=== PATIENT | female | born 1960 | race Caucasian/White ===

== ENCOUNTER 2019-08-23 10:07 | Emergency (ER) | payer OTHER, SELFPAY ==
[2019-08-23 10:09] VITALS: BP 151/91; PULSE 75; RESP 17; TEMP 36.9; O2SAT 97; BMI 31.4
--- NOTE | 2019-08-23 10:11 | NURSING ---
NO OLD EKGS
--- NOTE | 2019-08-23 10:47 | EKG12_ITS ---
Test Reason : PALPS Blood Pressure : / mmHG Vent. Rate : 075 BPM Atrial Rate : 075 BPM P-R Int : 184 ms QRS Dur : 088 ms QT Int : 394 ms P-R-T Axes : 043 056 052 degrees QTc Int : 439 ms Sinus rhythm with marked sinus arrhythmia Otherwise normal ECG Confirmed by RADHA SAHU, ANDER ([id number]), food expeditor TORI POLK ([id number]) on 08/25/2019 11:54:28 AM Referred By: FARNAZ Confirmed By:ANDER GARCIA MD
--- NOTE | 2019-08-23 10:48 | ED.VIS.GEN ---
History of Present Illness Chief Complaint: Palpitations Informant: Patient Onset: Month(s) Context: Gradual Onset Timing: Intermittent Narrative: Patient is a 59-year-old female with history of hypertension and seasonal allergies presenting with palpitations and feeling strange. Patient states she has had episodes over the past year but that has been worsening in frequency over the past month. She states she feels palpitations and fluttering in her chest. When this happens she feels off and her vision changes she feels nauseous and her arms feel heavy. She does not have associated chest pain. She not had any vomiting, abdominal pain or diarrhea. Her parents both have a history of atrial fibrillation. Last night when she had episode she checked her heart rate and noticed that her heart rate was jumping between the 90s and the 60s. She talk to her mother who is a retired nurse who recommended she get checked out. Patient moved to the [place] area in April from [place]. Her PCP is still in [place] she is been trying to find a local doctor. Patient states he sometimes has some swelling in her ankles denies any significant swelling of her legs. She denies any shortness of breath or cough. She denies any other complaints at this time. Past Medical History - Allergies and Home Meds Allergies/Adverse Reactions: Allergies Sulfa (Sulfonamide Antibiotics) Allergy (Verified 08/23/19 10:08) Hives amoxicillin [From Augmentin] Adverse Reaction (Verified 08/23/19 10:08) Upset Stomach clavulanic acid [From Augmentin] Adverse Reaction (Verified 08/23/19 10:08) Upset Stomach Primary Care Physician: Shaun Allan MD [NON-STAFF] - Past Medical History: - - HTN Surgical History: cholecystectomy Smoking Status: Former smoker Alcohol: None Drugs: None Review of Systems General: Reports: Malaise. Denies: Chills, Fever, Sweats Eyes: Reports: Visual changes - bilaterally - with fluttering episdoes . Denies: Diplopia ENT: Denies: Rhinorrhea, Sore throat Cardiovascular: Reports: Palpitations. Denies: Chest pain, Heart racing Respiratory: Denies: Dyspnea, Cough, Dyspnea on exertion Gastrointestinal: Denies: Abdominal pain, Nausea, Vomiting, Diarrhea, Melena, Hematochezia Genitourinary: Denies: Dysuria, Hematuria, Frequency Musculoskeletal: Denies: Back pain, Extremity Pain Skin: Denies: Rash, Wounds Neurological: Denies: Headache, Weakness, Numbness Physical Exam Vital Signs/Narrative: Vital Signs Temp Pulse Resp BP Pulse Ox 08/23/19 10:09 98.5 F 75 17 151/91 H 97 Inital Vital Signs reviewed: Yes General: Well nourished, Well developed, No Acute Distress Head: Normocephalic, Atraumatic Eyes: Perrl, EOMI ENT: Moist mucous membranes, No rhinorrhea Neck: Supple, Nontender Cardiovascular: Regular rate, Regular rhythm, No murmurs. Negative for: Murmur Respiratory: No distress, CTA bilaterally, Chest nontender Abdomen: Soft, Nontender, Nondistended, Normal bowel sounds Back: Nontender, Normal Inspection Extremities: Nontender, No edema Skin: Normal color, No rash Neurological: Alert, Oriented x3, Cranial nerves II-XII grossly intact, Normal Strength, Normal Sensation Psychological: Normal affect, Normal Mood Diagnostic/Tx/Re-eval Chest X-Ray - ED: 2 View, Read by ED Physician, Read by Radiologist, No Acute Disease Clinical Impression(s) from Imaging Studies Chest X-Ray 08/23/19 11:15 IMPRESSION: Normal x-ray examination of the chest. Electronically Signed: Willis Daugherty, at 11:38 EST , Service support , Laboratory Data 08/23/19 08/23/19 08/23/19 11:00 11:00 11:00 WBC 8.7 RBC 4.49 Hgb 14.0 Hct 42.3 MCV 94.2 MCH 31.2 MCHC 33.1 RDW Std Deviation 43.0 RDW Coeff of Ksenia 12.3 Plt Count 271 MPV 10.2 Immature Gran % (Auto) 0.300 Neut % (Auto) 53.4 Lymph % (Auto) 35.6 [place] % (Auto) 7.7 Eos % (Auto) 2.1 Baso % (Auto) 0.9 Absolute Neuts (auto) 4.6 Absolute Lymphs (auto) 3.08 Nucleated RBC % 0 D-Dimer Quant (PE/DVT) 0.30 Sodium 139 Potassium 3.9 Chloride 106 Carbon Dioxide 28.0 Anion Gap 5 BUN 12 Creatinine 0.87 Estim Creat Clear Calc 66.79 Est GFR (MDRD) Af Amer 87 Est GFR (MDRD) Non-Af 72 BUN/Creatinine Ratio 13.8 Glucose 88 Calcium 9.0 Troponin I < 0.015 TSH 2.53 - Rhythm Strip Rhythm Strip: Sinus Rhythm Rate: 75 - EKG Initial EKG Interpretation: Sinus Rhythm, Sinus Arrythmia, - - Normal sinus rhythm at a rate of 75 however patient does have sinus arrhythmia. DE interval 184 QRS 88 QTc [address] segments - Medical Decision Making Patient evaluated for episodes of fluttering in her chest/palpitations. It is occurring with more frequency but is been ongoing for the past few months. Patient appears nontoxic in no acute distress. Her vital signs are normal. She does not have any significant arrhythmia or PVCs on telemetry. She does have sinus arrhythmia on her or EKG. TSH, CBC, BMP and d-dimer are all normal. Chest x-ray does not show any acute process. I do think patient is safe for outpatient follow-up of this. She has appointment to establish at [facility] in September but she would like another referral as well. She is counseled that she might need to follow-up with her old primary care doctor and [facility] if it takes too long for her to get seen in this area. Patient is counseled on signs and symptoms requiring return to the emergency room. Patient verbalizes agreement and understand this plan. Patient discharged home in stable and improved condition. ED Disposition - Plan for ED Patient: Disposition: Home or Assisted Living Diagnosis: Sinus arrhythmia, Palpitations Instructions: Palpitations Referrals: Shaun Allan MD [NON-STAFF] - Maylin Beltran DO [NON-STAFF] - Additional Instructions: Return to the emergency room if you have worsening symptoms or if your heart rate is staying above 100 bpm. It is very important that you follow-up with your primary care doctor. At this time I think you are safe to go home you do not have any signs of atrial fibrillation or other abnormalities based on your blood work today.
[2019-08-23 11:15] LABS: Absolute Lymphocyte Count 3.08 X10^3/uL (0.83-4.51); Absolute Neutrophil Count 4.6 X10^3/uL (2.0-7.7); Basophil# 0.08 X10^3/uL; Basophil% 0.9 % (0-1); Eosinophil# 0.18 X10^3/uL; Eosinophils% 2.1 % (0-5); Hematocrit 42.3 % (37-47); Lymphocyte # 3.08 X10^3/ul (4.0); Lymphocyte % 35.6 % (19-41); Mean Corp Hgb Conc 33.1 g/dL (32-36); Mean Corpuscular Hgb 31.2 pg (27.0-32.0); Mean Corpuscular Volume 94.2 fL (81-99); Mean Platelet Vol. 10.2 fl (6.2-12.0); Monocyte# 0.67 X10^3/uL; Monocyte% 7.7 % (0-10); NRBC Flagged by Analyzer 0 % (0-5); Neutrophil # 4.62 X10^3/uL (2.7-7.7); Neutrophil % 53.4 % (47-70); Platelet Count 271 K/mm3 (150-450); RBC Distribution Width CV 12.3 % (11.6-14.6); Red Blood Count 4.49 M/mm3 (4.2-5.4); White Blood Count 8.7 K/mm3 (4.4-11.0)
--- NOTE | 2019-08-23 11:15 | RAD_ITS ---
STUDY: X-RAY CHEST REASON FOR EXAM: Female, 59 years old. Palpitations. TECHNIQUE: PA and lateral views of the chest. COMPARISON: None. FINDINGS: The lungs are clear and expanded. There is no demonstrated pleural abnormality. Normal size heart. Normal mediastinum and pepe. Normal visualized pulmonary arteries. Normal visualized aortic arch and descending thoracic aorta. There are degenerative changes of the visualized thoracic spine. Normal visualized ribs, clavicles, and shoulders. There is no demonstrated abnormality of the visualized soft tissue structures of the upper abdomen. RAD/Chest PA and Lateral IMPRESSION: Normal x-ray examination of the chest. Electronically Signed: Willis Daugherty, at 11:38 EST , Service support ,
[2019-08-23 11:53] LABS: Anion Gap 5 (5-15); BUN 12 mg/dL (7-18); BUN/Creat Ratio 13.8 RATIO (10-20); Chloride 106 mmol/L (98-107); Creatinine, Serum 0.87 mg/dL (0.55-1.02); EST Glomerular Filtration Rate 72 mL/min (>60); Est Glom Filt Rate - Afr Amer 87 mL/min (>60); Estimated Creatinine Clearance 66.79 ml/min; Glucose 88 mg/dL (74-106); Potassium 3.9 mmol/L (3.5-5.1); Sodium Level 139 mmol/L (136-145); Thyroid Stim Hormone (TSH) 2.53 uIU/mL (0.358-3.74)
[2019-08-23 12:48] VITALS: PULSE 78; RESP 16; O2SAT 98
== END 2019-08-23 12:58 | disposition home or self-care (01) ==
PROVIDERS: Emergency Provider Emergency Medicine
DX: I49.9 Cardiac arrhythmia, unspecified (principal); R00.2 Palpitations; I10 Essential (primary) hypertension; Z87.891 Personal history of nicotine dependence
CPT/HCPCS: 71046; 80048; 84443; 84484; 85025; 85379; 93005; 99285; A4216

== ENCOUNTER → 2019-08-26 09:11 | Outpatient (CLI) | payer OTHER, SELFPAY ==
[2019-08-23 10:09] VITALS: BMI 31.4
[2019-08-31 09:36] VITALS: BMI 31.3
== END ==
PROVIDERS: Family Provider Nurse Practitioner; PCP Nurse Practitioner; Referring Provider Nurse Practitioner; Visit Provider Nurse Practitioner
DX: R00.2 Palpitations (principal); Z87.891 Personal history of nicotine dependence
CPT/HCPCS: 93225; 93226

== ENCOUNTER → 2019-09-04 07:59 | Outpatient (CLI) | payer OTHER, SELFPAY ==
[2019-08-31 09:36] VITALS: BMI 31.3
[2019-09-04 09:15] LABS: AST(SGOT) 15 U/L (15-37); Alanine Aminotransfer ALT/SGPT 23 U/L (13-56); Albumin, Serum 3.8 g/dL (3.2-5.0); Alkaline Phosphatase 74 U/L (45-117); Cholesterol 193 mg/dL (200); Globulin 3.4 g/dL (2.2-4.2); High Density Lipoprotein 87 mg/dL; Protein, Total 7.2 g/dL (6.4-8.2); Triglycerides 201 mg/dL; Very Low Density Lipoprotein 40 mg/dL (5-40)
== END ==
PROVIDERS: Family Provider Nurse Practitioner; PCP Nurse Practitioner; Referring Provider Internal Medicine Cardiovascular Disease; Visit Provider Internal Medicine Cardiovascular Disease
DX: Z13.220 Encounter for screening for lipoid disorders (principal)
CPT/HCPCS: 36415; 80061; 80076

== ENCOUNTER → 2019-09-07 07:43 | Outpatient (CLI) | payer OTHER, SELFPAY ==
[2019-08-23 10:09] VITALS: BMI 31.4
[2019-08-31 09:36] VITALS: BMI 31.3
--- NOTE | 2019-09-07 07:44 | ECHOD_ITS ---
Reason For Study: Arrhythmia Procedure This was a 2D Doppler, Color Flow transthoracic echocardiogram. Exam performed in department. Left Ventricle Normal size and thickness. The estimated ejection fraction is 65 %. Stage 1 diastolic dysfunction. No regional wall motion abnormalities noted. Right Ventricle Normal size and thickness. Normal systolic function. Atria Normal left atrium. Normal right atrium. Normal atrial septum. Mitral Valve The mitral valve is structurally normal. No prolapse or stenosis seen. Tricuspid Valve Normal tricuspid valve. Trivial tricuspid valve insufficiency. Right ventricular systolic pressure estimated to be 27 mmHg. Aortic Valve Trisinus/trileaflet aortic valve. Trivial aortic valve insufficiency. Pulmonic Valve Normal pulmonic valve. Trivial pulmonic valve insufficiency. Great Vessels Normal aortic root. Normal arch. Normal inferior vena cava. Inferior vena cava collapse with sniff. Pericardium/Pleural No pericardial effusion. MMode/2D Measurements & Calculations LVIDd: 4.5 cm IVSd: 0.93 cm Ao root diam: 3.1 cm LVIDs: 2.6 cm LVPWd: 0.83 cm RVDd: 3.1 cm FS: 42.0 % LAV(MOD-bp): 33.8 ml EDV(MOD-sp4): 82.2 ml EDV(MOD-sp2): 86.9 ml LAV(MOD-bp) Indexed: 17.3 ml/m2 ESV(MOD-sp4): 41.6 ml EF(MOD-sp2): 60.6 % LAV(MOD-sp2): 33.2 ml EF(MOD-sp4): 49.4 % LAV(MOD-sp4): 33.0 ml SV(MOD-sp4): 40.6 ml SV(MOD-sp2): 52.7 ml LA A4 area: 13.4 cm2 LA dimension(2D): 3.3 cm RA A4 area: 10.9 cm2 Doppler Measurements & Calculations MV E max tree: 82.7 cm/sec Lat Peak E' Tree: 9.8 cm/sec Med Peak E' Tree: 7.0 cm/sec MV A max tree: 92.7 cm/sec E/E' lat: 8.5 E/E' med: 11.8 MV E/A: 0.89 Ao V2 max: 114.2 cm/sec LV V1 max: 86.2 cm/sec PA V2 max: 92.0 cm/sec Ao max P.2 mmHg LV V1 max P.0 mmHg TR max tree: 241.5 cm/sec TR max P.3 mmHg Interpretation Summary The estimated ejection fraction is 65 %. Stage 1 diastolic dysfunction. Trivial tricuspid valve insufficiency. Right ventricular systolic pressure estimated to be 27 mmHg. Trivial aortic valve insufficiency. There is no comparison study available. Ordering Physician: Joseph Patten Referring Physician: Shakila Rinaldi Performed By: Angeles Negrete RDCS
== END ==
PROVIDERS: Family Provider Nurse Practitioner; PCP Nurse Practitioner; Referring Provider Internal Medicine Cardiovascular Disease; Visit Provider Internal Medicine Cardiovascular Disease
DX: I49.1 Atrial premature depolarization (principal); I10 Essential (primary) hypertension; R00.2 Palpitations; Z87.891 Personal history of nicotine dependence
CPT/HCPCS: 93306

== ENCOUNTER → 2019-09-15 10:20 | Outpatient (CLI) | payer OTHER, SELFPAY ==
[2019-08-31 09:36] VITALS: BMI 31.3
--- NOTE | 2019-09-15 10:23 | STEWCON_ITS ---
Reason For Study: ARRHYTHMIA-OTHER Stress Results Protocol: Zac Protocol WITH DEFINITY Maximum Predicted HR: 163 bpm Target HR: 139 bpm % Maximum Predicted HR: 87 % DurationHeart Rate Stage (mm:ss) (bpm) BP Comment BASELINE 71 122/764 CC DEFINITY FOR TEST STAGE 1 3:00 106 150/82 STAGE 2 3:00 122 164/80 STAGE 3 3:00 142 158/88LIGHTHEADED, FEELS FLUTTERING IN HER CHEST TO THROAT RECOVERY 86 128/88 Stress Duration: 9:00 mm:ss Maximum Stress HR: 142 bpm Baseline Echocardiogram Findings The estimated ejection fraction is 65 %. Stress Echo Wall motion Data Resting WM Intermediate WM Stress WM Resting Wall Motion Wall Motion Stress No regional wall motion No regional wall motion abnormalities noted. abnormalities noted. EKG Data The baseline ECG displays normal sinus rhythm. The patient exercised according to the regular Zac protocol for a total duration of 9:00. The maximum heart rate attained was 153 beats per minute. This was 93% of maximum predicted heart rate. The patient exercised into stage 4 of the Zac protocol. During stress, there were no ST or T wave changes noted to suggest ischemia. No clinical angina was noted. Interpretation Summary The estimated ejection fraction is 65 %. Normal, adequate, treadmill echocardiogram. Negative for ischemia by EKG and echocardiographic criteria. Rare PVC noted. Appropriate blood pressure response to exercise. Average exercise capacity for age. Test terminated due to the attainment target heart rate. Final LVEF is 75%. Decrease sensitivity due to poor echo windows requiring Definity agent. No complications. The study was technically difficult. Contrast injection was performed. Ordering Physician: Joseph Patten MD Referring Physician: Joseph Patten Performed By: Daria Espinosa, LILY, RVT
== END ==
PROVIDERS: Family Provider Nurse Practitioner; PCP Nurse Practitioner; Referring Provider Internal Medicine Cardiovascular Disease; Visit Provider Internal Medicine Cardiovascular Disease
DX: I49.1 Atrial premature depolarization (principal); I10 Essential (primary) hypertension; R00.2 Palpitations
CPT/HCPCS: 93017; 93350; Q9957; A4216; C8928

== ENCOUNTER → 2020-02-29 15:21 | Outpatient (CLI) | payer OTHER, SELFPAY ==
[2019-08-31 09:36] VITALS: BMI 31.3
--- NOTE | 2020-02-29 15:28 | BI_ITS ---
MAMMOGRAPHY - BILATERAL SCREENING REASON FOR EXAM: Female, 59 years old. Routine annual screening examination. PERTINENT HISTORY: Mother with breast cancer. History of prior bilateral breast reduction surgery. TECHNIQUE: Digital bilateral breast lizbeth (3D mammographic acquisition) in the CC and MLO projections. 2-D mediolateral oblique (MLO) and craniocaudad (CC) views of both breasts were obtained. CAD: Full Field Digital Mammography with Computer Added Detection was performed. COMPARISON: Comparison is made with prior outside examination dated October 28, 2018. FINDINGS: Breast Composition: There are scattered areas of fibroglandular density. There are no dominant masses or suspicious calcifications. No other significant abnormalities are identified. There has been no significant change since the prior study. BI/SCREEN MAMM (CAD) W/LIZBETH BILAT IMPRESSION: Stable bilateral screening mammogram. Yearly follow-up mammogram recommended. (A) ASSESSMENT CATEGORY: BIRADS Category 1: Negative. A letter regarding these results will be sent to the patient by the facility within 30 days. Approximately 10% of breast cancers are not detected by mammography. A normal mammogram should not delay biopsy of a clinically suspicious abnormality. [id number] Electronically Signed: Willis Daugherty, at 14:11 EDT , Service support ,
--- NOTE | 2020-02-29 15:29 | BD_ITS ---
STUDY: DUAL ENERGY X-RAY ABSORPTIOMETRY / DXA REASON FOR EXAM: Female, 59 years old. 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 COMPARISON: None. FINDINGS: Lumbar Spine (L1-L4): g/cm2 (1.352) / T-score (1.6) / Z-score (2.6) Findings are suggestive of normal bone density with a low fracture risk. Left Femur Total: g/cm2 (1.078) / T-score (0.6) / Z-score (1.4) Left Femoral Neck: g/cm2 (1.049) / T-score (0.1) / Z-score (1.2) Right Femur Total: g/cm2 (1.088) / T-score (0.6) / Z-score (1.4) Right Femoral Neck: g/cm2 (0.978) / T-score (-0.4) / Z-score (0.7) BD/Dexa Bone Density Study IMPRESSION: The patient is considered normal as outlined below according to World Devin Organization (WHO) criteria with a low fracture risk. Reference Information: The T-score is the number of standard deviations above or below the standard which is normal for young adults at their peak bone mineral density. The World Health Organization (WHO) interprets the T-scores as follows: Above -1 Normal bone density Between -1 and -2.5 Osteopenia Equal to / or below -2.5 Osteoporosis As a practical clinical guideline, osteopenia may be graded as follows: Mild -1 through -1.5 Moderate -1.6 through -2.0 Severe -2.1 through -2.4 The Z-score is the number of standard deviations above or below age-matched controls. A Z-score of less than -1.5 would be considered abnormal. References: 1. NIH Osteoporosis and Related Bone Diseases http://www.osteo.org 2. International Society for Clinical Densitometry http://www.iscd.org 3. National Osteoporosis Foundation http://www.nof.org Electronically Signed: Willis Daugherty, at 10:41 EDT , Service support ,
== END ==
PROVIDERS: PCP Nurse Practitioner; Referring Provider Nurse Practitioner; Visit Provider Nurse Practitioner
DX: Z78.0 Asymptomatic menopausal state (principal); Z12.31 Encounter for screening mammogram for malignant neoplasm of breast
CPT/HCPCS: 77063; 77067; 77080

== ENCOUNTER → 2020-03-30 08:11 | Outpatient (CLI) | payer OTHER, SELFPAY ==
[2020-03-06 13:06] VITALS: BMI 33.4
[2020-03-30 08:39] LABS: Absolute Lymphocyte Count 2.49 X10^3/uL (0.83-4.51); Absolute Neutrophil Count 3.6 X10^3/uL (2.0-7.7); Basophil# 0.07 X10^3/uL; Eosinophil# 0.22 X10^3/uL; Eosinophils% 3.2 % (0-5); Hematocrit 39.7 % (37-47); Lymphocyte # 2.49 X10^3/ul (4.0); Lymphocyte % 36.1 % (19-41); Mean Corp Hgb Conc 32.7 g/dL (32-36); Mean Corpuscular Hgb 31.6 pg (27.0-32.0); Mean Corpuscular Volume 96.4 fL (81-99); Mean Platelet Vol. 9.9 fl (6.2-12.0); Monocyte# 0.53 X10^3/uL; Monocyte% 7.7 % (0-10); NRBC Flagged by Analyzer 0 % (0-5); Neutrophil # 3.56 X10^3/uL (2.7-7.7); Neutrophil % 51.7 % (47-70); Platelet Count 257 K/mm3 (150-450); RBC Distribution Width CV 12.6 % (11.6-14.6); RBC Distribution Width SD 44.2 fl (35.1-43.9); Red Blood Count 4.12 M/mm3 (4.2-5.4); White Blood Count 6.9 K/mm3 (4.4-11.0)
[2020-03-30 09:35] LABS: ALB/GLOB Ratio 1.1 RATIO (0.9-2.4); AST(SGOT) 15 U/L (15-37); Alanine Aminotransfer ALT/SGPT 23 U/L (13-56); Albumin, Serum 3.6 g/dL (3.2-5.0); Alkaline Phosphatase 71 U/L (45-117); Anion Gap 5 (5-15); BUN 14 mg/dL (7-18); BUN/Creat Ratio 18.1 RATIO (10-20); Bilirubin, Direct 0.11 mg/dL (0.00-0.30); Calcium,Total 9.3 mg/dL (8.5-10.1); Chloride 108 mmol/L (98-107); Cholesterol 195 mg/dL (200); Creatinine, Serum 0.77 mg/dL (0.55-1.02); EST Glomerular Filtration Rate 81 mL/min (>60); Est Glom Filt Rate - Afr Amer 99 mL/min (>60); Globulin 3.2 g/dL (2.2-4.2); Glucose 100 mg/dL (74-106); High Density Lipoprotein 78 mg/dL; Potassium 4.2 mmol/L (3.5-5.1); Protein, Total 6.8 g/dL (6.4-8.2); Sodium Level 141 mmol/L (136-145); Triglycerides 215 mg/dL; Very Low Density Lipoprotein 43 mg/dL (5-40)
[2020-03-30 09:39] LABS: Vitamin B12 721 pg/mL (211-911); Vitamin D,25 Hydroxy 29.6 ng/mL
== END ==
PROVIDERS: Internal Medicine Cardiovascular Disease; PCP Nurse Practitioner; Referring Provider Nurse Practitioner; Visit Provider Nurse Practitioner
DX: R00.2 Palpitations (principal); E53.8 Deficiency of other specified B group vitamins; E78.5 Hyperlipidemia, unspecified; E55.9 Vitamin D deficiency, unspecified
CPT/HCPCS: 36415; 80053; 80061; 82248; 82306; 82607; 82746; 85025

== ENCOUNTER 2020-11-23 13:42 | Outpatient (RCR) | payer OTHER, SELFPAY ==
[2020-09-07 08:59] VITALS: BMI 33.1
[2020-11-23] MEDS: COVID-19 VACC, MRNA(PFIZER)/PF 30 MCG/0.3 ML SYRINGE IM (11:35)
[2020-12-14] MEDS: COVID-19 VACC, MRNA(PFIZER)/PF 30 MCG/0.3 ML SYRINGE IM (11:31)
== END 2020-11-23 23:59 ==
LOC: IMMUN 13:42
PROVIDERS: PCP Nurse Practitioner; Visit Provider Family Medicine
DX: Z23 Encounter for immunization (principal)
CPT/HCPCS: 0001A; 0002A; 91300

== ENCOUNTER → 2021-01-03 08:20 | Outpatient (CLI) | payer OTHER, SELFPAY ==
[2020-09-07 08:59] VITALS: BMI 33.1
--- NOTE | 2021-01-03 08:40 | RAD_ITS ---
PROCEDURE: SMALL BOWEL SERIES DATE OF EXAMINATION: 01/03/2021. INDICATION: Female, 60 years old. 3 month history of left upper quadrant pain. Acid reflux. PHYSICIAN: Willis Daugherty M.D. FLUOROSCOPY TIME (if supplied): (1:58) minutes/seconds TECHNIQUE: Radiographic and fluoroscopic images were taken of the small intestine following the ingestion of barium. COMPARISON: None. FINDINGS: A preliminary supine KUB was obtained. There is an unremarkable bowel gas pattern. Fecal material is present throughout the colon. Prior cholecystectomy. Phleboliths are present within the pelvis. The lung bases are unremarkable. Mild dextroscoliosis. Degenerative changes of the lower lumbar spine. The patient orally ingested approximately 12 ounces of thin barium Normal visualized fundus, body, and antrum of the stomach. Normal duodenal bulb, C-loop, and proximal jejunum. Normal visualized mucosal folds of the jejunum and ileum. There are no demonstrated dilatations, strictures, or masses of the small intestine. There is no mass displacement of the loops of small intestine. There is a normal motor pattern with barium reaching the colon within approximately 60 minutes. Spot films under fluoroscopic observation demonstrated a normal terminal ileum and ileocecal valve. RAD/Small Bowel Series Only IMPRESSION: Normal small bowel series. Electronically Signed: Willis Daugherty MD at 14:18 EDT , Service support ,
== END ==
PROVIDERS: PCP Nurse Practitioner; Referring Provider Nurse Practitioner; Visit Provider Nurse Practitioner
DX: R10.12 Left upper quadrant pain (principal)
CPT/HCPCS: 74250

== ENCOUNTER → 2021-04-05 10:33 | Outpatient (CLI) | payer OTHER, SELFPAY ==
[2020-09-07 08:59] VITALS: BMI 33.1
--- NOTE | 2021-04-05 10:40 | BI_ITS ---
MAMMOGRAPHY - BILATERAL SCREENING REASON FOR EXAM: Female, 60 years old. Routine annual screening examination. PERTINENT HISTORY: Mother with breast cancer. History of prior bilateral breast reduction surgery. TECHNIQUE: Digital bilateral breast lizbeth (3D mammographic acquisition) in the CC and MLO projections. 2-D mediolateral oblique (MLO) and craniocaudad (CC) views of both breasts were obtained. CAD: Full Field Digital Mammography with Computer Added Detection was performed. COMPARISON: Comparison is made with prior examination dated 02/29/2020 FINDINGS: Breast Composition: There are scattered areas of fibroglandular density. There are no dominant masses or suspicious calcifications. Stable benign-appearing bilateral axillary lymph nodes. No other significant abnormalities are identified. There has been no significant change since the prior study. BI/SCRN MAMM (CAD)W/LIZBETH BILAT IMPRESSION: Stable bilateral screening mammogram. Yearly follow-up mammogram recommended. (A) ASSESSMENT CATEGORY: BIRADS Category 2: Benign. A letter regarding these results will be sent to the patient by the facility within 30 days. Approximately 10% of breast cancers are not detected by mammography. A normal mammogram should not delay biopsy of a clinically suspicious abnormality. [id number] Electronically Signed: Willis Daugherty MD at 12:22 EDT , Service support ,
== END ==
PROVIDERS: PCP Nurse Practitioner
DX: Z12.31 Encounter for screening mammogram for malignant neoplasm of breast (principal); Z80.3 Family history of malignant neoplasm of breast
CPT/HCPCS: 77063; 77067

== ENCOUNTER → 2021-07-17 08:23 | Outpatient (CLI) | payer OTHER, SELFPAY ==
[2021-07-17 11:00] LABS: AST(SGOT) 21 U/L (15-37); Alanine Aminotransfer ALT/SGPT 30 U/L (13-56); Albumin, Serum 3.5 g/dL (3.2-5.0); Alkaline Phosphatase 92 U/L (45-117); Bilirubin, Direct 0.09 mg/dL (0.00-0.30); Cholesterol 177 mg/dL (200); Globulin 3.5 g/dL (2.2-4.2); High Density Lipoprotein 64 mg/dL; Triglycerides 122 mg/dL; Very Low Density Lipoprotein 24 mg/dL (5-40)
== END ==
PROVIDERS: PCP Nurse Practitioner; Referring Provider Internal Medicine Cardiovascular Disease; Visit Provider Internal Medicine Cardiovascular Disease
DX: E78.00 Pure hypercholesterolemia, unspecified (principal)
CPT/HCPCS: 36415; 80061; 80076

== ENCOUNTER → 2022-05-03 | Outpatient (CLI) | payer OTHER, SELFPAY ==
--- NOTE | 2022-05-03 11:55 | BI_ITS ---
MAMMOGRAPHY - BILATERAL SCREENING REASON FOR EXAM: Female, 62 years old. Routine annual screening examination. PERTINENT HISTORY: Mother with breast cancer. History of prior bilateral breast reduction surgery. TECHNIQUE: Digital bilateral breast lizbeth (3D mammographic acquisition) in the CC and MLO projections. 2-D mediolateral oblique (MLO) and craniocaudad (CC) views of both breasts were obtained. CAD: Full Field Digital Mammography with Computer Added Detection was performed. COMPARISON: Comparison is made with prior study of 04/05/2021 and 02/29/2020. FINDINGS: Breast Composition: There are scattered areas of fibroglandular density. There are no dominant masses or suspicious calcifications. Stable small benign-appearing bilateral axillary lymph nodes. No other significant abnormalities are identified. There has been no significant change since the prior study. BI/SCRN MAMM (CAD)W/LIZBETH BILAT IMPRESSION: Stable bilateral screening mammogram. Yearly follow-up mammogram recommended. (A) ASSESSMENT CATEGORY: BIRADS Category 2: Benign. A letter regarding these results will be sent to the patient by the facility within 30 days. Approximately 10% of breast cancers are not detected by mammography. A normal mammogram should not delay biopsy of a clinically suspicious abnormality. [id number] Electronically Signed: Willis Daugherty MD at 12:53 EDT ,
== END | disposition home or self-care (01) ==
PROVIDERS: PCP Nurse Practitioner; Visit Provider Nurse Practitioner Family
DX: Z12.31 Encounter for screening mammogram for malignant neoplasm of breast (principal); Z80.3 Family history of malignant neoplasm of breast
CPT/HCPCS: 77063; 77067

== ENCOUNTER → 2022-07-30 | Outpatient (CLI) | payer OTHER, SELFPAY ==
[2022-07-30 12:58] LABS: Anion Gap 6 (5-15); BUN 14 mg/dL (7-18); BUN/Creat Ratio 15.9 RATIO (10-20); Chloride 107 mmol/L (98-107); Creatinine, Serum 0.88 mg/dL (0.55-1.02); EST Glomerular Filtration Rate 70 mL/min (>60); Est Glom Filt Rate - Afr Amer 84 mL/min (>60); Glucose 100 mg/dL (74-106); Potassium 3.8 mmol/L (3.5-5.1); Sodium Level 142 mmol/L (136-145)
[2022-07-30 13:13] LABS: AST(SGOT) 15 U/L (15-37); Alanine Aminotransfer ALT/SGPT 27 U/L (13-56); Albumin, Serum 3.7 g/dL (3.2-5.0); Alkaline Phosphatase 86 U/L (45-117); Anion Gap 4 (5-15); BUN 14 mg/dL (7-18); BUN/Creat Ratio 15.6 RATIO (10-20); Bilirubin, Direct 0.11 mg/dL (0.00-0.30); Calcium,Total 9.3 mg/dL (8.5-10.1); Chloride 107 mmol/L (98-107); Cholesterol 188 mg/dL (200); EST Glomerular Filtration Rate 68 mL/min (>60); Est Glom Filt Rate - Afr Amer 82 mL/min (>60); Globulin 3.4 g/dL (2.2-4.2); Glucose 98 mg/dL (74-106); High Density Lipoprotein 62 mg/dL; Potassium 3.6 mmol/L (3.5-5.1); Protein, Total 7.1 g/dL (6.4-8.2); Sodium Level 142 mmol/L (136-145); Triglycerides 248 mg/dL; Very Low Density Lipoprotein 50 mg/dL (5-40)
== END | disposition home or self-care (01) ==
LOC: LAB 11:49
PROVIDERS: Internal Medicine Cardiovascular Disease; PCP Nurse Practitioner Family; Referring Provider Physician Assistant Medical; Visit Provider Physician Assistant Medical
DX: I10 Essential (primary) hypertension (principal); E78.00 Pure hypercholesterolemia, unspecified
CPT/HCPCS: 80048; 80061; 80076

== ENCOUNTER → 2023-01-01 | Outpatient (CLI) | payer OTHER, SELFPAY ==
--- NOTE | 2023-01-01 14:06 | BD_ITS ---
STUDY: DUAL ENERGY X-RAY ABSORPTIOMETRY / DXA REASON FOR EXAM: Female, 62 years old. [id number] TECHNIQUE: Bone Mineral Density (BMD) measurements of lumbar spine and bilateral hips were obtained. COMPARISON: Comparison is made with prior study dated February 29, 2020. FINDINGS: Lumbar Spine (L1-L4): g/cm2 (1.138) / T-score (1.1) / Z-score (2.5) Findings are suggestive of normal bone density with a low fracture risk. Left Femur Total: g/cm2 (1.040) / T-score (0.8) / Z-score (1.8) Left Femoral Neck: g/cm2 (0.883) / T-score (0.3) / Z-score (1.6) Right Femur Total: g/cm2 (1.040) / T-score (0.8) / Z-score (1.8) Right Femoral Neck: g/cm2 (0.867) / T-score (0.2) / Z-score (1.5) The T-Scores on the most recent prior examination were: Lumbar Spine (L1-L4): There has been worsening of bone density since the previous examination. Left Femur Total: which represents an improvement of 3%. Right Femur Total: which represents an improvement of 2%. BD/Dexa Bone Density Study IMPRESSION: The patient is considered normal as outlined below according to World Devin Organization (WHO) criteria with a low fracture risk. There has been improvement of bone density since the previous examination. Reference Information: The T-score is the number of standard deviations above or below the standard which is normal for young adults at their peak bone mineral density. The World Health Organization (WHO) interprets the T-scores as follows: Above -1 Normal bone density Between -1 and -2.5 Osteopenia Equal to / or below -2.5 Osteoporosis As a practical clinical guideline, osteopenia may be graded as follows: Mild -1 through -1.5 Moderate -1.6 through -2.0 Severe -2.1 through -2.4 The Z-score is the number of standard deviations above or below age-matched controls. A Z-score of less than -1.5 would be considered abnormal. References: 1. NIH Osteoporosis and Related Bone Diseases www osteo.org 2. International Society for Clinical Densitometry www iscd.org 3. National Osteoporosis Foundation www nof.org Electronically Signed: Willis Daugherty MD at 15:42 EDT ,
== END | disposition home or self-care (01) ==
LOC: OPBD 13:58
PROVIDERS: PCP Nurse Practitioner Family; Referring Provider Nurse Practitioner Family; Visit Provider Nurse Practitioner Family
DX: Z78.0 Asymptomatic menopausal state (principal)
CPT/HCPCS: 77080

== ENCOUNTER 2023-01-06 14:51 | Outpatient (CLI) | payer OTHER, SELFPAY ==
--- NOTE | 2023-01-06 14:53 | CT_ITS ---
STUDY: LOW DOSE CT LUNG CANCER SCREENING REASON FOR EXAM: Female, 62 years old. Long history of smoking. Screening for lung cancer. RADIATION DOSAGE (If Supplied By Facility): CTDIvol = ( 4.02 ) mGy, DLP = ( 131.90 ) mGycm TECHNIQUE: No contrast was administered. Low dose technique was utilized (average mAS-38 and kVp 120). 1.25 mm axial source images with a slice interval of 1.25-mm were reconstructed in lung windows. 2.5 mm axial source images with a slice interval of 2.5-mm were reconstructed in lung windows. 5.0 mm axial source images with a slice interval of 5.0-mm were reconstructed in soft tissue windows. Nodule measured using lung windows on PACS and/or independent workstation with automated measurement of minimum and maximum diameter. Nodule measurement reported as average diameter rounded to the nearest whole number. Growth is defined as an increase ins size of greater than 1.5 mm. COMPARISON: None. NODULES: The lungs are clear and expanded. There are no suspicious lung nodules There are no endobronchial lesions. There is no demonstrated pleural abnormality. Normal heart and pericardium. Normal mediastinum. Normal hilar regions. Normal unenhanced pulmonary arteries. There is retropharyngeal right subclavian artery. Normal aorta arch and descending thoracic aorta. There are multi-level degenerative changes of the thoracic spine. There is no demonstrated abnormality of the visualized upper abdomen. CT/Low Dose CT Lung Screening IMPRESSION: Lung-RADS category 2. Benign findings. There is no evidence of malignancy. Recommendation: Routine screening CT scan in one year. IMPORTANT NOTES FOR USE: ACR Lung-RADS Version 1.0 Assessment Categories Release Date: January 03, 2014 Category: Coded 0-4 bases on nodule(s) with highest degree of suspicion. Negative screen is defined as categories 1 and 2; a positive screen is defined as categories 3 and 4. Category 3 and 4A nodules that are unchanged on interval CT should be coded as category 2, and individuals returned to screening in 12 months. Category 4X: Category 3 or 4 nodules with additional imaging findings that increase the suspicion of lung cancer, such as spiculation, GGN that doubles in size in 1 year, enlarged lymph notes, etc. Category Modifiers: S (significant finding unrelated to lung cancer) and C (prior history of treated lung cancer) may be added to the 0-4 Lung-RADS Electronically Signed: Viky Leo MD at 3:53 EDT ,
== END 2023-01-06 23:59 | disposition home or self-care (01) ==
LOC: CT 14:52
PROVIDERS: PCP Nurse Practitioner Family; Referring Provider Nurse Practitioner Family; Visit Provider Nurse Practitioner Family
DX: Z12.2 Encounter for screening for malignant neoplasm of respiratory organs (principal); F17.201 Nicotine dependence, unspecified, in remission
CPT/HCPCS: 71271

== ENCOUNTER 2023-02-28 20:31 | Emergency (ER) | payer OTHER, SELFPAY ==
[2023-02-28 20:32] VITALS: BP 159/90; PULSE 88; RESP 16; TEMP 36.4; O2SAT 98; BMI 32.3
--- NOTE | 2023-02-28 20:42 | CT_ITS ---
INDICATION: abscess EXAMINATION: CT FACIAL BONES - CT Maxillofacial W/ Contrast Injection TECHNIQUE: Helically acquired images were obtained of the facial bones. A radiation dose optimization technique was used for this scan. IV Contrast dosage and agent: None. RADIATION DOSAGE (If Supplied By Facility): CTDIvol = ( 29.38 ) mGy, DLP = ( 716.41 ) mGycm COMPARISON: FINDINGS: SOFT TISSUES: There is left facial subcutaneous swelling. No discrete fluid collections. VISUALIZED PARANASAL SINUSES: Mucosal thickening, left more than right. VISUALIZED MASTOID AIR CELLS: Clear. FACIAL BONES, MANDIBLE AND TMJs: No displaced facial bone fracture. No lytic or blastic abnormality. VISUALIZED DENTITION: There is a lucency around the roots of the last left upper molar which extends into the left maxillary sinus. This may represent an abscess. ORBITAL CONTENTS: Both globes, extraocular muscles and retrobulbar fat appear unremarkable. CT/Sinus/Facial Bone WITH Contras IMPRESSION: There is a lucency around the roots of the last left upper molar which extends into the left maxillary sinus. This may represent an abscess. Mucosal thickening in the paranasal sinuses, especially of the left maxillary sinus. Electronically Signed: Robert Cuevas DO at 22:15 EDT Reading Location ID and State: [facility] / [place] Tel [phone], Service support ,
--- NOTE | 2023-02-28 20:53 | EDS_ITS ---
HPI History of Present Illness Chief Complaint: Dental Informant: patient Narrative Narrative: Patient presents with recurrent facial swelling. Patient states she developed left facial pain and swelling about 3 weeks ago. She was started on an antibiotic (clindamycin) and seen by [facility] endodontics in [place]. A week ago yesterday they did a procedure where they went through her mouth into the abscessed area in the left maxilla and drained it. She was seen yesterday and had her final stitch removed. Overnight she started getting left facial pain and swelling again. She called her core dipper this morning and was placed on Zithromax and written pain pills. Patient states she tried taking just ibuprofen and Tylenol and has taken 1 dose of Zithromax. This evening due to increased pain she did take 1 dose of her stronger pain medication. She presents to the ER tonight stating that she feels the swelling is getting worse. While at home she thought she had some tightness in her throat as well. She states since sitting upright her symptoms seem to be somewhat improved. She has not noted fever. [facility] Medical History Diarrhea following gastrointestinal surgery Essential hypertension Former smoker Hyperlipidemia Palpitations Premature atrial contractions Sinus arrhythmia Vitamin B 12 deficiency Vitamin D deficiency Home Medications cyanocobalamin (vitamin B-12) 1,000 mcg/mL injection solution 100 mcg IM .[id number] 08/25/19 [History Last Taken Unknown] cholecalciferol (vitamin D3) 50 mcg (2,000 unit) tablet 2,000 unit PO DAILY 08/31/19 [History Last Taken Unknown] sertraline 50 mg tablet 50 mg PO DAILY 03/06/20 [History Last Taken Unknown] colestipol 1 gram tablet (Colestid) 2 g PO DAILY diarrhea post cholecystectomy 07/09/21 [History Last Taken Unknown] [id number]-debl 18 mg-FA 400 mcg-calcium 500 mg-vit K 50 mcg tablet (Women's Multivitamin) tab PO 01/09/22 [History Last Taken Unknown] diltiazem HCl 120 mg capsule,extended release 24 hr 120 mg PO DAILY #90 caps 09/16/22 [Rx Last Taken Unknown] lisinopril 10 mg-hydrochlorothiazide 12.5 mg tablet 1 tab PO DAILY #90 tabs 09/16/22 [Rx Last Taken Unknown] Allergy/AdvReac Type Severity Reaction Status Date / Time Sulfa (Sulfonamide Allergy Hives Verified 07/17/22 12:59 Antibiotics) amoxicillin [From Augmentin] AdvReac Upset Verified 07/17/22 12:59 Stomach clavulanic acid AdvReac Upset Verified 07/17/22 12:59 [From Augmentin] Stomach Family History Mother Breast cancer Atrial fibrillation Father CVA (cerebral vascular accident) Atrial fibrillation COPD (chronic obstructive pulmonary disease) Myocardial infarction Abdominal aortic aneurysm Surgical History H/O cataract removal with insertion of prosthetic lens (12/2018) History of bilateral breast reduction surgery (1998) History of cholecystectomy (2017) History of tonsillectomy History of total abdominal hysterectomy Social History Smoking Status: Former smoker how long ago did patient quit smokin years ago alcohol intake: current alcohol intake frequency: holidays/special occasions only substance use type: does not use caffeine: Yes Type: coffee Number of servings: 1 ROS ROS ED Constitutional Constitutional ED: Denies chills or fever(s) Eyes Eyes: Denies change in vision or discharge from eye(s) ENT ENT ED: Reports other Details: Left facial swelling ; Denies discharge from eye(s), rhinorrhea or sore throat Cardiovascular Cardiovascular: Denies chest pain or palpitations Respiratory/Chest Respiratory/Chest: Denies cough or dyspnea Gastrointestinal Gastrointestinal: Denies abdominal pain, nausea or vomiting Musculoskeletal Musculoskeletal: Denies back pain or extremity pain Integumentary Denies Abrasions or rash Neurologic Neurologic: Denies headache(s) or weakness Psychiatric Psychiatric: Denies anxiety or depression Allergic/Immunologic Allergic/Immunologic ED: Denies lip swelling or urticaria EXAM Physical Exam Const Vital Signs: 02/28/23 20:32 Temperature 97.5 F L Temperature Source Temporal Pulse Rate 88 Respiratory Rate 16 Blood Pressure 159/90 H Blood Pressure Mean 113 Pulse Ox 98 Oxygen Delivery Method Room Air Positive well nourished and well developed General Appearance ED: well developed HEENT Reports moist mucous membranes HEENT Narrative: Mild left facial edema over the maxilla. No erythema or excessive skin warmth. Intraoral examination is unremarkable. Posterior pharynx is normal. She is tolerating secretions well and speaks with a strong voice. Eyes PERRL and EOMs intact bilaterally Neck no lymphadenopathy Chest Wall inspection of chest normal and palpation of chest normal Resp normal respiratory effort and clear to auscultation bilaterally Cardio regular rate and regular rhythm GI non-tender Extremity normal to inspection Neuro oriented x3 Psych mental status grossly normal MDM MDM MDM Narrative Medical decision making narrative: Lab work obtained and patient given a dose of IV clindamycin. CT scan of the facial bones with contrast obtained. Lab Data Labs: Laboratory Results - last 24 hr 02/28/23 02/28/23 21:00 21:00 WBC 10.5 RBC 4.03 L Hgb 12.9 Hct 38.6 MCV 95.8 MCH 32.0 MCHC 33.4 RDW Std Deviation 45.0 H RDW Coeff of Ksenia 12.8 Plt Count 220 MPV 9.9 Immature Gran % (Auto) 0.500 Neut % (Auto) 66.3 Lymph % (Auto) 23.3 [place] % (Auto) 7.5 Eos % (Auto) 1.7 Baso % (Auto) 0.7 Absolute Neuts (auto) 6.9 Absolute Lymphs (auto) 2.43 Nucleated RBC % 0 Sodium 142 Potassium 3.5 Chloride 111 H Carbon Dioxide 26.0 Anion Gap 5 BUN 22 H Creatinine 0.89 Estim Creat Clear Calc 62.93 Est GFR (MDRD) Af Amer 83 Est GFR (MDRD) Non-Af 69 BUN/Creatinine Ratio 24.7 H Glucose 141 H Calcium 9.0 Radiography Diagnostic Testing: Clinical Impression(s) from Imaging Studies Facial/Sinus 02/28/23 20:42 IMPRESSION: There is a lucency around the roots of the last left upper molar which extends into the left maxillary sinus. This may represent an abscess. Mucosal thickening in the paranasal sinuses, especially of the left maxillary sinus. Electronically Signed: Robert Cuevas DO at 22:15 EDT , Treatment and Re-Evaluation :: CBC reveals normal white count and differential. Chemistry studies unremarkable. CT scan of the facial bones with contrast obtained to evaluate for possible abscess. There is soft tissue edema noted in the left maxilla with no focal fluid collection. There is a lucency around the roots of the left last upper molar which extends into the left maxillary sinus. This may represent an abscess. Patient also had surgical procedure to this area and may represent postop space. Test results are discussed with the patient. She will continue her antibiotics and pain regimen. She has no evidence of expanding abscess encroaching on airway. She is reassured with this. Return instructions are provided. Discharge Plan Triage Chief Complaint: Dental ED Provider: Kaylee Fleming Dx/Rx/DC Orders Clinical Impression: Abscess, dental, Post-operative pain Instructions: ED Dental Abscess Prescriptions: No Action cyanocobalamin (vitamin B-12) 1,000 mcg/mL solution 100 mcg IM .[id number] cholecalciferol (vitamin D3) 2,000 unit tablet 2,000 unit PO DAILY colestipol [Colestid] 1 gram tablet 2 g PO DAILY Rx Instructions: swallow whole tab w/any liquid;do not crush/chew/cut;administer other meds 1hr before/4hr after taking dose sertraline 50 mg tablet 50 mg PO DAILY Women's Multivitamin 18 mg-400 mcg- 500 mg-50 mcg tablet PO lisinopril-hydrochlorothiazide 10-12.5 mg tablet 1 tab PO DAILY Qty: 90 3RF diltiazem HCl 120 mg capsule,extended release 24hr 120 mg PO DAILY Qty: 90 3RF Primary Care Provider: Irma Ochoa Referrals: Irma Ochoa, [facility] [Primary Care Provider] - Activity Restrictions/Additional Instructions: Follow-up with your core dipper on Friday. Please return to the ER for any worsened or concerning symptoms throughout the weekend. Disposition Disposition: Home, Self Care
[2023-02-28 21:03] LABS: Absolute Lymphocyte Count 2.43 X10^3/uL (0.83-4.51); Absolute Neutrophil Count 6.9 X10^3/uL (2.0-7.7); Basophil# 0.07 X10^3/uL; Basophil% 0.7 % (0-1); Eosinophil# 0.18 X10^3/uL; Eosinophils% 1.7 % (0-5); Hematocrit 38.6 % (37-47); Hemoglobin 12.9 g/dL (12.0-15.0); Lymphocyte # 2.43 X10^3/ul (0.83-4.51); Lymphocyte % 23.3 % (19-41); Mean Corp Hgb Conc 33.4 g/dL (32-36); Mean Corpuscular Volume 95.8 fL (81-99); Mean Platelet Vol. 9.9 fl (6.2-12.0); Monocyte# 0.78 X10^3/uL; Monocyte% 7.5 % (0-10); NRBC Flagged by Analyzer 0 % (0-5); Neutrophil # 6.94 X10^3/uL (2.7-7.7); Neutrophil % 66.3 % (47-70); Platelet Count 220 K/mm3 (150-450); RBC Distribution Width CV 12.8 % (11.6-14.6); Red Blood Count 4.03 M/mm3 (4.2-5.4); White Blood Count 10.5 K/mm3 (4.4-11.0)
[2023-02-28] MEDS: Clindamycin 600 MG/50 ML BAG 100 MG IV (21:12)
[2023-02-28 21:15] LABS: Anion Gap 5 (5-15); BUN 22 mg/dL (7-18); BUN/Creat Ratio 24.7 RATIO (10-20); Chloride 111 mmol/L (98-107); Creatinine, Serum 0.89 mg/dL (0.55-1.02); EST Glomerular Filtration Rate 69 mL/min (>60); Est Glom Filt Rate - Afr Amer 83 mL/min (>60); Estimated Creatinine Clearance 62.93 ml/min; Glucose 141 mg/dL (74-106); Potassium 3.5 mmol/L (3.5-5.1); Sodium Level 142 mmol/L (136-145)
[2023-02-28 22:29] VITALS: PULSE 67; RESP 16; O2SAT 97
== END 2023-02-28 22:44 | disposition home or self-care (01) ==
PROVIDERS: Emergency Provider Emergency Medicine; PCP Nurse Practitioner Family; Visit Provider Emergency Medicine
DX: K04.7 Periapical abscess without sinus (principal); Z87.891 Personal history of nicotine dependence
CPT/HCPCS: 70487; 80048; 85025; 96365; 99283; J7050; Q9967; A4216

== ENCOUNTER → 2023-07-29 | Outpatient (CLI) | payer OTHER, SELFPAY ==
--- NOTE | 2023-07-29 14:02 | BI_ITS ---
MAMMOGRAPHY - BILATERAL SCREENING REASON FOR EXAM: Female, 63 years old. Routine annual screening examination. PERTINENT HISTORY: Mother with breast cancer. History of prior bilateral breast reduction surgery. TECHNIQUE: Digital bilateral breast lizbeth (3D mammographic acquisition) in the CC and MLO projections. 2-D mediolateral oblique (MLO) and craniocaudad (CC) views of both breasts were obtained. CAD: Full Field Digital Mammography with Computer Added Detection was performed. COMPARISON: Comparison is made with prior study dated May 03, 2022 and April 05, 2021. FINDINGS: Breast Composition: There are scattered areas of fibroglandular density. There are no dominant masses or suspicious calcifications. Stable benign-appearing bilateral axillary lymph nodes. No other significant abnormalities are identified. There has been no significant change since the prior study. BI/SCRN MAMM (CAD)W/LIZBETH BILAT IMPRESSION: Stable bilateral screening mammogram. Yearly follow-up mammogram recommended. (A) ASSESSMENT CATEGORY: BIRADS Category 2: Benign. A letter regarding these results will be sent to the patient by the facility within 30 days. Approximately 10% of breast cancers are not detected by mammography. A normal mammogram should not delay biopsy of a clinically suspicious abnormality. [id number] Electronically Signed: Willis Daugherty MD at 13:50 EST ,
== END | disposition home or self-care (01) ==
LOC: OPBI 14:02
PROVIDERS: PCP Nurse Practitioner Family; Referring Provider Nurse Practitioner Family; Visit Provider Nurse Practitioner Family
DX: Z12.31 Encounter for screening mammogram for malignant neoplasm of breast (principal)
CPT/HCPCS: 77063; 77067

== ENCOUNTER → 2023-08-04 | Outpatient (CLI) | payer OTHER, SELFPAY ==
[2023-08-04 15:31] LABS: BNP,B-Type NATRIURETIC PEPTIDE 2.1 pg/mL (0-100)
[2023-08-04 15:39] LABS: Anion Gap 6 (5-15); BUN 19 mg/dL (7-18); BUN/Creat Ratio 20.3 RATIO (10-20); Calcium,Total 9.2 mg/dL (8.5-10.1); Chloride 106 mmol/L (98-107); Creatinine, Serum 0.94 mg/dL (0.55-1.02); EST Glomerular Filtration Rate 64 mL/min (>60); Est Glom Filt Rate - Afr Amer 78 mL/min (>60); Glucose 107 mg/dL (74-106); Potassium 3.9 mmol/L (3.5-5.1); Sodium Level 141 mmol/L (136-145)
== END | disposition home or self-care (01) ==
LOC: LAB 14:54
PROVIDERS: PCP Nurse Practitioner Family; Visit Provider Nurse Practitioner Gerontology
DX: R06.09 Other forms of dyspnea (principal)
CPT/HCPCS: 36415; 80048; 83880

== ENCOUNTER → 2023-09-10 | Outpatient (CLI) | payer OTHER, SELFPAY ==
--- NOTE | 2023-09-10 13:38 | ECHOD_ITS ---
Reason For Study: Dyspnea Procedure This was a 2D Doppler, Color Flow transthoracic echocardiogram. Exam performed in department. Left Ventricle Normal LV size. Left ventricular systolic function is normal. The estimated ejection fraction is 60 %. Stage 1 diastolic dysfunction. No regional wall motion abnormalities noted. Right Ventricle Normal RV size. Normal systolic function. Atria Normal left atrium. Normal right atrium. Mitral Valve Mild diffuse mitral valve thickening. Tricuspid Valve Normal tricuspid valve. Mild (1+) tricuspid valve insufficiency. Pulmonary artery systolic pressure is 24 mmHg. Aortic Valve Normal aortic valve. Trisinus/trileaflet aortic valve. Pulmonic Valve Normal pulmonic valve. Great Vessels Normal aortic root. The pulmonary artery is normal size. Normal inferior vena cava. Pericardium/Pleural No pericardial effusion. MMode/2D Measurements & Calculations LVIDd: 4.3 cm IVSd: 1.1 cm Ao root diam: 3.2 cm LVIDs: 2.9 cm LVPWd: 0.98 cm LA dimension: 3.6 cm RVDd: 3.7 cm FS: 32.5 % LAV(MOD-bp): 40.5 ml LVAd ap4: 28.1 cm2 SV(MOD-sp4): 47.4 ml LAV(MOD-bp) Indexed: 20.3 ml/m2 LVLd ap4: 8.2 cm LAV(MOD-sp2): 43.0 ml EDV(MOD-sp4): 78.4 ml LAV(MOD-sp4): 34.1 ml EDV(sp4-el): 81.5 ml LVAs ap4: 15.3 cm2 LVLs ap4: 7.0 cm ESV(MOD-sp4): 31.0 ml ESV(sp4-el): 28.4 ml EF(MOD-sp4): 60.5 % EF(sp4-el): 65.2 % SV(sp4-el): 53.1 ml LA A4 area: 14.2 cm2 RA A4 area: 15.1 cm2 TAPSE: 2.1 cm Time Measurements MV dec time: 0.20 sec Doppler Measurements & Calculations MV E max tree: 80.8 cm/sec Lat Peak E' Tree: 11.1 cm/sec Med Peak E' Tree: 6.7 cm/sec MV A max tree: 90.3 cm/sec E/E' lat: 7.3 E/E' med: 12.0 MV E/A: 0.89 MV V2 max: 108.1 cm/sec MV P1/2t max tree: 101.0 cm/sec Ao V2 max: 141.6 cm/sec MV max P.7 mmHg MV P1/2t: 72.8 msec Ao max P.0 mmHg MV V2 mean: 54.3 cm/sec MV dec slope: 406.1 cm/sec2 Ao V2 mean: 94.2 cm/sec MV mean P.5 mmHg Ao mean P.0 mmHg MV V2 VTI: 34.0 cm MVA(P1/2t): 3.0 cm2 Ao V2 VTI: 31.2 cm AV (velocity ratio): 0.86 LV V1 max: 119.3 cm/sec PA V2 max: 79.6 cm/sec PI dec slope: 152.1 cm/sec2 LV V1 max P.7 mmHg PA V2 mean: 56.2 cm/sec LV V1 mean P.0 mmHg LV V1 mean: 82.2 cm/sec LV V1 VTI: 27.0 cm TR max tree: 231.9 cm/sec TR max P.5 mmHg ECHO/Echo Complete Interpretation Summary Normal LV size. Left ventricular systolic function is normal. The estimated ejection fraction is 60 %. Stage 1 diastolic dysfunction. Ordering Physician: Erendira Michel Referring Physician: Erendira Michel Performed By: Waqas Calzada RCS
== END | disposition home or self-care (01) ==
LOC: CVS 13:37
PROVIDERS: PCP Nurse Practitioner Family; Referring Provider Nurse Practitioner Gerontology; Visit Provider Nurse Practitioner Gerontology
DX: R06.09 Other forms of dyspnea (principal)
CPT/HCPCS: 93306

== ENCOUNTER → 2024-01-24 | Outpatient (CLI) | payer OTHER, SELFPAY ==
--- NOTE | 2024-01-24 09:47 | CT_ITS ---
STUDY: LOW DOSE CT LUNG CANCER SCREENING REASON FOR EXAM: Female, 63 years old. tobacco abuse, in remission RADIATION DOSAGE (If Supplied By Facility): CTDIvol = ( 3.02 ) mGy, DLP = ( 108.35 ) mGycm TECHNIQUE: No contrast was administered. Low dose technique was utilized (average mAS-38 and kVp 120). 1.25 mm axial source images with a slice interval of 1.25-mm were reconstructed in lung windows. 2.5 mm axial source images with a slice interval of 2.5-mm were reconstructed in lung windows. 5.0 mm axial source images with a slice interval of 5.0-mm were reconstructed in soft tissue windows. COMPARISON: 01/06/2023 Emphysema: Mild emphysema. No noncalcified nodule or mass. Endobronchial lesion: None Aorta: No thoracic aortic aneurysm. CORONARY ARTERIES: Coronary artery calcification is not seen. Heart: No cardiomegaly. Pulmonary artery: Normal Mediastinal nodes: Normal Other chest and abdominal findings: Status post cholecystectomy. CT/Low Dose CT Lung Screening IMPRESSION: Lung-RADS category 1 - Continue annual screening with LDCT in 12 months. IMPORTANT NOTES FOR USE: ACR Lung-RADS Version 1.1 Assessment Categories Release Date: 2018 Category: Coded 0-4 bases on nodule(s) with highest degree of suspicion. Negative screen is defined as categories 1 and 2; a positive screen is defined as categories 3 and 4. Category 3 and 4A nodules that are unchanged on interval CT should be coded as category 2, and individuals returned to screening in 12 months. Category 4X: Category 3 or 4 nodules with additional imaging findings that increase the suspicion of lung cancer, such as spiculation, GGN that doubles in size in 1 year, enlarged lymph notes, etc. Category Modifiers: S (significant finding unrelated to lung cancer) Electronically Signed: Ayo Estrada MD at 0:26 EDT ,
== END | disposition home or self-care (01) ==
LOC: CT 09:44
PROVIDERS: PCP Nurse Practitioner Family; Referring Provider Nurse Practitioner Family; Visit Provider Nurse Practitioner Family
DX: Z12.2 Encounter for screening for malignant neoplasm of respiratory organs (principal); F17.201 Nicotine dependence, unspecified, in remission
CPT/HCPCS: 71271

== ENCOUNTER → 2024-04-27 | Outpatient (CLI) | payer OTHER, SELFPAY ==
--- NOTE | 2024-04-27 15:01 | RAD_ITS ---
STUDY: X-RAY - PELVIS AND LEFT HIP REASON FOR EXAM: Female, 64 years old. Pain. TECHNIQUE: 2 views of the pelvis and hip. COMPARISON: None. FINDINGS: Normal bowel gas pattern. Phleboliths. Osteopenia. Normal bilateral iliac wings, sacroiliac joints and visualized sacrum. Normal bilateral superior and inferior pubic rami. Normal pubic symphysis. Normal bilateral ischial tuberosities. Mild arthrosis of the left hip. RAD/HIP, UNI W/ Pelvis 2-3 Views IMPRESSION: Osteopenia with mild arthrosis of the left hip. Electronically Signed: Alvaro Casas MD at 15:48 EDT ,
== END | disposition home or self-care (01) ==
LOC: MTRAD 14:59
PROVIDERS: PCP Nurse Practitioner Family; Referring Provider Nurse Practitioner Family; Visit Provider Nurse Practitioner Family
DX: M25.552 Pain in left hip (principal)
CPT/HCPCS: 73502

== ENCOUNTER → 2024-08-23 | Outpatient (CLI) | payer OTHER, SELFPAY | END | disposition home or self-care (01) | LOC: PSN 07:56 | PROVIDERS: PCP Nurse Practitioner Family; Referring Provider Nurse Practitioner Gerontology; Visit Provider Nurse Practitioner Gerontology | DX: R00.2 Palpitations (principal) | CPT/HCPCS: 93225; 93226 ==

== ENCOUNTER → 2024-08-26 | Outpatient (CLI) | payer OTHER, SELFPAY ==
--- NOTE | 2024-08-26 16:39 | STRESSREP ---
Stress Test Report Exercise stress test. 64-year-old lady with a history of chest pain Stress protocol: Resting EKG demonstrates normal sinus rhythm with a rate of 64 bpm resting blood pressure is 90/60 mmHg. The patient exercised according to the regular Zac protocol for a total duration of 8 minutes and 13 seconds attaining a maximum heart rate of 179 bpm which was 113 of maximum predicted heart rate; the maximum workload was 10.1 metabolic equivalents. At rest there were no ST or T wave changes noted to suggest ischemia and at peak exercise upsloping ST changes only were noted which did not meet the criteria for ischemia. No clinical angina was noted the test was terminated due to the target heart rate being achieved/fatigue. The peak blood pressure was 140/84 mmHg. Rate-pressure product was 18,700. Patient complained of mild palpitations which correlated with postexercise PVC. Conclusion: Exercise stress test with no EKG criteria for ischemia at a high workload. Good functional aerobic capacity.
== END | disposition home or self-care (01) ==
LOC: CVS 12:23
PROVIDERS: PCP Nurse Practitioner Family; Referring Provider Nurse Practitioner Family; Visit Provider Nurse Practitioner Family
DX: R07.9 Chest pain, unspecified (principal)
CPT/HCPCS: 93017

== ENCOUNTER → 2024-09-02 | Outpatient (CLI) | payer OTHER, SELFPAY ==
--- NOTE | 2024-09-02 12:29 | BI_ITS ---
MAMMOGRAPHY - BILATERAL SCREENING 3-D TOMOSYNTHESIS REASON FOR EXAM: Female, 64 years old. SCRN MAMM (CAD)W/LIZBETH BILAT -- Encounter for screening mammogram for malignant neoplasm of breas PERTINENT HISTORY: No significant family history. TECHNIQUE: 2-D mammograms and 3-D Tomosynthesis of the breast (s) were performed. CAD was performed. COMPARISON: 07/29/2023 FINDINGS: The breast composition is composed of scattered fibroglandular density. Scattered benign calcifications are seen. No dense spiculated masses or suspicious microcalcifications are identified. No architectural distortion is identified. There is no skin thickening or retraction. There has been no significant change since the prior study. BI/SCRN MAMM (CAD)W/LIZBETH BILAT IMPRESSION: No mammographic signs of malignancy. Routine yearly mammograms recommended. ASSESSMENT CATEGORY: BIRADS Category 1: Negative. A letter regarding these results will be sent to the patient by the facility within 30 days. FOLLOW UP RECOMMENDATION: Yearly follow up mammogram recommended. (A) Approximately 10% of breast cancers are not detected by mammography. A normal mammogram should not delay biopsy of a clinically suspicious abnormality. Electronically Signed: Ayo Estrada MD at 19:19 EST ,
== END | disposition home or self-care (01) ==
LOC: OPBI 12:29
PROVIDERS: PCP Nurse Practitioner Family; Referring Provider Nurse Practitioner Family; Visit Provider Nurse Practitioner Family
DX: Z12.31 Encounter for screening mammogram for malignant neoplasm of breast (principal)
CPT/HCPCS: 77063; 77067

== ENCOUNTER → 2025-01-26 | Outpatient (CLI) | payer OTHER, SELFPAY ==
--- NOTE | 2025-01-26 18:33 | CT_ITS ---
PROCEDURE: 01/26/2025 REASON FOR EXAM: SMOKING QUIT 2016 TECHNIQUE: Low Dose CT Lung screening without contrast. Coronal and Sagittal reconstruction series were provided. One or more dose reduction techniques were used (e.g., Automated exposure control, adjustment of the mA and/or kV according to patient size, use of iterative reconstruction technique). REFERENCE LINK: [facility] Lung-RADS RADIATION DOSE SUMMARY: CTDlvol: 3.0 mGy DLP: 102 mGycm COMPARISON: None FINDINGS: Lymph Nodes:No lymphadenopathy. Heart and Vasculature:Normal heart size. Minimal coronary calcifications. Incidental note of an aberrant right subclavian artery which traverses posterior to the esophagus. Lungs and Airways: Central airways are clear. No suspicious pulmonary nodule. Pleura:No effusion. Upper Abdomen:Subcentimeter hypodense lesion in the right hepatic lobe is too small to characterize. Prior cholecystectomy. Bones:Degenerative changes of the thoracic spine. CT/Low Dose CT Lung Screening IMPRESSION: Lung-RADS Category: 1 NEGATIVE. RECOMMEND 12-MONTH SCREENING LDCT. Other Significant Findings: Aberrant right subclavian artery, a normal variant. Reading Location: [id number]
== END | disposition home or self-care (01) ==
PROVIDERS: PCP Nurse Practitioner Family; Referring Provider Nurse Practitioner Acute Care; Visit Provider Nurse Practitioner Acute Care
DX: Z12.2 Encounter for screening for malignant neoplasm of respiratory organs (principal); Z87.891 Personal history of nicotine dependence
CPT/HCPCS: 71271

== ENCOUNTER → 2025-08-24 | Outpatient (CLI) | payer OTHER, SELFPAY ==
--- OUTSIDE RECORDS SUMMARY | 2025-08-24 07:25 | XMS RPT_ITS | CCD ---
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 Name Role Phone Martin Merino Unavailable Unavailable Martin Merino Unavailable Unavailable Martin Merino Unavailable Unavailable Martin Merino Unavailable Unavailable Martin Merino Unavailable Unavailable Ismael Jimenez Unavailable Unavailable Ismael Jimenez Unavailable Unavailable Martin Merino Unavailable Unavailable Tony, Ismael Unavailable Unavailable Xavier Jimenezin Unavailable Unavailable Shakila Carter Unavailable Joseph Patten Unavailable Rogelio Meza Unavailable Unavailable Unavailable Unavailable Rogelio Mcclure Unavailable Unavailable Slarb, Orly Unavailable Unavailable Shakila Carter CNP Unavailable Joseph Patten MD Unavailable Rogelio cMclure LPN Unavailable Unavailable Unavailable Unavailable Manchak FINISHING ROOM SUPERVISOR, Guevara Unavailable Unavailable Unavailable Unavailable Gentry Shakila Unavailable Unavailable Gentry Shakila Unavailable Evelyne Cloud MA Unavailable Unavailable Yusra Masterson MD Unavailable [phone] Gentry LEGAL OFFICE ADMINISTRATOR, LEGAL OFFICE ADMINISTRATOR-C Shakila Primary Care Provider Gentry LEGAL OFFICE ADMINISTRATOR, LEGAL OFFICE ADMINISTRATOR-C Shakila Referring Provider [phone] Jesús LEGAL OFFICE ADMINISTRATOR, LEGAL OFFICE ADMINISTRATOR-C Mookie Burch Attending Provider [phone] Dr. David Fields Attending Provider [phone] Eugene Ochoa CNP Unavailable [phone] Eugene Ochoa CNP Unavailable [phone] Pradip , Dr. Salvador Unavailable Slarb CUSTOMER GREETER, Orly Unavailable Unavailable Ciesa LEGAL OFFICE ADMINISTRATOR, LEGAL OFFICE ADMINISTRATOR-C Shakila Primary Care Provider Deyaa LEGAL OFFICE ADMINISTRATOR, LEGAL OFFICE ADMINISTRATOR-C Shakila Referring Provider AURORA Diaz Attending Provider Yusra Masterson MD Unavailable Gentry, Shakila Referring Unavailable Eugene Ochoa CNP Attending Unavailable Don SWEENEY, Eugene Consulting Unavailable [place] CUSTOMER GREETER, [place] Unavailable Unavailable Unavailable Unavailable Unavailable Unavailable Shanda SAHU, Dr. Dre Garvin Unavailable Joseph Patten MD Unavailable Ciesa PEN RIDER, Tatum Primary Care Provider Dr. Antonella Monterroso Unavailable Karol Mejia MA Unavailable Unavailable Don, LUI-C Eugene Primary Care Provider Dr. Bob Power Attending Provider LUI Ochoa-C Eugene Referring Provider Anand POE, LEGAL OFFICE ADMINISTRATOR-C Erendira Attending Provider Joseph Patten MD Unavailable Ciesa PEN RIDER, Tatum Primary Care Provider Kaylee Murray PA-C Unavailable Don SWEENEY, Eugene Primary Care Provider KAYLEE MURRAY Attending Unavailable CIESA, TATUM Primary Care Unavailable BECKA DELGADILLO Attending Unavailable CIESA, TATUM Primary Care Unavailable KAYLEE MURRAY Referring Unavailable CIESA, TATUM Primary Care Unavailable KAYLEE MURRAY Attending Unavailable CIESA, TATUM Primary Care Unavailable MAGNOLIA ARNOLD Referring Unavailable CIESA, TATUM Primary Care Unavailable MAGNOLIA ARNOLD Referring Unavailable CIESA, TATUM Primary Care Unavailable MAGNOLIA ARNOLD Attending Unavailable CIESA, TATUM Primary Care Unavailable CIESA, TATUM Primary Care Unavailable MAGNOLIA ARNOLD Referring Unavailable CIESA, TATUM Primary Care Unavailable KIA TRACY Attending Unavailable LUKEESA, TATUM Primary Care Unavailable KAYLEE MURRAY Referring Unavailable DON, EUGENE Primary Care Unavailable Don LEGAL OFFICE ADMINISTRATOR-C, Eugene Primary Care Provider [phone] Don LEGAL OFFICE ADMINISTRATOR-C, Eugene Referring Provider Anand LEGAL OFFICE ADMINISTRATOR-C, Erendira Attending Provider [phone] Brianne LEGAL OFFICE ADMINISTRATOR-C, Shama Attending Provider Brianne LEGAL OFFICE ADMINISTRATOR-C, Shama Referring Provider Don, Eugene Primary Care Unavailable Anand LEGAL OFFICE ADMINISTRATOR, Erendira Referring Unavailable Bob Power Attending Unavailable Bob Power Attending Unavailable Don, Eugene Primary Care Unavailable Jesús LEGAL OFFICE ADMINISTRATOR, Mookie H Consulting Unavailable Jesús LEGAL OFFICE ADMINISTRATOR, Mookie H Referring Unavailable Don, Eugene Primary Care Unavailable Brianne LEGAL OFFICE ADMINISTRATOR, Shama Attending Unavailable Don, Eugene Referring Unavailable Don, Eugene Primary Care Unavailable Anand LEGAL OFFICE ADMINISTRATOR, Erendira Attending Unavailable Don, Eugene Referring Unavailable Decker LEGAL OFFICE ADMINISTRATOR, Shama Attending Unavailable Don, Eugene Referring Unavailable Don, Eugene Primary Care Unavailable Don, Eugene Primary Care Unavailable Brianne LEGAL OFFICE ADMINISTRATOR, Shama Attending Unavailable Brianne LEGAL OFFICE ADMINISTRATOR, Shama Referring Unavailable Anand LEGAL OFFICE ADMINISTRATOR, Erendira Referring Unavailable Don, Eugene Primary Care Unavailable Anand LEGAL OFFICE ADMINISTRATOR, Erendira Attending Unavailable Don, Eugene Primary Care Unavailable Jesús LEGAL OFFICE ADMINISTRATOR, Mookie H Attending Unavailable Jesús LEGAL OFFICE ADMINISTRATOR, Mookie H Referring Unavailable Don, Eugene Primary Care Unavailable Don, Eugene Attending Unavailable Don, Eugene Referring Unavailable Decker LEGAL OFFICE ADMINISTRATOR, Shama Attending Unavailable Don, Eugene Referring Unavailable Don, Eugene Primary Care Unavailable Anand LEGAL OFFICE ADMINISTRATOR, Erendira Attending Unavailable Don, Eugene Primary Care Unavailable Don, Eugene Referring Unavailable Allergies Allergy Classification Reported Allergen(s) Allergy Type Date of Onset Reaction(s) Facility Amoxicillin / Clavulanate (5 sources) Amoxicillin / Clavulanate; Translations: [Augmentin *PENICILLINS*] Drug Allergy 07-27-20 19 Vomiting [facility] Work Phone: Comment on above: nausea/vomiting even when taken with food Sulfonamides (antibiotic) (5 sources) Sulfacetamide; Translations: [Sulfa 10 *OPHTHALMIC AGENTS*] Drug Allergy 07-27-20 19 Hives [facility]; [facility] Work Phone: Comment on above: hives (20 sources) Amoxicillin / Clavulanate; Translations: [Augmentin *PENICILLINS*] Drug Allergy 07-27-20 19 Vomiting [facility] Work Phone: Comment on above: nausea/vomiting even when taken with food (20 sources) Sulfacetamide; Translations: [Sulfa 10 *OPHTHALMIC AGENTS*] Drug Allergy [facility] Work Phone: Comment on above: hives (8 sources) Amoxicillin Drug Allergy 01-10-20 22 Upset Stomach [facility] (8 sources) Clavulanate Drug Allergy 01-10-20 22 Upset Stomach [facility] (9 sources) Sulfonamides (Antibiotic); Translations: [SULFA (SULFONAMIDE ANTIBIOTICS)] Allergy to substance 07-27-20 [facility] (12 sources) Sulfonamides (Antibiotic) Drug Allergy 07-27-20 [facility] (1 source) AMOXICILLIN-POT CLAVULANATE; Translations: [AMOXICILLIN-POT CLAVULANATE] Propensity to adverse reactions to drug (disorder) 07-27-20 [facility] (1 source) Amoxicillin Drug Allergy 07-14-20 [facility] (1 source) Clavulanate Drug Allergy 07-14-20 [facility] (1 source) Sulfonamides (Antibiotic) Drug allergy (disorder) 07-14-20 [facility] Medications Current Medications Medication Drug Class(es) Dates Sig (Normalized) Sig (Original) [id number] 200 actuat albuterol 0.09 mg/actuat metered dose inhaler (13 sources) beta2-Adrenergic Agonist Start: 06-05-2023 End: 10-29-2023 take 2 puff(s) by mouth four times daily as needed albuterol HFA (PROVENTIL HFA, VENTOLIN HFA) 90 mcg/actuation inhaler INHALE 2 PUFFS BY MOUTH FOUR TIMES A DAY NEEDED 1 Each 5 10/29/2023 Active Comment on above: INHALE 2 PUFFS BY MO UT FOUR TIMES A DAY NEEDED celecoxib 200 mg oral capsule (2 sources) Nonsteroidal Anti-inflammatory Drug Start: 05-13-2024 take 1 capsule by mouth once daily as needed Celecoxib 200 mg capsule Active 200 mg PO daily as needed May 13, 2024 12:00am ergocalciferol, vitamin D2, (VITAMIN D2 ORAL) (13 sources) take 1 capsule by mouth once daily ergocalciferol, vitamin D2, (VITAMIN D2 ORAL) Take 1 capsule by mouth once daily. + D3 2,000iu 0 Active take 1 capsule by mouth once melissa ly ergocalciferol, vitamin D2, (VITAMIN D2 ORAL) Take 1 capsule by mouth once daily. + D3 0 Active Comment on above: Take 1 capsule by mo uth once daily. + D3 Take 1 capsule by mo uth once daily. + D3 2,000iu Fluticasone-Umeclidin- Vilanter (8 sources) Anticholinergic, Corticosteroid, beta2-Adrenergic Agonist Start: 12-30-2024 Ltnqhgfipjr-Auxgvtznq-Wi lanter (Trelegy Ellipta) 100-62.5-25 mcg blister with device Active 1 NMA INHALATION Q24H 60 December 30, 2024 1:22pm Start: 12-30-2024 End: 12-30-2024 Qhnqzbmrtvf-Xzifssvsg-Uynvos er (Trelegy Ellipta) 100-62.5-25 mcg blister with device Discontinued 1 NMA INHALATION Q24H 60 December 30, 2024 1:22pm December 30, 2024 1:22pm Start: 08-12-2024 End: 12-30-2024 Mwvcakkrwil-Wvlngahav-Ntwcto er (Trelegy Ellipta) 100-62.5-25 mcg blister with device Discontinued 1 NMA INHALATION Q24H 60 August 12, 2024 3:03pm December 30, 2024 1:22pm Start: 05-13-2024 End: 08-12-2024 Rwuiqczfmeg-Tqjgwcxse-Pccezu er (Trelegy Ellipta) 100-62.5-25 mcg blister with device Discontinued 1 NMA INHALATION Q24H 60 May 13, 2024 12:00am August 12, 2024 3:06pm donnjkvebac-mtescsuow-emetjg er (TRELEGY ELLIPTA) 200-62.5-25 mcg inhalation powder (5 sources) Start: 02-10-2024 take 1 puff(s) by inhalation once daily eoltoyaswlh-lqgdnnpml-sqkchwua (TRELEGY ELLIPTA) 200-62.5-25 mcg inhalation powder Indications: Mild persistent asthma without complication , Pulmonary emphysema, unspecified emphysema type (HCC) Inhale 1 Puff as instructed once daily. 1 Each 02/10/2024 Active lisinopril 10 mg oral tablet (9 sources) A n g i o t e n s i n C o n v e r t i n g E n z y m e I n h i b i t o r Start: 07-28-2024 take 1 tablet by mouth once daily Lisinopril 10 mg tablet Active 10 mg PO daily July 28, 2024 1:00am Start: 07-31-2022 End: 09-16-2022 take 1 tablet by mouth once daily Lisinopril 5 mg tablet Discontinued 5 mg PO DAILY July 31, 2022 1:00am September 16, 2022 2:19pm sertraline 100 mg oral tablet (20 sources) Serotonin Reuptake Inhibitor Start: 08-12-2024 take 1 tablet by mouth once daily Sertraline 100 mg tablet Active 100 mg PO daily August 12, 2024 1:00am Start: 08-04-2023 End: 08-12-2024 take 2 tablets by mouth once daily Sertraline 50 mg tablet Discontinued 100 mg PO DAILY August 04, 2023 3:35pm August 12, 2024 2:48pm Start: 08-04-2023 take 100 mg by mouth once lynn y Sertraline Active 100 MG PO DAILY August 04, 2023 2:35pm Start: 07-08-2023 take 1 tablet by yasmeen th once daily sertraline 100 mg oral tablet 1 (one) Tablet daily for 0 days Quantity: 30 {Tablet} Refills: 11 Ordered: 08-Jul-2023 Eugene Ochoa CNP Start : 08-Jul-2023 Active Start: 02-11-2020 End: 08-04-2023 take 1 tablet by mouth once daily Sertraline 50 mg tablet Discontinued 50 mg PO DAILY March 06, 2020 12:00am November 27th, 2023 3:35pm Comment on above: Take 50 mg by mouth once daily. Take 100 mg by mouth once daily. Tirzepatide 5 mg/0.5 mL pen injector (2 sources) Start: 02-03-20 Tirzepatide 5 mg/0.5 mL pen injector Active 5 mg SC EVERY WEEK February 03, 2024 12:00am tirzepatide, weight loss (ZEPBOUND) 5 mg/0.5 mL pen injector (5 sources) inject 5 mg by subcutaneous injection every week tirzepatide, weight loss (ZEPBOUND) 5 mg/0.5 mL pen injector Inject 5 mg subcutaneously one time a week. 0 Active vitamin b12 1 mg/ml injectable solution (20 sources) Vitamin B12 Start: 08-12-20 24 Cyanocobalamin (Vitamin B-12) 1,000 mcg/mL solution Active ug IM August 12, 2024 1:00am Start: 04-11-2023 cyanocobalamin (vit B-12) 1,000 mcg/mL injection solution 1 (one) Milliliter q 2 weeks for 0 days Quantity: 1 {Milliliter} Refills: 6 Ordered: 11-Apr-2023 Haydee RAMSEY Brittany Start : 11-Apr-2023 Active Start: 09-16-2022 cyanocobalamin (vit B-12) 1,000 mcg/mL injection solution 1 (one) Milliliter q 2 weeks for 0 days Quantity: 1 {Milliliter} Refills: 6 Ordered: 16-Sep-2022 Eugene Ochoa CNP Start : 16-Sep-2022 Active Start: 07-15-2022 Cyanocobalamin 1000 MCG/ML Injection Solution 1 (one) Milliliter q 2 weeks for 0 days Quantity: 1 {Milliliter} Refills: 6 Ordered: 15-Jul-2022 Eugene Ochoa CNP Start : 15-Jul-2022 Active Start: 08-20-2021 Cyanocobalamin 1000 MCG/ML Injection Solution 1 (one) Milliliter q 2 weeks for 0 days Quantity: 1 {Milliliter} Refills: 6 Ordered: 20-Aug-2021 LukeyanetShakila crump Start : 20-Aug-2021 Active Start: 02-11-2021 Cyanocobalamin 1000 MCG/ML Injection Solution 1 (one) Milliliter q 2 weeks for 0 days Quantity: 1 {Milliliter} Refills: 6 Ordered: 11-Feb-2021 Shakila Carter CNP, CNP, Mary E Start : 11-Feb-2021 Active Start: 02-02-2020 Cyanocobalamin 1000 MCG/ML Injection Solution 1 (one) Milliliter q 2 weeks for 0 days Quantity: 1 {Milliliter} Refills: 6 Ordered: 02-Feb-2020 Rogelio Mcclure LPN Start : 02-Feb-2020 Active Start: 02-02-2020 Cyanocobalamin 1000 MCG/ML Injection Solution 1 (one) Milliliter q 2 weeks for 0 days Quantity: 1 {Milliliter} Refills: 6 Ordered: 02-Feb-2020 Rogelio Meza LPN Start : 02-Feb-2020 Active Start: 08-25-2019 End: 02-03-2024 inject 100 ug by intramuscular injection every other week Cyanocobalamin (Vitamin B-12) 1,000 mcg/mL solution Discontinued 100 ug IM .[id number] August 25, 2019 1:00am February 03, 2024 1:37pm Start: 08-25-2019 inject 100 ug by int ramuscular injection every other week Cyanocobalamin (Vitamin B-12) Active 100 MCG IM .[id number] August 25, 2019 12:00am Start: 07-19-2019 inject 1000 ug by weiner bcutaneous injection every month cyanocobalamin 1,000 mcg/mL soln Inject 1,000 mcg subcutaneously one time only. monthly 0 07/19/2019 Active Comment on above: 1,000 mcg one time o nly. Inject 1,000 mcg sub cutaneously one time only. monthly Completed/Discontinued Medications Medication Drug Class(es) Dates Sig (Normalized) Sig (Original) amoxicillin 500 mg oral tablet (20 sources) Penicillin-class Antibacterial Start: 04-01-2023 End: 04-15-2023 take 1 tablet by mouth twice daily amoxicillin 500 mg oral tablet 1 (one) tablet bid for 14 days Quantity: 28 {Tablet} Refills: 0 Ordered: 01-Apr-2023 Orly Koroma LPN Start : 01-Apr-2023 End : 15-Apr-2023 Inactive Start: 03-10-2023 End: 03-17-2023 take 1 capsule by mouth twice daily amoxicillin 500 mg oral capsule 1 Capsule 2 times per day for 7 days Quantity: 14 {Capsule} Refills: 0 Ordered: 10-Mar-2023 Eugene Ochoa CNP Start : 10-Mar-2023 End : 17-Mar-2023 Inactive Ascorbic Acid (15 sources) Vitamin C Vitamin C Active cholecalciferol 0.075 mg oral tablet (20 sources) Vitamin D Start: 12-11-2020 take 2 tablets by mouth once daily Vitamin D3 75 MCG (3000 UT) Oral Tablet 2 (two) Tablet qd for 0 days Quantity: 90 {Tablet} Refills: 0 Ordered: 05-Mar-2022 Rogelio Mcclure LPN Start : 11-Dec-2020 Active Start: 08-31-2019 [facility] Cholecalciferol (Vitamin D3) 2,000 unit tablet Active 2000 U PO DAILY August 31, 2019 1:00am Vitamin D3 5000 UNIT Oral Tablet (5000 UNIT) Inactive ciprofloxacin 500 mg oral tablet (20 sources) Quinolone Antimicrobial Start: 03-05-2022 End: 08-13-2022 take 1 tablet by mouth twice daily Cipro 500 mg oral tablet 1 (one) Tablet bid for 0 days Quantity: 14 {Tablet} Refills: 0 Ordered: 13-Aug-2022 Orly Koroma LPN Start : 05-Mar-2022 End : 13-Aug-2022 Inactive colestipol hydrochloride 1000 mg oral tablet (20 sources) Bile Acid Sequestrant Start: 08-13-2022 take 2 tablets by mouth twice daily Colestid 1 gram oral tablet 2 (two) Tablet twice a day for 0 days Quantity: 120 {Tablet} Refills: 3 Ordered: 13-Aug-2022 Eugene Ochoa CNP Start : 13-Aug-2022 Active Start: 01-08-2021 take 2 tablets by [facility] twice daily Colestid 1 GM Oral Tablet 2 (two) Tablet twice a day for 0 days Quantity: 120 {Tablet} Refills: 3 Ordered: 08-Jan-2021 Shakila Carter Start : 08-Jan-2021 Active Start: 02-02-2020 take 2 tablets by mo [facility] twice daily Colestid 1 GM Oral Tablet 2 (two) Tablet twice a day for 0 days Quantity: 120 {Tablet} Refills: 3 Ordered: 02-Feb-2020 Rogelio Mcclure LPN Start : 02-Feb-2020 Active Start: 08-25-2019 End: 05-13-2024 take 1 tablet by mouth once daily Colestipol (Colestid) 1 gram tablet Discontinued 2 g PO DAILY July 09, 2021 1:59pm May 13, 2024 10:21am swallow whole tab w/any liquid;do not crush/chew/cut;administer other meds 1hr before/4hr after taking dose Start: 07-19-2019 take 2 tablets by mo uth every other day as needed colestipol (COLESTID) 1 gram tablet Take 2 g by mouth once daily. Every other day or PRN 0 07/19/2019 Active Start: 07-19-2019 take 2 tablets by mo uth once daily colestipol (COLESTID) 1 gram tablet Take 2 g by mouth once daily. 0 07/19/2019 Active Comment on above: Take 2 g by mouth on ce daily. digoxin 0.25 mg oral tablet (16 sources) Cardiac Glycoside Start: 0 End: 0 take 1 tablet by mouth once daily Digoxin 250 mcg (0.25 mg) tablet Discontinued 250 ug PO DAILY November 25, 2019 12:00pm November 26, 2019 1:31pm 24 hr dilTIAZem hydrochloride 120 mg extended release oral capsule (20 sources) Calcium Channel Gely Start: 0 End: 5 take 1 capsule by mouth once daily Diltiazem Hcl 120 mg capsule,extended release 24hr Discontinued 120 mg PO DAILY September 16, 2023 10:38am October 01, 2024 3:21pm Start: 09-28-2019 End: 11-03-2019 take 1 capsule by mouth once daily Diltiazem Hcl 120 mg capsule,extended release 24 hr Discontinued 120 mg PO DAILY September 28, 2019 1:00am November 03, 2019 4:18pm Start: 09-17-2019 End: 09-28-2019 take 1 capsule by mouth once daily Diltiazem Hcl 180 mg capsule,extended release 24 hr Discontinued 180 mg PO DAILY September 17, 2019 1:00am September 28, 2019 10:57am Start: 08-31-2019 End: 09-17-2019 take 1 capsule by mouth once daily Diltiazem Hcl 120 mg capsule,extended release 24hr Discontinued 120 mg PO DAILY August 31, 2019 1:00am September 17, 2019 4:18pm take 1 tablet by yasmeen th once daily diltiazem (CARDIZEM) 120 mg tablet Take 120 mg by mouth once daily. 0 Active Comment on above: Rx bt Dr. Patten Take 120 mg by mouth once daily. escitalopram 10 mg oral tablet (20 sources) Serotonin Reuptake Inhibitor Start: 11-02-19 20 End: 02-02-20 20 take 1 tablet by mouth once daily Escitalopram Oxalate 10 MG Oral Tablet 1 (one) Tablet daily as directed for 0 days Quantity: 30 {Tablet} Refills: 4 Ordered: 02-Feb-2020 Rogelio Mcclure LPN Start : 02-Nov-2019 End : 02-Feb-2020 Inactive estrogens, conjugated (intermediate) 0.625 mg oral tablet (20 sources) Estrogen Start: 07-19-20 19 End: 04-22-20 23 take 1 tablet by mouth once daily Conjugated Estrogens (Premarin) 0.625 mg tablet Discontinued 0.625 mg PO DAILY August 25, 2019 1:00am July 09, 2021 2:00pm Comment on above: Take 0.625 mg by yasmeen once daily. fluconazole 150 mg oral tablet (20 sources) Azole Antifungal Start: 03-05-20 22 End: 08-13-20 22 take 1 tablet by mouth once Diflucan 150 mg oral tablet 1 (one) Tablet po once for yeast infection for 0 days Quantity: 1 {Tablet} Refills: 1 Ordered: 13-Aug-2022 Orly Koroma LPN Start : 05-Mar-2022 End : 13-Aug-2022 Inactive fluticasone propionate 0.05 mg/actuat metered dose nasal spray (20 sources) Corticosteroid Start: 01-09-20 21 take 2 spray(s) nasal route once daily as needed Flonase Allergy Relief 50 MCG/ACT Nasal Suspension 2 (two) [place]ail each nostril qd prn for 30 days Quantity: 1 {Bottle} Refills: 6 Ordered: 08-Jan-2021 Guevara Spangler CMA Start : 08-Jan-2021 Active Start: 07-19-2019 fluticasone (F LONASE) 50 mcg/actuation nasal spray 2 Sprays once daily. 0 07/19/2019 Active Flonase 50 MCG/D OSE Nasal Inhaler (50 MCG/DOSE) Active Comments: as needed for allergies Comment on above: as needed for allerg ies 2 Sprays once daily. fluticasone / salmeterol (1 source) Corticosteroid, beta2-Adrenergic Agonist Start : 08-11 take 1 puff(s) by mouth twice daily fluticasone-salmeterol (ADVAIR DISKUS) 250-50 mcg/dose inhaler Inhale 1 Puff as instructed two times a day. RINSE AND GARGLE MOUTH WITH WATER AFTER EACH USE. 1 Each 5 08/11/2023 Active Comment on above: Inhale 1 Puff as ins tructed two times a day. RINSE AND GARGLE MOUTH WITH WATER AFTER EACH USE. 14 actuat fluticasone furoate 0.1 mg/actuat / vilanterol 0.025 mg/actuat dry powder inhaler (2 sources) Corticosteroid, beta2-Adrenergic Agonist Start : 08-08 take 1 dose by inhalation once daily fluticasone-vilanterol (BREO ELLIPTA) 100-25 mcg/dose inhaler Inhale 1 Inhalation as instructed once daily. 1 Each 5 08/08/2023 Active Comment on above: Inhale 1 Inhalation as instructed once daily. Jusvelfdrsa-Ojpkvmbkj-Aum anter (2 sources) Start : 05-13 End: 05-13 Adeesuowunm-Uayroptbj-Jh lanter (Trelegy Ellipta) 200-62.5-25 mcg blister with device Discontinued INHALATION May 13, 2024 12:00am May 13, 2024 10:59am 60 actuat formoterol fumarate 0.005 mg/actuat / mometasone furoate 0.2 mg/actuat metered dose inhaler (4 sources) Corticosteroid, beta2-Adrenergic Agonist Start : 08-11 End: 02-09 take 2 puff(s) by inhalation twice daily mometasone-formoterol (DULERA) 200-5 mcg/actuation inhaler Inhale 2 Puffs as instructed two times a day. 1 Each 08/11/2023 02/10/2024 Discontinued (Course of therapy completed) Comment on above: Inhale 2 Puffs as in structed two times a day. glucosamine sulfate 500 mg oral capsule (20 sources) Glucosamine 500 MG Oral Capsule (500 MG) Inactive hydroCHLOROthiazide 25 mg oral tablet (7 sources) Thiazide Diuretic Start : 07-17 End: 09-16 take 1 tablet by mouth once daily Hydrochlorothiazide 25 mg tablet Discontinued 25 mg PO DAILY July 17, 2022 1:00am September 16, 2022 2:19pm hydroCHLOROthiazide 12.5 mg / lisinopril 10 mg oral tablet (20 sources) Thiazide Diuretic, Angiotensin Converting Enzyme Inhibitor Start : 09-16 End: 07-28 Lisinopril-Hydrochloroth iazide 10-12.5 mg tablet Discontinued 1 {tbl} PO DAILY September 16, 2023 10:38am July 28, 2024 2:00pm Start: 09-16-2022 End: 09-16-2022 take 1 tablet by mouth once daily Lisinopril-Hydrochlorothiazide Active 1 TABLET PO DAILY September 16, 2022 1:44pm Start: 08-25-2019 End: 07-17-2022 Lisinopril-Hydrochlorothiazi de 10-12.5 mg tablet Discontinued 1 {tbl} PO DAILY August 21, 2021 3:13pm July 17, 2022 2:22pm Start: 08-25-2019 End: 07-17-2022 take 1 tablet by mouth once daily Lisinopril-Hydrochlorothiazide Discontin ued 1 TABLET PO DAILY August 21, 2021 2:13pm July 17, 2022 1:22pm Start: 07-19-2019 take 10-12.5 mg by mouth once lisinopril-hydrochlorothiazide (PRINZIDE,ZESTORETIC) 10-12.5 mg per tablet Take 0.5 tablets by mouth once daily. 0 07/19/2019 Active Comment on above: Take 1 tablet by yasmeen once daily. ketoconazole 20 mg/ml medicated shampoo (20 sources) Azole Antifungal Start: 06-24-2023 ketoconazole 2 % topical shampoo 1 (one) Application 2 times a week for 0 days Quantity: 240 {Milliliter} Refills: 0 Ordered: 24-Jun-2023 Eugene Ochoa CNP Start : 24-Jun-2023 Active Start: 06-12-2022 ketoconazole 2 % topical shampoo 1 (one) Application 2 times a week for 0 days Quantity: 240 {Milliliter} Refills: 0 Ordered: 12-Jun-2022 Ga SANCHEZOrly Start : 12-Jun-2022 Active 24 hr metFORMIN hydrochloride 500 mg extended release oral tablet (2 sources) Biguanide Start: 02-03-2024 End: 05-13-2024 take 1 tablet by mouth once daily Metformin 500 mg tablet extended release 24 hr Discontinued 500 mg PO DAILY February 03, 2024 12:00am May 13, 2024 10:21am Mometasone-Formoterol (Dulera) 200-5 mcg/actuation HFA aerosol inhaler (2 sources) Start: 02-03-2024 End: 05-13-2024 Mometasone-Formotero l (Dulera) 200-5 mcg/actuation HFA aerosol inhaler Discontinued 2 NMA INHALATION TWICE A DAY February 03, 2024 12:00am May 13, 2024 10:22am Dy-Di-Mknx-Fa-Ca Carb-Vit K (Women's Multivitamin) 18 mg-400 mcg- 500 mg-50 mcg tablet (8 sources) Start: 01-09-2022 End: 02-03-2024 Xa-Vj-Wkyp-Fa-Ca Carb-Vit K (Women's Multivitamin) 18 mg-400 mcg- 500 mg-50 mcg tablet Discontinued {tbl} PO January 09, 2022 12:00am February 03, 2024 1:37pm Start: 01-09-2022 Dq-Nv-Dekp-Fa- Ca Carb-Vit K (Women's Multivitamin) 18 mg-400 mcg- 500 mg-50 mcg tablet Active TABLET PO January 08, 2022 11:00pm Start: 01-09-2022 Md-Wj-Jrip-Fa- Ca Carb-Vit K (Women's Multivitamin) 18 mg-400 mcg- 500 mg-50 mcg tablet Active TABLET PO January 09, 2022 12:00am omeprazole 20 mg delayed release oral tablet (20 sources) Proton Pump Inhibitor Start: 11-10-2020 End: 12-11-2020 Omeprazole 20 MG Oral Tablet Delayed Release 1 (one) Tablet bid x 1 week then daily x 30 days for 0 days Quantity: 44 {Tablet} Refills: 0 Ordered: 11-Dec-2020 Shakila Carter Start : 10-Nov-2020 End : 11-Dec-2020 Inactive pantoprazole 20 mg delayed release oral tablet (2 sources) Proton Pump Inhibitor Start: 07-08-2023 take 1 tablet by mouth once daily pantoprazole 20 mg oral tablet, delayed release (enteric coated) 1 Tablet daily for 30 days Quantity: 30 {Tablet} Refills: 6 Ordered: 08-Jul-2023 Don SWEENEY Eugene Start : 08-Jul-2023 Active Syringe 25G X 5/8 3 ML Does not apply Miscellaneous (8 sources) Start: 02-16-2021 End: 04-14-2023 Syringe 25G X 5/8 3 ML Does not apply Miscellaneous as directed for 0 days Quantity: 1 {Box} Refills: 0 Ordered: 14-Apr-2023 Orly Koroma LPN Start : 16-Feb-2021 End : 14-Apr-2023 Discontinued Comments: Discontinued by Medication vendor. Comment on above: Discontinued by Medi [facility] vendor. Syringe 25G X 5/8 3 ML Miscellaneous (20 sources) Start: 02-16-2021 Syringe 25G X 5/8 3 ML Miscellaneous as directed for 0 days Quantity: 1 {Box} Refills: 0 Ordered: 16-Feb-2021 Shakila Carter Start : 16-Feb-2021 Active Start: 02-16-2021 Syringe 25G X 5/8 3 ML Miscellaneous as directed for 0 days Quantity: 1 {Box} Refills: 0 Ordered: 16-Feb-2021 [place] SWEENEY Shakila Schultz Lukepopeye ZAHRAShakila Start : 16-Feb-2021 Active Start: 02-02-2020 Syringe 25G X 5/8 3 ML Miscellaneous as directed for 0 days Quantity: 1 {Box} Refills: 0 Ordered: 02-Feb-2020 Rogelio Mcclure LPN Start : 02-Feb-2020 Active Start: 02-02-2020 Syringe 25G X 5/8 3 ML Miscellaneous as directed for 0 days Quantity: 1 {Box} Refills: 0 Ordered: 02-Feb-2020 Rogelio Meza LPN Start : 02-Feb-2020 Active Wegovy 0.25 mg/0.5 mL subcutaneous pen injector (1 source) Start: 04-19-2023 Wegovy 0.25 mg /0.5 mL subcutaneous pen injector 0.25 Milligram every 7 days;administer weeks 1 through 4 of therapy for 0 days Quantity: 0.5 {Milliliter} Refills: 0 Ordered: 25-Dec-2022 Eugene Ochoa CNP Start : 25-Dec-2022 Active Comments: 0.25mg weekly x4 weeks Comment on above: 0.25mg weekly x4 wee ks Wegovy 0.5 mg/0.5 mL subcutaneous pen injector (13 sources) Start: 01-31-2023 End: 03-10-2023 Wegovy 0.5 mg/0.5 mL subcutaneous pen injector 0.5 mg every week;administer weeks 5 through 8 of therapy for 0 days Quantity: 1 {Each} Refills: 0 Ordered: 10-Mar-2023 Evelyne Cloud MA Start : 31-Jan-2023 End : 10-Mar-2023 Inactive Comments: 1 month supply Start: 01-21-2023 Wegovy 0.5 mg/ 0.5 mL subcutaneous pen injector 0.5 mg every week;administer weeks 5 through 8 of therapy for 0 days Quantity: 1 {Each} Refills: 0 Ordered: 21-Jan-2023 Eugene Ochoa CNP Start : 21-Jan-2023 Active Comments: 1 month supply Comment on above: 1 month supply Zinc (15 sources) Zinc Active Problems Active Problems Problem Classification Problem Date Documented Da te Episodic/Chronic Abdominal pain (20 sources) Left upper quadrant pain; Translations: [Abdominal pain, LUQ] Resolved: 3 12-11-2020 Episodic Anxiety disorders (20 sources) Anxiety; Translations: [Anxiety] 02-02-2020 Chronic Comment on above: not well controlled, increase to 100mg .sertraline 50mg Asthma (6 sources) Uncomplicated mild persistent asthma; Translations: [Mild persistent asthma, uncomplicated] Onset: 4 08-08-2023 Chronic Attention-deficit conduct and disruptive behavior disorders (10 sources) Clenching teeth; Translations: [Teeth clenching] 02-02-2020 Chronic Comment on above: encouraged to see de ntist Cardiac dysrhythmias (20 sources) Roxi rhythm disorder; Translations: [Other specified cardiac arrhythmias] Chronic Chronic obstructive pulmonary disease and bronchiectasis (5 sources) Chronic obstructive lung disease; Translations: [Chronic obstructive pulmonary disease, unspecified] Onset: 3 08-08-2023 Chronic Complications of surgical procedures or medical care (20 sources) Menopausal flushing; Translations: [Hot flashes due to surgical menopause] 12-25-2022 Chronic Comment on above: if treated, would do combo estrogen/progestin. holding off for now. Disorders of lipid metabolism (20 sources) Hyperlipidemia; Translations: [Hyperlipidemia, unspecified] Chronic Comment on above: on colestid, tolerat ing welllast labs 07/2022, trig = 248 (moderate) Disorders of teeth and jaw (5 sources) Dental abscess; Translations: [Periapical abscess without sinus] 02-28-2023 Episodic Essential hypertension (20 sources) Hypertensive disorder; Translations: [Hypertension] Onset: 0 02-02-2020 Chronic Comment on above: stable, continue med lisinopril/HCTZ 10-12.5mg qd, diltiazem 120mg qd Gastritis and duodenitis (20 sources) Gastritis; Translations: [Gastritis] Resolved: 3 11-10-2020 Episodic Comment on above: epigastric pain, try omeprazole x 1 month, if not would do endoscopy Genitourinary symptoms and ill-defined conditions (20 sources) Nocturia; Translations: [Nocturia] Resolved: 3 11-10-2020 Episodic Comment on above: classic signs and sy mptoms and what usually get as signs and symptoms so will send cx Melanomas of skin (20 sources) Melanoma in situ, unspecified; Translations: [Melanoma in situ] 08-13-2022 Chronic Comment on above: left upper shoulder blade Nutritional deficiencies (20 sources) Vitamin D deficiency; Translations: [Vitamin D deficiency] 02-02-2020 Chronic Nutritional deficiencies (20 sources) Vitamin B12 deficiency (non anemic); Translations: [Cobalamin deficiency] 02-02-2020 Episodic Comment on above: [place] [address] [facility] [place] [address] [facility] [place] Other connective tissue disease (10 sources) Plantar fascial fibromatosis; Translations: [Plantar fibromatosis] 06-17-2023 Episodic Other eye disorders (10 sources) History of cataract extraction; Translations: [H/O cataract removal with insertion of prosthetic lens] 02-02-2020 Episodic Comment on above: Bilateral December 2018 Other gastrointestinal disorders (20 sources) Diarrhea; Translations: [Diarrhea] Resolved: 3 02-02-2020 Episodic Comment on above: after gallbladder weiner rgery Other gastrointestinal disorders (20 sources) Clenching teeth; Translations: [Teeth clenching] 12-11-2020 Episodic Comment on above: encouraged to see de ntist Other gastrointestinal disorders (8 sources) Diarrhea after gastrointestinal tract surgery; Translations: [Diarrhea, unspecified] 08-25-2019 Episodic Other gastrointestinal disorders (20 sources) Pain associated with defecation; Translations: [Pain with bowel movements] 05-14-2022 Episodic Other injuries and conditions due to external causes (20 sources) Cat bite - wound; Translations: [Cat bite] 02-02-2020 Episodic Comment on above: got tetanus Other lower respiratory disease (5 sources) Cough; Translations: [Cough in adult] 07-08-2023 Episodic Other lower respiratory disease (4 sources) Dyspnea on exertion; Translations: [Other forms of dyspnea] 08-04-2023 Episodic Other lower respiratory disease (1 source) Other forms of dyspnea; Translations: [Other respiratory abnormalities] 08-04-2023 Episodic Other nervous system disorders (5 sources) Postoperative pain ; Translations: [Other acute postprocedural pain] 02-28-2023 Episodic Other nervous system disorders (4 sources) Metallic taste; Translations: [Metallic taste] 07-08-2023 Episodic Other non-epithelial cancer of skin (20 sources) Basal cell carcinoma of face; Translations: [Basal cell carcinoma (BCC) of face] 08-13-2022 Episodic Comment on above: took part of left si de nose, face, arms, chest, leg yearly skin checks, goes to derm ([facility]) Other non-traumatic joint disorders (10 sources) Ankle pain; Translations: [Left lateral ankle pain] 06-17-2023 Episodic Other nutritional; endocrine; and metabolic disorders (20 sources) Body mass index 30+ - obesity; Translations: [BMI 30.0-30.9,adult] 02-02-2020 Chronic Other nutritional; endocrine; and metabolic disorders (20 sources) Obese class I; Translations: [Obesity (BMI 30.0-34.9)] 12-25-2022 Chronic Comment on above: start wegovy, titrat e if labs ok. cmp, amylase, lipase 4 wks after starting med then periodically. No hx pancreatitis. Other nutritional; endocrine; and metabolic disorders (13 sources) Obese class II; Translations: [Obesity, unspecified] Onset: 3 08-08-2023 Chronic Other nutritional; endocrine; and metabolic disorders (1 source) Obesity; Translations: [Obesity, unspecified] 02-10-2024 Chronic Other nutritional; endocrine; and metabolic disorders (20 sources) Weight gain; Translations: [Weight gain] 12-25-2022 Episodic Comment on above: we tried getting her on Wegovy but pharmacy can't seem to get any in. Other skin disorders (20 sources) Disorder of skin of upper limb; Translations: [Arm skin lesion, right] 08-13-2022 Episodic Comment on above: prepped site w/ beta dine. anesthesized w/ epi/lido, shave bx performed, appropriate bleeding - applied pressure x 5 minutes, pressure dressing applied. gave post biopsy wound instructions, f/u as needed. Other upper respiratory disease (20 sources) Allergic rhinitis; Translations: [Allergic rhinitis] 01-09-2021 Chronic Other upper respiratory disease (20 sources) Nasal sinus problem; Translations: [Sinus drainage] Resolved: 3 04-01-2023 Episodic Other upper respiratory infections (20 sources) Acute abscess of maxillary sinus; Translations: [Acute abscess of maxillary sinus] 03-10-2023 Episodic Residual codes; unclassified (20 sources) Requires diphtheria, tetanus and pertussis vaccination; Translations: [Need for Tdap vaccination (Renamed from Need for rtzzmisrbn-urhpbyr-xer tussis (Tdap) vaccine, adult/adolescent)] 02-02-2020 Episodic Residual codes; unclassified (20 sources) Postmenopausal state; Translations: [Postmenopausal (Renamed from Postmenopausal status)] 02-02-2020 Episodic Comment on above: total hysterectomy Residual codes; unclassified (10 sources) H/O: hysterectomy; Translations: [Status post hysterectomy] 02-02-2020 Episodic Comment on above: [address]Erasmo son [facility] [employer] Residual codes; unclassified (20 sources) Insomnia; Translations: [Insomnia] 12-25-2022 Episodic Comment on above: r/t hot flashes Screening and history of mental health and substance abuse codes (20 sources) Ex-smoker; Translations: [Former smoker] Onset: 0 02-02-2020 Episodic Comment on above: getting low dose CT Substance-related disorders (20 sources) Tobacco dependence in remission; Translations: [Tobacco abuse, in remission] 12-25-2022 Chronic Comment on above: smoking 2016 Unclassified (1 source) Unknown / UNK(Unknown) Onset: 7 Unclassified (20 sources) Former smoker Unclassified (20 sources) Unclassified (20 sources) Patient encounter status; Translations: [Encounter for screening mammogram for breast cancer (Renamed from Encounter for screening mammogram for malignant neoplasm of breast)] 02-02-2020 Unclassified (20 sources) BMI 32.0-32.9,adult Unclassified (19 sources) Postmenopausal (Renamed from Postmenopausal status) Unclassified (1 source) Cough, unspecified type; Translations: [Cough, unspecified type] Onset: 3 Past or Other Problems Problem Classification Problem Date Documented Date Episodic/Chronic Cardiac dysrhythmias (20 sources) Palpitations; Translations: [Palpitations] Onset: 09-20-2024 02-02-2020 Episodic Comment on above: Went to ER on , with fluttering in chest, found sinus arrthymia,told to follow up with primary.Saw Sandor had holter, and echo, he added cardizem addtional work up pending. Stress test per [facility] the 09-15-18, 30 day holter, palpitations continue adding antianxiety med. Saw Dr. Ruslan Puentes had a phone visit, confirmed nothing dangerous. Thought could go into afibWill see cardio in February with Sandor stable, on diltiazem .ER on 08-23-19 holter, and echo, he added cardizem addtional work up pending. Stress test per Patten the 09-15-18, 30 day holter, palpitations continue adding antianxiety med. Saw Dr. Ruslan Puentes had a phone visit, confirmed nothing dangerous. Cataract (19 sources) Cataract Nonspecific chest pain (4 sources) Chest pain; Translations: [Chest pain, unspecified] Onset: 09-23-2024 07-28-2024 Episodic Other screening for suspected conditions (not mental disorders or infectious disease) (20 sources) Electrocardiogram abnormal; Translations: [Abnormal EKG] Onset: 09-27-2024 02-02-2020 Episodic Comment on above: sinus arrthymia Unclassified (1 source) NAUSEA,RUQ ABD PAIN Onset: 05-09-2017 Unclassified (19 sources) Cat bite Unclassified (19 sources) Abnormal EKG Unclassified (19 sources) BMI 30.0-30.9,adult Unclassified (19 sources) Status post hysterectomy Unclassified (19 sources) Need for Tdap vaccination (Renamed from Need for jygpehfbfj-ijczjpf-pgrn ussis (Tdap) vaccine, adult/adolescent) Unclassified (19 sources) Teeth clenching Unclassified (20 sources) Two Vaginal Births 02-02-2020 Comment on above: 2 pregnancies, no MC Unclassified (20 sources) BMI 33.0-33.9,adult Unclassified (20 sources) Abdominal pain, LUQ Unclassified (20 sources) Unspecified Diagnosis 06-12-2022 Results Test Name Value Interpretation Reference Range Facility Pulmonary Visit Reporton Pulmonary Visit Report [facility] Pulmonary Medicine [facility] [place] [address] OFFICE VISIT Date of Service: 07/14/25 MR#: [id number] Acct: [id number] Name: JEANNE SANTACRUZ Rep #: [id number] : 1960 Provider: RANDEE Decker Age/Sex: 65/F Location: [facility] Status: Signed Assessment and Plan Assessment and Plan (1) Asthma: Status: Chronic Qualifiers: Asthma complication type: uncomplicated Asthma persistence: persistent Asthma severity: moderate Qualified Code(s): J45.40 - Moderate persistent asthma, uncomplicated Plan: Deteriorated. NIOX procedure performed in the office today returned within normal limits. This indicates that the patient does not require additional corticosteroids. However, the patient is more symptomatic and is having a difficult time expectorating sputum. For this reason I am going to add guaifenesin and a nebulizer. The patient was provided with a nebulizer device as well as training in the office today. She was provided with an albuterol treatment in the office. She was also given a prescription for albuterol medication to be utilized in the machine. Keep previously scheduled routine follow-up. No additional testing scheduled. No indication for antibiotics or prednisone. The patient is agreeable with this plan. She has been encouraged to contact our office if symptoms do not improve with this treatment. Orders: Orders NIOX Today J45.40 - Moderate persistent asthma, uncomplicated Aerosol treatment (first) Today J45.40 - Moderate persistent asthma, uncomplicated Medications: New albuterol sulfate 2.5 mg (3 mL) inhalation Q4H PRN 180 mL 3RF Sob /Or Wheezing guaifenesin ER 1,200 mg PO Q12H 60 tabs 6RF Plan Details Additional Comments: This note was generated with [employer] [employer] software. It may contain incorrect words, spelling, and punctuation that were not noted in checking the note before signing. Portions of this documentation have been copied and pasted from previous office visit notes to provide a cohesive continuity of the history. The note has been reviewed, edited, and updated, as necessary. I have spent 45 minutes today reviewing labs, records and history. Time includes coordinating care, interpretation of tests. This also includes time I spent with the patient for exam, treatment plan and education as well as documenting clinical information. HPI Acute asthma Chief Complaint: cough HPI Comments Details: This patient presents to the office today for an acute visit regarding cough. She is currently on room air. She contacted the office on July 13, 2025 reporting that she had chest cold symptoms for 3 weeks. She reported a cough and wheezing. She states the cough sounds moist but is not able to produce any sputum. She had been using vole-xhq-mlibecv Kandace-Garrett cold and flu. She continues complete smoking cessation since 2016. She is compliant with use of Trelegy 100 1 puff daily. She reports rinsing her mouth after each use. She denies any medication side effect such as sore throat or thrush. She tried utilizing albuterol at least once yesterday. She denies any difficulty with shortness of breath. She does have a daily cough. The cough seems to be worse at night. She has chest tightness. She states that the cough is nonproductive but feels as though she should be able to produce sputum. She states that she can feel the stuff rattling around but cannot get it out. She denies any uma chest pain or palpitations. She has not had any fever, chills or body aches. Intake Vital Signs 02/24/25 08:53 07/14/25 09:13 Height 5 ft 6 in 5 ft 6 in Weight: 170 lb BMI 27.4 BP 109/78 Blood Pressure Location Lt brachial Position Sitting Respiration 18 Pulse 77 Pulse Source Monitor Temp 97.2 F L Temperature Source Temporal Artery Pulse Oximetry (%) 99 Oxygen Delivery Method room air Intake Visit Reasons: Acute asthma Complaints Coordinator Required: No DME Vendor: n/a Accompanied by: Self Is patient in pain?: No Allergies Sulfa (Sulfonamide Antibiotics) Allergy (Verified 07/14/25 09:10) Hives amoxicillin (From Augmentin) Adverse Reaction (Verified 07/14/25 09:10) Upset Stomach clavulanic acid (From Augmentin) Adverse Reaction (Verified 07/14/25 09:10) Upset Stomach Medications ???Medication ???Instructions ???Recorded ???Confirmed ???Type cholecalciferol (vitamin D3) 50 2,000 unit PO DAILY 08/31/1907/14 History mcg (2,000 unit) tablet celecoxib 200 mg capsule 200 mg PO QDAY PRN 05/13/24 History sertraline 100 mg tablet 100 mg PO QDAY 08/12/24 07/14/25 H istory diltiazem HCl 120 mg 120 mg PO DAILY #90 caps 10/01/24 07/14/25 Rx capsule,extended release 24 hr fluticasone fur. 100 mcg-umeclid 1 i (more content not included)... Normal [facility] Pulmonary Visit Reporton Pulmonary Visit Report [facility] [place] [address] [place], [place] [address] OFFICE VISIT Date of Service: 02/24/25 MR#: [id number] Acct: [id number] Name: JEANNE SANTACRUZ Rep #: [id number] : 1960 Provider: RANDEE Decker Age/Sex: 64/F Location: [facility].PM[facility] Status: Signed Assessment and Plan Assessment and Plan (1) Asthma: Status: Chronic Qualifiers: Asthma severity: moderate Asthma persistence: persistent Asthma complication type: uncomplicated Qualified Code(s): J45.40 - Moderate persistent asthma, uncomplicated Plan: Stable, no signs of exacerbation of asthma today. No change in maintenance medications, symptomatically controlled with the use of Trelegy 100. The medication is now affordable with the use of a coupon card. No additional testing at this time. Contact the office with any signs of new or worsening symptoms. Follow-up in 1 year. (2) Smoking greater than 20 pack years: Status: Chronic Comment: smoking 2015 Plan: Continue to encourage ongoing smoking cessation. She remains appropriate for LDCT due in January 2026, ordered accordingly. Return to the office in 1 year to discuss test results. Orders: Orders Low Dose CT Lung Screening 01/06/26 F17.200 - Nicotine dependence, unspecified, uncomplicated, F17.210 - Nicotine dependence, cigarettes, uncomplicated Plan Details Additional Comments: This note was generated with [employer] dictation software. It may contain incorrect words, spelling, and punctuation that were not noted in checking the note before signing. HPI 6 M FU Chief Complaint: Test results HPI Comments Details: This patient presents to the office today for follow-up of her asthma and to discuss test results. She is currently on room air. She has not recently been seen in the ED or urgent care for respiratory illness. She has not required any antibiotics or prednisone for her breathing problems. She continues complete smoking cessation since 2015. She is compliant with use of Trelegy 100 1 puff daily. She reports rinsing her mouth after each use. She denies any medication side effect such as sore throat or thrush. She has not recently needed to use her albuterol. She denies any difficulty with shortness of breath. She denies any cough, sputum production or hemoptysis. She denies any wheezing, chest tightness, chest pain or palpitations. She also denies any fever, chills or body aches. Test results personally reviewed with the patient: Low-dose CT lung screening completed on January 26, 2025. No suspicious pulmonary nodules. Recommendation is to continue screening LDCT in 12 months. Intake Vital Signs 08/12/24 08:32 02/24/25 08:53 Height 5 ft 6 in 5 ft 6 in Weight: 169 lb BMI 27.2 BP 103/70 Blood Pressure Location Rt brachial Position Sitting Respiration 16 Pulse 66 Pulse Source Monitor Temp 97.4 F L Temperature Source Temporal Artery Pulse Oximetry (%) 98 Oxygen Delivery Method room air Intake Visit Reasons: 6 M FU Complaints Coordinator Required: No DME Vendor: N/a Accompanied by: Self Is patient in pain?: No Allergies Sulfa (Sulfonamide Antibiotics) Allergy (Verified 02/24/25 13:38) Hives amoxicillin (From Augmentin) Adverse Reaction (Verified 02/24/25 13:38) Upset Stomach clavulanic acid (From Augmentin) Adverse Reaction (Verified 02/24/25 13:38) Upset Stomach Medications ???Medication ???Instructions ???Recorded ???Confirmed ???Type cholecalciferol (vitamin D3) 50 2,000 unit PO DAILY 08/31/1902/24 History mcg (2,000 unit) tablet tirzepatide 5 mg/0.5 mL 5 mg subcut QWEEK 02/03/24 5 History subcutaneous pen injector celecoxib 200 mg capsule 200 mg PO QDAY PRN 05/13/24 History lisinopril 10 mg tablet 10 mg PO QDAY 07/28/24 02/24/25 Hi story cyanocobalamin (vitamin B-12) mcg IM 08/12/24 02/24/25 History 1,000 mcg/mL injection solution sertraline 100 mg tablet 100 mg PO QDAY 08/12/24 02/24/25 H istory diltiazem HCl 120 mg 120 mg PO DAILY #90 caps 10/01/24 02/24/25 Rx capsule,extended release 24 hr fluticasone fur. 100 mcg-umeclid 1 inh inhalation Q24H #60 ea 12/3002/24/25 Rx 62.5 mcg-vilant 25 mcg inhalat.powder (Trelegy Ellipta) Have you fallen in the past year?: No PFSH Medical History (Reviewed 02/24/25 @ 13:49 by Shama Decker LEGAL OFFICE ADMINISTRATOR, LEGAL OFFICE ADMINISTRATOR-C) Essential hypertension Hyperlipidemia Premature atrial contractions Diarrhea following gastrointestinal surgery Vitamin D deficiency Vitamin B 12 deficiency Sinus arrhythmia Former smoker Palpitations Surgical History History of tonsillectomy History of bilateral breast reduction surgery (1998) History of cholecystectomy (2017) History of (more content not included)... Normal [facility] Low Dose CT Lung Screeningon 01-26-[address] Lung Screening [facility] [address] [place] [address] Lung Screening MR#: [id number] Acct: [id number] Name: JEANNE SANTACRUZ Rep #: [id number] : 1960 F 64 From: Christian Carranza MD PCP: RANDEE Caputo Status: REG CLI Study: Low Dose CT Lung Screening Date of Exam: 01/26 Exam# [id number] Ordering Dr: Shama Decker NP, NP-Malathi PROCEDURE: 01/26/2025 REASON FOR EXAM: SMOKING QUIT 2015 TECHNIQUE: Low Dose CT Lung screening without contrast. Coronal and Sagittal reconstruction series were provided. One or more dose reduction techniques were used (e.g., Automated exposure control, adjustment of the mA and/or kV according to patient size, use of iterative reconstruction technique). REFERENCE LINK: [facility] Lung-RADS RADIATION DOSE SUMMARY: CTDlvol: 3.0 mGy DLP: 102 mGycm COMPARISON: None FINDINGS: Lymph Nodes:No lymphadenopathy. Heart and Vasculature:Normal heart size. Minimal coronary calcifications. Incidental note of an aberrant right subclavian artery which traverses posterior to the esophagus. Lungs and Airways: Central airways are clear. No suspicious pulmonary nodule. Pleura:No effusion. Upper Abdomen:Subcentimeter hypodense lesion in the right hepatic lobe is too small to characterize. Prior cholecystectomy. Bones:Degenerative changes of the thoracic spine. CT/Low Dose CT Lung Screening IMPRESSION: Lung-RADS Category: 1 NEGATIVE. RECOMMEND 12-MONTH SCREENING LDCT. Other Significant Findings: Aberrant right subclavian artery, a normal variant. Reading Location: [id number] CC: RANDEE Ochoa; RANDEE Decker Vice President Of Talent Management: Signed Normal [facility] Cardiology Visit Reporton Cardiology Visit Report [facility] [address] [place], [place] [address] OFFICE VISIT Date of Service: 01/06/25 MR#: [id number] Acct: [id number] Name: JEANNE SANTACRUZ Rep #: [id number] : 1960 Provider: RANDEE larios Age/Sex: 64/F Location: [facility] Status: Signed HPI HPI History of Present Illness Details: Jeanne Snatacruz is a 64-year-old white female who presents today for outpatient cardiovascular follow- up visit. She has a history of palpitations, PACs, hyperlipidemia, and hypertension. She had previously been evaluated by Dr. Ruslan Nguyen of electrophysiology at [facility]. From a cardiac standpoint, the patient is doing well. She does acknowledge an increase in palpitations over the last three days. She denies any palpitations, chest pain, pressure or heaviness. She denies SOB, Orthopnea, and PND. She does not have bleeding issues; no blood in urine, stool, or nosebleeds. She denies any decrease in energy level, myalgias, or claudication. She does not have edema, or sudden weight gain. She denies lightheadedness, dizziness, syncopal or near syncopal episodes, and headaches. Intake Vital Signs 07/28/24 12:58 08/12/24 08:32 01/06/25 13:31 Height 5 ft 6 in 5 ft 6 in 5 ft 6 in Weight: 170 lb BMI 27.4 BP 101/68 Blood Pressure Location Lt brachial Position Sitting Respiration 18 Pulse 74 Pulse Source Monitor Pulse Oximetry (%) 97 Intake Visit Reasons: 6 M FU Is patient in pain?: No Allergies Sulfa (Sulfonamide Antibiotics) Allergy (Verified 01/06/25 13:51) Hives amoxicillin (From Augmentin) Adverse Reaction (Verified 01/06/25 13:51) Upset Stomach clavulanic acid (From Augmentin) Adverse Reaction (Verified 01/06/25 13:51) Upset Stomach Medications ???Medication ???Instructions ???Recorded ???Confirmed ???Type cholecalciferol (vitamin D3) 50 2,000 unit PO DAILY 12/24/19 05/01 /25 History mcg (2,000 unit) tablet tirzepatide 5 mg/0.5 mL 5 mg subcut QWEEK 02/03/24 5 History subcutaneous pen injector celecoxib 200 mg capsule 200 mg PO QDAY PRN 05/13/24 History lisinopril 10 mg tablet 10 mg PO QDAY 07/28/24 01/06/25 Hi story cyanocobalamin (vitamin B-12) mcg IM 08/12/24 01/06/25 History 1,000 mcg/mL injection solution sertraline 100 mg tablet 100 mg PO QDAY 08/12/24 01/06/25 H istory diltiazem HCl 120 mg 120 mg PO DAILY #90 caps 10/01/24 01/06/25 Rx capsule,extended release 24 hr fluticasone fur. 100 mcg-umeclid 1 inh inhalation Q24H #60 ea 12/3001/06/25 Rx 62.5 mcg-vilant 25 mcg inhalat.powder (Trelegy Ellipta) Ejection fraction %: 60 Have you fallen in the past year?: No PFSH Medical History (Reviewed 01/06/25 @ 16:24 by Erendira Michel LEGAL OFFICE ADMINISTRATOR, LEGAL OFFICE ADMINISTRATOR-C) Essential hypertension Hyperlipidemia Premature atrial contractions Diarrhea following gastrointestinal surgery Vitamin D deficiency Vitamin B 12 deficiency Sinus arrhythmia Former smoker Palpitations Surgical History History of tonsillectomy History of bilateral breast reduction surgery (1998) History of cholecystectomy (2017) History of total abdominal hysterectomy H/O cataract removal with insertion of prosthetic lens (12/2018) Family History Mother Breast cancer Atrial fibrillation Father CVA (cerebral vascular accident) Atrial fibrillation COPD (chronic obstructive pulmonary disease) Myocardial infarction Abdominal aortic aneurysm Social History Smoking Status: Former smoker how long ago did patient quit smokin alcohol intake: current alcohol intake frequency: holidays/special occasions only substance use type: does not use caffeine: Yes Type: coffee Number of servings: 1 ROS Const Const: Negative for fatigue, weakness, headache(s) or frequent falls Eyes Eyes: Negative for blurry vision ENT ENT: Negative for headache(s), dizziness or Nosebleed/epistaxis Cardio Chest Pain: No Palpitations: Yes Edema: None Muscle aches with walking: None Resp Respiratory: Negative for SOB with activity, SOB at rest or SOB orthopnea SOB lying down GI GI: Negative nausea, vomiting, heartburn, bright, red blood in stools or black,tarry stools : Negative for hematuria Neuro Neuro: Negative for dizziness, lightheadedness, near syncope, syncope, frequent falls, headache(s), weakness or blurry vision Endo Endo: Negative for fatigue Cardiology Exam Const Appearance: cooperative, healthy appearing, comfortable, no acute distress and well developed Nutritional Appearance: overweight Orientation: alert, awake and oriented x3 Head H (more content not included)... Normal [facility] SCRN MAMM (CAD)W/LIZBETH BILATo n 09-02-2024 SCRN MAMM (CAD)W/LIZBETH BILAT [facility] Imaging Services [address] [place] [id number] SCRN MAMM (CAD)W/LIZBETH BILAT MR#: [id number] Acct: [id number] Name: JEANNE SANTACRUZ Rep #: [id number] : 1960 F 64 From: James Estrada MD PCP: RANDEE Caputo Status: [facility] Study: SCRN MAMM (CAD)W/LIZBETH BILAT Date of Exam: 08/09 03/01 Exam# [id number] Ordering Dr: Eugene Ochoa LEGAL OFFICE ADMINISTRATORSherrieC [id number] MAMMOGRAPHY - BILATERAL SCREENING 3-D TOMOSYNTHESIS REASON FOR EXAM: Female, 64 years old. SCRN MAMM (CAD)W/LIZBETH BILAT -- Encounter for screening mammogram for malignant neoplasm of breas PERTINENT HISTORY: No significant family history. TECHNIQUE: 2-D mammograms and 3-D Tomosynthesis of the breast (s) were performed. CAD was performed. COMPARISON: 07/29/2023 FINDINGS: The breast composition is composed of scattered fibroglandular density. Scattered benign calcifications are seen. No dense spiculated masses or suspicious microcalcifications are identified. No architectural distortion is identified. There is no skin thickening or retraction. There has been no significant change since the prior study. BI/SCRN MAMM (CAD)W/LIZBETH BILAT IMPRESSION: No mammographic signs of malignancy. Routine yearly mammograms recommended. ASSESSMENT CATEGORY: BIRADS Category 1: Negative. A letter regarding these results will be sent to the patient by the facility within 30 days. FOLLOW UP RECOMMENDATION: Yearly follow up mammogram recommended. (A) Approximately 10% of breast cancers are not detected by mammography. A normal mammogram should not delay biopsy of a clinically suspicious abnormality. Electronically Signed: James Estrada MD at 19:19 EST , CC: RANDEE Ochoa Vice President Of Talent Management: Signed Normal [facility] Stress Reporton 08-26-2024 Stress Report [facility] [address] [place] [address] MR#: [id number] Acct: [id number] Name: JEANNE SANTACRUZ Rep #: [id number] : 1960 64 From: Bob Power MD Primary Care: RANDEE Caputo Status: REG CLI Referring Dr: Mookie Espinosa NP LEGAL OFFICE ADMINISTRATOR-C Sex: F C Stress Test Report Exercise stress test. 64-year-old lady with a history of chest pain Stress protocol: Resting EKG demonstrates normal sinus rhythm with a rate of 64 bpm resting blood pressure is 90/60 mmHg. The patient exercised according to the regular Zac protocol for a total duration of 8 minutes and 13 seconds attaining a maximum heart rate of 179 bpm which was 113 of maximum predicted heart rate; the maximum workload was 10.1 metabolic equivalents. At rest there were no ST or T wave changes noted to suggest ischemia and at peak exercise upsloping ST changes only were noted which did not meet the criteria for ischemia. No clinical angina was noted the test was terminated due to the target heart rate being achieved/fatigue. The peak blood pressure was 140/84 mmHg. Rate- pressure product was 18,700. Patient complained of mild palpitations which correlated with postexercise PVC. Conclusion: Exercise stress test with no EKG criteria for ischemia at a high workload. Good functional aerobic capacity. 08/26/24 1640 Date Bob Power MD CC: RANDEE Ochoa; RANDEE Espinosa Date Dictated: 08/26/241638 Date Transcribed: 08/26/241638 Vice President Of Talent Management: [place] Signed Normal [facility] Pulmonary Visit Reporton Pulmonary Visit Report [facility] [place] [address] [place] [address]. [address] [place] [address] OFFICE VISIT Date of Service: 08/12/24 MR#: [id number] Acct: [id number] Name: JEANNE SANTACRUZ Rep #: [id number] : 1960 Provider: RANDEE Decker Age/Sex: 64/F Location: [facility] Status: Signed Assessment and Plan Assessment and Plan (1) Asthma: Status: Chronic Qualifiers: Asthma severity: moderate Asthma persistence: persistent Asthma complication type: uncomplicated Qualified Code(s): J45.40 - Moderate persistent asthma, uncomplicated Plan: Stable. No signs of exacerbation today. She is responding well to triple therapy with the use of Trelegy. I did give her a coupon card hopefully to reduce her monthly cost. I suspect that she has asthma/mild COPD overlap given the emphysema seen on her last LDCT. She is agreeable to repeating a pulmonary function test prior to returning to the office. Return to the office in February. Contact the office with any new or worsening symptoms in the meantime. The patient was interested in de- escalating to albuterol as needed only, however I did explain to her the importance of being on a maintenance medication to prevent exacerbations which would in turn decrease her overall lung function. She conveys understanding. I think getting the medication more affordable will also help to reduce the patient's desire to de-escalate. (2) Smoking greater than 20 pack years: Status: Chronic Comment: smoking 2015 Plan: Continue to encourage ongoing smoking cessation. She remains appropriate for LDCT due in January, ordered accordingly. Return to the office in February to discuss test results. Orders: Orders Low Dose CT Lung Screening 01/06/25 F17.200 - Nicotine dependence, unspecified, uncomplicated, F17.210 - Nicotine dependence, cigarettes, uncomplicated Medications: Refilled wesdhxridfd-nwvmmjkyt-wjcd nter 100-62.5-25 mcg (Trelegy Ellipta) 1 inh inhalation Q24H 60 ea 11RF HPI HPI Comments Details: This patient presents to the office today for follow-up of her asthma. She is currently on room air. She has not recently been seen in the ED or urgent care for respiratory illness. She has not required any antibiotics or prednisone for her breathing problems. She is compliant with use of Trelegy 100???62.5-25 mcg dosing 1 puff daily. She reports rinsing her mouth after each use. She denies any medication side effect such as sore throat or thrush. She rep orts back in the fall when the leads were coming down she had to titrate up to the 200???60 2.5-25 mcg dosing for a few days. She has not recently needed to use her albuterol. She does report that the Trelegy is costing $100 a month, it is somewhat expensive for her. She continues complete smoking cessation. If you recall, she has a 1 pack/day smoking history quitting completely back in 2016. This does put her at greater than 52-wmce-xbrb smoking history. She denies any difficulty with shortness of breath. Currently she is not experiencing any cough, sputum production or hemoptysis. She denies any wheezing, chest tightness, chest pain or palpitations. She also denies any fever, chills or body aches. Intake Vital Signs 05/13/24 07:27 07/28/24 12:58 08/12/24 08:32 Height 5 ft 6 in 5 ft 6 in 5 ft 6 in Weight: 178 lb 171 lb 170 lb BMI 28.7 27.6 27.4 BP 104/68 111/77 104/72 Blood Pressure Location Lt brachial Lt brachial Lt brachial Position Sitting Sitting Sitting Respiration 20 H 18 20 H Pulse 66 70 70 Pulse Source Monitor Monitor Monitor Temp 97.2 F L 95.8 F L Temperature Source Temporal Artery Temporal Artery Pulse Oximetry (%) 96 97 97 Oxygen Delivery Method room air room air Intake Visit Reasons: 3 M FU Complaints Coordinator Required: No Accompanied by: Self Allergies Sulfa (Sulfonamide Antibiotics) Allergy (Verified 08/12/24 13:47) Hives amoxicillin (From Augmentin) Adverse Reaction (Verified 08/12/24 13:47) Upset Stomach clavulanic acid (From Augmentin) Adverse Reaction (Verified 08/12/24 13:47) Upset Stomach Medications ???Medication ???Instructions ???Recorded ???Confirmed ???Type cholecalciferol (vitamin D3) 50 2,000 unit PO DAILY 08/31/19 08/12/24 History mcg (2,000 unit) tablet diltiazem HCl 120 mg 120 mg PO DAILY #90 caps 09/16/23 08/12/24 Rx capsule,extended release 24 hr tirzepatide 5 mg/0.5 mL 5 mg subcut QWEEK 02/03/24 08/12/24 History subcutaneous pen injector celecoxib 200 mg capsule 200 mg PO QDAY PRN 05/13/24 08/12/24 History lisinopril 10 mg tablet 10 mg PO QDAY 07/28/24 08/12/24 History cyanocobalamin (vitamin B-12) mcg IM 08/12/24 08/12/24 History 1,000 mcg/mL injection solution fluticasone fur. 100 mcg-umeclid 1 inh inhalation Q24H #60 ea 08/12/24 08/12/24 Rx 62.5 mcg-vilant 2 (more content not included)... Normal [facility] Cardiology Visit Reporton Cardiology Visit Report [facility] [address] [place], [place] [address] OFFICE VISIT Date of Service: 07/28/24 MR#: [id number] Acct: [id number] Name: JEANNE SANTACRUZ Rep #: [id number] : 1960 Provider: RANDEE larios Age/Sex: 64/F Location: [facility] Status: Signed HPI HPI History of Present Illness Details: Jeanne Santacruz is a 64-year-old white female who presents today for outpatient cardiovascular follow- up visit. She has a history of palpitations, PACs, hyperlipidemia, and hypertension. She had previously been evaluated by Dr. Ruslan Nguyen of electrophysiology at [facility]. From a cardiac standpoint, the patient is doing well. She does have palpitations. She describes this as a skipped beat/racing sensation. She does acknowledge left sided chest pain-this is located left chest. She states occurs at rest. This will last for a few minutes. She denies SOB, Orthopnea, and PND. She does not have bleeding issues; no blood in urine, stool or nosebleeds. She denies any decrease in energy level, myalgias, or claudication. She does not have edema, or sudden weight gain. She does have occasional lightheadedness with quick positional changes. She denies dizziness, syncopal or near syncopal episodes, and headaches. She states that she is scheduled to see her PCP in a few weeks, and will have lab work done at that time. Intake Vital Signs 02/03/24 13:38 05/13/24 07:27 07/28/24 12:58 Height 5 ft 6 in 5 ft 6 in 5 ft 6 in Weight: 171 lb BMI 27.6 BP 111/77 Blood Pressure Location Lt brachial Position Sitting Respiration 18 Pulse 70 Pulse Source Monitor Pulse Oximetry (%) 97 Intake Visit Reasons: 6 M FU Complaints Coordinator Required: No Is patient in pain?: No Allergies Sulfa (Sulfonamide Antibiotics) Allergy (Verified 07/28/24 13:03) Hives amoxicillin (From Augmentin) Adverse Reaction (Verified 07/28/24 13:03) Upset Stomach clavulanic acid (From Augmentin) Adverse Reaction (Verified 07/28/24 13:03) Upset Stomach Medications ???Medication ???Instructions ???Recorded ???Confirmed ???Type cholecalciferol (vitamin D3) 50 2,000 unit PO DAILY 08/31/19 07/28/24 History mcg (2,000 unit) tablet sertraline 50 mg tablet 100 mg PO DAILY 08/04/23 07/28/24 History diltiazem HCl 120 mg 120 mg PO DAILY #90 caps 09/16/23 07/28/24 Rx capsule,extended release 24 hr tirzepatide 5 mg/0.5 mL 5 mg subcut QWEEK 02/03/24 07/28/24 History subcutaneous pen injector celecoxib 200 mg capsule 200 mg PO QDAY PRN 05/13/24 07/28/24 History fluticasone fur. 100 mcg-umeclid 1 inh inhalation Q24H #60 ea 05/13/24 07/28/24 Rx 62.5 mcg-vilant 25 mcg inhalat.powder (Trelegy Ellipta) lisinopril 10 mg tablet 10 mg PO QDAY 07/28/24 07/28/24 History PFSH Medical History (Reviewed 07/28/24 @ 13:03 by Erendira Michel LEGAL OFFICE ADMINISTRATOR, LEGAL OFFICE ADMINISTRATOR-C) Essential hypertension Hyperlipidemia Premature atrial contractions Diarrhea following gastrointestinal surgery Vitamin D deficiency Vitamin B 12 deficiency Sinus arrhythmia Former smoker Palpitations Surgical History (Reviewed 07/28/24 @ 13:03 by Erendira Michel LEGAL OFFICE ADMINISTRATOR, LEGAL OFFICE ADMINISTRATOR-C) History of tonsillectomy History of bilateral breast reduction surgery (1998) History of cholecystectomy (2017) History of total abdominal hysterectomy H/O cataract removal with insertion of prosthetic lens (12/2018) Family History Mother Breast cancer Atrial fibrillation Father CVA (cerebral vascular accident) Atrial fibrillation COPD (chronic obstructive pulmonary disease) Myocardial infarction Abdominal aortic aneurysm Social History Smoking Status: Former smoker how long ago did patient quit smokin years ago alcohol intake: current alcohol intake frequency: holidays/special occasions only substance use type: does not use caffeine: Yes Type: coffee Number of servings: 1 ROS Const Const: Negative for fatigue, weakness, fever(s), headache(s), chills, frequent falls, weight gain or weight loss Eyes Eyes: Negative for blind spots, loss of peripheral vision, transient loss of vision, blurry vision, change in vision, double vision, floaters or tunnel vision ENT ENT: Negative for headache(s), dizziness, Nosebleed/epistaxis, balance problems or neck pain Cardio Chest Pain: Yes Frequency: weekly Character: sharp Onset: at rest Location: left chest Duration: minutes Palpitations: Yes (daily) Edema: None Muscle aches with walking: None Resp Respiratory: Negative for SOB with activity, SOB at rest or SOB orthopnea SOB lying down GI GI: Negative nausea, vomiting, heartburn, bloating, vomiting blood/hematemesis, bright, red blood in stools or black, (more content not included)... Normal [facility] A1AT SerPl-mCncon 03-08-2024 Alpha 1 antitrypsin [Mass/Vol] 139 mg/dL Normal 90-200 [facility] Comment on above: Order Comment: Speci men Type: BLOOD SPECIMENOrdering Facility: [facility] Address: [address] [place] [address] Performed By: #### 1 [id number] ####[facility] LABCLIA [id number] [facility] [id number] OF [facility] CNOVon 02-10-2024 CNOV Office Visit (PULMWS ) -- JEANNE SANTACRUZ ([id number]) 1960 F Date Time Provider Department 02/10/24 1:00 PM KAYLEE MURRAY During your visit today, we recorded the following information about you: Pulse Respiration Blood pressure Weight 89/minute 16/minute 108/70 88.9 kg Valeria Stokes APRN.[facility]IDER 02/10/2024 4:33 PM Attested -- Attestation signed by Kaylee Murray PA-C at 02/10/2024 4:33 PM I have personally performed a face to face assessment of the patient and have reviewed the EDWIN note. My ruano findings include: Exam is as documented. Assessment/Plan discussed and detailed above. Other additions or changes: As edited Signature: Kaylee Murray Date: 02/10/2024 Time: 4:32 PM -- Pulmonary Medicine CC: Asthma follow-up Jeanne Santacruz is a 63 year old obese female former 27 pack year smoker, quitting in 2016 with PMH significant for HTN, eczema, and asthma. Current therapy with Dulera and PRN Albuterol. She was seen by [facility] in October 2023 but due issues with insurance coverage, had CT done at [facility]. Today, patient reports rare cough without sputum. No hemoptysis, wheezing or dyspnea at rest. Denies fevers, chills, or night sweats. Currently actively losing weight and is down 22lbs. No recent hospitalizations or ED visits or upper respiratory infections. Denies significant seasonal allergies, uses Flonase PRN. She continues to experience SOB on exertion. It has improved since using Dulera, however she notes being SOB with activities such as vacuuming. She used Albuterol once in January while hiking. She became very SOB and nauseous and had to stop. She used Albuterol and symptoms lasted approximately 10 minutes, after which she was able to complete the hike. She denies chest pain/tightness or wheezing and has not experienced symptoms like it since. PAST MEDICAL HISTORY Diagnosis Date Essential hypertension Palpitations Premature atrial contractions Premature ventricular contractions (PVCs) (VPCs) Sinus arrhythmia Vitamin B12 deficiency Vitamin D deficiency IMMUNIZATIONS Prevnar - xx Pneumovax 23 - xx Influenza - 06/28/2023 COVID-19 - 07/14/2022 Review of Systems Constitutional: Negative for activity change, appetite change, fever and unexpected weight change. HENT: Negative for postnasal drip, rhinorrhea and sinus pressure. Respiratory: Positive for shortness of breath. Negative for cough, chest tightness and wheezing. Cardiovascular: Negative for chest pain and leg swelling. Musculoskeletal: Negative for gait problem. Neurological: Negative for dizziness, weakness and light-headedness. BP 108/70 Pulse 89 Resp 16 Wt 88.9 kg (196 lb) SpO2 99% BMI 32.66 kg/m? Physical Exam Vitals reviewed. Constitutional: General: She is not in acute distress. Appearance: Normal appearance. HENT: Mouth/Throat: Mouth: Mucous membranes are moist. Cardiovascular: Rate and Rhythm: Normal rate and regular rhythm. Pulses: Normal pulses. Pulmonary: Effort: Pulmonary effort is normal. No respiratory distress. Breath sounds: Normal breath sounds. No wheezing. Musculoskeletal: Right lower leg: No edema. Left lower leg: No edema. Skin: General: Skin is warm and dry. Capillary Refill: Capillary refill takes 2 to 3 seconds. Neurological: General: No focal deficit present. Mental Status: She is alert. DATA: I personally reviewed and analyzed all labs, radiographs and available pulmonary function testing PFT: Latest Ref Rng AND Units 08/08/2023 Spirometry Data FVC PRE (L) L 3.62 FVC POST (L) L 3.83 FEV1 PRE (L) L 2.40 FEV1_POST (L) L 2.53 FEV1/FVC PRE (%) % 66 FEV1/FVC POST (%) % 66 TWD67-07% PRE (L/S) L/S 1.23 IMO73-10% POST (L/S) L/S 1.60 PEF PRE (L/S) L/S 5.87 PEF POST (L/S) L/S 6.36 DLCO (ml/min/mmHg) ml/min/mmHg 24.81 VA (L) L 5.59 DLCO/VA (ml/min/mmHg/L) ml/min/mmHg/L 4.44 No data to display 10/08/2023 08/08/2023 Exhaled Nitric Oxide Oral Exhaled Nitric Oxide (ppb) 20 75 Labs: Abs Eosin (k/uL) Date Value 08/08/2023 0.27 ASSESSMENT/PLAN: 1. Mild persistent asthma without complication - ICD9: 493.90, ICD10: J45.30 (primary diagnosis) - Continues to experience exertional dyspnea, will switch Dulera to Trelegy and monitor for improvement - FLUTICASONE FUR. 200 MCG-UMECLID 62.5 MCG-VILANT 25 MCG INHALAT.POWDER 2. Dyspnea on exertion - ICD9: 786.09, ICD10: R06.09 - trial Trelegy and monitor symptoms - encouraged continued weight loss and regular exercise 3. Pulmonary emphysema, unspecified emphysema type (HCC) - ICD9: 492.8, ICD10: J43.9 - FLUTICASONE FUR. 200 MCG-UMECLID 62.5 MCG-VILANT 25 MCG INHALAT.POWDER - [id number] 4. Former smoker - ICD9: V (more content not included)... Normal [facility] CNPNon 02-10-2024 CNPN Telephone (PULMWS) -- JEANNE SANTACRUZ ([id number]) 1960 F Date Time Provider Department 02/10/24 BECKA DELGADILLO During your visit today, we recorded the following information about you: Kaylee Galvez 02/10/2024 5:09 PM Signed Pt states she has spoken to billing and they are saying they will just turn her in to collection if she does not pay the bill. She chose not to do her CT here at the Clinic due to the insurance not paying for it. Her primary care provider then ordered it and it was covered. They will not pay for Becka's visit because it was billed as a Lung Screening and they do not pay for preventative. She states Kaylee Murray may have different codes that could be used but also told her that it would likely be written off since she can't utilize the Lung Cancer Screening visits. Recommended she talk to [facility] but pt wanted to still relay message to Becka Delgadillo. Allergies As of Date: 02/10/2024 Noted Allergy Reaction AUGMENTIN (AMOXICILLIN-POT CLAVUL*07/27/2019 11 - Vomiting SULFA (SULFONAMIDE ANTIBIOTICS) 07/27/2019 4 - Hives Date Reviewed: 02/10/2024 Reviewed by: Valeria Stokes APRN.PEN RIDER - Fully Assessed Reason for Visit: Patient Update [1234] Prescriptions as of 02/18/2024 - tirzepatide, weight loss (ZEPBOUND) 5 mg/0.5 mL pen injector Inject 5 mg subcutaneously one time a week. - usgoazzvzqo-mciqzpnfa-ggks nter (TRELEGY ELLIPTA) 200-62.5-25 mcg inhalation powder Inhale 1 Puff as instructed once daily. - albuterol HFA (PROVENTIL HFA, VENTOLIN HFA) 90 mcg/actuation inhaler INHALE 2 PUFFS BY MOUTH FOUR TIMES A DAY NEEDED - sertraline (ZOLOFT) 50 mg tablet Take 100 mg by mouth once daily. - diltiazem (CARDIZEM) 120 mg tablet Take 120 mg by mouth once daily. - lisinopril-hydrochlorothia zide (PRINZIDE,ZESTORETIC) 10-12.5 mg per tablet Take 0.5 tablets by mouth once daily. - fluticasone (FLONASE) 50 mcg/actuation nasal spray 2 Sprays once daily. - cyanocobalamin 1,000 mcg/mL soln Inject 1,000 mcg subcutaneously one time only. monthly - colestipol (COLESTID) 1 gram tablet Take 2 g by mouth once daily. Every other day or PRN - ergocalciferol, vitamin D2, (VITAMIN D2 ORAL) Take 1 capsule by mouth once daily. + D3 2,000iu Problem List As Of Date 02/10/2024 Noted Resolved Palpitations [R00.2] Premature atrial contractions [I49.1] Essential hypertension [I10] 12/20/2019 Ex-smoker [Z87.891] 12/20/2019 Premature ventricular contractions (PVCs) (VPCs* Obesity, Class II, BMI 35-39.9 [E66.9] 08/08/2023 Encounter Status:Closed by BECKA DELGADILLO on 02/18/24 [facility] 01-09-2024 CNCO Letter Text [facility] CNPNon 01-01-2024 [facility] [place] JEANNE SANTACRUZ ([id number]) 1960 F Date Time Provider Department 01/01/24 BECKA DELGADILLO PULMDUNIA During your visit today, we recorded the following information about you: Radha Seay MA 01/01/2024 8:35 AM Signed Pt calling to inform that her 11/03/2023 appointment with Becka Parker was not covered by her insurance. She states that she informed both Kaylee Murray that referred her and Becka that her insurance would not cover preventative medicine or screening codes. With her pulmonary history, she was reassured that the services would be covered. She is scheduled for CT Lung Screening 01/07, but states she does not want to do it if it is not going to be covered. (Coded the same) Asking that we check with provider to see if this can be billed any with other diagnosis codes. Her EOB just states that the visit was not a covered service. I told her that I would check with provider as requested and let her know. The CT scan states authorized, but she is not sure it will be covered if it is coded with a Z code. Please review and advise. CATRACHO Curry Laurie, MA 01/07/2024 2:52 PM Signed Radha Seay MA 01/07/2024 2:52 PM Signed I contacted patient and relayed Becka's message. Pt has decided to cancel due to the uncertainty of the coverage. She will most likely have PCP order at [facility]. CT scheduled here tomorrow has been cancelled. Radha Seay MA Allergies As of Date: 01/01/2024 Noted Allergy Reaction AUGMENTIN (AMOXICILLIN-POT CLAVUL*07/27/2019 11 - Vomiting SULFA (SULFONAMIDE ANTIBIOTICS) 07/27/2019 4 - Hives Date Reviewed: 11/03/2023 Reviewed by: Becka Delgadillo APRN.PEN RIDER - Fully Assessed Reason for Visit: Billing issue [Other] 01/07 CT question [Other] Prescriptions as of 01/07/2024 - albuterol HFA (PROVENTIL HFA, VENTOLIN HFA) 90 mcg/actuation inhaler INHALE 2 PUFFS BY MOUTH FOUR TIMES A DAY NEEDED - mometasone-formoterol (DULERA) 200-5 mcg/actuation inhaler Inhale 2 Puffs as instructed two times a day. - sertraline (ZOLOFT) 50 mg tablet Take 100 mg by mouth once daily. - diltiazem (CARDIZEM) 120 mg tablet Take 120 mg by mouth once daily. - lisinopril-hydrochlorothia zide (PRINZIDE,ZESTORETIC) 10-12.5 mg per tablet Take 1 tablet by mouth once daily. - fluticasone (FLONASE) 50 mcg/actuation nasal spray 2 Sprays once daily. - cyanocobalamin 1,000 mcg/mL soln Inject 1,000 mcg subcutaneously one time only. monthly - colestipol (COLESTID) 1 gram tablet Take 2 g by mouth once daily. - ergocalciferol, vitamin D2, (VITAMIN D2 ORAL) Take 1 capsule by mouth once daily. + D3 2,000iu Problem List As Of Date 01/01/2024 Noted Resolved Palpitations [R00.2] Premature atrial contractions [I49.1] Essential hypertension [I10] 12/20/2019 Ex-smoker [Z87.891] 12/20/2019 Premature ventricular contractions (PVCs) (VPCs* Obesity, Class II, BMI 35-39.9 [E66.9] 08/08/2023 Encounter Status:Closed by RADHA SEAY on 01/07/24 [facility] CNOVon 11-03-2023 CNOV Office Visit (PULMWS ) -- JEANNE SANTACRUZ ([id number]) 1960 F Date Time Provider Department 11/03/23 11:30 AM BECKA DELGADILLO PULBRIAN During your visit today, we recorded the following information about you: Weight 97.1 kg Becka Delgadillo APRN.CNP 11/03/2023 1:06 PM Signed LUNG SCREENING VISIT PRIMARY CARE PHYSICIAN: Shakila Carter CNP PULMONARY PROVIDER: Kaylee SIMON/Dr. Marion Arnold Results will be communicated via letter or electronic record if applicable. Visit Delivery: In Person Patient Visit Type: New to [place] Current or Ex-smoker? ex Exam Type: annual LDCT Number of Pack Years: 38 Current smoker (=0) or Number of Years since Quit: 7 REQUESTER: The referring provider advised the patient to have screening. HISTORY OF PRESENT ILLNESS: Jeanne Santacruz is a 63 year old Former smoker who presents for lung screening. Respiratory symptoms include: SOB: Yes, hiking, vacuuming, stairs Chest tightness: No Coughing: Yes: Without mucus Hemoptysis: No Wheezing: Yes, with flare ups, diagnosed with asthma, on treatment wheezing is improved Fever/Chills: No Recent Respiratory Infection: No Unintentional weight loss: No Last 6 Encounter Wt Readings: Date: Wt: 11/03/2023 97.1 kg (214 lb) 10/08/2023 96.2 kg (212 lb) 10/08/2023 96.2 kg (212 lb) 08/08/2023 95.7 kg (211 lb) 08/08/2023 95.7 kg (211 lb) 04/22/2023 95.7 kg (211 lb) ECOG PERFORMANCE STATUS: 0- Fully active, able to carry on all pre-disease performance w/o restriction. Modified Medical Research [place] Dyspnea Scale (MMRC) I only get breathless with strenous exercise 0 PAST MEDICAL HISTORY Diagnosis Date Essential hypertension Palpitations Premature atrial contractions Premature ventricular contractions (PVCs) (VPCs) Sinus arrhythmia Vitamin B12 deficiency Vitamin D deficiency PAST SURGICAL HISTORY Procedure Laterality Date BREAST REDUCTION Bilateral 1998 CARDIAC MONITORING CONTINUOUS 09/29/2019 30-day monitoring: see report in scanned documents; essentially showed SR with PACs, brief PAT, PVCs; no AF CATARACT EXTRACTION HX Bilateral 12/2018 Cataract removal with insertion of prosthetic lens CHOLECYSTECTOMY 2017 F TOTAL ABDOMINAL HYSTERECTOMY BSO TONSILLECTOMY HX FAMILY HISTORY Problem Relation Age of Onset Breast Cancer Mother other (atrial fibrillation) Mother Stroke Father COPD Father Heart Attack Father Aneurysm Father other (atrial fibrillation) Father Crohn's Disease Sister other (tachycardia) Sister Tourette syndrome Brother albuterol HFA (PROVENTIL HFA, VENTOLIN HFA) 90 mcg/actuation inhaler INHALE 2 PUFFS BY MOUTH FOUR TIMES A DAY NEEDED mometasone-formoterol (DULERA) 200-5 mcg/actuation inhaler Inhale 2 Puffs as instructed two times a day. sertraline (ZOLOFT) 50 mg tablet Take 100 mg by mouth once daily. diltiazem (CARDIZEM) 120 mg tablet Take 120 mg by mouth once daily. lisinopril-hydrochlorothia zide (PRINZIDE,ZESTORETIC) 10-12.5 mg per tablet Take 1 tablet by mouth once daily. fluticasone (FLONASE) 50 mcg/actuation nasal spray 2 Sprays once daily. cyanocobalamin 1,000 mcg/mL soln Inject 1,000 mcg subcutaneously one time only. monthly colestipol (COLESTID) 1 gram tablet Take 2 g by mouth once daily. ergocalciferol, vitamin D2, (VITAMIN D2 ORAL) Take 1 capsule by mouth once daily. + D3 2,000iu ALLERGIES Allergen Reactions Augmentin [Amoxicil* Vomiting Sulfa (Sulfonamide * Hives The medications and allergies were reviewed and reconciled for this patient and deemed current. Lung Cancer Risk Factors: 1.Tobacco Use: Start Age 18, Quit Age: 56, Average packs per day 1, Pack Years 38 2. Passive Smoke Exposure: Yes, as a Child and as an Adult 3. Personal hx of malignancy: Yes, Type of Cancer: Other smoking-related cancers skin cancer-squamous cell and melanoma 4. Significant exposures (1 year or more of exposure): None, 5. Race: White 6. Education: Some College 7. BMI:Body mass index is 35.66 kg/m?. Patient-entered Height: 5'4 Patient-entered Weight: 214 pounds 8. COPD: No 9. Pneumonia in the past 5 years: No 10. Is there a history of lung cancer in a first degree relative? No 11. Is there a history of lung cancer in a non-first degree relative? No 12. Is there a history of any other cancer in a first degree relative? Yes mom breast cancer Health Maintenance Immunization History Administered Date(s) Administered COVID-19 original vaccine, age 12+ yr, monovalent ([employer]-8020select - PURPLE TOP) 11/23/2020 12/14/2020 07/15/2021 COVID-19 vaccine, age 12+ yr, bivalent ([employer]-BIONTECH) 07/14/2022 influenza (IIV4) vaccine, age 6 mo - 64 yr, quadrivalent, PF (AFLURIA, FLUARIX, FLULAVAL, FLUZONE) 07/04/2018 05/11/2020 06/20/2021 06/30/2022 06/28/2023 influenza (ccIIV4) vaccine, age 6+ mo, quadrivalent, PF (FLUCELVAX) 06/23/2019 (more content not included)... Normal [facility] CNCOon 10-08-2023 CNCO Letter Text Normal [facility] CNOVon 10-08-2023 CNOV Office Visit (PULMWS ) -- JEANNE SANTACRUZ ([id number]) 1960 F Date Time Provider Department 10/08/23 10:00 AM KAYLEE MURRAY PULMWS During your visit today, we recorded the following information about you: Weight 96.2 kg Kaylee Murray PA-C 10/08/2023 11:57 AM Signed Patient: Jeanne Santacruz PCP: Shakila Carter PEN RIDER CC: follow up HPI: Jeanne Juliette Noam 63 year old obese female former 27 pack year smoker, quitting in 2016 with PMH significant for HTN, eczema, and asthma. Initially evaluated by Dr. Arnold 08/08/2023 at which time she had a significantly elevated nitric oxide at 75 and PFTs demonstrated mild obstruction with improvement in mid flows postbronchodilator. Allergy panel, eosinophil count and IgE levels all normal. Patient started on Dulera with as needed Albuterol. Today, patient reports no significant cough, wheezing or SOB. No lower extremity edema. PAST MEDICAL HISTORY Diagnosis Date Essential hypertension Palpitations Premature atrial contractions Premature ventricular contractions (PVCs) (VPCs) Sinus arrhythmia Vitamin B12 deficiency Vitamin D deficiency Allergies: Augmentin [Amoxicil* Vomiting Sulfa (Sulfonamide * Hives mometasone-formoterol (DULERA) 200-5 mcg/actuation inhaler Inhale 2 Puffs as instructed two times a day. fluticasone-salmeterol (ADVAIR DISKUS) 250-50 mcg/dose inhaler Inhale 1 Puff as instructed two times a day. RINSE AND GARGLE MOUTH WITH WATER AFTER EACH USE. albuterol HFA (PROVENTIL HFA, VENTOLIN HFA) 90 mcg/actuation inhaler INHALE 2 PUFFS BY MOUTH FOUR TIMES A DAY NEEDED fluticasone-vilanterol (BREO ELLIPTA) 100-25 mcg/dose inhaler Inhale 1 Inhalation as instructed once daily. sertraline (ZOLOFT) 50 mg tablet Take 100 mg by mouth once daily. diltiazem (CARDIZEM) 120 mg tablet Take 120 mg by mouth once daily. lisinopril-hydrochlorothia zide (PRINZIDE,ZESTORETIC) 10-12.5 mg per tablet Take 1 tablet by mouth once daily. fluticasone (FLONASE) 50 mcg/actuation nasal spray 2 Sprays once daily. cyanocobalamin 1,000 mcg/mL soln Inject 1,000 mcg subcutaneously one time only. monthly colestipol (COLESTID) 1 gram tablet Take 2 g by mouth once daily. ergocalciferol, vitamin D2, (VITAMIN D2 ORAL) Take 1 capsule by mouth once daily. + D3 2,000iu Social History Tobacco Use Smoking status: Former Packs/day: 0.75 Years: 36.00 Additional pack years: 0.00 Total pack years: 27.00 Types: Cigarettes Start date: 1979 Quit date: 12/20/2015 Years since quittin.8 Smokeless tobacco: Never Vaping Use Vaping Use: Never used Substance Use Topics Alcohol use: Not Currently Comment: rare Drug use: Not Currently Family History Problem Relation Age of Onset Breast Cancer Mother other (atrial fibrillation) Mother Stroke Father COPD Father Heart Attack Father Aneurysm Father other (atrial fibrillation) Father Crohn's Disease Sister other (tachycardia) Sister Tourette syndrome Brother PAST SURGICAL HISTORY Procedure Laterality Date BREAST REDUCTION Bilateral 1998 CARDIAC MONITORING CONTINUOUS 09/29/2019 30-day monitoring: see report in scanned documents; essentially showed SR with PACs, brief PAT, PVCs; no AF CATARACT EXTRACTION HX Bilateral 12/2018 Cataract removal with insertion of prosthetic lens CHOLECYSTECTOMY 2018 F TOTAL ABDOMINAL HYSTERECTOMY BSO TONSILLECTOMY HX I reviewed the past medical history, family history, social history and surgical history with changes noted above and updated in EMR. IMMUNIZATIONS Prevnar - xx Pneumovax 23 - xx Influenza - 2022 COVID-19 - most recent 07/2022 ROS: General: No fevers, chills or night sweats. No unintended weight loss. Eyes, Ears, nose, throat: No post nasal drip, rhinorrhea, purulent nasal discharge, epistaxis. No hoarseness. Vision stable. Cardiac: No angina, edema, orthopnea. Resp: See HPI. GI: No heartburn, dysphagia. Musculoskeletal: No joint pain or swelling. Neuro: No headache, focal weakness, tremor. Skin: No skin changes or rash. Otherwise negative. PHYSICAL EXAMINATION: BP (P) 104/62 Pulse (P) 86 Resp (P) 17 Wt 96.2 kg (212 lb) SpO2 (P) 98% BMI 35.32 kg/m? Gen: No acute distress. Cooperative with examination. HEENT: Normocephalic. Sclera, conjunctiva clear. Oral hygeine and dentition good. No thrush. Resp: No stridor, accessory respiratory muscle use, supra-sternal or intercostal retractions. No wheezes, crackles. CV: Regular rythm. Heart tones normal. Radial pulses normal. MSK: No kyphoscoliosis. Ext: Warm and well perfused. No clubbing, cyanosis, edema. Skin: No rash, ecchymoses. Neuro: Mental status normal. Affect normal. No tremor. DATA: Exhaled nitric oxide (Dee), 10/08/2023: 20 (normal < 20). 08/08/2023 75.0 (A) PFT, 08/2023: Review of pulmonary function test shows mild obstruction (more content not included)... Normal [facility] 08-13-2023 CNPN Telephone (PULMWS) -- JEANNE SANTACRUZ ([id number]) 1960 F Date Time Provider Department 08/13/23 MAGNOLIA ARNOLD PULMWS During your visit today, we recorded the following information about you: Magnolia Arnold MD 08/13/2023 8:58 AM Signed Allergen panel, eosinophil count and IgE level all normal. States she is feeling better with Advair. Has appt in 6 weeks. If she is doing well can change appointment to 3-4 months follow-up. Allergies As of Date: 08/13/2023 Noted Allergy Reaction AUGMENTIN (AMOXICILLIN-POT CLAVUL*07/27/2019 11 - Vomiting SULFA (SULFONAMIDE ANTIBIOTICS) 07/27/2019 4 - Hives Date Reviewed: 08/08/2023 Reviewed by: Magnolia Arnold MD - Fully Assessed Reason for Visit: Results [95] Cmt: Allergy panel Prescriptions as of 08/13/2023 - mometasone-formoterol (DULERA) 200-5 mcg/actuation inhaler Inhale 2 Puffs as instructed two times a day. - fluticasone-salmeterol (ADVAIR DISKUS) 250-50 mcg/dose inhaler Inhale 1 Puff as instructed two times a day. RINSE AND GARGLE MOUTH WITH WATER AFTER EACH USE. - albuterol HFA (PROVENTIL HFA, VENTOLIN HFA) 90 mcg/actuation inhaler INHALE 2 PUFFS BY MOUTH FOUR TIMES A DAY NEEDED - fluticasone-vilanterol (BREO ELLIPTA) 100-25 mcg/dose inhaler Inhale 1 Inhalation as instructed once daily. - sertraline (ZOLOFT) 50 mg tablet Take 100 mg by mouth once daily. - diltiazem (CARDIZEM) 120 mg tablet Take 120 mg by mouth once daily. - lisinopril-hydrochlorothia zide (PRINZIDE,ZESTORETIC) 10-12.5 mg per tablet Take 1 tablet by mouth once daily. - fluticasone (FLONASE) 50 mcg/actuation nasal spray 2 Sprays once daily. - cyanocobalamin 1,000 mcg/mL soln Inject 1,000 mcg subcutaneously one time only. monthly - colestipol (COLESTID) 1 gram tablet Take 2 g by mouth once daily. - ergocalciferol, vitamin D2, (VITAMIN D2 ORAL) Take 1 capsule by mouth once daily. + D3 2,000iu Problem List As Of Date 08/13/2023 Noted Resolved Palpitations [R00.2] Premature atrial contractions [I49.1] Essential hypertension [I10] 12/20/2019 Ex-smoker [Z87.891] 12/20/2019 Premature ventricular contractions (PVCs) (VPCs* Obesity, Class II, BMI 35-39.9 [E66.9] 08/08/2023 Encounter Status:Closed by MAGNOLIA ARNOLD on 08/13/23 [facility] 08-11-2023 [facility] Telephone ([place]) -- JEANNE SANTACRUZ ([id number]) 1960 F Date Time Provider Department 08/11/23 MAGNOLIA ARNOLDDUNIA During your visit today, we recorded the following information about you: Alma Golden LPN 08/11/2023 8:32 AM Signed Patient called. Verified name and date of . Patient reports that the Breo-Ellipta is $116 and too costly. Please review and advise if alternate medication is available. Pharmacy preference is [facility] in [place]. Brittany Knight LPN, LPN 08/11/2023 10:32 AM Signed Patient will contact insurance to check costs and let us know their preference. Alma Zamora LPN, CUSTOMER GREETER 08/11/2023 10:46 AM Signed Patient called. Verified name and date of . Her insurance states they no longer even covers Breo Ellipta. Advair cost is $140, Symbicort is $228. Makenna reports that Dulera might be a little less because it requires a prior authorization but could not tell borden without the prior authorization being done. Patient asking if there is any other alternatives to treatment because at those prices she cannot afford. Please review and advise. Magnolia Cui LPN, MD 08/11/2023 2:15 PM Signed Addended by: MAGNOLIA ARNOLD on: 08/11/2023 02:15 PM Modules accepted: Orders Laure Pereyra Ma 08/11/2023 2:43 PM Signed Patient called and states she called her insurance company. She would like to try Advair discus. Feels it will be reasonably priced. Requesting Rx be sent to [facility] pharmacy Magnolia Arnold MD 08/11/2023 4:37 PM Signed Addended by: MAGNOLIA ARNOLD on: 08/11/2023 04:37 PM Modules accepted: Orders Laure Pereyra Ma 09/17/2023 11:37 AM Signed Patient calling and states she has finished her inhaler this morning. States she called [facility] pharmacy and her medication has not been authorized. Patient is asking is someone can check the authorization for the Advair Discus? Brittany Choe LPN 09/17/2023 11:56 AM Signed Called [facility] pharmacy. They are unable to order brand Advair and the NDC they are able to provide is not covered by insurance. Dulera had previously been substituted. Call to patient, she would like to proceed with Dulera if this is insurance formulary. [facility] pharmacy notified re: same. Brittany Choe LPN Allergies As of Date: 08/11/2023 Noted Allergy Reaction AUGMENTIN (AMOXICILLIN-POT CLAVUL*07/27/2019 11 - Vomiting SULFA (SULFONAMIDE ANTIBIOTICS) 07/27/2019 4 - Hives Date Reviewed: 08/08/2023 Reviewed by: Magnolia Arnold MD - Fully Assessed Reason for Visit: Medication Problem [65] Order(s):mometasone-formot shante (DULERA) 200-5 mcg/actuation inhalerInhale 2 Puffs as instructed two times a day.Disp: 1 EachRfl: 5 fluticasone-salmeterol (ADVAIR DISKUS) 250-50 mcg/dose inhalerInhale 1 Puff as instructed two times a day. RINSE AND GARGLE MOUTH WITH WATER AFTER EACH USE.Disp: 1 EachRfl: 5 Prescriptions as of 09/17/2023 - mometasone-formoterol (DULERA) 200-5 mcg/actuation inhaler Inhale 2 Puffs as instructed two times a day. - fluticasone-salmeterol (ADVAIR DISKUS) 250-50 mcg/dose inhaler Inhale 1 Puff as instructed two times a day. RINSE AND GARGLE MOUTH WITH WATER AFTER EACH USE. - albuterol HFA (PROVENTIL HFA, VENTOLIN HFA) 90 mcg/actuation inhaler INHALE 2 PUFFS BY MOUTH FOUR TIMES A DAY NEEDED - fluticasone-vilanterol (BREO ELLIPTA) 100-25 mcg/dose inhaler Inhale 1 Inhalation as instructed once daily. - sertraline (ZOLOFT) 50 mg tablet Take 100 mg by mouth once daily. - diltiazem (CARDIZEM) 120 mg tablet Take 120 mg by mouth once daily. - lisinopril-hydrochlorothia zide (PRINZIDE,ZESTORETIC) 10-12.5 mg per tablet Take 1 tablet by mouth once daily. - fluticasone (FLONASE) 50 mcg/actuation nasal spray 2 Sprays once daily. - cyanocobalamin 1,000 mcg/mL soln Inject 1,000 mcg subcutaneously one time only. monthly - colestipol (COLESTID) 1 gram tablet Take 2 g by mouth once daily. - ergocalciferol, vitamin D2, (VITAMIN D2 ORAL) Take 1 capsule by mouth once daily. + D3 2,000iu Problem List As Of Date 08/11/2023 Noted Resolved Palpitations [R00.2] Premature atrial contractions [I49.1] Essential hypertension [I10] 12/20/2019 Ex-smoker [Z87.891] 12/20/2019 Premature ventricular contractions (PVCs) (VPCs* Obesity, Class II, BMI 35-39.9 [E66.9] 08/08/2023 Prescriptions ordered this encounter Disp Refills Start End DULERA 200 MCG-5 MCG/ACTUATION HFA A* 1 Ea* 5 08/11/2023 Route: INHALATION Sig: Inhale 2 Puffs as instructed two times a day. FLUTICASONE 250 MCG-SALMETEROL 50 MC* 1 Ea* 5 08/11/2023 Route: INHALATION Sig: Inhale 1 Puff as instructed two times a day. RINSE AND GARGLE MOUTH WITH WATER AFTER EACH USE. Encounter Status:Closed by BRITTANY CHOE on 08/11/23 Normal [facility] [place] house dust mite IgE Qn (S) <0.35 Normal <0.35 [facility] Comment on above: Order Comment: Speci men Type: BLOOD SPECIMENOrdering Facility: [facility] Address: [address] [place] [address] Performed By: #### G RTLKS ####[facility] LABIA [id number] [place] [address] [place] Tong[place] house dust mite IgE RAST class (S) Class 0 Normal Class 0 [facility] Comment on above: Order Comment: Speci men Type: BLOOD SPECIMENOrdering Facility: [facility] Address: [address] [place] [address] Performed By: #### G RTLKS ####[facility] LABCLIA [id number] [place] [address] [place] Cat dander IgE Qn (S) <0.35 Normal <0.35 [facility] Comment on above: Order Comment: Speci men Type: BLOOD SPECIMENOrdering Facility: [facility] Address: [address] [place] [address] Performed By: #### G RTLKS ####[facility] LABCLIA [id number] [place] [address] [place] Cat dander IgE RAST class (S) Class 0 Normal Class 0 [facility] Comment on above: Order Comment: Speci men Type: BLOOD SPECIMENOrdering Facility: [facility] Address: [address] [place] [address] Performed By: #### G RTLKS ####[facility] LABCLIA [id number] [address] [place] Common Ragweed IgE Qn (S) <0.35 Normal <0.35 [facility] Comment on above: Order Comment: Speci men Type: BLOOD SPECIMENOrdering Facility: [facility] Address: [address] [place] [address] Performed By: #### G RTLKS ####[facility] LABCLIA [id number] [address] [place] Common Ragweed IgE RAST class (S) Class 0 Normal Class 0 [facility] Comment on above: Order Comment: Speci men Type: BLOOD SPECIMENOrdering Facility: [facility] Address: [address] [place] [address] Performed By: #### G RTLKS ####[facility] LABCLIA [id number] [place] [address] [place] Dog dander IgE Qn (S) <0.35 Normal <0.35 [facility] Comment on above: Order Comment: Speci men Type: BLOOD SPECIMENOrdering Facility: [facility] Address: [address] [place] [address] Performed By: #### G RTLKS ####[facility] LABCLIA [id number] [place] [address] [place] Dog dander IgE RAST class (S) Class 0 Normal Class 0 [facility] Comment on above: Order Comment: Speci men Type: BLOOD SPECIMENOrdering Facility: [facility] Address: [address] [place] [address] Performed By: #### G RTLKS ####[facility] LABCLIA [id number] [place] [address] [place] Goosefoot IgE Qn (S) <0.35 Normal <0.35 [facility] Comment on above: Order Comment: Speci men Type: BLOOD SPECIMENOrdering Facility: [facility] Address: [address] [place] [address] Performed By: #### G RTLKS ####[facility] LABCLIA [id number] [place] [address] [place] Goosefoot IgE RAST class (S) Class 0 Normal Class 0 [facility] Comment on above: Order Comment: Speci men Type: BLOOD SPECIMENOrdering Facility: [facility] Address: [address] [place] [address] Performed By: #### G RTLKS ####[facility] LABCLIA [id number] [place] [address] [place] [facility] blue grass IgE Qn (S) <0.35 Normal <0.35 [facility] Comment on above: Order Comment: Speci men Type: BLOOD SPECIMENOrdering Facility: [facility] Address: [address] [place] [address] Performed By: #### G RTLKS ####[facility] LABCLIA [id number] [place] [address] [place] [facility] blue grass IgE RAST class (S) Class 0 Normal Class 0 [facility] Comment on above: Order Comment: Speci men Type: BLOOD SPECIMENOrdering Facility: [facility] Address: [address] [place] [address] Performed By: #### G RTLKS ####[facility] LABCLIA [id number] [place] [address] [place] Ender IgE Qn (S) <0.35 Normal <0.35 [facility] Comment on above: Order Comment: Speci men Type: BLOOD SPECIMENOrdering Facility: [facility] Address: [place] [address] Performed By: #### G RTLKS ####[facility] LABCLIA [id number] [place] [address] [place] Ender IgE RAST class (S) Class 0 Normal Class 0 [facility] Comment on above: Order Comment: Speci men Type: BLOOD SPECIMENOrdering Facility: [facility] Address: [address] [place] [address] Performed By: #### G RTLKS ####[facility] LABCLIA [id number] [place] [address] [place] Lepanto IgE Qn (S) <0.35 Normal <0.35 [facility] Comment on above: Order Comment: Speci men Type: BLOOD SPECIMENOrdering Facility: [facility] Address: [address] [place] [address] Performed By: #### G RTLKS ####[facility] LABCLIA [id number] [place] [address] [place] Lepanto IgE RAST class (S) Class 0 Normal Class 0 [facility] Comment on above: Order Comment: Speci men Type: BLOOD SPECIMENOrdering Facility: [facility] Address: [address] [place] [address] Performed By: #### G RTLKS ####[facility] LABCLIA [id number] [place] [address] [place] ALGN MOLDS GROUPon 3 A. alternata IgE Qn (S) <0.35 Normal <0.35 [facility] Comment on above: Order Comment: Speci men Type: BLOOD SPECIMENOrdering Facility: [facility] Address: [address] [place] [address] Performed By: #### M OLDS ####[facility] LABCLIA [id number] [place] [address] [place] Performed By: #### G RTLKS ####[facility] LABCLIA [id number] [place] [address] [place] A. alternata IgE RAST class (S) Class 0 Normal Class 0 [facility] Comment on above: Order Comment: Speci men Type: BLOOD SPECIMENOrdering Facility: [facility] Address: [address] [place] [address] Performed By: #### M ENEDINA ####[facility] LABCLIA [id number] [address] [place] Performed By: #### G RTLKS ####[facility] LABCLIA [id number] [place] [address] [place] A. fumigatus IgE Qn (S) <0.35 Normal <0.35 [facility] Comment on above: Order Comment: Speci men Type: BLOOD SPECIMENOrdering Facility: [facility] Address: [address] [place] [address] Performed By: #### M ENEDINA ####[facility] LABCLIA [id number] [place] [address] [place] A. fumigatus IgE RAST class (S) Class 0 Normal Class 0 [facility] Comment on above: Order Comment: Speci men Type: BLOOD SPECIMENOrdering Facility: [facility] Address: [address] [place] [address] Performed By: #### M ENEDINA ####[facility] LABCLIA [id number] [place] [address] [place] C. albicans IgE Qn (S) <0.35 Normal <0.35 [facility] Comment on above: Order Comment: Speci men Type: BLOOD SPECIMENOrdering Facility: [facility] Address: [address] [place] [address] Performed By: #### M ENEDINA ####[facility] LABCLIA [id number] [place] [address] [place] C. albicans IgE RAST class (S) Class 0 Normal Class 0 [facility] Comment on above: Order Comment: Speci men Type: BLOOD SPECIMENOrdering Facility: [facility] Address: [address] [place] [address] Performed By: #### Roman MCCONNELL ####[facility] LABCLIA [id number] [place] [address] [place] C. herbarum IgE Qn (S) <0.35 Normal <0.35 [facility] Comment on above: Order Comment: Speci men Type: BLOOD SPECIMENOrdering Facility: [facility] Address: [address] [place] [address] Performed By: #### Roman MCCONNELL ####[facility] LABCLIA [id number] [place] [address] [place] Performed By: #### G RTLKS ####[facility] LABCLIA [id number] [place] [address] [place] C. herbarum IgE RAST class (S) Class 0 Normal Class 0 [facility] Comment on above: Order Comment: Speci men Type: BLOOD SPECIMENOrdering Facility: [facility] Address: [address] [place] [address] Performed By: #### Roman MCCONNELL ####[facility] LABCLIA [id number] [place] [address] [place] Performed By: #### G RTLKS ####[facility] LABCLIA [id number] [place] [address] [place] Mucor racemosus IgE Qn (S) <0.35 Normal <0.35 [facility] Comment on above: Order Comment: Speci men Type: BLOOD SPECIMENOrdering Facility: [facility] Address: [address] [place] [address] Performed By: #### Roman MCCONNELL ####[facility] LABCLIA [id number] [place] [address] [place] Mucor racemosus IgE RAST class (S) Class 0 Normal Class 0 [facility] Comment on above: Order Comment: Speci men Type: BLOOD SPECIMENOrdering Facility: [facility] Address: [address] [place] [address] Performed By: #### M ENEDIAN ####[facility] LABCLIA [id number] [place] [address] [place] CNOVon 08-08-2023 CNOV Office Visit (PULMWS ) -- JEANNE SANTACRUZ ([id number]) 1960 F Date Time Provider Department 08/08/23 3:15 PM [place] [facility] PULMWS During your visit today, we recorded the following information about you: Pulse Respiration Blood pressure Weight 90/minute 14/minute 118/70 95.7 kg Height 1.65 m Brittany Choe DANIEL 08/08/2023 2:46 PM Signed Intake information documented in the prior visit with NATE Henry today. Magnolia Arnold MD 08/08/2023 5:17 PM Signed . [facility] [place] Note Patient name: Jeanne Santacruz PCP: Shakila Carter, PEN RIDER Referring Physician: same Consultation requested by Shakila Carter for an opinion regarding COPD. My final recommendations will be communicated back to the requesting physician by way of shared Medical record or letter to requesting physician via US mail. CC: SOB HPI: Jeanne Sanatcruz 63 year old obese female former 27 pack year smoker, quitting in 2016 with PMH significant for HTN, eczema being referred for evaluation of COPD. She denies any prior history of childhood asthma or allergies although she has a family history of allergies and eczema as well as a personal history of eczema. She states she was doing well until 2 months ago when she first noted shortness of breath. She participates in a hiking club and noted severe shortness of breath when climbing a slight hill. She had to stop and rest several times but quickly recovered. She believes that may have triggered her shortness of breath. She had another episode of shortness of breath when vacuuming and then when picking up her grandson. Concomitant with her intermittent shortness of breath, she has noted wheezing especially at night. No significant cough or sputum production. She denies any acid reflux symptoms and in fact was tried on Protonix without relief of her nocturnal wheezing. No antecedent upper respiratory infection. Over the years she has noted sinus congestion related to dust as well as recent exposure. She has never been formally allergy tested. She has carpet in her bedroom and 2 dogs and a cat. DATA: SERVICE DATE: 08/08/2023 SERVICE TIME: 3:01 PM Oral Exhaled Nitric Oxide measurement: 75.0 (ppb) (A) PFT: Review of pulmonary function test shows mild obstruction with improvement in mid flows postbronchodilator. Diffusing capacity is normal. Imaging / Diagnostic Studies: STUDY: LOW DOSE CT LUNG CANCER SCREENING 09/12/2022 REASON FOR EXAM: Female, 62 years old. Long history of smoking. Screening for lung cancer. COMPARISON: None. NODULES: The lungs are clear and expanded. There are no suspicious lung nodules There are no endobronchial lesions. There is no demonstrated pleural abnormality. Normal heart and pericardium. Normal mediastinum. Normal hilar regions. Normal unenhanced pulmonaryarteries. There is retropharyngeal right subclavian artery. Normal aorta arch and descending thoracic aorta. There are multi-level degenerative changes of the thoracic spine. There is no demonstrated abnormality of the visualized upper abdomen. CT/Low Dose CT Lung Screening IMPRESSION: Lung-RADS category 2. Benign findings. There is no evidence of malignancy. Recommendation: Routine screening CT scan in one year. I personally reviewed the images and agree with the above assessment PAST MEDICAL HISTORY Diagnosis Date Essential hypertension Palpitations Premature atrial contractions Premature ventricular contractions (PVCs) (VPCs) Sinus arrhythmia Vitamin B12 deficiency Vitamin D deficiency ALLERGIES Allergen Reactions Augmentin [Amoxicil* Vomiting Sulfa (Sulfonamide * Hives sertraline (ZOLOFT) 50 mg tablet Take 100 mg by mouth once daily. diltiazem (CARDIZEM) 120 mg tablet Take 120 mg by mouth once daily. lisinopril-hydrochlorothia zide (PRINZIDE,ZESTORETIC) 10-12.5 mg per tablet Take 1 tablet by mouth once daily. fluticasone (FLONASE) 50 mcg/actuation nasal spray 2 Sprays once daily. cyanocobalamin 1,000 mcg/mL soln Inject 1,000 mcg subcutaneously one time only. monthly ergocalciferol, vitamin D2, (VITAMIN D2 ORAL) Take 1 capsule by mouth once daily. + D3 2,000iu albuterol HFA (PROVENTIL HFA, VENTOLIN HFA) 90 mcg/actuation inhaler INHALE 2 PUFFS BY MOUTH FOUR TIMES A DAY NEEDED fluticasone-vilanterol (BREO ELLIPTA) 100-25 mcg/dose inhaler Inhale 1 Inhalation as instructed once daily. colestipol (COLESTID) 1 gram tablet Take 2 g by mouth once daily. Social History Tobacco Use Smoking status: Former Packs/day: 0.75 Years: 36.00 Additional pack years: 0.00 Total pack years: 27.00 Types: Cigarettes Start date: 1979 Quit date: 12/20/2015 Years since quittin.6 Smokeless tobacco: Never Vaping Use Vaping Use: Never used Substance Use Topics Alcohol use: Not Currently Comment: rare Drug (more content not included)... Normal [facility] Eosinophils Auto (Bld) [#/Vo l]on 08-08-2023 Eosinophils (Bld) [#/Vol] 0.27 10*3/uL <0.46 k/uL [facility] Eosinophils (Bld) [#/Vol] 0.27 10*3/uL Normal <0.46 [facility] Comment on above: Order Comment: Speci men Type: BLOOD SPECIMENOrdering Facility: [facility] Address: [address] [place] [address] Performed By: #### 7 11-2 ####[facility] LABCLIA [id number] [place] [address] [place] LUNG DIFFUSION CAPACITY (ZANDRA O)on 08-08-2023 DLCO (ml/min/mmHg) 24.81 ml/min/mmHg [facility] DLCO/VA (ml/min/mmHg/L) 4.44 ml/min/mmHg/L [facility] YTB60-80% POST (L/S) 1.60 L/S [facility] SBF58-72% PRE (L/S) 1.23 L/S [facility] FEV1 PRE (L) 2.40 L [facility] FEV1/FVC POST (%) 66 % [facility] FEV1/FVC PRE (%) 66 % [facility] FEV1_POST (L) 2.53 L [facility] FVC POST (L) 3.83 L [facility] FVC PRE (L) 3.62 L [facility] PEF POST (L/S) 6.36 L/S [facility] PEF PRE (L/S) 5.87 L/S [facility] VA (L) 5.59 L [facility] NITRIC OXIDE, EXHALEDon 12-0 [facility] SPIROMETRY WITH DILATOR IF O BSTRUCTEDon 08-08-2023 [facility] Basophil percentageOrdered B y: Erendira Michel on 08-04-2023 Chloride [Moles/Vol] 106 mmol/L 98-107 [facility] Glucose [Mass/Vol] 107 mg/dL 74-106 [facility] Comment on above: Fasting Glucose resu lt from 100 to 125 mg/dL suggests IMPAIRED HOMEOSTASIS per A.D.A. criteria. Potassium [Moles/Vol] 3.9 mmol/L 3.5-5.1 [facility] Sodium [Moles/Vol] 141 mmol/L 136-145 [facility] Laboratory - Chemistry and C hemistry - challengeOrdered By: Erendira Michel on 08-04-2023 CO2 [Moles/Vol] 29.0 mmol/L 21.0-32.0 [facility] Natriuretic peptide B (Bld) [Mass/Vol] 2.1 pg/mL 0-100 [facility] Urea nitrogen/Creatinine [Mass ratio] 20.3 mg/mg 10-20 [facility] No Panel InformationOrdered By: Erendira Michel on 08-04-2023 Estimated GFR (MDRD) Amer 78 mL/min >60 [facility] Comment on above: GFR Calc Estimated GFR (MDRD) Non-Af Amer 64 mL/min >60 [facility] Comment on above: Non- GFR Calc Serum or plasma calcium macrina urement (mass/volume)Ordered By: Erendira Michel on 08-04-2023 Calcium [Mass/Vol] 9.2 mg/dL 8.5-10.1 [facility] Serum or plasma creatinine m easurement (mass/volume)Ordered By: Erendira Michel on 08-04-2023 Creatinine [Mass/Vol] 0.94 mg/dL 0.55-1.02 [facility] Comment on above: The validity of the calculated GFR & GFRAA in patients over 70 years has not been determined. Clinical correlation is essential. Serum or plasma urea nitroge n measurement (mass/volume)Ordered By: Erendira Michel on 08-04-2023 Urea nitrogen [Mass/Vol] 19 mg/dL 7-18 [facility] Thin prep Papanicolaou smear with manual screeningOrdered By: Erendira Michel on 08-04-2023 Thin prep Papanicolaou smear with manual screening 6 5-15 [facility] CALCIFEDIOL (45825)Ordered B y: Stone Gluer on 07-10-2023 25-hydroxyvitamin D [Mass/Vol] 34.1 ng/mL Normal 30.0-100.0 [facility]; [facility] Work Phone: Comment on above: Vitamin D deficiency has been defined by the [place] and an Endocrine Society practice guideline as alevel of serum 25-OH vitamin D less than 20 ng/mL (1,2).The Endocrine Society went on to further define vitamin Dinsufficiency as a level between 21 and 29 ng/mL (2).1. IOM ([place]). 2010. Dietary reference intakes for calcium and D. [place]: The National Academies Press.2. Billy MF, [place], Jacob BOLANOS, et al. Evaluation, treatment, and prevention of vitamin D deficiency: an Endocrine Society clinical practice guideline. JCEM. 2010; 96(7):1911-30. PATIENT WAS FASTINGP ERFORMED BY: [facility] [id number] [facility] [id number] CBC, PLATELETS & AUT DIFF (2 0293)Ordered By: Stone Gluer on 07-10-2023 Basophils (Bld) [#/Vol] 0.1 10*3/uL Normal 0.0-0.2 [facility]; [facility] Work Phone: Comment on above: PATIENT WAS FASTINGP ERFORMED BY: [facility]coKind[facility] at WayneBuzqsv0001 [facility] [id number] Basophils/100 WBC (Bld) 1 % Normal [facility]; [facility] Work Phone: Comment on above: PATIENT WAS FASTINGP ERFORMED BY: [facility] Bwzyqm7745 [facility] [id number] Eosinophils (Bld) [#/Vol] 0.3 10*3/uL Normal 0.0-0.4 [facility]; [facility] Work Phone: Comment on above: PATIENT WAS FASTINGP ERFORMED BY: [facility]6[address] [place] [facility] [id number] Eosinophils/100 WBC (Bld) 4 % Normal [facility]; [facility] Work Phone: Comment on above: PATIENT WAS FASTINGP ERFORMED BY: [facility] [id number] [facility] [id number] Erythrocyte distribution width (RBC) [Ratio] 13.0 % Normal 11.7-15.4 [facility]; [facility] Work Phone: Comment on above: PATIENT WAS FASTINGP ERFORMED BY: [facility] Rakzui7725 [facility] [id number] Hematocrit (Bld) [Volume fraction] 41.2 % Normal 34.0-46.6 [facility]; [facility] Work Phone: Comment on above: PATIENT WAS FASTINGP ERFORMED BY: [facility]a6370 [facility] [id number] Hemoglobin (Bld) [Mass/Vol] 14.0 g/dL Normal 11.1-15.9 [facility]; [facility] Work Phone: Comment on above: PATIENT WAS FASTINGP ERFORMED BY: [facility]pena[address] [facility] [place] [id number] Immature granulocytes (Bld) [#/Vol] 0.0 10*3/uL Normal 0.0-0.1 [facility]; [facility] Work Phone: Comment on above: PATIENT WAS FASTINGP ERFORMED BY: [facility]pena6370 [address] Roadblin [place] [id number] Immature granulocytes/100 WBC (Bld) 0 % Normal [facility]; [facility] Work Phone: Comment on above: PATIENT WAS FASTINGP ERFORMED BY: LabCarrie [place] [id number] [address] [facility] [place] [id number] Lymphocytes (Bld) [#/Vol] 2.2 10*3/uL Normal 0.7-3.1 [facility]; [facility] Work Phone: Comment on above: PATIENT WAS FASTINGP ERFORMED BY: [facility] [facility]in [place] [id number] Lymphocytes/100 WBC (Bld) 32 % Normal [facility]; [facility] Work Phone: Comment on above: PATIENT WAS FASTINGP ERFORMED BY: [facility] [facility] [place] [id number] MCH (RBC) [Entitic mass] 31.2 pg Normal 26.6-33.0 [facility]; [facility] Work Phone: Comment on above: PATIENT WAS FASTINGP ERFORMED BY: [facility] [facility] [place] [id number] MCHC (RBC) [Mass/Vol] 34.0 g/dL Normal 31.5-35.7 [facility]; [facility] Work Phone: Comment on above: PATIENT WAS FASTINGP ERFORMED BY: [facility] [facility] [place] [id number] MCV (RBC) [Entitic vol] 92 fL Normal 79-97 [facility]; [facility] Work Phone: Comment on above: PATIENT WAS FASTINGP ERFORMED BY: CB [facility] Qqrsou2331 [address] RoadDublin [place] [id number] Monocytes (Bld) [#/Vol] 0.5 10*3/uL Normal 0.1-0.9 [facility]; [facility] Work Phone: Comment on above: PATIENT WAS FASTINGP ERFORMED BY: CB [facility] Cgflpp3882 [address] RoadDublin [place] [id number] Monocytes/100 WBC (Bld) 8 % Normal [facility]; [facility] Work Phone: Comment on above: PATIENT WAS FASTINGP ERFORMED BY: CB [facility] Psjrsn6394 [address] RoadDublin [place] [id number] Neutrophils (Bld) [#/Vol] 3.6 10*3/uL Normal 1.4-7.0 [facility]; [facility] Work Phone: Comment on above: PATIENT WAS FASTINGP ERFORMED BY: CB [facility] Repefg6167 [address] RoadDublin [place] [id number] Neutrophils/100 WBC (Bld) 55 % Normal [facility]; [facility] Work Phone: Comment on above: PATIENT WAS FASTINGP ERFORMED BY: CB [facility] Zktrlm7947 [address] RoadDublin [place] [id number] Platelets (Bld) [#/Vol] 236 10*3/uL Normal 150-450 [facility]; [facility] Work Phone: Comment on above: PATIENT WAS FASTINGP ERFORMED BY: CB [facility] Smgrpj1685 [address] RoadDublin [place] [id number] RBC (Bld) [#/Vol] 4.49 10*6/uL Normal 3.77-5.28 [facility]; [facility] Work Phone: Comment on above: PATIENT WAS FASTINGP ERFORMED BY: CB [facility] Tddblf5164 [address] RoadDublin [place] [id number] WBC (Bld) [#/Vol] 6.7 10*3/uL Normal 3.4-10.8 [facility]; [facility] Work Phone: Comment on above: PATIENT WAS FASTINGP ERFORMED BY: NAHED [facility] Krenlh1590 [address] RoadDublin [place] [id number] LIPID PANEL ([id number])Ordered B y: Stone Gluer on 07-10-2023 Cholesterol [Mass/Vol] 208 mg/dL Abnormal 100-199 [facility]; [facility] Work Phone: Comment on above: PATIENT WAS FASTINGP ERFORMED BY: CB [facility] Qnobki3431 [address] RoadDublin [place] [id number] Cholesterol in HDL [Mass/Vol] 66 mg/dL Normal [facility]; [facility] Work Phone: Comment on above: PATIENT WAS FASTINGP ERFORMED BY: NAHED [facility] Lbeqyr0980 [address] RoadDublin [place] [id number] Triglyceride [Mass/Vol] 186 mg/dL Abnormal 0-149 [facility]; [facility] Work Phone: Comment on above: PATIENT WAS FASTINGP ERFORMED BY: CB [facility] Weoycq8150 [address] RoadDublin [place] [id number] LIPID PANEL ([id number]) 32 mg/dL Normal 5-40 [facility]; [facility] Work Phone: Comment on above: PATIENT WAS FASTINGP ERFORMED BY: CB [facility] Wpfujv0784 [address] RoadDublin [place] [id number] LIPID PANEL (55743) 110 mg/dL Abnormal 0-99 [facility]; [facility] Work Phone: Comment on above: PATIENT WAS FASTINGP ERFORMED BY: CB [facility] Tgwrsj9294 [address] RoadDublin [place] [id number] LIPID PANEL (74325) 1.7 {ratio} Normal 0.0-3.2 [facility]; [facility] Work Phone: Comment on above: LDL/HDL Ratio Men Wo men 1/2 Avg.Risk 1.0 1.5 Avg.Risk 3.6 3.2 2X Avg.Risk 6.2 5.0 3X Avg.Risk 8.0 6.1 PATIENT WAS FASTINGP ERFORMED BY: NAHED [facility] Maxtvm4413 [address] RoadDublin [place] [id number] METABOLIC PANEL, COMPREHENSI VE ([id number])Ordered By: Stone Gluer on 07-10-2023 Albumin [Mass/Vol] 4.6 g/dL Normal 3.9-4.9 [facility] Internal Medicine; [facility] Work Phone: Comment on above: PATIENT WAS FASTINGP ERFORMED BY: CB [facility] Locamx5678 [address] RoadDublin [place] [id number] Albumin/Globulin [Mass ratio] 2.3 {ratio} Abnormal 1.2-2.2 [facility]; [facility] Work Phone: Comment on above: PATIENT WAS FASTINGP ERFORMED BY: NAHED [facility] Dumxqg6252 [address] RoadDublin [place] [id number] ALP [Catalytic activity/Vol] 80 U/L Normal 44-121 [facility]; [facility] Work Phone: Comment on above: PATIENT WAS FASTINGP ERFORMED BY: CB [facility] Nuemos9740 [address] RoadDublin [place] [id number] ALT [Catalytic activity/Vol] 18 U/L Normal 0-32 [facility]; [facility] Work Phone: Comment on above: PATIENT WAS FASTINGP ERFORMED BY: CB [facility] Ypzvoz9295 [address] RoadDublin [place] [id number] AST [Catalytic activity/Vol] 18 U/L Normal 0-40 [facility]; [facility] Work Phone: Comment on above: PATIENT WAS FASTINGP ERFORMED BY: CB [facility] Btydam5951 [address] RoadDublin [place] [id number] Bilirubin [Mass/Vol] 0.4 mg/dL Normal 0.0-1.2 [facility] Internal Medicine; [facility] Work Phone: Comment on above: PATIENT WAS FASTINGP ERFORMED BY: CB [facility] Zvijbr48[address] RoadDublin [place] [id number] Calcium [Mass/Vol] 9.7 mg/dL Normal 8.7-10.3 [facility]; [facility] Work Phone: Comment on above: PATIENT WAS FASTINGP ERFORMED BY: [facility] Bahdcp4968 [address] RoadDublin [place] [id number] Chloride [Moles/Vol] 104 mmol/L Normal 96-106 Comp rehensive Internal Medicine; [facility] Work Phone: Comment on above: PATIENT WAS FASTINGP ERFORMED BY: [facility] Eqpxxh3526 [address] RoadDublin [place] [id number] CO2 [Moles/Vol] 24 mmol/L Normal 20-29 Comprehen [facility] Internal Medicine; [facility] Work Phone: Comment on above: PATIENT WAS FASTINGP ERFORMED BY: [facility] Bwzkcu0805 [address] RoadCritical Access Hospitalin [place] [id number] Creatinine [Mass/Vol] 0.93 mg/dL Normal 0.57-1.00 [facility]; [facility] Work Phone: Comment on above: PATIENT WAS FASTINGP ERFORMED BY: [facility] Nuvkpu5[address] Roadblin [place] [id number] GFR/1.73 sq M.predicted among non-blacks MDRD (S/P/Bld) [Vol rate/Area] 70 mL/min/{1.73_m2} Normal Comprehensiv e Internal Medicine; [facility] Work Phone: Comment on above: PATIENT WAS FASTINGP ERFORMED BY: [facility] Ccxzfm0946 [address] [facility]in [place] [id number] Globulin (S) [Mass/Vol] 2.0 g/dL Normal 1.5-4.5 [facility]; [facility] Work Phone: Comment on above: PATIENT WAS FASTINGP ERFORMED BY: [facility] Uhvzdq5565 [address] RoadDublin [place] [id number] Glucose [Mass/Vol] 105 mg/dL Abnormal 70-99 [facility] Medicine; [facility] Work Phone: Comment on above: PATIENT WAS FASTINGP ERFORMED BY: NAHED [facility] Ezamnc9442 [address] RoadDublin [place] [id number] Potassium [Moles/Vol] 4.6 mmol/L Normal 3.5-5.2 [facility]; [facility] Work Phone: Comment on above: PATIENT WAS FASTINGP ERFORMED BY: [facility] Lrfcoa9049 [address] RoadDublin [place] [id number] Protein [Mass/Vol] 6.6 g/dL Normal 6.0-8.5 [facility] Internal Medicine; [facility] Work Phone: Comment on above: PATIENT WAS FASTINGP ERFORMED BY: [facility] Bshmvt5803 [address] RoadDublin [place] [id number] Sodium [Moles/Vol] 141 mmol/L Normal 134-144 [facility] Internal Medicine; [facility] Work Phone: Comment on above: PATIENT WAS FASTINGP ERFORMED BY: [facility] Thathf2457 [address] RoadDublin [place] [id number] Urea nitrogen [Mass/Vol] 17 mg/dL Normal 8-27 [facility]; [facility] Work Phone: Comment on above: PATIENT WAS FASTINGP ERFORMED BY: [facility] Neritj9[address] RoadDublin [place] [id number] Urea nitrogen/Creatinine [Mass ratio] 18 mg/mg Normal 12-28 [facility]; [facility] Work Phone: Comment on above: PATIENT WAS FASTINGP ERFORMED BY: [facility] Czjwgi8632 [address] RoadDublin [place] [id number] TSH (THYROID STIMULATING HOR NATHALIA) ([id number])Ordered By: Stone Gluer on 07-10-2023 TSH Qn 2.350 {uIU/mL} Normal 0.450-4.50 0 [facility]; [facility] Work Phone: Comment on above: PATIENT WAS FASTINGP ERFORMED BY: [facility] Uazpwt7309 [address] RoadDublin [place] [id number] URINALYSIS ([id number])Ordered By : Stone Gluer on 07-10-2023 Appearance (U) Clear Normal Comprehens tucker Internal Medicine; [facility] Work Phone: Comment on above: PATIENT WAS FASTINGP ERFORMED BY: NAHED Marin6370 [facility] [id number] Bilirubin Ql (U) Negative Normal Comprehe nsive Internal Medicine; [facility] Work Phone: Comment on above: PATIENT WAS FASTINGP ERFORMED BY: NAHED Marin6370 [facility] [id number] Color (U) Yellow Normal [facility]; [facility] Work Phone: Comment on above: PATIENT WAS FASTINGP ERFORMED BY: NAHED Marin6370 [facility] [id number] Glucose Ql (U) Negative Normal Comprehens tucker Internal Medicine; [facility] Work Phone: Comment on above: PATIENT WAS FASTINGP ERFORMED BY: NAHED Whitelin6370 [facility] [id number] Hemoglobin Ql (U) Negative Normal Compreh ensive Internal Medicine; [facility] Work Phone: Comment on above: PATIENT WAS FASTINGP ERFORMED BY: NAHED Whitelin6370 [facility] [id number] Ketones Ql (U) Negative Normal Comprehens tucker Internal Medicine; [facility] Work Phone: Comment on above: PATIENT WAS FASTINGP ERFORMED BY: NAHED Whitelin6370 [facility] [id number] Leukocyte esterase Test strip Ql (U) Negative Normal [facility]; [facility] Work Phone: Comment on above: PATIENT WAS FASTINGP ERFORMED BY: NAHED Whitelin6370 [facility] [id number] Microscopic observation LM Nom (Urine sed) MICNIP Normal [facility]; [facility] Work Phone: Comment on above: Microscopic not ilsa cated and not performed. PATIENT WAS FASTINGP ERFORMED BY: NAHED Whitelin6[address]Dublin [place] [id number] Nitrite Ql (U) Negative Normal Comprehens tucker Internal Medicine; [facility] Work Phone: Comment on above: PATIENT WAS FASTINGP ERFORMED BY: NAHED Timoteo Marin6[address]Dublin [place] [id number] pH (U) 6.0 [pH] Normal 5.0-7.5 [facility]; [facility] Work Phone: Comment on above: PATIENT WAS FASTINGP ERFORMED BY: NAHED Lab[facility] Yncayy4230 [address] RoadDublin [place] [id number] Protein Ql (U) Negative Normal Comprehens tucker Internal Medicine; [facility] Work Phone: Comment on above: PATIENT WAS FASTINGP ERFORMED BY: NAHED Timoteo Marin6[address] [place] [id number] Specific gravity (U) [Rel density] 1.018 1 Normal 1.005-1.03 0 [facility]; [facility] Work Phone: Comment on above: PATIENT WAS FASTINGP ERFORMED BY: NAHED Labro[facility] Szpnfq1113 [address] RoadDublin [place] [id number] Urobilinogen (U) [Mass/Vol] 0.2 mg/dL Normal 0.2-1.0 [facility]; [facility] Work Phone: Comment on above: PATIENT WAS FASTINGP ERFORMED BY: [facility] Gdlnrr0647 [address] RoadDublin [place] [id number] VITAMIN B12 AND FOLATES ([id number])Ordered By: Stone Gluer on 07-10-2023 Cobalamin (Vitamin B12) [Mass/Vol] 753 pg/mL Normal 232-1245 [facility]; [facility] Work Phone: Comment on above: PATIENT WAS FASTINGP ERFORMED BY: NAHED [facility] Joavya0184 [address] RoadDublin [place] [id number] Folate [Mass/Vol] 18.5 ng/mL Normal Compreh ensive Internal Medicine; [facility] Work Phone: Comment on above: A serum folate ender ntration of less than 3.1 ng/mL isconsidered to represent clinical deficiency. PATIENT WAS FASTINGP ERFORMED BY: [facility] Aclvty[address] [place] [id number] CNOVon 04-22-2023 CNOV Office Visit (OBGYWM ) -- ZAINABYordanJEANNE Jluiette ([id number]) 1960 F Date Time Provider Department 04/22/23 1:30 PM KIA TRACY OBGYWM During your visit today, we recorded the following information about you: Blood pressure Weight Height 100/60 95.7 kg 1.676 m Kia Tracy APRN.CNP 04/22/2023 2:02 PM Signed Travel Rn offered: Patient declines. Jeanne is a 62 year old No obstetric history on file. who presents for an annual gynecologic exam without complaints. Postmenopausal: Yes- total hysterectomy HRT use: Yes, Premarin How long: stopped a few yrs ago. History of abnormal pap: Yes Last [facility]: 2021 [facility] History of abnormal mammogram: No Sexually active: No Hot flashes: Yes Night sweats: Yes Vaginal dryness: No OB History No obstetric history on file. 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 Comments: Sexual Activity: Not Currently; Male; hysterectomy Contraception: Surgical PAST MEDICAL HISTORY Diagnosis Date Essential hypertension Palpitations Premature atrial contractions Premature ventricular contractions (PVCs) (VPCs) Sinus arrhythmia Vitamin B12 deficiency Vitamin D deficiency PAST SURGICAL HISTORY Procedure Laterality Date BREAST REDUCTION Bilateral 1998 CARDIAC MONITORING CONTINUOUS 09/29/2019 30-day monitoring: see report in scanned documents; essentially showed SR with PACs, brief PAT, PVCs; no AF CATARACT EXTRACTION HX Bilateral 12/2018 Cataract removal with insertion of prosthetic lens CHOLECYSTECTOMY 2017 F TOTAL ABDOMINAL HYSTERECTOMY TONSILLECTOMY HX FAMILY HISTORY Problem Relation Age of Onset Breast Cancer Mother other (atrial fibrillation) Mother Stroke Father COPD Father Heart Attack Father Aneurysm Father other (atrial fibrillation) Father Crohn's Disease Sister other (tachycardia) Sister Tourette syndrome Brother SOCIAL HISTORY Social History Tobacco Use Smoking status: Former Packs/day: 0.75 Years: 36.00 Additional pack years: 0.00 Total pack years: 27.00 Types: Cigarettes Start date: 1979 Quit date: 12/20/2015 Years since quittin.3 Smokeless tobacco: Never Vaping Use Vaping Use: Never used Substance Use Topics Alcohol use: Not Currently Comment: rare Drug use: Not Currently REVIEW OF SYSTEMS Abdomen: No abdominal pain, nausea, vomiting, diarrhea, or constipation. No bloating, early satiety, indigestion, or increased flatulence. Bladder: No dysuria, gross hematuria, urinary frequency, urinary urgency, or incontinence Breast: No breast lumps, nipple d/c, overlying skin changes, redness or skin retraction Allergies and current medication updated:Yes EXAM: BP 100/60 Ht 5' 6 (1.68m) Wt 211 lb (95.7kg) BMI 34.07 kg/(m2). GENERAL: pleasant, female in no apparent distress HEENT: Normocephalic, atraumatic, mucus membranes moist, and no lesions NECK: Supple, full range of motion, no adenopathy, and thyroid normal DERMATOLOGY: Normal, without lesions, non-icteric, and non-hirsute BREAST: soft, non-tender, symmetric, no dominant mass, normal nipple-areolar complex, no lymphadenopathy, and no nipple discharge CHEST: Normal inspiratory effort ABDOMEN: soft, non-tender, and no masses PELVIC: external genitalia normal, normal Bartholin's glands, urethra, Kingsbury's glands, no vulvar lesions, physiologic discharge present, normal appearing perineal body and perianal region, cervix surgically absent BIMANUAL: no adnexal masses, non-tender, and uterus surgically absent RECTOVAGINAL: deferred. NEURO: alert and oriented x3,exam grossly non-focal EXTREMITIES: normal ASSESSMENT/PLAN: 1) Health maintenance: Pap/HPV screening no longer needed Mammogram up to date Nutrition, exercise and routine health maintenance exams reviewed. Calcium/Vitamin D supplementation information provided. Colon cancer screening: patient to discuss with PCP 2) Follow up one year or sooner as needed Kia Tracy APRN.PEN RIDER Allergies As of Date: 04/22/2023 Noted Allergy Reaction AUGMENTIN (AMOXICILLIN-POT CLAVUL*07/27/2019 11 - Vomiting SULFA (SULFONAMIDE ANTIBIOTICS) 07/27/2019 4 - Hives Date Reviewed: 04/22/2023 Reviewed by: Kia Tracy APRN.PEN RIDER - Fully Assessed Reason for Visit: Well Woman [1463] Primary Visit Diagnosis:Encounter for gynecological examination (general) (routine) without abnormal findings [Z01.419] Prescriptions as of 04/22/2023 - sertraline (ZOLOFT) 50 mg tablet Take 50 mg by mouth once daily. - diltiazem (CARDIZEM) 120 mg tablet Take 120 mg by mouth once daily. - lisinopril-hydrochlorothia zide (PRINZIDE,ZESTORETIC) 10-12.5 mg per tablet Take 1 tablet by mouth once daily. - fluticasone (FLONASE) 50 mcg/actuation nasal spray 2 Sprays once daily. - cyanocobalamin 1,000 mcg/mL soln 1,000 (more content not included)... Normal [facility] Anaerobic & Aerobic Culture ([id number])Ordered By: Stone Gluer on 03-10-2023 Bacteria identified Aer cx Nom (Unsp spec) Final report Abnormal [facility]; [facility] Work Phone: Comment on above: PERFORMED BY: [facility] [id number] Information: SRC:NO Bacteria identified Anaer cx Nom (Unsp spec) Final report Abnormal [facility]; [facility] Work Phone: Comment on above: PERFORMED BY: [facility] [id number] Information: SRC:NO Bacteria identified Cx Nom (Unsp spec) STREIN Abnormal [facility]; [facility] Work Phone: Comment on above: Streptococcus interm ediusLight growth PERFORMED BY: [facility] [id number] Information: SRC:NO Bacteria identified Cx Nom (Unsp spec) CIRO Abnormal [facility]; [facility] Work Phone: Comment on above: Streptococcus angino valerie groupLight growthSusceptibility not normally performed on this organism. PERFORMED BY: [employer] roseanna Cwunot8344 [facility] [id number] Information: SRC:NO Absolute lymphocyte countOrd ered By: Dr. Fleming on 02-28-2023 Lymphocytes Auto (Unsp spec) [#/Vol] 2.43 10*3/uL 0.83-4.51 [facility] Basophil percentageOrdered B y: Dr. Fleming on 02-28-2023 Basophils/100 WBC (Bld) 0.7 % 0-1 [facility] Chloride [Moles/Vol] 111 mmol/L 98-107 [facility] Eosinophils/100 WBC (Bld) 1.7 % 0-5 [facility] Glucose [Mass/Vol] 141 mg/dL 74-106 [facility] Comment on above: Fasting Glucose resu lt greater than or equal to 126 mg/dL suggests DIABETES MELLITUS per A.D.A. criteria. Neutrophils (Bld) [#/Vol] 6.9 10*3/uL 2.0-7.7 [facility] Neutrophils/100 WBC (Bld) 66.3 % 47-70 [facility] Potassium [Moles/Vol] 3.5 mmol/L 3.5-5.1 [facility] Sodium [Moles/Vol] 142 mmol/L 136-145 [facility] WBC (Bld) [#/Vol] 10.5 10*3/uL 4.4-11.0 [facility] Blood erythrocytes count (nu mber/volume)Ordered By: Dr. Fleming on 02-28-2023 RBC (Bld) [#/Vol] 4.03 10*6/uL 4.2-5.4 [facility] Blood hemoglobin measurement (mass/volume)Ordered By: Dr. Fleming on 02-28-2023 Hemoglobin (Bld) [Mass/Vol] 12.9 g/dL 12.0-15.0 [facility] Blood lymphocytes/100 leukoc ytesOrdered By: Dr. Fleming on 02-28-2023 Lymphocytes/100 WBC (Bld) 23.3 % 19-41 [facility] Blood monocytes/100 leukocyt esOrdered By: Dr. Fleming on 02-28-2023 Monocytes/100 WBC (Bld) 7.5 % 0-10 [facility] Blood platelet mean volumeOr dered By: Dr. Fleming on 02-28-2023 Platelet mean volume (Bld) [Entitic vol] 9.9 fL 6.2-12.0 [facility] Determination of erythrocyte mean corpuscular volume (MCV)Ordered By: Dr. Fleming on 02-28-2023 MCV (RBC) [Entitic vol] 95.8 fL 81-99 [facility] Hematocrit Auto (Bld) [Volum e fraction]Ordered By: Dr. Fleming on 02-28-2023 Hematocrit (Bld) [Volume fraction] 38.6 % 37-47 [facility] Laboratory - Chemistry and C hemistry - challengeOrdered By: Dr. Fleming on 02-28-2023 CO2 [Moles/Vol] 26.0 mmol/L 21.0-32.0 [facility] Urea nitrogen/Creatinine [Mass ratio] 24.7 mg/mg 10-20 [facility] Laboratory - Hematology and Cell countsOrdered By: Dr. Fleming on 02-28-2023 Erythrocyte distribution width (RBC) [Entitic vol] 45.0 fL 35.1-43.9 [facility] Erythrocyte distribution width (RBC) [Ratio] 12.8 % 11.6-14.6 [facility] Immature granulocytes/100 WBC (Bld) 0.500 % 0.0-0.9 [facility] Comment on above: IG% - Immature Granu locytes (promyelocytes, myelocytes and metamyelocytes) > 1% indicates that a LEFT SHIFT is Present. MCH (RBC) [Entitic mass] 32.0 pg 27.0-32.0 [facility] Nucleated RBC/100 WBC (Bld) [Ratio] 0 % 0-5 [facility] MCHC Auto (RBC) [Mass/Vol]Or dered By: Dr. Fleming on 02-28-2023 MCHC (RBC) [Mass/Vol] 33.4 g/dL 32-36 [facility] No Panel InformationOrdered By: Dr. Fleming on 02-28-2023 Estimated Creatinine Clearance Calc 62.93 ml/min [facility] Estimated GFR (MDRD) Amer 83 mL/min >60 [facility] Comment on above: GFR Calc Estimated GFR (MDRD) Non-Af Amer 69 mL/min >60 [facility] Comment on above: Non- GFR Calc Platelets bldOrdered By: Dr. Fleming on 02-28-2023 Platelets (Bld) [#/Vol] 220 10*3/uL 150-450 [facility] Serum or plasma calcium macrina urement (mass/volume)Ordered By: Dr. Fleming on 02-28-2023 Calcium [Mass/Vol] 9.0 mg/dL 8.5-10.1 [facility] Serum or plasma creatinine m easurement (mass/volume)Ordered By: Dr. Fleming on 02-28-2023 Creatinine [Mass/Vol] 0.89 mg/dL 0.55-1.02 [facility] Comment on above: The validity of the calculated GFR & GFRAA in patients over 70 years has not been determined. Clinical correlation is essential. Serum or plasma urea nitroge n measurement (mass/volume)Ordered By: Dr. Fleming on 02-28-2023 Urea nitrogen [Mass/Vol] 22 mg/dL 7-18 [facility] Thin prep Papanicolaou smear with manual screeningOrdered By: Dr. Fleming on 02-28-2023 Thin prep Papanicolaou smear with manual screening 5 5-15 [facility] AMYLASE ([id number])Ordered By: Johnny ystem Bus Van Driver on 01-21-2023 Amylase [Catalytic activity/Vol] 32 U/L Normal 31-110 [facility]; [facility] Work Phone: Comment on above: PATIENT NOT FASTINGP ERFORMED BY: CB [facility] Cabdsg5290 [facility] [id number] LIPASE ([id number])Ordered By: Francesco stem Bus Van Driver on 01-21-2023 Lipase [Catalytic activity/Vol] 51 U/L Normal 14-72 [facility]; [facility] Work Phone: Comment on above: PATIENT NOT FASTINGP ERFORMED BY: CB [facility] Vbflin1171 [facility] [id number] METABOLIC PANEL, COMPREHENSI VE ([id number])Ordered By: Stone Gluer on 01-21-2023 Albumin [Mass/Vol] 4.7 g/dL Normal 3.8-4.9 [facility] Internal Medicine; [facility] Work Phone: Comment on above: PATIENT NOT FASTINGP ERFORMED BY: CB [facility] Cmfnwl3190 [address] RoadDublin [place] [id number] Albumin/Globulin [Mass ratio] 2.8 {ratio} Abnormal 1.2-2.2 [facility]; [facility] Work Phone: Comment on above: PATIENT NOT FASTINGP ERFORMED BY: CB [facility] Pjokha1671 [address] RoadDublin [place] [id number] ALP [Catalytic activity/Vol] 87 U/L Normal 44-121 [facility]; [facility] Work Phone: Comment on above: PATIENT NOT FASTINGP ERFORMED BY: CB [facility] Bglvjk4458 [address] RoadDublin [place] [id number] ALT [Catalytic activity/Vol] 17 U/L Normal 0-32 [facility]; [facility] Work Phone: Comment on above: PATIENT NOT FASTINGP ERFORMED BY: CB [facility] Iydujw4583 [address] RoadDublin [place] [id number] AST [Catalytic activity/Vol] 15 U/L Normal 0-40 [facility]; [facility] Work Phone: Comment on above: PATIENT NOT FASTINGP ERFORMED BY: CB [facility] Xzycxf9365 [address] RoadDublin [place] [id number] Bilirubin [Mass/Vol] 0.3 mg/dL Normal 0.0-1.2 [facility] Internal Medicine; [facility] Work Phone: Comment on above: PATIENT NOT FASTINGP ERFORMED BY: CB [facility] Vhalvn6360 [address] RoadDublin [place] [id number] Calcium [Mass/Vol] 9.8 mg/dL Normal 8.7-10.3 [facility] Internal [facility]; [facility] Work Phone: Comment on above: PATIENT NOT FASTINGP ERFORMED BY: CB [facility] Tqfojl0311 [address] RoadDublin [place] [id number] Chloride [Moles/Vol] 104 mmol/L Normal 96-106 Comp rehensive Internal Medicine; [facility] Work Phone: Comment on above: PATIENT NOT FASTINGP ERFORMED BY: CB [facility] Fkragr9306 [address] RoadDublin [place] [id number] CO2 [Moles/Vol] 25 mmol/L Normal 20-29 Comprehen sive Internal Medicine; [facility] Work Phone: Comment on above: PATIENT NOT FASTINGP ERFORMED BY: [facility] Nlcxeb3228 [address] RoadDublin [place] [id number] Creatinine [Mass/Vol] 0.91 mg/dL Normal 0.57-1.00 [facility]; [facility] Work Phone: Comment on above: PATIENT NOT FASTINGP ERFORMED BY: [facility] Uvqosa07[address] [facility] [place] [id number] GFR/1.73 sq M.predicted among non-blacks MDRD (S/P/Bld) [Vol rate/Area] 72 mL/min/{1.73_m2} Normal Comprehensiv e Internal Medicine; [facility] Work Phone: Comment on above: PATIENT NOT FASTINGP ERFORMED BY: [facility] Dvjcty0082 [address] RoadDublin [place] [id number] Globulin (S) [Mass/Vol] 1.7 g/dL Normal 1.5-4.5 [facility]; [facility] Work Phone: Comment on above: PATIENT NOT FASTINGP ERFORMED BY: CB [facility] Cccouu8725 [address] RoadDublin [place] [id number] Glucose [Mass/Vol] 92 mg/dL Normal 70-99 [facility]; [facility] Work Phone: Comment on above: PATIENT NOT FASTINGP ERFORMED BY: [facility] Llfdcf2408 [address] RoadDublin [place] [id number] Potassium [Moles/Vol] 4.4 mmol/L Normal 3.5-5.2 [facility]; [facility] Work Phone: Comment on above: PATIENT NOT FASTINGP ERFORMED BY: NAHED Labcodestin Shfhld9047 [address] RoadDublin [place] [id number] Protein [Mass/Vol] 6.4 g/dL Normal 6.0-8.5 Compre hensive [facility] Medicine; [facility] Work Phone: Comment on above: PATIENT NOT FASTINGP ERFORMED BY: CB [facility] Oyitgo9465 [address] RoadD[address] [place] [id number] Sodium [Moles/Vol] 142 mmol/L Normal 134-144 Compre hensive [facility]; [facility] Work Phone: Comment on above: PATIENT NOT FASTINGP ERFORMED BY: NAHED Labroseanna WhiteKonuko6523 [address] RoadDublin [place] [id number] Urea nitrogen [Mass/Vol] 17 mg/dL Normal 8-27 [facility]; [facility] Work Phone: Comment on above: PATIENT NOT FASTINGP ERFORMED BY: NAHED [facility] Bjxsxs8074 [address] RoadDublin [place] [id number] Urea nitrogen/Creatinine [Mass ratio] 19 mg/mg Normal 12-28 [facility]; [facility] Work Phone: Comment on above: PATIENT NOT FASTINGP ERFORMED BY: NAHED [facility] Huybsw[address] [facility] [place] [id number] FSH AND LH ([id number])Ordered By : Stone Gluer on 12-27-2022 Follitropin Qn 66.7 m[IU]/mL Normal Compreh ensive [facility]; [facility] Work Phone: Comment on above: Adult Female: Follic ular phase 3.5 - 12.5 Ovulation phase 4.7 - 21.5 Luteal phase 1.7 - 7.7 Postmenopausal 25.8 - 134.8 PATIENT WAS FASTINGP ERFORMED BY: NAHED [facility] Gtnbwq4[address] RoadDublin [place] [id number] Lutropin Qn 25.8 m[IU]/mL Normal Comprehens tucker [facility]; [facility] Work Phone: Comment on above: Adult Female: Follic ular phase 2.4 - 12.6 Ovulation phase 14.0 - 95.6 Luteal phase 1.0 - 11.4 Postmenopausal 7.7 - 58.5 PATIENT WAS FASTINGP ERFORMED BY: NAHED [facility] Uqljms0213 [address] RoadDublin [place] [id number] LIPID PANEL ([id number])Ordered B y: Stone Gluer on 12-27-2022 Cholesterol [Mass/Vol] 201 mg/dL Abnormal 100-199 [facility]; [facility] Work Phone: Comment on above: PATIENT WAS FASTINGP ERFORMED BY: NAHED [facility] Buugxj8139 [address] RoadDublin [place] [id number] Cholesterol in HDL [Mass/Vol] 66 mg/dL Normal [facility]; [facility] Work Phone: Comment on above: PATIENT WAS FASTINGP ERFORMED BY: NAHED [facility] Vriuzv7540 [address] RoadDublin [place] [id number] Triglyceride [Mass/Vol] 152 mg/dL Abnormal 0-149 [facility]; [facility] Work Phone: Comment on above: PATIENT WAS FASTINGP ERFORMED BY: NAHED [facility] Eqmmtw4685 [address] RoadDublin [place] [id number] LIPID PANEL ([id number]) 26 mg/dL Normal 5-40 Compr ehensive [facility] Medicine; [facility] Work Phone: Comment on above: PATIENT WAS FASTINGP ERFORMED BY: NAHED [facility] Xnauzk5423 [address] RoadDublin [place] [id number] LIPID PANEL (70801) 109 mg/dL Abnormal 0-99 Compr ensive [facility]; [facility] Work Phone: Comment on above: PATIENT WAS FASTINGP ERFORMED BY: NAHED [facility] Fefcbz[address] [facility] HospitalD[facility] [place] [id number] LIPID PANEL (15014) 1.7 {ratio} Normal 0.0-3.2 Comp flower hospitalensive [facility]; [facility] Work Phone: Comment on above: LDL/HDL Ratio Men Wo men 1/2 Avg.Risk 1.0 1.5 Avg.Risk 3.6 3.2 2X Avg.Risk 6.2 5.0 3X Avg.Risk 8.0 6.1 PATIENT WAS FASTINGP ERFORMED BY: NAHED [facility] [address] [place] [id number] Basophil percentageon 2021 Bilirubin [Mass/Vol] 0.30 mg/dL 0.20-1.00 [facility] Work Phone: Comment on above: For patients on eltr ombopag therapy, use of Dimension [place] TBIL is not recommended. Chloride [Moles/Vol] 107 mmol/L 98-107 [facility] Work Phone: Cholesterol [Mass/Vol] 188 mg/dL <200 [facility] Work Phone: Comment on above: <200 mg/dL Desirable 200-240 mg/dL Borderline >240 mg/dL High Risk Glucose [Mass/Vol] 98 mg/dL 74-106 [facility] Work Phone: Potassium [Moles/Vol] 3.6 mmol/L 3.5-5.1 [facility] Work Phone: Protein [Mass/Vol] 7.1 g/dL 6.4-8.2 [facility] Work Phone: Sodium [Moles/Vol] 142 mmol/L 136-145 [facility] Work Phone: Triglyceride [Mass/Vol] 248 mg/dL <199 [facility] Work Phone: Comment on above: The drugs N-Acetylcy steine and Metamizole may falsely depress this assay.Serum Triglycerides Reference Interval Normal <150 mg/dL Borderline high 150 - 199 mg/dL High 200 - 499 mg/dL Very High > or = 500 mg/dL Direct bilirubinon 2 Bilirubin.direct [Mass/Vol] 0.11 mg/dL 0.00-0.30 [facility] Work Phone: Laboratory - Chemistry and C hemistry - challengeon 07-30-2022 ALP [Catalytic activity/Vol] 86 U/L 45-117 [facility] Work Phone: ALT [Catalytic activity/Vol] 27 U/L 13-56 [facility] Work Phone: CO2 [Moles/Vol] 31.0 mmol/L 21.0-32.0 [facility] Work Phone: Globulin (S) [Mass/Vol] 3.4 g/dL 2.2-4.2 [facility] Work Phone: Urea nitrogen/Creatinine [Mass ratio] 15.6 mg/mg 10-20 [facility] Work Phone: No Panel Informationon 07-30 Estimated GFR (MDRD) Amer 82 mL/min >60 [facility] Work Phone: Comment on above: GFR Calc Estimated GFR (MDRD) Non-Af Amer 68 mL/min >60 [facility] Work Phone: Comment on above: Non- GFR Calc Serum or plasma albumin macrina urement (mass/volume)on 07-30-2022 Albumin [Mass/Vol] 3.7 g/dL 3.2-5.0 [facility] Work Phone: Serum or plasma calcium macrina urement (mass/volume)on 07-30-2022 Calcium [Mass/Vol] 9.3 mg/dL 8.5-10.1 [facility] Work Phone: Serum or plasma cholesterol in HDL measurement (mass/volume)on 07-30-2022 Cholesterol in HDL [Mass/Vol] 62 mg/dL >40 [facility] Work Phone: Comment on above: The drugs N-Acetylcy steine and Metamizole may falsely depress this assay. Reference Range HDL <40 mg/dL Low HDL Cholesterol HDL >or= 60 mg/dL High HDL Cholesterol Serum or plasma cholesterol in VLDL measurement (mass/volume)on 07-30-2022 Cholesterol in VLDL [Mass/Vol] 50 mg/dL 5-40 [facility] Work Phone: Serum or plasma creatinine m easurement (mass/volume)on 07-30-2022 Creatinine [Mass/Vol] 0.90 mg/dL 0.55-1.02 [facility] Work Phone: Comment on above: The validity of the calculated GFR & GFRAA in patients over 70 years has not been determined. Clinical correlation is essential. Serum or plasma low density lipoprotein (LDL) cholesterol measurement (mass/volume)on 07-30-2022 Cholesterol in LDL [Mass/Vol] 76 mg/dL 0-130 [facility] Work Phone: Serum or plasma urea nitroge n measurement (mass/volume)on 07-30-2022 Urea nitrogen [Mass/Vol] 14 mg/dL 7-18 [facility] Work Phone: Thin prep Papanicolaou smear with manual screeningon 07-30-2022 Thin prep Papanicolaou smear with manual screening 15 U/L 15-37 [facility] Work Phone: Thin prep Papanicolaou smear with manual screening 4 5-15 [facility] Work Phone: URINE CYNDEE CULTURE-IDENTIFICA [place] ([id number])Ordered By: Stone Gluer on 03-05-2022 Bacteria identified Cx Nom (U) Final report Abnormal [facility]; [facility] Work Phone: Comment on above: PATIENT NOT FASTINGP ERFORMED BY: [employer] [place] [id number] Information: SRC:UC Bacteria identified Cx Nom (U) Enterococcus faecalis Abnormal Comprehens [facility]; [facility] Work Phone: Comment on above: For Enterococcus spe cies, aminoglycosides (except for high-levelresistance screening), cephalosporins, clindamycin, andtrimethoprim-sulfamethoxazole are not effective clinically.(CLSI, W509-N35, 2016)600 Colonies/mLNote: this isolate is vancomycin-susceptible.This information is provided for epidemiologic purposes only:vancomycin is not among the antibiotics recommended for therapyof urinary tract infections caused by Enterococcus. PATIENT NOT FASTINGP ERFORMED BY: [employer] [place] [id number] Information: SRC: Other Antibiotic [Susc] MIHEAD Normal [facility]; [facility] Work Phone: Comment on above: S = Susceptible; I = Intermediate; R = Resistant P = Positive; N = Negative MICS are expressed in micrograms per mL Antibiotic RSLT#1 RSLT#2 RSLT#3 RSLT#4Ciprofloxacin SLevofloxacin SNitrofurantoin SPenicillin STetracycline RVancomycin S PATIENT NOT FASTINGP ERFORMED BY: NAHED [facility] Izxovs[address] [facility] [id number] Information: SRC: Urinalysis, Office ([id number])Or dered By: Rogelio Mcclure on 03-05-2022 Bilirubin Ql (U) Negative Normal Comprehe nsive Internal Medicine; [facility] Work Phone: Glucose Test strip (U) [Mass/Vol] Negative Normal [facility]; [facility] Work Phone: Hemoglobin Ql (U) Negative Normal Compreh ensive [facility]; [facility] Work Phone: Ketones Ql (U) Negative Normal Comprehens [facility]; [facility] Work Phone: Leukocyte esterase Test strip Ql (U) Negative Normal [facility]; [facility] Work Phone: Nitrite Ql (U) Negative Normal Comprehens [facility]; [facility] Work Phone: pH (U) 6 [pH] Abnormal [facility]; [facility] Work Phone: Protein Ql (U) Negative Normal Comprehens [facility]; [facility] Work Phone: Specific gravity (U) [Rel density] 1.020 1 Normal [facility]; [facility] Work Phone: Urobilinogen (24H U) [Mass/Time] Normal Normal [facility]; [facility] Work Phone: CALCIFEDIOL ([id number])Ordered B y: Stone Gluer on 11-10-2020 25-Hydroxyvitamin D2+25-Hydroxyvitamin D3 [Mass/Vol] 33.7 ng/mL Normal 30.0-100.0 [facility]; [facility] Work Phone: Comment on above: Vitamin D deficiency has been defined by the [place] of[place] and an Endocrine Society practice guideline as alevel of serum 25-OH vitamin D less than 20 ng/mL (1,2).The Endocrine Society went on to further define vitamin Dinsufficiency as a level between 21 and 29 ng/mL (2).1. IOM ([place] [employer]). 2010. Dietary reference intakes for calcium and D. [place]: The National Academies Press.2. Billy MF, [place], Jacob BOLANOS, et al. Evaluation, treatment, and prevention of vitamin D deficiency: an Endocrine Society clinical practice guideline. JCEM. 2010; 96(7):1911-30. PATIENT NOT FASTINGP ERFORMED BY: [employer] [facility] Nwzklf8577 [address] RoadDublin [place] [id number] CBC & PLATELETS (AUTO) ([id number])Ordered By: Stone Gluer on 11-10-2020 Erythrocyte distribution width (RBC) [Ratio] 13.0 % Normal 11.7-15.4 [facility]; [facility] Work Phone: Comment on above: PATIENT NOT FASTINGP ERFORMED BY: CB [facility] Lnifuh8378 [address] RoadDublin [place] [id number] Hematocrit (Bld) [Volume fraction] 41.1 % Normal 34.0-46.6 [facility]; [facility] Work Phone: Comment on above: PATIENT NOT FASTINGP ERFORMED BY: [employer] [facility] Ixxjtt9069 [address] RoadDublin [place] [id number] Hemoglobin (Bld) [Mass/Vol] 13.5 g/dL Normal 11.1-15.9 [facility]; [facility] Work Phone: Comment on above: PATIENT NOT FASTINGP ERFORMED BY: [employer] [facility] Pdakfd2501 [address] RoadDublin [place] [id number] MCH (RBC) [Entitic mass] 30.9 pg Normal 26.6-33.0 [facility]; [facility] Work Phone: Comment on above: PATIENT NOT FASTINGP ERFORMED BY: CB [facility] Frnefr0922 [address] RoadDublin [place] [id number] MCHC (RBC) [Mass/Vol] 32.8 g/dL Normal 31.5-35.7 [facility]; [facility] Work Phone: Comment on above: PATIENT NOT FASTINGP ERFORMED BY: CB [facility] Gipein1489 [address] RoadDublin [place] [id number] MCV (RBC) [Entitic vol] 94 fL Normal 79-97 [facility]; [facility] Work Phone: Comment on above: PATIENT NOT FASTINGP ERFORMED BY: CB [facility] Qgitlz6284 [address] RoadDublin [place] [id number] Platelets (Bld) [#/Vol] 275 {x10E3/uL} Normal 150-450 [facility]; [facility] Work Phone: Comment on above: PATIENT NOT FASTINGP ERFORMED BY: CB [facility] Ghyeoq4367 [address] RoadDublin [place] [id number] Platelets (Bld) [#/Vol] 275 10*3/uL Normal 150-450 [facility]; [facility] Work Phone: Comment on above: PATIENT NOT FASTINGP ERFORMED BY: CB [facility] Czwqvz1978 [address] RoadDublin [place] [id number] RBC (Bld) [#/Vol] 4.37 {x10E6/uL} Normal 3.77-5.28 [facility]; [facility] Work Phone: Comment on above: PATIENT NOT FASTINGP ERFORMED BY: CB [facility] Rccqqj0082 [address] RoadDublin [place] [id number] RBC (Bld) [#/Vol] 4.37 10*6/uL Normal 3.77-5.28 [facility]; [facility] Work Phone: Comment on above: PATIENT NOT FASTINGP ERFORMED BY: CB [facility] Qbfovk1614 [address] RoadDublin [place] [id number] WBC (Bld) [#/Vol] 7.2 {x10E3/uL} Normal 3.4-10.8 [facility] prehensive Internal Medicine; [facility] Work Phone: Comment on above: PATIENT NOT FASTINGP ERFORMED BY: NAHED [facility] Xjogyg2196 [address] RoadDublin [place] [id number] WBC (Bld) [#/Vol] 7.2 10*3/uL Normal 3.4-10.8 [facility]; [facility] Work Phone: Comment on above: PATIENT NOT FASTINGP ERFORMED BY: CB [facility] Eqvcpm3371 [address] RoadDublin [place] [id number] Metabolic Panel, Comprehensi ve ([id number])Ordered By: Stone Gluer on 11-10-2020 Albumin [Mass/Vol] 4.4 g/dL Normal 3.8-4.9 [facility]; [facility] Work Phone: Comment on above: PATIENT NOT FASTINGP ERFORMED BY: CB [facility] Nadciq0546 [address] RoadDublin [place] [id number] Albumin/Globulin [Mass ratio] 1.8 {ratio} Normal 1.2-2.2 [facility]; [facility] Work Phone: Comment on above: PATIENT NOT FASTINGP ERFORMED BY: CB [facility] Wussdw3722 [address] RoadDublin [place] [id number] ALP [Catalytic activity/Vol] 81 [iU]/L Normal 39-117 [facility]; [facility] Work Phone: Comment on above: PATIENT NOT FASTINGP ERFORMED BY: CB [facility] Lurkwx9441 [address] RoadDublin [place] [id number] ALP [Catalytic activity/Vol] 81 U/L Normal 39-117 [facility]; [facility] Work Phone: Comment on above: PATIENT NOT FASTINGP ERFORMED BY: CB [facility] Wrniut3960 [address] RoadDublin [place] [id number] ALT [Catalytic activity/Vol] 19 [iU]/L Normal 0-32 [facility]; [facility] Work Phone: Comment on above: PATIENT NOT FASTINGP ERFORMED BY: CB [facility] Xnkjgt3106 [address] RoadDublin [place] [id number] ALT [Catalytic activity/Vol] 19 U/L Normal 0-32 [facility]; [facility] Work Phone: Comment on above: PATIENT NOT FASTINGP ERFORMED BY: CB [facility] Fnkgvr5282 [address] RoadDublin [place] [id number] AST [Catalytic activity/Vol] 16 [iU]/L Normal 0-40 [facility]; [facility] Work Phone: Comment on above: PATIENT NOT FASTINGP ERFORMED BY: CB [facility] Ldrxnw2501 [address] RoadDublin [place] [id number] AST [Catalytic activity/Vol] 16 U/L Normal 0-40 [facility]; [facility] Work Phone: Comment on above: PATIENT NOT FASTINGP ERFORMED BY: CB [facility] Tgcfkv1903 [address] RoadDublin [place] [id number] Bilirubin [Mass/Vol] 0.3 mg/dL Normal 0.0-1.2 Comp rehensive [facility] Medicine; [facility] Work Phone: Comment on above: PATIENT NOT FASTINGP ERFORMED BY: CB [facility] Mxqpjh6197 [address] RoadDublin [place] [id number] Calcium [Mass/Vol] 9.9 mg/dL Normal 8.7-10.2 [facility]; [facility] Work Phone: Comment on above: PATIENT NOT FASTINGP ERFORMED BY: CB [facility] Ybzgyo9371 [address] RoadDublin [place] [id number] Chloride [Moles/Vol] 106 mmol/L Normal 96-106 Comp rehensive [facility] Medicine; [facility] Work Phone: Comment on above: PATIENT NOT FASTINGP ERFORMED BY: CB [facility] Koptwp3978 [address] RoadDublin [place] [id number] CO2 [Moles/Vol] 22 mmol/L Normal 20-29 Comprehen [facility]; [facility] Work Phone: Comment on above: PATIENT NOT FASTINGP ERFORMED BY: NAHED [facility] Allfdv0902 [address] RoadDublin [place] [id number] Creatinine [Mass/Vol] 0.84 mg/dL Normal 0.57-1.00 [facility]; [facility] Work Phone: Comment on above: PATIENT NOT FASTINGP ERFORMED BY: CB [facility] Qnmfog2748 [address] RoadDublin [place] [id number] GFR/1.73 sq M predicted among blacks CKD-EPI (S/P/Bld) [Vol rate/Area] 89 mL/min/1.73 Normal [facility]; [facility] Work Phone: Comment on above: PATIENT NOT FASTINGP ERFORMED BY: CB [facility] Qqwoij7333 [address] RoadDublin [place] [id number] GFR/1.73 sq M predicted among non-blacks CKD-EPI (S/P/Bld) [Vol rate/Area] 77 mL/min/1.73 Normal [facility]; [facility] Work Phone: Comment on above: PATIENT NOT FASTINGP ERFORMED BY: CB [facility] Zgpfiq7122 [address]Dublin [place] [id number] Globulin (S) [Mass/Vol] 2.4 g/dL Normal 1.5-4.5 [facility]; [facility] Work Phone: Comment on above: PATIENT NOT FASTINGP ERFORMED BY: CB [facility] Zsdetd1827 [address] RoadDublin [place] [id number] Glucose [Mass/Vol] 86 mg/dL Normal 65-99 [facility] Internal Medicine; [facility] Work Phone: Comment on above: PATIENT NOT FASTINGP ERFORMED BY: CB [facility] Qaphwg5366 [address] RoadD[address] [place] [id number] Potassium [Moles/Vol] 4.6 mmol/L Normal 3.5-5.2 [facility]; [facility] Work Phone: Comment on above: PATIENT NOT FASTINGP ERFORMED BY: CB [facility] Itdlqx6751 [address] RoadDublin [place] [id number] Protein [Mass/Vol] 6.8 g/dL Normal 6.0-8.5 [facility]; [facility] Work Phone: Comment on above: PATIENT NOT FASTINGP ERFORMED BY: NAHED [facility] Wyhsex3129 [address] RoadDublin [place] [id number] Sodium [Moles/Vol] 144 mmol/L Normal 134-144 [facility]; [facility] Work Phone: Comment on above: PATIENT NOT FASTINGP ERFORMED BY: NAHED [facility] Receih2422 [address] RoadDublin [place] [id number] Urea nitrogen [Mass/Vol] 17 mg/dL Normal 6-24 [facility]; [facility] Work Phone: Comment on above: PATIENT NOT FASTINGP ERFORMED BY: NAHED LabRoseanna WhitePtbtwi1711 [address] RoadDublin [place] [id number] Urea nitrogen/Creatinine [Mass ratio] 20 mg/mg Normal 9-23 [facility]; [facility] Work Phone: Comment on above: PATIENT NOT FASTINGP ERFORMED BY: NAHED [facility] Jvrfvy3223 [address] RoadD[address] [place] [id number] TSH (THYROID STIMULATING HOR NATHALIA) ([id number])Ordered By: Stone Gluer on 11-10-2020 TSH Qn 1.420 {uIU/mL} Normal 0.450-4.50 0 [facility]; [facility] Work Phone: Comment on above: PATIENT NOT FASTINGP ERFORMED BY: NAHED [facility] Rkminr2358 [address] RoadDublin [place] [id number] VITAMIN B12 AND FOLATES (826 07)Ordered By: Stone Gluer on 11-10-2020 Cobalamin (Vitamin B12) [Mass/Vol] 983 pg/mL Normal 232-1245 [facility]; [facility] Work Phone: Comment on above: PATIENT NOT FASTINGP ERFORMED BY: NAHED [facility] Zfhzez3974 [address] RoadD[address] [place] [id number] Folate [Mass/Vol] 7.6 ng/mL Normal Compreh ensive Internal Medicine; [facility] Work Phone: Comment on above: A serum folate ender ntration of less than 3.1 ng/mL isconsidered to represent clinical deficiency. PATIENT NOT FASTINGP ERFORMED BY: NAHED [facility] Fowxsu[address] [place] [id number] CT CARDIAC SCORINGon 021 CT CARDIAC SCORING Patient Name: JEANNE SANTACRUZ STUDY: CT CARDIAC SCORING; 11/01/2020 3:19 pm INDICATION: HTN. COMPARISON: None. ACCESSION NUMBER(S): [id number] ORDERING CLINICIAN: SHAKILA CARTER TECHNIQUE: Using prospective ECG gating, CT scan of the coronary arteries was performed without intravenous contrast. Coronary calcium scoring was performed according to the method of Agatston. FINDINGS: The score and distribution of calcium in the coronary arteries is as follows: LM 0, LAD 0, LCx 0, RCA 0, Total 0 The visualized ascending thoracic aorta measures 3.1 cm in diameter. The heart is normal in size. No pericardial effusion is present. No gross evidence of mediastinal or hilar lymphadenopathy or masses is identified. The visualized segments of the lungs are normally expanded. The main pulmonary artery, right and left pulmonary artery are normal in size. The visualized subdiaphragmatic structures appear intact. IMPRESSION: 1. Coronary artery calcium score of 0*. *Coronary Artery Agatston score Score risk Very low 1-99 Mildly increased 100-299 Moderately increased >300 Moderate to severely increased >800 Yanna et al. JCCT 2016 (http://dx.doi.org/10.1016 /j.jcct.2016.11.003) CAMACHO 10-Year CHD Risk with Coronary Artery Calcification can be calcuate using link below [email or web address]-[email or web address] /[email or web address].aspx Joel gardner al. JACC 2015 (http://dx.doi.org/10.1016 /j.j acc.2015.08.035) Electronically signed by: KALIN WESTON MD [facility] PROGRESSon 12-20-2019 PROGRESS HNO ID: [id number] Author: Ruslan Nguyen Service: ? Author Type: Physician Type: Progress Notes Filed: 12/20/2019 5:03 PM Note Text: [facility] Heart, Vascular AND Thoracic Department Electrophysiology (EP) Virtual (Phone) Visit This is a virtual visit. It required patient-provider interaction for the medical decision making as documented below. This is a telehealth visit in lieu of in-person visit due to nationwide COVID?19 emergency. Verbal consent was obtained from the patient prior to initiation of this visit. Audio + video virtual visit contact between my location and the patient's location was used for this visit. Patient's name and date of were confirmed verbally. PRIMARY CARE PHYSICIAN: Shakila Carter, PEN RIDER [address] [facility] [address] [place] [address] REFERRING PHYSICIAN: Joseph Patten MD ([facility]) [address] [facility] [address] Patient Care Team: Shakila Carter as PCP - General (Internal Medicine) Joseph Patten as Specialty Flying Ii Instructor (Cardiology) VIRTUAL VISIT: audio + video (Doximity) I, Ruslan Nguyen MD, have verified the name and date of of Ms. Santacruz at the initiation of this virtual visit encounter. CHIEF COMPLAINT: Evaluation for arrhythmia HISTORY OF PRESENT ILLNESS: Ms. Santacruz is a 59 year old female who presents today for evaluation of arrhythmia. She states that she has been experiencing symptoms of arrhythmia for quite a while. She experiences flutters and sometimes during these episodes feels out of breath and short of breath with activity such as walking upstairs. She states that she frequently receives an indicator from her blood pressure machine of irregular heart rate. She has worn a pulse oximeter and documented heart rates that increase and decrease, sometimes up to 80s and 90s beats per minute and other times down to the 40s beat per minute range. In August 2019 the symptoms were more severe, and she presented to the [place] [facility]. She states the EKG was abnormal and then she was referred to her primary care physician where another EKG was abnormal. She was then referred to a airline hostess, Dr. Patten. She wore a heart monitor for a day, and then later for 30 days. She states she was found to have arrhythmia, and was treated initially with diltiazem. She did not feel initially that the diltiazem was effective, and she was switched to digoxin. However, she did not feel good with the digoxin, having some side effects, so she went back to the diltiazem she states that a beta gely might of been avoided due to the fact that she took one in the past for headaches and she thought that the beta gely made her headaches worse. Over the past month, she has felt much better. In fact she states she feels fine. She still receives the irregular heart rate indicator on the blood pressure machine quite often, but she is not feeling poorly. She has not experienced prolonged periods of rapid heartbeats. She denies chest pain, orthopnea, PND, lightheadedness or syncope. I have confirmed and edited as necessary, the PFSH and ROS obtained by others. PAST MEDICAL HISTORY Diagnosis Date - Essential hypertension - Palpitations - Premature atrial contractions - Sinus arrhythmia - Vitamin B12 deficiency - Vitamin D deficiency PAST SURGICAL HISTORY Procedure Laterality Date - BREAST REDUCTION Bilateral 1998 - CATARACT EXTRACTION HX Bilateral 12/2018 Cataract removal with insertion of prosthetic lens - CHOLECYSTECTOMY 2017 - TOTAL ABDOMINAL HYSTERECTOMY - TONSILLECTOMY HX SOCIAL HISTORY Social History Tobacco Use - Smoking status: Former Smoker Types: Cigarettes Last attempt to quit: 12/20/2015 Years since quittin.0 - Smokeless tobacco: Never Used Substance Use Topics - Alcohol use: Not Currently Comment: rare - Drug use: Not Currently FAMILY HISTORY Problem Relation Age of Onset - Breast Cancer Mother - other (atrial fibrillation) Mother - Stroke Father - COPD Father - Heart Attack Father - Aneurysm Father - other (atrial fibrillation) Father - Crohn's Disease Sister - other (tachycardia) Sister - Tourette syndrome Brother ALLERGIES: ALLERGIES Allergen Reactions - Augmentin [Amoxicil* Vomiting - Sulfa (Sulfonamide * Hives MEDICATIONS: sertraline (ZOLOFT) 50 mg tablet, Take 50 mg by mouth once daily. diltiazem (CARDIZEM) 120 mg tablet, Take 120 mg by mouth once daily. lisinopril-hydrochlorothia zide (PRINZIDE,ZESTORETIC) 10-12.5 mg per tablet, Take 1 tablet by mouth once daily. PREMARIN 0.625 mg tablet, Take 0.625 mg by mouth once daily. fluticasone (FLONASE) 50 mcg/actuation nasal spray, 2 Sprays once daily. cyanocobalamin 1,000 mcg/mL soln, 1,000 mcg one time only. colestipol (COLESTID) 1 gram tablet, Take 2 g by mouth once daily. ergocalciferol, vitamin D2, (VITAMIN D2 ORAL), Take 1 capsule by mouth once daily. + D3 REVIEW OF SYSTEMS: GENERAL: Negative for: Weight loss or gain, Fever or Chills, Weakness and Sleep difficulties. HEENT: Positive for:Headache , Negative for:Hearing Impairment, Ringing in Ears, Nosebleeds and Bleeding Gums NECK: Negative for: Swelling, Pain, Stiffness RESPIRATORY: Negative for: Cough, Blood in Sputum, Shortness of breath, Wheezing, Apnea GASTROINTESTINAL: Negative for: Trouble swallowing, Heartburn, Change in bowel habits, Blood in stool, Dark black stools MUSCULOSKELETAL: Negative for: Muscle or joint pain, stiffness, Joint swelling NEUROLOGIC/PSYCHIATRIC: Negative for: Weakness, Paralysis, Numbness, Tingling, Tremor, Nervousness or anxiety, Depressed mood, Memory loss SKIN: Negative for: Rash, Itching HEMATOLOGICAL/LYMPHATIC: Negative for: Easy bruising, Easy bleeding ENDOCRINE: Negative for: Heat or Cold Intolerance, Excessive Sweating, Frequent Urination, Frequent Thirst PHYSICAL EXAMINATION: BP 131/80 Pulse 78 Ht 5' 6 (1.68m) Wt 185 lb (83.9kg) BMI 29.87 kg/(m2). VIDEO EXAM: (if completed, performed via video enabled technology) Alert, oriented x 3 No distress Mood and behavior appropriate CARDIOVASCULAR MEDICINE TESTING: No Cardiovascular testing performed today. Total time in direct patient contact = 45 min. Greater than 50% of the time was spent in counseling and/or coordination of care. ASSESSMENT/PLAN: 1. Palpitations - ICD9: 785.1, ICD10: R00.2 (primary diagnosis) 2. Premature atrial contractions - ICD9: 427.61, ICD10: I49.1 3. Premature ventricular contractions (PVCs) (VPCs) - ICD9: 427.69, ICD10: I49.3 IMPRESSION: Ms. Santacruz has been experiencing intermittent palpitations. Cardiac monitoring has revealed ectopic beats including premature atrial contractions (PACs) and premature ventricular contractions (PVCs). She has not been found to have other arrhythmias, notably atrial fibrillation or atrial flutter, at this point. More recently she has been feeling better, which might be due to the treatment with diltiazem or perhaps due to the arrhythmia resolving on its own. I did discuss with her that in the future she could try to come off the diltiazem and see if that makes any difference, as this would tell us whether she needs the diltiazem for symptom control or not. She likes this idea, as she would like to minimize how much medication she takes. I did reassure her of the benign nature of these ectopic beats, whether they be PACs or PVCs. Treatment for these types of arrhythmia is nearly completely centered upon control of excessively bothersome symptoms. So the actual frequency of the PACs and PVCs does not matter, what does matter would be whether she feels that her symptoms are adequately controlled. She inquired as to whether the arrhythmia could damage her heart, and I reassured her that this is very rare. An echocardiogram every couple of years would be prudent to reassess ventricular function in this regard. If the diltiazem is ineffective or poorly tolerated, a beta gely would be a good choice as an alternative provided she could tolerate it. She is not certain that she did not tolerate a beta gely in the past, so she would be willing to try one if necessary. I did discuss with her the potential that she might develop atrial fibrillation in the future, given that she has very active atrial ectopy. Both of her parents have atrial fibrillation but have developed it in their later years, so there is not evidence that she has the uncommon genetic form of atrial fibrillation. Nevertheless, she could be susceptible to atrial fibrillation in the future. The main issue with atrial fibrillation would be risk of stroke. She would have a moderate degree of stroke risk, given her HTN and female gender ([id number] = 2). At this point the ectopic beats (PACs and PVCs) do not represent a risk for stroke so we do not at this point need to consider oral anticoagulation. I think periodically evaluating for atrial fibrillation would be a good idea, such as with cardiac monitoring every year or so. I had a detailed discussion with Ms. Santacruz regarding my evaluation and recommendations. After our discussion, Ms. Santacruz expressed her understanding and I answered all her questions to her apparent satisfaction. PLAN AND RECOMMENDATIONS: Recommendations as outlined above. Return if symptoms worsen or fail to improve, for she will continue to follow up with Dr. Patten in [place]. She states she has an appointment with him in February 2020. I am happy to see her again if the need arises. Ruslan Nguyen MD 12/20/2019 Normal [facility] Metabolic Panel, Comprehensi ve ([id number])Ordered By: Stone Gluer on 11-02-2019 Albumin [Mass/Vol] 4.5 g/dL Normal 3.8-4.9 [facility] Internal Medicine Work Phone: Comment on above: PATIENT NOT FASTINGP ERFORMED BY: CB [facility] Kdoicq6408 [address]Dublin [place] [id number] Albumin/Globulin [Mass ratio] 1.9 {ratio} Normal 1.2-2.2 [facility] Work Phone: Comment on above: PATIENT NOT FASTINGP ERFORMED BY: CB [facility] Ajexlw8798 [address] RoadDublin [place] [id number] ALP [Catalytic activity/Vol] 72 [iU]/L Normal 39-117 [facility] Work Phone: Comment on above: PATIENT NOT FASTINGP ERFORMED BY: CB [facility] Lmpqau5772 [address] RoadDublin [place] [id number] ALP [Catalytic activity/Vol] 72 U/L Normal 39-117 [facility]; [facility] Work Phone: Comment on above: PATIENT NOT FASTINGP ERFORMED BY: CB [facility] Ubvdyh1497 [address] RoadDublin [place] [id number] ALT [Catalytic activity/Vol] 18 [iU]/L Normal 0-32 [facility] Work Phone: Comment on above: PATIENT NOT FASTINGP ERFORMED BY: CB [facility] Iuuzmn1232 [address]Dublin [place] [id number] ALT [Catalytic activity/Vol] 18 U/L Normal 0-32 [facility]; [facility] Work Phone: Comment on above: PATIENT NOT FASTINGP ERFORMED BY: CB [facility] Fycxuh3149 [address] [place] [id number] AST [Catalytic activity/Vol] 16 [iU]/L Normal 0-40 [facility] Work Phone: Comment on above: PATIENT NOT FASTINGP ERFORMED BY: CB [facility] Wensuo9664 [address]Dublin [place] [id number] AST [Catalytic activity/Vol] 16 U/L Normal 0-40 [facility]; [facility] Work Phone: Comment on above: PATIENT NOT FASTINGP ERFORMED BY: CB [facility] Arbnhf2908 [address] RoadDublin [place] [id number] Bilirubin [Mass/Vol] 0.3 mg/dL Normal 0.0-1.2 [facility] Work Phone: Comment on above: PATIENT NOT FASTINGP ERFORMED BY: CB [facility] Eoaufn4[address]Dublin [place] [id number] Calcium [Mass/Vol] 10.0 mg/dL Normal 8.7-10.2 [facility] Internal Medicine Work Phone: Comment on above: PATIENT NOT FASTINGP ERFORMED BY: CB [facility] Epbcui1309 [address]Dublin [place] [id number] Chloride [Moles/Vol] 101 mmol/L Normal 96-106 [facility] Work Phone: Comment on above: PATIENT NOT FASTINGP ERFORMED BY: CB [facility] Xcaubs6473 [address] [place] [id number] CO2 [Moles/Vol] 25 mmol/L Normal 20-29 [facility] Internal Medicine Work Phone: Comment on above: PATIENT NOT FASTINGP ERFORMED BY: CB [facility] Kfeawe2686 [address] RoadDublin [place] [id number] Creatinine [Mass/Vol] 0.80 mg/dL Normal 0.57-1.00 [facility] Internal Medicine Work Phone: Comment on above: PATIENT NOT FASTINGP ERFORMED BY: CB [facility] Lmjvpx0218 [address]Dublin [place] [id number] GFR/1.73 sq M predicted among blacks CKD-EPI (S/P/Bld) [Vol rate/Area] 95 mL/min/1.73 Normal [facility] Work Phone: Comment on above: PATIENT NOT FASTINGP ERFORMED BY: CB [facility] Eiscmb2322 [address]Dublin [place] [id number] GFR/1.73 sq M predicted among non-blacks CKD-EPI (S/P/Bld) [Vol rate/Area] 82 mL/min/1.73 Normal [facility] Work Phone: Comment on above: PATIENT NOT FASTINGP ERFORMED BY: CB [facility] Viirwj5224 [address] RoadDublin [place] [id number] Globulin (S) [Mass/Vol] 2.4 g/dL Normal 1.5-4.5 [facility] Work Phone: Comment on above: PATIENT NOT FASTINGP ERFORMED BY: CB [facility] Gfyjic3462 [address]Dublin [place] [id number] Glucose [Mass/Vol] 76 mg/dL Normal 65-99 [facility] Internal Medicine Work Phone: Comment on above: PATIENT NOT FASTINGP ERFORMED BY: CB [facility] Dcdymf6864 [address] RoadDublin [place] [id number] Potassium [Moles/Vol] 4.7 mmol/L Normal 3.5-5.2 [facility] Work Phone: Comment on above: PATIENT NOT FASTINGP ERFORMED BY: NAHED [facility] Ihjocj01[address] [place] [id number] Protein [Mass/Vol] 6.9 g/dL Normal 6.0-8.5 [facility] Internal Medicine Work Phone: Comment on above: PATIENT NOT FASTINGP ERFORMED BY: CB [facility] Fesgvt3730 [address]Dublin [place] [id number] Sodium [Moles/Vol] 142 mmol/L Normal 134-144 [facility] Internal Medicine Work Phone: Comment on above: PATIENT NOT FASTINGP ERFORMED BY: CB [facility] Oqytsv6058 [address] RoadDublin [place] [id number] Urea nitrogen [Mass/Vol] 14 mg/dL Normal 6-24 [facility] Work Phone: Comment on above: PATIENT NOT FASTINGP ERFORMED BY: [facility] Afsuff1103 [facility] [id number] Urea nitrogen/Creatinine [Mass ratio] 18 mg/mg Normal 9-23 [facility] Work Phone: Comment on above: PATIENT NOT FASTINGP ERFORMED BY: [facility] Viikqe3108 [facility] [id number] TSH (THYROID STIMULATING HOR NATHALIA) ([id number])Ordered By: Stone Gluer on 11-02-2019 TSH Qn 1.610 {uIU/mL} Normal 0.450-4.50 0 [facility] Work Phone: Comment on above: PATIENT NOT FASTINGP ERFORMED BY: [facility] Fqdxyh0384 [facility] [id number] Final Surgical Pathology Rep [facility] 06-21-2019 Final Surgical Pathology Report . Pathology Reports Accession: Collected Date/Time: Received Date/Time: Pathologist: [id number] 06/17/2019 07:33 EDT 06/18/2019 08:15 EDT MD JAMES HENDRICKS Final Surgical Pathology Report DIAGNOSIS: SKIN, CHEST, EXCISION: SKIN WITH SCAR AND TISSUE REACTION CONSISTENT WITH PREVIOUS PROCEDURE. NEGATIVE FOR MALIGNANCY. CLINICAL INFORMATION: Procedure: excision of squamous cell of the chest Preoperative diagnosis: squamous cell of the chest Postoperative diagnosis: squamous cell of the chest SPECIMEN: A SKIN - CHEST GROSS DESCRIPTION: Received: Formalin Labeled: Left chest Dimensions, color, shape: 2.2 x 1.0 x 0.4 Lesion: Ill-defined, 0.7 x 0.5 cm slight craven depression, obscured by previously placed ink Orientation: None given Inked: Yes Sectioned : Serially TS- 1 Dictated by Tonya SIMON ([facility]) MICROSCOPIC DESCRIPTION: Slides reviewed. Electronically Signed by Pathology Report verified by [facility] Electronically signed by JAMES HENDIRCKS MD Sign out Date: 06/21/2019 13:44 Performing Lab: [facility], [address] [place] [address] ([place]) Comment on above: Performed By: #### S PFR #### [place] [address] .GFRon 12-12-2018 GFR >60 Normal [facility] ([place]) Comment on above: Result Comment: GFR Population mean for , Non- Americans Ages 20-29 = 116 mL/min/1.73 sq.m. Ages 30-39 = 107 mL/min/1.73 sq.m. Ages 40-49 = 99 mL/min/1.73 sq.m. Ages 50-59 = 93 mL/min/1.73 sq.m. Ages 60-69 = 85 mL/min/1.73 sq.m. Ages 70+ = 75 mL/min/1.73 sq.m. Chronic Kidney Disease: Less than 60 mL/min/1.73 square meters End Stage Renal Disease: Less than 15 mL/min/1.73 square meters Performed By: #### C MP, GFR, LIPID, B12, VIDH #### [address] [address] GFR Non- >60 Normal [facility] ([place]) Comment on above: Result Comment: GFR Population mean for , Non- Americans Ages 20-29 = 116 mL/min/1.73 sq.m. Ages 30-39 = 107 mL/min/1.73 sq.m. Ages 40-49 = 99 mL/min/1.73 sq.m. Ages 50-59 = 93 mL/min/1.73 sq.m. Ages 60-69 = 85 mL/min/1.73 sq.m. Ages 70+ = 75 mL/min/1.73 sq.m. Chronic Kidney Disease: Less than 60 mL/min/1.73 square meters End Stage Renal Disease: Less than 15 mL/min/1.73 square meters Performed By: #### C MP, GFR, LIPID, B12, VIDH #### [address] [address] B12on 12-12-2018 Cobalamin (Vitamin B12) [Mass/Vol] 794 pg/mL Normal 211-911 [facility] ([place]) Comment on above: Performed By: #### C MP, GFR, LIPID, B12, VIDH #### [address] [address] CMPon 12-12-2018 Albumin/Globulin [Mass ratio] 1.3 {ratio} Normal 0.9-1.6 [facility] ([place]) Comment on above: Performed By: #### C MP, GFR, LIPID, B12, VIDH #### [address] [address] ALP [Catalytic activity/Vol] 86 U/L Normal 38-126 [facility] ([place]) Comment on above: Performed By: #### C MP, GFR, LIPID, B12, VIDH #### [address] [address] Bili Total 0.4 mg/dL Normal 0.2-1.2 [facility] ([place]) Comment on above: Performed By: #### C MP, GFR, LIPID, B12, VIDH #### [address] [address] Creatinine [Mass/Vol] 0.82 mg/dL Normal 0.50-1.20 [facility] ([place]) Comment on above: Performed By: #### C MP, GFR, LIPID, B12, VIDH #### [address] [address] Globulin (S) [Mass/Vol] 3.0 G/dL Normal 1.5-3.8 [facility] ([place]) Comment on above: Performed By: #### C MP, GFR, LIPID, B12, VIDH #### [address] [address] Protein [Mass/Vol] 6.8 G/dL Normal 6.0-8.5 [facility] ([place]) Comment on above: Performed By: #### C MP, GFR, LIPID, B12, VIDH #### [address] [address] Urea nitrogen/Creatinine [Mass ratio] 18.3 ratio Normal 10.0-22.0 [facility] ([place]) Comment on above: Performed By: #### C MP, GFR, LIPID, B12, VIDH #### [address] [address] Albumin [Mass/Vol] 3.8 G/dL Normal 3.2-4.8 [facility] ([place]) Comment on above: Performed By: #### C MP, GFR, LIPID, B12, VIDH #### [address] [address] ALT [Catalytic activity/Vol] 18 U/L Normal 10-49 [facility] ([place]) Comment on above: Performed By: #### C MP, GFR, LIPID, B12, VIDH #### [address] [address] AST [Catalytic activity/Vol] 13 U/L Normal 8-34 [facility] ([place]) Comment on above: Performed By: #### C MP, GFR, LIPID, B12, VIDH #### [address] [address] Calcium [Mass/Vol] 9.5 mg/dL Normal 8.4-10.1 [facility] ([place]) Comment on above: Performed By: #### C MP, GFR, LIPID, B12, VIDH #### [place] [id number] Chloride [Moles/Vol] 107 mmol/L Normal 98-110 [facility] ([place]) Comment on above: Performed By: #### C MP, GFR, LIPID, B12, VIDH #### [address] [address] CO2 [Moles/Vol] 28 mmol/L Normal 22-32 [facility] ([place]) Comment on above: Performed By: #### C MP, GFR, LIPID, B12, VIDH #### [address] [address] Electrolyte Balance 6.0 mEq/L Normal 4.0-15.0 [facility] ([place]) Comment on above: Performed By: #### C MP, GFR, LIPID, B12, VIDH #### [address] [address] Glucose [Mass/Vol] 92 mg/dL Normal 70-110 [facility] ([place]) Comment on above: Performed By: #### C MP, GFR, LIPID, B12, VIDH #### [address] [address] Potassium [Moles/Vol] 4.5 mmol/L Normal 3.5-5.0 [facility] ([place]) Comment on above: Performed By: #### C MP, GFR, LIPID, B12, VIDH #### [address] [address] Sodium [Moles/Vol] 141 mmol/L Normal 136-145 [facility] ([place]) Comment on above: Performed By: #### C MP, GFR, LIPID, B12, VIDH #### [address] [address] Urea nitrogen [Mass/Vol] 15.0 mg/dL Normal 8.0-22.0 [facility] ([place]) Comment on above: Performed By: #### C MP, GFR, LIPID, B12, VIDH #### [address] [address] LIPIDon 12-12-2018 Cholesterol [Mass/Vol] 206 mg/dL High 50-199 [facility] ([place]) Comment on above: Result Comment: Chol esterol Reference Interval: Less than 200 Desirable 200-239 Borderline high risk 240 and above High risk Performed By: #### C MP, GFR, LIPID, B12, VIDH #### [address] [address] Cholesterol in HDL [Mass/Vol] 81 mg/dL High 40-59 [facility] ([place]) Comment on above: Result Comment: HDL Reference Interval: Less than 40 Low - high risk 60 or above Optimal/lowers risk Performed By: #### C MP, GFR, LIPID, B12, VIDH #### [address] [address] Cholesterol in LDL [Mass/Vol] 97 mg/dL Normal 0-129 [facility] ([place]) Comment on above: Result Comment: LDL is a calculated result and requires a 12- hr fast. LDL Reference Interval: Less than 100 Optimal 100-129 Near or above optimal 130-159 Borderline high risk 160-189 High risk 190 and above Very high risk Performed By: #### C MP, GFR, LIPID, B12, VIDH #### [address] [address] Triglyceride [Mass/Vol] 140 mg/dL Normal 3-149 [facility] ([place]) Comment on above: Result Comment: Trig lyceride Reference Interval: Less than 150 Normal 150-199 Borderline high risk 200-499 High risk 500 or higher Very high risk Performed By: #### C MP, GFR, LIPID, B12, VIDH #### [place] [id number] [address] [place] [address] VIDHon 12-12-2018 Vit. D 25-Hydroxy 32 ng/mL Normal [facility] ([place]) Comment on above: Result Comment: Inte rpretive Values Based on Total 25(OH)D: Severe Deficiency <20 ng/mL Mild to Moderate Deficiency 20-30 ng/mL Optimum Levels 30-100 ng/mL Toxicity Possible >100 ng/mL Performed By: #### C MP, GFR, LIPID, B12, VIDH #### [address] [address] ORon 06-26-2017 OPERATIVE REPORT Normal [facility] OR DATE OF SERVICE: 06/26/2017PREOPERATIVE DIAGNOSES:1. Biliary colic.2. Umbilical hernia.POSTOPERATIVE DIAGNOSES:1. Biliary colic.2. Umbilical hernia.PROCEDURE:1. Laparoscopic cholecystectomy.2. Open repair of an umbilical hernia. Primary repair without suture.SURGEON: Ismael Jimenez MDANESTHESIA: General.ESTIMATED BLOOD LOSS: Minimal.COMPLICATIONS: None.TECHNIQUE: Abdomen prepped and draped in sterile fashion. Supraumbilical incisionwas made, stalk of the umbilicus was retracted. dissected from the fasciacircumfrentially.Umb ilical hernia was noted. Fascial edges were defined. A 10-mm portwas inserted. Pneumoperitoneum was obtained. Three additional 5 mm ports insertedin the right upper quadrant. Gallbladder fundus retracted cephalad. Infundibulumretracted laterally. Dissection continued until anterior and posterior peritonealleaflets were divided. Critical view was obtained. Multiple dilated small vesselsaround the cystic artery were noted. Those were divided with a Harmonic scalpel.Dissection continued. Cystic artery was clipped and divided. The duct was clippedand divided. Gallbladder was taken over the liver bed. Some bile was suctioned out,this was thick, inspissated bile. Gallbladder was taken off liver bed and retrievedthrough the umbilical port using an Endo Catch bag. After that, the right upperquadrant was irrigated, suctioned, revealed no evidence of bleeding or bile leak.Ports were removed under direct visualization with a camera. Fascia was closed [id number] 0 PDS suture and 2 corner sutures of 4 PDS were tied down.Umbilicoplasty was performed using 2-0 Vicryl. Skin was closed using 4-0 Monocrylsuture. Dressings were applied. Patient tolerated the procedure very well, wasextubated, transferred to recovery room in stable condition. [facility] PATIENT NAME: JEANNE LINARES D[address] Bianca Torres MEDICAL REC #: [id number], [place] [address] DATE:DISCHARGE DATE:OPERATIVE REPORT ATTENDING PHY: Ismael Jimenez, MDMS/[id number]: 06/26/2017 10:03DT: 06/26/2017 11:15SSI File#: [id number] #: [id number]/Reviewed by06/27/17 1610 SHAMA4 [facility] PATIENT NAME: JEANNE LINARES [id number] Bianca Torres MEDICAL REC #: [id number], [place] [address] DATE:DISCHARGE DATE:OPERATIVE REPORT ATTENDING PHY: Ismael Jimenez MD [facility] SURG 06-26-2017 SURG ------ Patient: JEANNE LINARES SPECIMEN: [id number] Collection Date: 06/26/17 Received: 06/26/17 Status: DORY Pascal. Dr.: Ismael Jimenez MD Ph# Othr. Dr.: Martin Merino MD Material for Examination: A GALLBLADDER PRE-OP DIAGNOSIS: CHOLELITHIASIS AND UMBILICAL HERNIA POST-OP DIAGNOSIS: SAME SURGICAL PROCEDURE: LAPAROSCOPIC CHOLECYSTECTOMY AND REPAIR OF UMBILICAL HERNIA WITH UMBILICOPLASTY DIAGNOSIS A. Gallbladder (laparoscopic cholecystectomy): Chronic cholecystitis.GROSS DESCRIPTION The specimen is received in formalin and labeled with the patient's name, ID and designated#1 gallbladder is a craven-pink gallbladder, 7.4 x 2.3 x 1.0 cm. The cystic duct is patent. Adefinite cystic node is not identified. The lumen contains a yellow-red fluid and no stonesare identified within the lumen or within the container. The mucosa is red-craven and velvetyand the gallbladder wall is 0.1 cm thick. Motorcycle Designer sections are submitted incassette A1 including the cystic duct.MICROSCOPIC DESCRIPTION One Heike stained section examined.COPIES TO: Martin Merino MD, Mazin MDSigned Verified/Reviewed by ELVIN RAMIREZ M.D. 06/27/17 This dictation was created using voice recognition software. Phonetic and/or minor grammatical errors may exist. DIRECT OR: Felicia Reynolds M.D. NAME: JEANNE LINARES [facility]: UNIT#: [id number] LOC: [facility] Elvin Ramirez M.D. ROOM/BED: Darryl Sullivan Jr. M.D. : 64 AGE/SEX: 57/F ORD.DR. Jimenez,Ismael SAHU END OF REPORT Normal [facility] 06-04-2017 Anion gap 7 mmol/L Normal 5-16 [facility] Comment on above: Performed By: #### L 500.94264, L500.21027, L500.96525 ####[facility] [id number] [place], [place] [address]Iq# [phone] BUN/Creatinine Ratio 19 mg/mg Normal 15-24 [facility] Comment on above: Performed By: #### L 500.02756, L500.51926, L500.27972 ####[facility] [id number] [place], [place] [address]Mv# [phone] Calcium 9.5 mg/dL Normal 8.5-10.1 [facility] Comment on above: Performed By: #### L 500.17631, L500.05680, L500.42697 ####[facility] [id number] [place], [place] [address]Vx# [phone] Chloride 105 mmol/L Normal 98-107 [facility] Comment on above: Performed By: #### L 500.94482, L500.13438, L500.58019 ####[facility] [id number] [place], [place] [address]Fb# [phone] CO2 26 mmol/L Normal 21-32 [facility] Comment on above: Performed By: #### L 500.80284, L500.50831, L500.67754 ####[facility] [id number] [place], [place] [address]So# [phone] Creatinine 0.807 mg/dL Normal 0.510-0.95 0 [facility] Comment on above: Result Comment: Johnna ents receiving either N-Acetylcysteine (NAC) orMetamizole prior to venipuncture, may have falsely depressedresults. Performed By: #### L 500.85568, L500.22830, L500.06618 ####[facility] [id number] [place], [place] [address]Gi# [phone] Glucose mass conc 80 mg/dL Normal 70-100 [facility] Comment on above: Result Comment: 70-1 00-Normal Fasting; [phone] Fasting; greaterthan 126 on more than one result-Diabetes. ADA guidelines Performed By: #### L 500.91498, L500.53289, L500.04074 ####[facility] [id number] [place], [place] [address]Wu# [phone] Potassium molar conc 4.3 mmol/L Normal 3.5-5.1 [facility] [place] Comment on above: Performed By: #### L 500.07449, L500.38258, L500.88953 ####[facility] [id number] [place], [place] [address]Hb# [phone] Sodium 139 mmol/L Normal 136-145 [facility] Comment on above: Performed By: #### L 500.59074, L500.56429, L500.47004 ####[facility] [id number] [place], [place] [address]Fx# [phone] Urea nitrogen 15 mg/dL Normal 7-26 [facility] [place] Comment on above: Performed By: #### L 500.97224, L500.07720, L500.92912 ####[facility] [id number] [place], [place] [address]Nd# [phone] CBCon 06-04-2017 Erythrocyte distribution width Auto Ratio (RBC) 12.3 % Normal 11-14.5 [facility] Comment on above: Performed By: #### L 200.89536 ####[facility] [id number] [place], [place] [address]Py# [phone] Erythrocytes (RBC) 4.11 M/CU MM Normal 3.90-5.30 [facility] Comment on above: Performed By: #### L 200.44506 ####[facility] [id number] [place], [place] [address]Io# [phone] Erythrocytes (RBC) 0.0 % Normal Less than 1 [facility] Comment on above: Performed By: #### L 200.53308 ####[facility] [id number] [place], [place] [address]Fy# [phone] Hematocrit (HCT) 38.3 % Normal 35.0-47.0 [facility] [place] Comment on above: Performed By: #### L 200.13147 ####[facility] [id number] [place] [address]Bo# [phone] Hemoglobin mass conc (Bld) 13.0 g/dL Normal 11.5-15.5 [facility] Comment on above: Performed By: #### L 200.20984 ####[facility] [id number] [place], [place] [address]Lr# [phone] MCHC mass conc (RBC) 33.9 g/dL Normal 32.0-36.0 [facility] Comment on above: Performed By: #### L 200.10074 ####[facility] [id number] [place], [place] [address]Je# [phone] MCV 93.2 fL Normal 80.0-99.0 [facility] Comment on above: Performed By: #### L 200.41583 ####[facility] [id number] [place], [place] [address]Ub# [phone] Platelet mean volume (PMV) 10.3 fL Normal 9.4-12.4 [facility] Comment on above: Performed By: #### L 200.04677 ####[facility] [id number] [place], [place] [address]Uk# [phone] Platelets 254 K/CU MM Normal 150-450 [facility] Comment on above: Performed By: #### L 200.63780 ####[facility] [id number] [place] [address]Cq# [phone] WBC (Leukocytes) 8.0 K/CU MM Normal 4.5-11.0 [facility] Comment on above: Performed By: #### L 200.01477 ####[facility] [id number] [place] [address]Tn# [phone] GFR ESTon 06-04-2017 IF AMER Greater than 60 Normal [facility] Comment on above: Performed By: #### L 500.33361, L500.40134, L500.44847 ####[facility] [id number] [place], [place] [address]Of# [phone] IF non-AFR AMER Greater than 60 Normal [facility] [place] Comment on above: Performed By: #### L 500.28179, L500.39838, L500.81422 ####[facility] [id number] [place], [place] [address]Wq# [phone] LIVERon 06-04-2017 Alanine aminotransferase (ALT) 21 U/L Normal 13-61 [facility] Comment on above: Performed By: #### L 500.54703, L500.86148, L500.15130 ####[facility] [id number] [place], [place] [address]Ux# [phone] Albumin 3.6 g/dL Normal 3.2-5.0 [facility] Comment on above: Performed By: #### L 500.82971, L500.97679, L500.63709 ####[facility] [id number] [place], [place] [address]Ae# [phone] Albumin/Globulin Ratio 1.1 {ratio} Normal 0.8-2.0 [facility] Comment on above: Performed By: #### L 500.04436, L500.40303, L500.15227 ####[facility] KOLSYELJFK9843 [place], [place] [address]Bv# [phone] ALK PHOS 72 U/L Normal 45-117 [facility] Comment on above: Performed By: #### L 500.51376, L500.22550, L500.32619 ####[facility] [id number] [place], [place] [address]Er# [phone] BILI DIRECT 0.09 MG/DL Normal 0.00-0.20 [facility] Comment on above: Performed By: #### L 500.75523, L500.61931, L500.86611 ####[facility] [id number] [place], [place] [address]Dk# [phone] BILI TOTAL 0.3 MG/DL Normal 0.2-1.0 [facility] Comment on above: Performed By: #### L 500.68551, L500.22837, L500.78140 ####[facility] [id number] [place], [place] [address]Yh# [phone] Globulin 3.3 g/dL Normal 2.2-4.2 [facility] Comment on above: Performed By: #### L 500.70413, L500.14421, L500.86799 ####[facility] [id number] [place], [place] [address]Le# [phone] Protein 6.9 g/dL Normal 6.0-8.5 [facility] Comment on above: Performed By: #### L 500.27230, L500.48960, L500.40778 ####[facility] [id number] [place], [place] [address]Ph# [phone] SGOT (AST) 15 U/L Normal 8-34 [facility] Comment on above: Performed By: #### L 500.78757, L500.95578, L500.73078 ####[facility] [id number] [place], [place] [address]Iy# [phone] PTon 06-04-2017 INR Coag RelTime (PPP) 1.0 {INR} Normal 0.9-1.1 [facility] Comment on above: Result Comment: Garrick mmended PT INR therapeutic range for half-way andprophylactic therapy is 2.0 - 3.0. For heart valve andshunt patients the range is 2.5 - 3.5. Performed By: #### L 300.08272, L300.05514 ####[facility] [id number] [place], [place] [address]Bf# [phone] PTS 10.1 SECONDS Normal 9.4-12.0 [facility] Comment on above: Performed By: #### L 300.75987, L300.28691 ####[facility] CAROHEVIEU5455 [place], [place] [address]Uo# [phone] PTTon 06-04-2017 aPTT 24.7 s Normal 22.5-31.4 [facility] Comment on above: Result Comment: Ther apeutic Heparin Reference Range: High Dose: 56 - 86 seconds (DVT/PE) Low Dose: 50 - 70 seconds (Acute Coronary Syndrome)For low molecular weight heparin or danaparoid, monitoringis often NOT necessary, but the heparin assay, Xa inhibitionassay (send-out) may be used in certain circumstances, asthe PTT is generally insensitive to the effect of theseagents. Direct thrombin inhibitors are becoming more widelyutilized and these drugs are often monitored using the PTT. Performed By: #### L 300.18605, L300.01563 ####[facility] [id number] [place], [place] [address]Cw# [phone] NM G.B/BILIARY (HIDA)on 05-09 NM G.B/BILIARY (HIDA) NM G.B/BILIARY (HIDA)Ordering Physician: Martin Merino MD05/21/2017 9:47 AMHIDA SCAN:Clinical Statement: Right upper quadrant painComparison: Right upper quadrant ultrasound 05/09/2016TECHNIQUE: Following the intravenous administration of 5.1 mCi Tc-99mmebrofenin, dynamic planar images of the abdomen were obtained in theanterior projection for 45 minutes. This was followed byadministration of 8 oz of Ensure and an additional 59 minutes ofdynamic imaging. A region of interest was drawn around thehepatobiliary system and a time activity curve was generated toevaluate biliary function.FINDINGS: There is prompt uptake of radiopharmaceutical by the liverwhich is normal in contour. There is prompt secretion ofradiopharmaceutical with appearance of intrahepatic, extrahepatic, andcommon bile ducts. The gallbladder is first seen at 11 minutes.Small bowel activity is first seen at 20 minutes. Gallbladderejection fraction is calculated at 42%. No enterogastric reflux isnoted.IMPRESSION:No evidence of acute cholecystitis.Borderline low gallbladder ejection fraction. Differential includesbiliary dyskinesia versus chronic cholecystitis. ---- Electronic Signature on File ----Signed By: Peri Winkler [email or web address]: 05/21/2017 12:52 PMSigned: 05/21/2017 12:58 PM Reported By: PERI WINKLER M.D. Signed By: PERI WINKLER M.D. [facility] US ABDOMEN COMPLETEon 2016 US ABDOMEN COMPLETE US ABDOMEN COMPLETEOrdering Physician: Martin Merino MD05/09/2017 7:00 AMCOMPLETE UPPER ABDOMINAL ULTRASOUND:Comparison: 06/19/2013Clinical Statement: Right upper quadrant abdominal pain. Nausea.FINDINGS: Liver and spleen are normal in size and echogenicity. Thereis an incidental 11 mm cyst associated with the right lobe.Gallbladder is visualized. There are no gallstones, gallbladder wallthickening, intra- or extrahepatic ductal dilatation. The common bileduct measures 2.6 mm in greatest diameter.Pancreas is normal in size and echogenicity. Abdominal aorta isnormal in course, caliber and contour. IVC where visualized ispatent.Survey of the kidneys demonstrates no hydronephrosis. The right andleft kidneys measure 11.0 and 12.0 cm in longitudinal dimensionrespectively. There is an incidental 2.9 cm cyst associated with theleft kidney also seen on the prior study. There is no free fluid inthe upper abdomen.IMPRESSION:Normal upper abdominal ultrasound. Negative for gallstones or biliarydistention. ---- Electronic Signature on File ----Signed By: Kenyetta [email or web address]: 05/09/2017 9:05 AMSigned: 05/09/2017 9:09 AM Reported By: ABDON AQUINO M.D. Signed By: ABDON AQUINO M.D. [facility] Vital Signs Date Time Vital Sign Value Performing Clinician Facility 02-24-2025 08:53-0400 Body mass index (BMI) [Ratio] 27.2 kg/m2 Eugene Ochoa NP-C Work Phone: [facility] 02-24-2025 08:53-0400 Body temperature 97.4 [degF] Eugene Ochoa LEGAL OFFICE ADMINISTRATOR-C Work Phone: [facility] 02-24-2025 08:53-0400 Body weight 76.65 kg Eugene Ochoa LEGAL OFFICE ADMINISTRATOR-C Work Phone: [facility] 02-24-2025 08:53-0400 Diastolic blood pressure 70 mm[Hg] Eugene Ochoa LEGAL OFFICE ADMINISTRATOR-C Work Phone: [facility] 02-24-2025 08:53-0400 Heart rate 66 /min Eugene Ochoa LEGAL OFFICE ADMINISTRATOR-C Work Phone: [facility] 02-24-2025 08:53-0400 Respiratory rate 16 /min Eugene Ochoa LEGAL OFFICE ADMINISTRATOR-C Work Phone: [facility] 02-24-2025 08:53-0400 SaO2% (BldA) [Mass fraction] 98 % Eugene Don LEGAL OFFICE ADMINISTRATOR-C Work Phone: [facility] 02-24-2025 08:53-0400 Systolic blood pressure 103 mm[Hg] Eugene Don LEGAL OFFICE ADMINISTRATOR-C Work Phone: [facility] 01-06-2025 13:31-0400 Body height 167.64 cm Eugene Don LEGAL OFFICE ADMINISTRATOR-C Work Phone: [facility] 01-06-2025 13:31-0400 Body mass index (BMI) [Ratio] 27.4 kg/m2 Eugene Don LEGAL OFFICE ADMINISTRATOR-C Work Phone: [facility] 01-06-2025 13:31-0400 Body weight 77.11 kg Eugene Don LEGAL OFFICE ADMINISTRATOR-C Work Phone: [facility] 01-06-2025 13:31-0400 Diastolic blood pressure 68 mm[Hg] Eugene Don LEGAL OFFICE ADMINISTRATOR-C Work Phone: [facility] 01-06-2025 13:31-0400 Heart rate 74 /min Eugene Don LEGAL OFFICE ADMINISTRATOR-C Work Phone: [facility] 01-06-2025 13:31-0400 Respiratory rate 18 /min Eugene Don LEGAL OFFICE ADMINISTRATOR-C Work Phone: [facility] 01-06-2025 13:31-0400 SaO2% (BldA) [Mass fraction] 97 % Eugene Don LEGAL OFFICE ADMINISTRATOR-C Work Phone: [facility] 01-06-2025 13:31-0400 Systolic blood pressure 101 mm[Hg] Eugene Don LEGAL OFFICE ADMINISTRATOR-C Work Phone: [facility] 02-10-2024 13:04-0400 Body mass index (BMI) [Ratio] 32.66 kg/m2 Kaylee SIMON-C Work Phone: [facility] 02-10-2024 13:04-0400 Body weight 88.91 kg Kaylee SIMON-C Work Phone: [facility] 02-10-2024 13:04-0400 Diastolic blood pressure 70 mm[Hg] Kaylee Trevor PA-C Work Phone: [facility] 02-10-2024 13:04-0400 Heart rate 89 /min Kaylee Trevor PA-C Work Phone: [facility] 02-10-2024 13:04-0400 Respiratory rate 16 /min Kaylee Trevor PA-C Work Phone: [facility] 02-10-2024 13:04-0400 SaO2% (BldA) [Mass fraction] 99 % Kaylee Trevor PA-C Work Phone: [facility] 02-10-2024 13:04-0400 Systolic blood pressure 108 mm[Hg] Kaylee Trevor PA-C Work Phone: [facility] 08-08-2023 14:45-0500 Body height 165 cm Magnolia Arnold MD Work Phone: [facility] 08-08-2023 14:45-0500 Body weight 95.71 kg Magnolia Arnold MD Work Phone: [facility] 08-08-2023 14:45-0500 Diastolic blood pressure 70 mm[Hg] Magnolia Arnold MD Work Phone: [facility] 08-08-2023 14:45-0500 Heart rate 90 /min Magnolia Arnold MD Work Phone: [facility] 08-08-2023 14:45-0500 Respiratory rate 14 /min Magnolia Arnold MD Work Phone: [facility] 08-08-2023 14:45-0500 SaO2% (BldA) [Mass fraction] 94 % Magnolia Arnold MD Work Phone: [facility] 08-08-2023 14:45-0500 Systolic blood pressure 118 mm[Hg] Magnolia Arnold MD Work Phone: [facility] 08-08-2023 14:41-0500 Body height 165 cm Pulm Wstr Work Phone: [facility] 08-08-2023 14:41-0500 Body weight 95.71 kg Pulm Wstr Work Phone: [facility] 08-08-2023 14:41-0500 Heart rate 90 /min Pulm Wstr Work Phone: [facility] 08-08-2023 14:41-0500 Respiratory rate 14 /min Pulm Wstr Work Phone: [facility] 08-08-2023 14:41-0500 SaO2% (BldA) [Mass fraction] 94 % Pulm Wstr Work Phone: [facility] 08-04-2023 14:31-0500 Body height 167.64 cm LEGAL OFFICE ADMINISTRATOR-C Eugene Don Work Phone: [facility] 08-04-2023 14:31-0500 Body mass index (BMI) [Ratio] 34.2 kg/m2 LEGAL OFFICE ADMINISTRATOR-C Eugene Don Work Phone: [facility] 08-04-2023 14:31-0500 Body weight 96.16 kg LEGAL OFFICE ADMINISTRATOR-C Eugene Don Work Phone: [facility] 08-04-2023 14:31-0500 Diastolic blood pressure 86 mm[Hg] LEGAL OFFICE ADMINISTRATOR-C Eugene Don Work Phone: [facility] 08-04-2023 14:31-0500 Heart rate 74 /min LEGAL OFFICE ADMINISTRATOR-C Eugene Don Work Phone: [facility] 08-04-2023 14:31-0500 Respiratory rate 18 /min LEGAL OFFICE ADMINISTRATOR-C Eugene Don Work Phone: [facility] 08-04-2023 14:31-0500 SaO2% (BldA) [Mass fraction] 96 % LEGAL OFFICE ADMINISTRATOR-C Eugene Don Work Phone: [facility] 08-04-2023 14:31-0500 Systolic blood pressure 123 mm[Hg] LEGAL OFFICE ADMINISTRATOR-C Eugene Don Work Phone: [facility] 07-08-2023 13:51-0400 Body height 167 cm Karol Mejia [facility] Work Phone: 07-08-2023 13:51-0400 Body mass index (BMI) [Ratio] 35.01 kg/m2 Karol Mejia MA [facility]; [facility] Work Phone: 07-08-2023 13:51-0400 Body surface area Derived from formula 2.06 m2 Karol Mejia MA [facility]; [facility] Work Phone: 07-08-2023 13:51-0400 Body temperature 96.9 [degF] Karol Mejia MA [facility]; [facility] Work Phone: 07-08-2023 13:51-0400 Body weight 97.64 kg Karol Mejia MA [facility]; [facility] Work Phone: 07-08-2023 13:51-0400 Diastolic blood pressure 70 mm[Hg] Karol Mejia MA [facility]; [facility] Work Phone: Comment on above: Patient Position: Sitting; Cuff Location : Left Arm; Cuff Size: Standard 07-08-2023 13:51-0400 Heart rate 89 /min Karol Mejia MA [facility]; [facility] Work Phone: Comment on above: Pattern: Regular 07-08-2023 13:51-0400 SaO2% (BldA) [Mass fraction] 97 % Karol Mejia MA [facility]; [facility] Work Phone: Comment on above: Room air 07-08-2023 13:51-0400 Systolic blood pressure 112 mm[Hg] Karol Mejia MA [facility]; [facility] Work Phone: Comment on above: Patient Position: Sitting; Cuff Location : Left Arm; Cuff Size: Standard 06-17-2023 10:38-0400 Body height 167 cm Karol Mejia MA [facility]; [facility] Work Phone: 06-17-2023 10:38-0400 Body mass index (BMI) [Ratio] 34.68 kg/m2 Karol Mejia MA [facility]; [facility] Work Phone: 06-17-2023 10:38-0400 Body surface area Derived from formula 2.05 m2 Karol Mejia MA [facility]; [facility] Work Phone: 06-17-2023 10:38-0400 Body temperature 96.9 [degF] Karol Mejia MA [facility]; [facility] Work Phone: 06-17-2023 10:38-0400 Body weight 96.73 kg Karol Mejia MA [facility]; [facility] Work Phone: 06-17-2023 10:38-0400 Diastolic blood pressure 60 mm[Hg] Karol Mejia MA [facility]; [facility] Work Phone: Comment on above: Patient Position: Sitting; Cuff Location : Left Arm; Cuff Size: Standard 06-17-2023 10:38-0400 Heart rate 60 /min Karol Mejia MA [facility]; [facility] Work Phone: Comment on above: Pattern: Regular 06-17-2023 10:38-0400 SaO2% (BldA) [Mass fraction] 95 % Karol Mejia MA [facility]; [facility] Work Phone: Comment on above: Room air 06-17-2023 10:38-0400 Systolic blood pressure 110 mm[Hg] Karol Mejia MA [facility]; [facility] Work Phone: Comment on above: Patient Position: Sitting; Cuff Location : Left Arm; Cuff Size: Standard 04-22-2023 13:32-0400 Body height 167.6 cm Kia Rossana [employer] Work Phone: [facility] 04-22-2023 13:32-0400 Body weight 95.71 kg Kia Rossana [employer] Work Phone: [facility] 04-22-2023 13:32-0400 Diastolic blood pressure 60 mm[Hg] Kia Rossana [employer] Work Phone: [facility] 04-22-2023 13:32-0400 Systolic blood pressure 100 mm[Hg] Kia Rossana [employer] Work Phone: [facility] 03-10-2023 11:52-0400 Body height 167 cm Evelyne Cloud MA [facility]; [facility] Work Phone: 03-10-2023 11:52-0400 Body mass index (BMI) [Ratio] 34.68 kg/m2 Evelyne Cloud MA [facility]; [facility] Work Phone: 03-10-2023 11:52-0400 Body surface area Derived from formula 2.05 m2 Evelyne Cloud MA [facility]; [facility] Work Phone: 03-10-2023 11:52-0400 Body temperature 97.1 [degF] Evelyne Cloud MA [facility]; [facility] Work Phone: Comment on above: Method: Temporal 03-10-2023 11:52-0400 Body weight 96.73 kg Evelyne Cloud MA [facility]; [facility] Work Phone: 03-10-2023 11:52-0400 Diastolic blood pressure 77 mm[Hg] Evelyne Cloud MA [facility]; [facility] Work Phone: Comment on above: Patient Position: Sitting; Cuff Location : Left Arm; Cuff Size: Standard 03-10-2023 11:52-0400 Heart rate 81 /min Evelyne Cloud MA [facility]; [facility] Work Phone: Comment on above: Pattern: Regular 03-10-2023 11:52-0400 Respiratory rate 16 /min Evelyne Cloud MA [facility]; [facility] Work Phone: Comment on above: Pattern: Unlabored 03-10-2023 11:52-0400 SaO2% (BldA) [Mass fraction] 97 % Evelyne Cloud MA [facility]; [facility] Work Phone: Comment on above: Room air 03-10-2023 11:52-0400 Systolic blood pressure 124 mm[Hg] Evelyne Cloud MA [facility]; [facility] Work Phone: Comment on above: Patient Position: Sitting; Cuff Location : Left Arm; Cuff Size: Standard 02-28-2023 22:29-0400 Heart rate 67 /min [facility] 02-28-2023 22:29-0400 Respiratory rate 16 /min [facility] 02-28-2023 22:29-0400 SaO2% (BldA) [Mass fraction] 97 % [facility] 02-28-2023 20:32-0400 Body height 167.64 cm [facility] 02-28-2023 20:32-0400 Body mass index (BMI) [Ratio] 32.3 kg/m2 [facility] 02-28-2023 20:32-0400 Body temperature 97.5 [degF] [facility] 02-28-2023 20:32-0400 Body weight 90.71 kg [facility] 02-28-2023 20:32-0400 Diastolic blood pressure 90 mm[Hg] [facility] 02-28-2023 20:32-0400 Systolic blood pressure 159 mm[Hg] [facility] 01-21-2023 14:38-0400 Body height 167 cm [facility] Work Phone: 01-21-2023 14:38-0400 Body mass index (BMI) [Ratio] 34.84 kg/m2 [facility] Work Phone: 01-21-2023 14:38-0400 Body surface area Derived from formula 2.05 m2 [facility] Work Phone: 01-21-2023 14:38-0400 Body temperature 98 [degF] [facility] Work Phone: 01-21-2023 14:38-0400 [facility] Work Phone: 01-21-2023 14:38-0400 Diastolic blood pressure 60 mm[Hg] [place]; [facility] Work Phone: Comment on above: Patient Position: Sitting; Cuff Location : Left Arm; Cuff Size: Standard 01-21-2023 14:38-0400 Heart rate 69 /min [facility]; [facility] Work Phone: Comment on above: Pattern: Regular 01-21-2023 14:38-0400 Respiratory rate 18 /min [facility]; [facility] Work Phone: Comment on above: Pattern: Unlabored 01-21-2023 14:38-0400 SaO2% (BldA) [Mass fraction] 98 % [place] [facility]; [facility] Work Phone: Comment on above: Room air 01-21-2023 14:38-0400 Systolic blood pressure 102 mm[Hg] [facility]; [facility] Work Phone: Comment on above: Patient Position: Sitting; Cuff Location : Left Arm; Cuff Size: Standard 01-01-2023 14:01-0400 Body height 165.1 cm [facility] 12-25-2022 13:58-0400 Body height 167 cm Orly Slasaumya [facility]; [facility] Work Phone: 12-25-2022 13:58-0400 Body mass index (BMI) [Ratio] 33.02 kg/m2 Orly Slarb [facility]; [facility] Work Phone: 12-25-2022 13:58-0400 Body surface area Derived from formula 2.01 m2 Orly Slarb [facility]; [facility] Work Phone: 12-25-2022 13:58-0400 Body temperature 97.6 [degF] Orly Slarb [facility]; [facility] Work Phone: Comment on above: Method: Temporal 12-25-2022 13:58-0400 Body weight 92.09 kg Orly Slarb [employer] [facility]; [facility] Work Phone: 12-25-2022 13:58-0400 Diastolic blood pressure 64 mm[Hg] Orly Slarb [employer] [facility]; [facility] Work Phone: Comment on above: Patient Position: Sitting; Cuff Location : Left Arm; Cuff Size: Standard 12-25-2022 13:58-0400 Heart rate 71 /min Orly Slarb [employer] [facility]; [facility] Work Phone: Comment on above: Pattern: Regular 12-25-2022 13:58-0400 Respiratory rate 14 /min Orly Slarb [employer] [facility]; [facility] Work Phone: Comment on above: Pattern: Unlabored 12-25-2022 13:58-0400 SaO2% (BldA) [Mass fraction] 98 % Orly Slarb [employer] [facility]; [facility] Work Phone: Comment on above: Room air 12-25-2022 13:58-0400 Systolic blood pressure 108 mm[Hg] Orly Slarb [employer] [facility]; [facility] Work Phone: Comment on above: Patient Position: Sitting; Cuff Location : Left Arm; Cuff Size: Standard 08-13-2022 11:29-0500 Body height 167 cm Orly Slarb [employer] [facility]; [facility] Work Phone: 08-13-2022 11:29-0500 Body mass index (BMI) [Ratio] 33.02 kg/m2 Orly Slarb [employer] [facility]; [facility] Work Phone: 08-13-2022 11:29-0500 Body surface area Derived from formula 2.01 m2 Orly Slarb [employer] [facility]; [facility] Work Phone: 08-13-2022 11:29-0500 Body temperature 97.2 [degF] Orly Slarb [employer] [facility]; [facility] Work Phone: 08-13-2022 11:29-0500 Body weight 92.09 kg Orly Slarb [employer] [facility]; [facility] Work Phone: 08-13-2022 11:29-0500 Diastolic blood pressure 82 mm[Hg] Orly Slarb [employer] [facility]; [facility] Work Phone: Comment on above: Patient Position: Sitting; Cuff Location : Left Arm; Cuff Size: Standard 08-13-2022 11:29-0500 Heart rate 58 /min Orly Slarb [employer] [facility]; [facility] Work Phone: Comment on above: Pattern: Regular 08-13-2022 11:29-0500 Respiratory rate 16 /min Orly Slarb [employer] [facility]; [facility] Work Phone: Comment on above: Pattern: Unlabored 08-13-2022 11:29-0500 SaO2% (BldA) [Mass fraction] 99 % Orly Slarb [employer] [facility]; [facility] Work Phone: Comment on above: Room air 08-13-2022 11:29-0500 Systolic blood pressure 132 mm[Hg] Orly Slarb [employer] [facility]; [facility] Work Phone: Comment on above: Patient Position: Sitting; Cuff Location : Left Arm; Cuff Size: Standard 07-17-2022 09:39-0500 Body height 165.1 cm LEGAL OFFICE ADMINISTRATOR-C Shakila Carter LEGAL OFFICE ADMINISTRATOR Work Phone: [facility] Work Phone: 07-17-2022 09:39-0500 Body mass index (BMI) [Ratio] 34.9 kg/m2 LEGAL OFFICE ADMINISTRATOR-C Shakila Carter LEGAL OFFICE ADMINISTRATOR Work Phone: [facility] Work Phone: 07-17-2022 09:39-0500 Body weight 95.25 kg LEGAL OFFICE ADMINISTRATOR-C Shakila Carter LEGAL OFFICE ADMINISTRATOR Work Phone: [facility] Work Phone: 07-17-2022 09:39-0500 Diastolic blood pressure 79 mm[Hg] LEGAL OFFICE ADMINISTRATOR-C Shakila Carter LEGAL OFFICE ADMINISTRATOR Work Phone: [facility] Work Phone: 07-17-2022 09:39-0500 Heart rate 77 /min LEGAL OFFICE ADMINISTRATOR-C Shakila Carter LEGAL OFFICE ADMINISTRATOR Work Phone: [facility] Work Phone: 07-17-2022 09:39-0500 Respiratory rate 18 /min LEGAL OFFICE ADMINISTRATOR-C Shakila Carter LEGAL OFFICE ADMINISTRATOR Work Phone: [facility] Work Phone: 07-17-2022 09:39-0500 SaO2% (BldA) [Mass fraction] 96 % LEGAL OFFICE ADMINISTRATOR-C Shakila Carter LEGAL OFFICE ADMINISTRATOR Work Phone: [facility] Work Phone: 07-17-2022 09:39-0500 Systolic blood pressure 117 mm[Hg] LEGAL OFFICE ADMINISTRATOR-C Shakila Carter LEGAL OFFICE ADMINISTRATOR Work Phone: [facility] Work Phone: 03-05-2022 10:49-0400 Body height 167 cm Rogelio Mcclure LPN [facility]; [facility] Work Phone: 03-05-2022 10:49-0400 Body mass index (BMI) [Ratio] 33.02 kg/m2 Rogelio Mcclure LPN [facility]; [facility] Work Phone: 03-05-2022 10:49-0400 Body surface area Derived from formula 2.01 m2 Rogelio Mcclure LPN [facility]; [facility] Work Phone: 03-05-2022 10:49-0400 Body temperature 97.4 [degF] Rogelio Mcclure LPN [facility]; [facility] Work Phone: Comment on above: Method: Infrared 03-05-2022 10:49-0400 Body weight 92.09 kg Rogelio Mcclure LPN [facility]; [facility] Work Phone: 03-05-2022 10:49-0400 Diastolic blood pressure 70 mm[Hg] Rogelio Mcclure LPN [facility]; [facility] Work Phone: Comment on above: Patient Position: Sitting; Cuff Location : Left Arm; Cuff Size: Standard 03-05-2022 10:49-0400 Heart rate 71 /min Rogelio Mcclure LPN [facility]; [facility] Work Phone: Comment on above: Pattern: Regular 03-05-2022 10:49-0400 Respiratory rate 16 /min Rogelio Mcclure LPN [facility]; [facility] Work Phone: Comment on above: Pattern: Unlabored 03-05-2022 10:49-0400 SaO2% (BldA) [Mass fraction] 98 % Rogelio Mcclure LPN [facility]; [facility] Work Phone: Comment on above: Room air 03-05-2022 10:49-0400 Systolic blood pressure 140 mm[Hg] Rogelio Mcclure LPN [facility]; [facility] Work Phone: Comment on above: Patient Position: Sitting; Cuff Location : Left Arm; Cuff Size: Standard 01-09-2022 13:02-0400 Body height 165.1 cm LEGAL OFFICE ADMINISTRATOR-C Shakila Deyadorota LEGAL OFFICE ADMINISTRATOR Work Phone: [facility] Work Phone: 01-09-2022 13:02-0400 Body mass index (BMI) [Ratio] 34.9 kg/m2 LEGAL OFFICE ADMINISTRATOR-C Shakila Deyadorota LEGAL OFFICE ADMINISTRATOR Work Phone: [facility] Work Phone: 01-09-2022 13:02-0400 Body weight 95.25 kg LEGAL OFFICE ADMINISTRATOR-C Shakila Deyadorota LEGAL OFFICE ADMINISTRATOR Work Phone: [facility] Work Phone: 01-09-2022 13:02-0400 Diastolic blood pressure 77 mm[Hg] LEGAL OFFICE ADMINISTRATOR-C Shakila Carter LEGAL OFFICE ADMINISTRATOR Work Phone: [facility] Work Phone: 01-09-2022 13:02-0400 Heart rate 60 /min LEGAL OFFICE ADMINISTRATOR-C Shakila Carter LEGAL OFFICE ADMINISTRATOR Work Phone: [facility] Work Phone: 01-09-2022 13:02-0400 Respiratory rate 14 /min LEGAL OFFICE ADMINISTRATOR-C Shakila Carter LEGAL OFFICE ADMINISTRATOR Work Phone: [facility] Work Phone: 01-09-2022 13:02-0400 Systolic blood pressure 117 mm[Hg] LEGAL OFFICE ADMINISTRATOR-C Shakila Carter LEGAL OFFICE ADMINISTRATOR Work Phone: [facility] Work Phone: 12-11-2020 08:33-0400 BMI (Body Mass Index) 33.01 kg/m2 Shakila Carter [facility]; [facility] Work Phone: 12-11-2020 08:33-0400 BMI (Body Mass Index) 33.02 kg/m2 Rogelio Mcclure LPN [facility]; [facility] Work Phone: 12-11-2020 08:33-0400 Body Temperature 97.5 [degF] Rogelio Mcclure LPN [facility]; [facility] Work Phone: Comment on above: Method: Infrared 12-11-2020 08:33-0400 Body weight 92.08 kg Shakila Carter [facility]; [facility] Work Phone: 12-11-2020 08:33-0400 Body weight 92.09 kg Rogelio Mcclure LPN [facility]; [facility] Work Phone: 12-11-2020 08:33-0400 BP Diastolic 78 mm[Hg] Rogelio Mcclure LPN [facility]; [facility] Work Phone: Comment on above: Patient Position: Sitting; Cuff Location : Left Arm; Cuff Size: Standard 12-11-2020 08:33-0400 BP Systolic 122 mm[Hg] Rogelio Mcclure LPN [facility]; [facility] Work Phone: Comment on above: Patient Position: Sitting; Cuff Location : Left Arm; Cuff Size: Standard 12-11-2020 08:33-0400 BSA (Body Surface Area) 2.01 m2 Rogelio Mcclure LPN [facility]; [facility] Work Phone: 12-11-2020 08:33-0400 Height 167 cm Rogelio Mcclure LPN [facility]; [facility] Work Phone: 12-11-2020 08:33-0400 Pulse (Heart Rate) 73 /min Rogelio Mcclure LPN [facility]; [facility] Work Phone: Comment on above: Pattern: Regular 12-11-2020 08:33-0400 Pulse Oximetry 98 % Shakila Carter [facility]; [facility] Work Phone: Comment on above: Room air 12-11-2020 08:33-0400 Respiratory Rate 16 /min Rogelio Mcclure LPN [facility]; [facility] Work Phone: Comment on above: Pattern: Unlabored 12-11-2020 08:33-0400 SaO2% (BldA) [Mass fraction] 98 % Rogelio Mcclure LPN [facility]; [facility] Work Phone: Comment on above: Room air 11-10-2020 07:30-0500 BMI (Body Mass Index) 31.39 kg/m2 Shakila Gentry [facility]; [facility] Work Phone: 11-10-2020 07:30-0500 BMI (Body Mass Index) 33.01 kg/m2 Rogelio Mcclure LPN [facility]; [facility] Work Phone: 11-10-2020 07:30-0500 Body Temperature 97.3 [degF] Rogelio Mcclure LPN [facility]; [facility] Work Phone: Comment on above: Method: Infrared 11-10-2020 07:30-0500 Body weight 87.54 kg Shakila Souza [facility]; [facility] Work Phone: 11-10-2020 07:30-0500 Body weight 92.08 kg Rogelio Mcclure LPN [facility]; [facility] Work Phone: 11-10-2020 07:30-0500 BP Diastolic 68 mm[Hg] Rogelio Mcclure LPN [facility]; [facility] Work Phone: Comment on above: Patient Position: Sitting; Cuff Location : Left Arm; Cuff Size: Standard 11-10-2020 07:30-0500 BP Systolic 112 mm[Hg] Rogelio Mcclure LPN [facility]; [facility] Work Phone: Comment on above: Patient Position: Sitting; Cuff Location : Left Arm; Cuff Size: Standard 11-10-2020 07:30-0500 BSA (Body Surface Area) 1.96 m2 Shakila Carter [facility]; [facility] Work Phone: 11-10-2020 07:30-0500 BSA (Body Surface Area) 2.01 m2 Rogelio Mcclure LPN [facility]; [facility] Work Phone: 11-10-2020 07:30-0500 Height 167 cm Rogelio Mcclure LPN [facility]; [facility] Work Phone: 11-10-2020 07:30-0500 Pulse (Heart Rate) 95 /min Rogelio Mcclure LPN [facility]; [facility] Work Phone: Comment on above: Pattern: Regular 11-10-2020 07:30-0500 Pulse Oximetry 97 % Shakila Carter [facility]; [facility] Work Phone: Comment on above: Room air 11-10-2020 07:30-0500 Respiratory Rate 16 /min Rogelio Mcclure LPN [facility]; [facility] Work Phone: Comment on above: Pattern: Unlabored 11-10-2020 07:30-0500 SaO2% (BldA) [Mass fraction] 97 % Rogelio Mcclure LPN [facility]; [facility] Work Phone: Comment on above: Room air 02-02-2020 09:05-0400 BMI (Body Mass Index) 31.39 kg/m2 Shakila Carter [employer] Work Phone: [facility] Work Phone: 02-02-2020 09:05-0400 Body weight 87.54 kg Shakila Carter [employer] Work Phone: [facility] Work Phone: 02-02-2020 09:05-0400 BP Diastolic 73 mm[Hg] Shakila Carter [employer] Work Phone: [facility] Work Phone: Comment on above: Patient Position: Supine; Cuff Location: Right Arm; Cuff Size: Standard 02-02-2020 09:05-0400 BP Systolic 111 mm[Hg] Shakila Carter [employer] Work Phone: [facility] Work Phone: Comment on above: Patient Position: Supine; Cuff Location: Right Arm; Cuff Size: Standard 02-02-2020 09:05-0400 BSA (Body Surface Area) 1.96 m2 Shakila Carter [employer] Work Phone: [facility] Work Phone: 02-02-2020 09:05-0400 Height 167 cm Shakila Carter [employer] Work Phone: [facility] Work Phone: 11-02-2019 08:54-0500 BMI (Body Mass Index) 32.2 kg/m2 Rogelio Mcclure [facility] Work Phone: 11-02-2019 08:54-0500 Body Temperature 98.6 [degF] Rogelio Mcclure [facility] Work Phone: Comment on above: Method: Temporal 11-02-2019 08:54-0500 Body weight 89.81 kg Rogelio Mcclure [employer] [facility] Work Phone: 11-02-2019 08:54-0500 BP Diastolic 80 mm[Hg] Rogelio Mcclure [facility] Work Phone: Comment on above: Patient Position: Sitting; Cuff Location : Left Arm; Cuff Size: Standard 11-02-2019 08:54-0500 BP Systolic 132 mm[Hg] Rogelio Mcclure [facility] Medicine Work Phone: Comment on above: Patient Position: Sitting; Cuff Location : Left Arm; Cuff Size: Standard 11-02-2019 08:54-0500 BSA (Body Surface Area) 1.99 m2 Rogelio Mcclure LPN [facility] Work Phone: 11-02-2019 08:54-0500 Height 167 cm Rogelio Mcclure LPN [facility] Internal Medicine Work Phone: 11-02-2019 08:54-0500 Pulse (Heart Rate) 86 /min Rogelio Mcclure LPN [facility] Work Phone: Comment on above: Pattern: Regular 11-02-2019 08:54-0500 Pulse Oximetry 98 % Shakila Carter [facility] Work Phone: Comment on above: Room air 11-02-2019 08:54-0500 Respiratory Rate 16 /min Rogelio Mcclure LPN [facility] Medicine Work Phone: Comment on above: Pattern: Unlabored 11-02-2019 08:54-0500 SaO2% (BldA) [Mass fraction] 98 % Rogelio Mcclure LPN [facility] Internal [facility]; [facility] Work Phone: Comment on above: Room air 09-07-2019 10:48-0500 BMI (Body Mass Index) 32.04 kg/m2 Rogelio Mcclure LPN [facility] Internal Medicine Work Phone: 09-07-2019 10:48-0500 Body Temperature 97.8 [degF] Rogelio Mcclure LPN [facility] Internal Medicine Work Phone: Comment on above: Method: Temporal 09-07-2019 10:48-0500 Body weight 89.38 kg Rogelio Mcclure LPN [facility] Work Phone: 09-07-2019 10:48-0500 BP Diastolic 76 mm[Hg] Rogelio Mcclure LPN [facility] Medicine Work Phone: Comment on above: Patient Position: Sitting; Cuff Location : Left Arm; Cuff Size: Standard 09-07-2019 10:48-0500 BP Systolic 120 mm[Hg] Rogelio Mcclure LPN [facility] Internal [facility] Work Phone: Comment on above: Patient Position: Sitting; Cuff Location : Left Arm; Cuff Size: Standard 09-07-2019 10:48-0500 BSA (Body Surface Area) 1.98 m2 Rogelio Mcclure LPN [facility] Work Phone: 09-07-2019 10:48-0500 Height 167 cm Rogelio Ren SANCHEZ [facility] Work Phone: 09-07-2019 10:48-0500 Pulse (Heart Rate) 66 /min Rogelio Ren SANCHEZ [facility] Work Phone: Comment on above: Pattern: Regular 09-07-2019 10:48-0500 Pulse Oximetry 97 % Shakila Carter [facility] Work Phone: Comment on above: Room air 09-07-2019 10:48-0500 Respiratory Rate 16 /min Rogelio Mcclure LPN [facility] Work Phone: Comment on above: Pattern: Unlabored 09-07-2019 10:48-0500 SaO2% (BldA) [Mass fraction] 97 % Rogelio Mcclure LPN [facility]; [facility] Work Phone: Comment on above: Room air 08-24-2019 15:19-0500 BMI (Body Mass Index) 30.74 kg/m2 Rogelio Mcclure LPN [facility] Work Phone: 08-24-2019 15:19-0500 Body Temperature 98.9 [degF] Rogelio Mcclure LPN [facility] Internal Medicine Work Phone: Comment on above: Method: Temporal 08-24-2019 15:19-0500 Body weight 85.75 kg Rogelio Mcclure LPN [facility] Work Phone: 08-24-2019 15:19-0500 BP Diastolic 82 mm[Hg] Rogelio Mcclure LPN [facility] Work Phone: Comment on above: Patient Position: Sitting; Cuff Location : Left Arm; Cuff Size: Standard 08-24-2019 15:19-0500 BP Systolic 126 mm[Hg] Rogelio Mcclure LPN [facility] Medicine Work Phone: Comment on above: Patient Position: Sitting; Cuff Location : Left Arm; Cuff Size: Standard 08-24-2019 15:19-0500 BSA (Body Surface Area) 1.95 m2 Rogelio Mcclure LPN [facility] Work Phone: 08-24-2019 15:19-0500 Height 167 cm Rogelio Mcclure LPN [facility] Work Phone: 08-24-2019 15:19-0500 Pulse (Heart Rate) 77 /min Rogelio Mcclure LPN [facility] Work Phone: Comment on above: Pattern: Regular 08-24-2019 15:19-0500 Pulse Oximetry 97 % Shakila Carter [facility] Work Phone: Comment on above: Room air 08-24-2019 15:19-0500 Respiratory Rate 17 /min Rogelio Mcclure LPN [facility] Work Phone: Comment on above: Pattern: Unlabored 08-24-2019 15:19-0500 SaO2% (BldA) [Mass fraction] 97 % Rogelio Mcclure LPN [facility]; [facility] Work Phone: Comment on above: Room air Encounters Encounter Date Encounter Type Care Provider Facility Start: 07-14-2025 End: 07-14-2025 ambulatory Shama Decker NP Facility:[facility] Start: 02-24-2025 End: 02-24-2025 Patient encounter procedure Shama Decker LEGAL OFFICE ADMINISTRATOR-C -[place] [facility] Work Phone: Start: 02-24-2025 End: 02-24-2025 ambulatory Eugene Ochoa LEGAL OFFICE ADMINISTRATOR-C Work Phone: [facility] Work Phone: Start: 01-26-2025 End: 01-26-2025 ambulatory Eugene Ochoa LEGAL OFFICE ADMINISTRATOR-C Work Phone: [facility] Work Phone: Start: 01-26-2025 End: 01-26-2025 Patient encounter procedure Shama Decker LEGAL OFFICE ADMINISTRATOR-C -Cat Scan [facility] Work Phone: Start: 01-26-2025 End: 01-26-2025 ambulatory Eugene Ochoa Facility:[facility] Start: 01-06-2025 End: 01-06-2025 Patient encounter procedure Erendira Michel LEGAL OFFICE ADMINISTRATOR-C -[facility] Work Phone: Start: 01-06-2025 End: 01-06-2025 ambulatory Eugene Ochoa Facility:[facility] Start: 09-02-2024 End: 09-02-2024 ambulatory Eugene Ochoa Facility:[facility] Start: 08-26-2024 ambulatory Bob Hansonori Facility:[facility] Start: 08-26-2024 End: 08-26-2024 ambulatory Eugene Ochoa Facility:[facility] Start: 08-23-2024 ambulatory Eugene Hurtadoam Facility :[facility] Start: 08-23-2024 End: 08-23-2024 ambulatory Erendira Michel LEGAL OFFICE ADMINISTRATOR Facility:[facility] Start: 08-12-2024 End: 08-12-2024 ambulatory Eugene Ochoa Facility:[facility] Start: 07-28-2024 End: 07-28-2024 ambulatory Erendira Michel LEGAL OFFICE ADMINISTRATOR Facility:[facility] Start: 03-23-2024 ambulatory Kaylee Holilns PA-C Work Phone: Pulmonary Medicine Comment on above: bloodwork Start: 03-08-2024 End: 03-08-2024 ambulatory KAYLEE MURRAY Facility:[facility] Start: 03-04-2024 ambulatory Becka smith [employer] Work Phone: [facility] Start: 03-04-2024 Patient encounter procedure Becka Delgadillo [employer] Work Phone: [facility] Medicine Comment on above: Appointment billing Start: 02-13-2024 ambulatory Kaylee Hollins PA-C Work Phone: [facility] Medicine Comment on above: $221.00 Bill Start: 02-10-2024 Telephone encounter Becka correa [employer] Work Phone: [facility] Medicine Comment on above: Patient Update Start: 02-10-2024 End: 02-10-2024 ambulatory KAYLEE MURRAY Facility:[facility] Start: 02-10-2024 End: 02-10-2024 Patient encounter procedure Kaylee Murray PA-C Work Phone: [facility] Medicine Comment on above: 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 (Primary Dx); Dyspnea on exertion; Pulmonary emphysema, unspecified emphysema type (HCC); Former smoker; Class 1 obesity in adult, unspecified BMI, unspecified obesity type, unspecified whether serious comorbidity present Start: 01-01-2024 Telephone encounter Becka Ger correa APRN.[employer] [employer] Work Phone: Pulmonary Medicine Comment on above: Billing issue ; 5 CT question Start: 11-03-2023 End: 11-03-2023 ambulatory BECKA JOHNSONNUVIA Facility:[facility] Start: 10-29-2023 Refill Magnolia Arnold MD Work Phone: Pulmonary Medicine Comment on above: Refill Request Start: 10-08-2023 End: 10-08-2023 ambulatory KAYLEE Roman MCCURDYTREVOR Facility:[facility] Start: 08-11-2023 Telephone encounter Magnolia Arnold MD Work Phone: Pulmonary Medicine Comment on above: Medication Problem Start: 08-08-2023 End: 08-08-2023 ambulatory MAGNOLIA ARNOLD Facility:[facility] Start: 08-08-2023 End: 08-08-2023 ambulatory Pul[facility] Work Phone: [facility]UL[facility] Comment on above: Spirometry Start: 08-08-2023 End: 08-08-2023 Patient encounter procedure [facility] Work Phone: [facility] Comment on above: 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 (Primary Dx); Former smoker; Class 2 obesity Start: 08-04-2023 End: 08-04-2023 ambulatory LEGAL OFFICE ADMINISTRATOR-C Eugene Ochoa Work Phone: [facility] Work Phone: Start: 08-04-2023 End: 08-04-2023 Patient encounter procedure LEGAL OFFICE ADMINISTRATOR-C Eugene Ochoa Work Phone: [facility] Work Phone: Start: 07-29-2023 End: 07-29-2023 ambulatory LEGAL OFFICE ADMINISTRATOR-C Eugene Ochoa Work Phone: [facility] Work Phone: Start: 07-29-2023 End: 07-29-2023 Patient encounter procedure LEGAL OFFICE ADMINISTRATOR-C Eugene Ochoa Work Phone: [facility]-Outpatient Breast Imaging Work Phone: Start: 07-08-2023 End: 07-11-2023 Office outpatient visit 25 minutes Eugene Ochoa CNP Work Phone: [facility] Start: 07-08-2023 Review Eugene Ochoa CNP Work Phone: [facility] Start: 06-17-2023 End: 06-17-2023 Patient encounter procedure LEGAL OFFICE ADMINISTRATOR-Malathi cOhoa Work Phone: [facility] [facility] Start: 06-17-2023 End: 06-20-2023 Office outpatient visit 15 minutes Eugene Ochoa CNP Work Phone: [facility] Start: 06-17-2023 Review Eugene Ochoa CNP Work Phone: [facility] Start: 04-22-2023 End: 04-22-2023 ambulatory KIA ROSSANA Facility:[facility] Start: 04-22-2023 End: 04-22-2023 Patient encounter procedure Kia Tracy [employer]IPPING SUPPORT.PEN RIDER Work Phone: OB/Gynecology Comment on above: Encounter for gyneco logical examination (general) (routine) without abnormal findings (Primary Dx) Start: 04-22-2023 End: 04-22-2023 Patient encounter status Kia Tracy SHIPPING SUPPORT.PEN RIDER Work Phone: [facility] Start: 04-14-2023 End: 04-14-2023 Annotation/Addendum Eugene Ochoa CNP Work Phone: [facility] Start: 04-01-2023 End: 04-01-2023 Annotation/Addendum Eugene Ochoa CNP Work Phone: [facility] Start: 03-10-2023 End: 03-14-2023 Office outpatient visit 15 minutes Eugene Ochoa CNP Work Phone: [facility] Start: 03-10-2023 Review Eugene Ochoa CNP Work Phone: [facility] Start: 02-28-2023 End: 02-28-2023 Emergency department patient visit [facility]-Emergency Department Start: 01-21-2023 End: 01-21-2023 Office outpatient visit 15 minutes Eugene Ochoa CNP Work Phone: [facility] Start: 01-06-2023 End: 01-06-2023 Patient encounter procedure [facility]-Cat Scan, [facility] Start: 01-01-2023 End: 01-01-2023 ambulatory [facility] Work Phone: Start: 01-01-2023 End: 01-01-2023 Patient encounter procedure [facility]-Outpatient Bone Densitometry Start: 12-30-2022 ambulatory Shakila Orantespopeye Bonita [facility] Internal Med Start: 12-25-2022 End: 12-25-2022 Office outpatient visit 25 minutes Eugene Ochoa CNP Work Phone: [facility] Start: 08-13-2022 End: 08-25-2022 Office outpatient visit 10 minutes Eugene Ochoa CNP Work Phone: [facility] Start: 08-13-2022 Review Eugene Ochoa CNP Work Phone: [facility] Start: 07-30-2022 End: 07-30-2022 ambulatory LEGAL OFFICE ADMINISTRATOR-C Shakila Falka LEGAL OFFICE ADMINISTRATOR Work Phone: [facility] Work Phone: Start: 07-30-2022 End: 07-30-2022 Patient encounter procedure LEGAL OFFICE ADMINISTRATOR-C Shakila Falka LEGAL OFFICE ADMINISTRATOR Work Phone: [facility]-Laboratory Start: 07-17-2022 End: 07-17-2022 Patient encounter procedure LEGAL OFFICE ADMINISTRATOR-C Shakila Falka LEGAL OFFICE ADMINISTRATOR Work Phone: [facility] Start: 06-12-2022 End: 06-12-2022 Annotation/Addendum Eugene Ochoa CNP Work Phone: [facility] Start: 05-14-2022 End: 05-14-2022 Annotation/Addendum Eugene Don PEN RIDER Work Phone: [facility] Start: 05-03-2022 End: 05-03-2022 ambulatory LEGAL OFFICE ADMINISTRATOR-C Shakila Orantesyanetdorota LEGAL OFFICE ADMINISTRATOR Work Phone: [facility] Work Phone: Start: 05-03-2022 End: 05-03-2022 Patient encounter procedure LEGAL OFFICE ADMINISTRATOR-C Shakila Carter LEGAL OFFICE ADMINISTRATOR Work Phone: [facility]-Outpatient Breast Imaging Start: 2022 End: 2022 Annotation/Addendum Eugene Hurtadoam PEN RIDER Work Phone: [facility] Start: 03-05-2022 End: 03-05-2022 Office outpatient visit 40 minutes Shakila Souza Internal Medicine Start: 02-19-2022 Non-patient / Non-visit LEGAL OFFICE ADMINISTRATOR-C Roman Falka LEGAL OFFICE ADMINISTRATOR Work Phone: [facility] Start: 01-11-2022 Non-patient / Non-visit LEGAL OFFICE ADMINISTRATOR-C M lan Carter LEGAL OFFICE ADMINISTRATOR Work Phone: [facility] Start: 01-11-2022 Registered Referred LEGAL OFFICE ADMINISTRATOR-C Shakila Gentry LEGAL OFFICE ADMINISTRATOR Work Phone: [facility]-Cardiovascular Services Start: 01-09-2022 End: 01-09-2022 Patient encounter procedure LEGAL OFFICE ADMINISTRATOR-C Shakila Carter LEGAL OFFICE ADMINISTRATOR Work Phone: [facility] Start: 01-08-2021 End: 01-09-2021 Phone Encounter Shakila Carter PEN RIDER Work Phone: [facility] Start: 12-22-2020 End: 12-22-2020 Annotation/Addendum Shakila Souza Superintendent [employer] Medicine Start: 12-11-2020 End: 12-11-2020 Office outpatient visit 25 minutes Shakila Souza Internal [facility] Start: 12-11-2020 [facility] Start: 11-10-2020 End: 11-10-2020 Office outpatient visit 15 minutes Shakila Souza [facility] Start: 11-10-2020 Review Shakila Carter [facility] Start: 10-13-2020 End: 10-13-2020 Annotation/Addendum Shakila Carter [facility] [employer] [facility] Start: 03-08-2020 End: 03-08-2020 Annotation/Addendum Shakila Carter [facility] [employer] [facility] Start: 02-02-2020 End: 02-02-2020 Office outpatient visit 15 minutes Shakila Souza Internal Medicine Start: 01-03-2020 End: 01-03-2020 Annotation/Addendum Shakila Gentry [facility] [employer] Start: 11-04-2019 End: 11-04-2019 Annotation/Addendum Shakila Carter [facility] [employer] [facility] Start: 11-02-2019 End: 11-02-2019 Office outpatient visit 25 minutes Shakila Orantesyanetdorota Souza [facility] Start: 09-07-2019 End: 09-07-2019 Office outpatient visit 15 minutes Shakila Carter [facility] Internal Medicine Start: 08-24-2019 End: 08-24-2019 Office consultation new/estab patient 60 min Shakila Carter [facility] Internal Medicine Start: 07-15-2017 Ambulatory [facility] Facility :[facility] Start: 06-26-2017 Evaluation and management of inpatient Martin Merino Facility:[facility] Start: 06-04-2017 Ambulatory [facility] Facility :[facility] Start: 05-21-2017 Ambulatory Martin Merino Facil ity:[facility] Start: 05-09-2017 Ambulatory Martin Merino Facil ity:[facility] Procedures Date Procedure Procedure Detail Performing Clinician Start: 01-26-2025 CT of chest Eugnee Ochoa LEGAL OFFICE ADMINISTRATOR-C Work Phone: Start: 08-08-2023 Nitric oxide gas determination Magnolia Arnold MD Work Phone: Start: 08-08-2023 Brncdilat rspse spmtry pre&post-brncdilat admn Magnolia Arnold MD Work Phone: Start: 07-29-2023 Screening mammography LEGAL OFFICE ADMINISTRATOR-C Eugene Ochoa Work Phone: Start: 06-17-2023 End: 06-17-2023 Ankle min 3 Views Procedure Note: See Note; NOTES: [facility] Radiology [address] [place] [address] Ankle min 3 Views MR#: [id number] Acct: [id number] Name: JEANNE SANTACRUZ Rep #: [id number] : 1960 F 63 From: Joseph Gibbs MD PCP: RANDEE Caputo Status: DEP AMB Study: Ankle min 3 Views Date of Exam: 06/17/23 Exam# [id number] Ordering Dr: Eugene Ochoa :[id number] INDICATION: left lateral ankle pain -- Send copy to Dr. Monterroso EXAMINATION/TECHNIQUE: X-RAY - LEFT XR Ankle Min 3 Views 3 VIEWS COMPARISON: FINDINGS: SOFT TISSUES: No soft tissue swelling or gas. No radiopaque foreign body. BONES/JOINTS: No acute fracture or subluxation.. Normal alignment. Preservation of the joint space.. No sclerotic or destructive changes observed. RAD/Ankle min 3 Views IMPRESSION: Negative. Electronically Signed: Joseph Gibbs MD at 11:32 EDT Reading Location ID and State: [address] [place] [address] Tel , Service support , CC: RANDEE Ochoa Vice President Of Talent Management: Signed Eugene Ochoa CNP Work Phone: Start: 06-17-2023 Radiography of ankle RANDEE Ochoa Work Phone: Start: 02-28-2023 End: 02-28-2023 Emergency Department Summary Procedure Note: See Note; NOTES: [facility] Medical Records Department [address] [place] [address] Emergency Department Summary 02/28/23 MR#: [id number] Acct: [id number] Name: JEANNE SANTACRUZ Rep #: [id number] : 1960 62 From: Kaylee Fleming MD PCP: RANDEE Caputo Status:REG ER Location: ED HPI History of Present Illness Chief Complaint: Dental Informant: patient Narrative Narrative: Patient presents with recurrent facial swelling. Patient states she developed left facial pain and swelling about 3 weeks ago. She was started on an antibiotic (clindamycin) and seen by [facility] endodontics in [place]. A week ago yesterday they did a procedure where they went through her mouth into the abscessed area in the left maxilla and drained it. She was seen yesterday and had her final stitch removed. Overnight she started getting left facial pain and swelling again. She called her software architect this morning and was placed on Zithromax and written pain pills. Patient states she tried taking just ibuprofen and Tylenol and has taken 1 dose of Zithromax. This evening due to increased pain she did take 1 dose of her stronger pain medication. She presents to the ER tonight stating that she feels the swelling is getting worse. While at home she thought she had some tightness in her throat as well. She states since sitting upright her symptoms seem to be somewhat improved. She has not noted fever. [facility] Medical History Diarrhea following gastrointestinal surgery Essential hypertension Former smoker Hyperlipidemia Palpitations Premature atrial contractions Sinus arrhythmia Vitamin B 12 deficiency Vitamin D deficiency Home Medications cyanocobalamin (vitamin B-12) 1,000 mcg/mL injection solution 100 mcg IM .[id number] 08/25/19 [History Last Taken Unknown] cholecalciferol (vitamin D3) 50 mcg (2,000 unit) tablet 2,000 unit PO DAILY 08/31/19 [History Last Taken Unknown] sertraline 50 mg tablet 50 mg PO DAILY 03/06/20 [History Last Taken Unknown] colestipol 1 gram tablet (Colestid) 2 g PO DAILY diarrhea post cholecystectomy 07/09/21 [History Last Taken Unknown] rhdbnals-bik-[id number] 18 mg-FA 400 mcg-calcium 500 mg-vit K 50 mcg tablet (Women's Multivitamin) tab PO 01/09/22 [History Last Taken Unknown] diltiazem HCl 120 mg capsule,extended release 24 hr 120 mg PO DAILY #90 caps 09/16/22 [Rx Last Taken Unknown] lisinopril 10 mg-hydrochlorothiazide 12.5 mg tablet 1 tab PO DAILY #90 tabs 09/16/22 [Rx Last Taken Unknown] Allergy/AdvReac Type Severity Reaction Status Date / Time Sulfa (Sulfonamide Allergy Hives Verified 07/17/22 12:59 Antibiotics) amoxicillin [From Augmentin] AdvReac Upset Verified 07/17/22 12:59 Stomach clavulanic acid AdvReac Upset Verified 07/17/22 12:59 [From Augmentin] Stomach Family History Mother Breast cancer Atrial fibrillation Father CVA (cerebral vascular accident) Atrial fibrillation COPD (chronic obstructive pulmonary disease) Myocardial infarction Abdominal aortic aneurysm Surgical History H/O cataract removal with insertion of prosthetic lens (12/2018) History of bilateral breast reduction surgery (1998) History of cholecystectomy (2017) History of tonsillectomy History of total abdominal hysterectomy Social History Smoking Status: Former smoker how long ago did patient quit smokin years ago alcohol intake: current alcohol intake frequency: holidays/special occasions only substance use type: does not use caffeine: Yes Type: coffee Number of servings: 1 ROS ROS ED Constitutional Constitutional ED: Denies chills or fever(s) Eyes Eyes: Denies change in vision or discharge from eye(s) ENT ENT ED: Reports other Details: Left facial swelling ; Denies discharge from eye(s), rhinorrhea or sore throat Cardiovascular Cardiovascular: Denies chest pain or palpitations Respiratory/Chest Respiratory/Chest: Denies cough or dyspnea Gastrointestinal Gastrointestinal: Denies abdominal pain, nausea or vomiting Musculoskeletal Musculoskeletal: Denies back pain or extremity pain Integumentary Denies Abrasions or rash Neurologic Neurologic: Denies headache(s) or weakness Psychiatric Psychiatric: Denies anxiety or depression Allergic/Immunologic Allergic/Immunologic ED: Denies lip swelling or urticaria EXAM Physical Exam Const Vital Signs: 02/28/23 20:32 Temperature 97.5 F L Temperature Source Temporal Pulse Rate 88 Respiratory Rate 16 Blood Pressure 159/90 H Blood Pressure Mean 113 Pulse Ox 98 Oxygen Delivery Method Room Air Positive well nourished and well developed General Appearance ED: well developed HEENT Reports moist mucous membranes HEENT Narrative: Mild left facial edema over the maxilla. No erythema or excessive skin warmth. Intraoral examination is unremarkable. Posterior pharynx is normal. She is tolerating secretions well and speaks with a strong voice. Eyes PERRL and EOMs intact bilaterally Neck no lymphadenopathy Chest Wall inspection of chest normal and palpation of chest normal Resp normal respiratory effort and clear to auscultation bilaterally Cardio regular rate and regular rhythm GI non-tender Extremity normal to inspection Neuro oriented x3 Psych mental status grossly normal MDM MDM MDM Narrative Medical decision making narrative: Lab work obtained and patient given a dose of IV clindamycin. CT scan of the facial bones with contrast obtained. Lab Data Labs: Laboratory Results - last 24 hr 02/28/23 02/28/23 21:00 21:00 WBC 10.5 RBC 4.03 L Hgb 12.9 Hct 38.6 MCV 95.8 MCH 32.0 MCHC 33.4 RDW Std Deviation 45.0 H RDW Coeff of Ksenia 12.8 Plt Count 220 MPV 9.9 Immature Gran % (Auto) 0.500 Neut % (Auto) 66.3 Lymph % (Auto) 23.3 Nuckolls % (Auto) 7.5 Eos % (Auto) 1.7 Baso % (Auto) 0.7 Absolute Neuts (auto) 6.9 Absolute Lymphs (auto) 2.43 Nucleated RBC % 0 Sodium 142 Potassium 3.5 Chloride 111 H Carbon Dioxide 26.0 Anion Gap 5 BUN 22 H Creatinine 0.89 Estim Creat Clear Calc 62.93 Est GFR (MDRD) Af Amer 83 Est GFR (MDRD) Non-Af 69 BUN/Creatinine Ratio 24.7 H Glucose 141 H Calcium 9.0 Radiography Diagnostic Testing: Clinical Impression(s) from Imaging Studies Facial/Sinus 02/28/23 20:42 IMPRESSION: There is a lucency around the roots of the last left upper molar which extends into the left maxillary sinus. This may represent an abscess. Mucosal thickening in the paranasal sinuses, especially of the left maxillary sinus. Electronically Signed: Robert Cuevas DO at 22:15 EDT , Treatment and Re-Evaluation :: CBC reveals normal white count and differential. Chemistry studies unremarkable. CT scan of the facial bones with contrast obtained to evaluate for possible abscess. There is soft tissue edema noted in the left maxilla with no focal fluid collection. There is a lucency around the roots of the left last upper molar which extends into the left maxillary sinus. This may represent an abscess. Patient also had surgical procedure to this area and may represent postop space. Test results are discussed with the patient. She will continue her antibiotics and pain regimen. She has no evidence of expanding abscess encroaching on airway. She is reassured with this. Return instructions are provided. Discharge Plan Triage Chief Complaint: Dental ED Provider: Kaylee Fleming Dx/Rx/DC Orders Clinical Impression: Abscess, dental, Post-operative pain Instructions: ED Dental Abscess Prescriptions: No Action cyanocobalamin (vitamin B-12) 1,000 mcg/mL solution 100 mcg IM .[id number] cholecalciferol (vitamin D3) 2,000 unit tablet 2,000 unit PO DAILY colestipol [Colestid] 1 gram tablet 2 g PO DAILY Rx Instructions: swallow whole tab w/any liquid;do not crush/chew/cut;administer other meds 1hr before/4hr after taking dose sertraline 50 mg tablet 50 mg PO DAILY Women's Multivitamin 18 mg-400 mcg- 500 mg-50 mcg tablet PO lisinopril-hydrochlorothiazi de 10-12.5 mg tablet 1 tab PO DAILY Qty: 90 3RF diltiazem HCl 120 mg capsule,extended release 24hr 120 mg PO DAILY Qty: 90 3RF Primary Care Provider: Eugene Ochoa Referrals: Eugene Ochoa NP-C [Primary Care Provider] - Activity Restrictions/Additional Instructions: Follow-up with your software architect on Friday. Please return to the ER for any worsened or concerning symptoms throughout the weekend. Disposition Disposition: Home, Self Care What to do if you have Problems For any increased pain, shortness of breath, bleeding, nausea or vomiting, chest pain, or any unexpected problems, contact your Primary Care Provider. Call [facility] ([phone]) or report to the closest Emergency Room. Call 911 if necessary. 02/28/232237 <Electronically signed by Kaylee Fleming MD> Cosigner Signature (if applicable): CC: LEGAL OFFICE ADMINISTRATOR-C Eugene Ochoa Signed Eugene Ochoa PEN RIDER Work Phone: Start: 02-28-2023 CT of face Start: 02-28-2023 End: 02-28-2023 Sinus/Facial Bone WITH Contras Procedure Note: See Note; NOTES: [facility] Imaging Services [address] [place] [address] Sinus/Facial Bone WITH Contras MR#: [id number] Acct: [id number] Name: JEANNE SANTACRUZ Rep #: [id number] : 1960 F 62 From: Robert Cuevas DO PCP: RANDEE Caputo Status: REG ER Study: Sinus/Facial Bone WITH Contras Date of Exam: 0 02/28/23 Exam# [id number] Ordering Dr: Kaylee Fleming MD INDICATION: abscess EXAMINATION: CT FACIAL BONES - CT Maxillofacial W/ Contrast Injection TECHNIQUE: Helically acquired images were obtained of the facial bones. A radiation dose optimization technique was used for this scan. IV Contrast dosage and agent: None. RADIATION DOSAGE (If Supplied By Facility): CTDIvol = ( 29.38 ) mGy, DLP = ( 716.41 ) mGycm COMPARISON: FINDINGS: SOFT TISSUES: There is left facial subcutaneous swelling. No discrete fluid collections. VISUALIZED PARANASAL SINUSES: Mucosal thickening, left more than right. VISUALIZED MASTOID AIR CELLS: Clear. FACIAL BONES, MANDIBLE AND TMJs: No displaced facial bone fracture. No lytic or blastic abnormality. VISUALIZED DENTITION: There is a lucency around the roots of the last left upper molar which extends into the left maxillary sinus. This may represent an abscess. ORBITAL CONTENTS: Both globes, extraocular muscles and retrobulbar fat appear unremarkable. CT/Sinus/Facial Bone WITH Contras IMPRESSION: There is a lucency around the roots of the last left upper molar which extends into the left maxillary sinus. This may represent an abscess. Mucosal thickening in the paranasal sinuses, especially of the left maxillary sinus. Electronically Signed: Robertrossana Cuevas DO at 22:15 EDT , CC: RANDEE Ochoa; Dr. Kaylee Fleming MD Vice President Of Talent Management: Signed Eugene Ochoa CNP Work Phone: Start: 01-06-2023 CT of chest Start: 01-06-2023 End: 01-26-[address] Lung Screening Procedure Note: See Note; NOTES: [facility] Imaging Services [address] [place] [address] Lung Screening MR#: [id number] Acct: [id number] Name: JEANNE SANTACRUZ Rep #: [id number] : 1960 F 62 From: Viky Segovia PCP: RANDEE Caputo Status: [facility] Study: Low Dose CT Lung Screening Date of Exam: 01/06 Exam# [id number] Ordering Dr: Eugene Ochao STUDY: LOW DOSE CT LUNG CANCER SCREENING REASON FOR EXAM: Female, 62 years old. Long history of smoking. Screening for lung cancer. RADIATION DOSAGE (If Supplied By Facility): CTDIvol = ( 4.02 ) mGy, DLP = ( 131.90 ) mGycm TECHNIQUE: No contrast was administered. Low dose technique was utilized (average mAS-38 and kVp 120). 1.25 mm axial source images with a slice interval of 1.25-mm were reconstructed in lung windows. 2.5 mm axial source images with a slice interval of 2.5-mm were reconstructed in lung windows. 5.0 mm axial source images with a slice interval of 5.0-mm were reconstructed in soft tissue windows. Nodule measured using lung windows on PACS and/or independent workstation with automated measurement of minimum and maximum diameter. Nodule measurement reported as average diameter rounded to the nearest whole number. Growth is defined as an increase ins size of greater than 1.5 mm. COMPARISON: None. NODULES: The lungs are clear and expanded. There are no suspicious lung nodules There are no endobronchial lesions. There is no demonstrated pleural abnormality. Normal heart and pericardium. Normal mediastinum. Normal hilar regions. Normal unenhanced pulmonary arteries. There is retropharyngeal right subclavian artery. Normal aorta arch and descending thoracic aorta. There are multi-level degenerative changes of the thoracic spine. There is no demonstrated abnormality of the visualized upper abdomen. CT/Low Dose CT Lung Screening IMPRESSION: Lung-RADS category 2. Benign findings. There is no evidence of malignancy. Recommendation: Routine screening CT scan in one year. IMPORTANT NOTES FOR USE: ACR Lung-RADS Version 1.0 Assessment Categories Release Date: January 03, 2014 Category: Coded 0-4 bases on nodule(s) with highest degree of suspicion. Negative screen is defined as categories 1 and 2; a positive screen is defined as categories 3 and 4. Category 3 and 4A nodules that are unchanged on interval CT should be coded as category 2, and individuals returned to screening in 12 months. Category 4X: Category 3 or 4 nodules with additional imaging findings that increase the suspicion of lung cancer, such as spiculation, GGN that doubles in size in 1 year, enlarged lymph notes, etc. Category Modifiers: S (significant finding unrelated to lung cancer) and C (prior history of treated lung cancer) may be added to the 0-4 Lung-RADS Electronically Signed: Viky Leo MD at 3:53 EDT , CC: RANDEE Ochoa Vice President Of Talent Management: Signed Eugene Ochoa CNP Work Phone: Start: 01-01-2023 End: 01-02-2023 Dexa Bone Density Study Procedure Note: See Note; NOTES: [facility] Imaging Services [address] [place] [address] Dexa Bone Density Study MR#: [id number] Acct: [id number] Name: JEANNE SANTACRUZ Rep #: [id number] : 1960 F 62 From: Willis wade MD PCP: RANDEE Caputo Status: REG CLI Study: Dexa Bone Density Study Date of Exam: 01/01/23 Exam# [id number] Ordering Dr: Eugene Ochoa STUDY: DUAL ENERGY X-RAY ABSORPTIOMETRY / DXA REASON FOR EXAM: Female, 62 years old. [id number] TECHNIQUE: Bone Mineral Density (BMD) measurements of lumbar spine and bilateral hips were obtained. COMPARISON: Comparison is made with prior study dated February 29, 2020. FINDINGS: Lumbar Spine (L1-L4): g/cm2 (1.138) / T-score (1.1) / Z-score (2.5) Findings are suggestive of normal bone density with a low fracture risk. Left Femur Total: g/cm2 (1.040) / T-score (0.8) / Z-score (1.8) Left Femoral Neck: g/cm2 (0.883) / T-score (0.3) / Z-score (1.6) Right Femur Total: g/cm2 (1.040) / T-score (0.8) / Z-score (1.8) Right Femoral Neck: g/cm2 (0.867) / T-score (0.2) / Z-score (1.5) The T-Scores on the most recent prior examination were: Lumbar Spine (L1-L4): There has been worsening of bone density since the previous examination. Left Femur Total: which represents an improvement of 3%. Right Femur Total: which represents an improvement of 2%. BD/Dexa Bone Density Study IMPRESSION: The patient is considered normal as outlined below according to World Devin Organization (WHO) criteria with a low fracture risk. There has been improvement of bone density since the previous examination. Reference Information: The T-score is the number of standard deviations above or below the standard which is normal for young adults at their peak bone mineral density. The World Health Organization (WHO) interprets the T-scores as follows: Above -1 Normal bone density Between -1 and -2.5 Osteopenia Equal to / or below -2.5 Osteoporosis As a practical clinical guideline, osteopenia may be graded as follows: Mild -1 through -1.5 Moderate -1.6 through -2.0 Severe -2.1 through -2.4 The Z-score is the number of standard deviations above or below age-matched controls. A Z-score of less than -1.5 would be considered abnormal. References: 1. NIH Osteoporosis and Related Bone Diseases www osteo.org 2. International Society for Clinical Densitometry www iscd.org 3. National Osteoporosis Foundation www nof.org Electronically Signed: Willis Daugherty MD at 15:42 EDT Reading Location ID and State: [address] [place] [address] , Service support , CC: Eugene Ochoa LEGAL OFFICE ADMINISTRATOR; LEGAL OFFICE ADMINISTRATOR-C Eugene Ochoa Vice President Of Talent Management: Signed Eugene Ochoa [facility] Work Phone: Start: 01-01-2023 Dual energy X-ray absorptiometry Start: 07-17-2022 End: 07-17-2022 Cardiology Visit Report Procedure Note: See Note; NOTES: [facility] [address] [place] [address]. [address] [place], [place] [address] OFFICE VISIT Date of Service: 07/17/22 MR#: [id number] Acct: [id number] Name: JEANNE SANTACRUZ Rep #: [id number] : 1960 Provider: AURORA Sainz Age/Sex: 62/F Location: [facility] Status: Signed HPI HPI History of Present Illness Details: Jeanne Santacruz is a 62-year-old white female who presents today for outpatient cardiovascular follow- up of her history of palpitations, PACs, hyperlipidemia, and hypertension. She had previously been evaluated by Dr. Ruslan Nguyen of electrophysiology at [facility]. Pt does not have any chest pain/heaviness. She does not have any worsening SOB. She does not have any worsening palpitations, she feels that this is fewer. She does sometimes have vision changes when she bends over and stands up. She does not have any syncope. She does not have any edema. Intake Vital Signs 01/09/22 13:02 07/17/22 09:39 Height 5 ft 5 in 5 ft 5 in Weight: 210 lb BMI 34.9 BP 117/79 Blood Pressure Location Lt brachial Position Sitting Respiration 18 Pulse 77 Pulse Source Monitor Pulse Oximetry (%) 96 Intake Visit Reasons: 6 M FU Complaints Coordinator Required: No Is patient in pain?: No Allergies Sulfa (Sulfonamide Antibiotics) Allergy (Verified 07/17/22 12:59) Hives amoxicillin [From Augmentin] Adverse Reaction (Verified 07/17/22 12:59) Upset Stomach clavulanic acid [From Augmentin] Adverse Reaction (Verified 07/17/22 12:59) Upset Stomach Medications cyanocobalamin (vitamin B-12) 1,000 mcg/mL injection solution 100 mcg IM .[id number] 08/25/19 [History Confirmed 07/17/22] cholecalciferol (vitamin D3) 50 mcg (2,000 unit) tablet 2,000 unit PO DAILY 08/31/19 [History Confirmed 07/17/22] sertraline 50 mg tablet 50 mg PO DAILY 03/06/20 [History Confirmed 07/17/22] colestipol 1 gram tablet (Colestid) 2 g PO DAILY diarrhea post cholecystectomy 07/09/21 [History Confirmed 07/17/22] diltiazem HCl 120 mg capsule,extended release 24 hr 120 mg PO DAILY #30 caps 10/08/21 [Rx Confirmed 07/17/22] [id number]-[id number]-[id number] 18 mg-FA 400 mcg-calcium 500 mg-vit K 50 mcg tablet (Women's Multivitamin) tab PO 01/09/22 [History Confirmed 07/17/22] hydrochlorothiazide 25 mg tablet 25 mg PO DAILY #30 tabs 07/17/22 [Rx Confirmed 07/17/22] PFSH Medical History Diarrhea following gastrointestinal surgery Essential hypertension Former smoker Hyperlipidemia Palpitations Premature atrial contractions Sinus arrhythmia Vitamin B 12 deficiency Vitamin D deficiency Surgical History H/O cataract removal with insertion of prosthetic lens (12/2018) History of bilateral breast reduction surgery (1998) History of cholecystectomy (2017) History of tonsillectomy History of total abdominal hysterectomy Family History Mother Breast cancer Atrial fibrillation Father CVA (cerebral vascular accident) Atrial fibrillation COPD (chronic obstructive pulmonary disease) Myocardial infarction Abdominal aortic aneurysm Social History Smoking Status: Former smoker how long ago did patient quit smokin years ago alcohol intake: current alcohol intake frequency: holidays/special occasions only substance use type: does not use caffeine: Yes Type: coffee Number of servings: 1 ROS Const Const: Negative for fatigue, weakness, headache(s), frequent falls, excessive sweating, weight gain or weight loss Eyes Eyes: Negative for blind spots, loss of peripheral vision, transient loss of vision, blurry vision, change in vision or double vision ENT ENT: Negative for headache(s), dizziness, tinnitus, Nosebleed/epistaxis or balance problems Cardio Chest Pain: No Palpitations: No Edema: None Muscle aches with walking: None Resp Respiratory: Negative for SOB with activity, SOB at rest, SOB orthopnea SOB lying down or Cough GI GI: Negative nausea, vomiting, heartburn, bloating, vomiting blood/hematemesis, bright, red blood in stools or black,tarry stools : Negative for hematuria Musc Musc: Negative for muscle aches/ myalgia, muscle weakness, joint pain or balance problems Skin Skin: Negative rash or wounds Neuro Neuro: Negative for dizziness, lightheadedness, near syncope, syncope, orthostatic symptoms, frequent falls, headache(s), weakness, confusion, memory loss, restless legs, blurry vision or double vision Skyler Hematologic/Lymphatic: Negative for easy bleeding or easy bruising Endo Endo: Negative for fatigue, cold intolerance, heat intolerance or excessive sweating Psych Psych: Negative for anxiety or depression Allergy Allergy/Immunology: Negative for rash Cardiology Exam Const Appearance: cooperative, healthy appearing, comfortable, no acute distress and well developed Orientation: alert, awake and oriented x3 Head Head: normal to inspection Ears: hearing grossly normal bilaterally Nose: external nose normal Face and Sinus: face symmetric Mouth: oral mucosae normal, lip normal and moist mucous membranes Eyes General: appearance normal, both eyes and all related structures Eyelids: eyelids normal Conjunctivae: conjunctivae normal Pupils: PERRL EOM: EOM intact bilaterally Neck Neck: normal visual inspection and trachea midline; Negative no JVD Carotids: Negative bruit Chest Chest inspection: normal inspection of the chest Auscultation: Bilateral: Clear to Auscultation Cardio Palpation: normal PMI Rate: regular rate Rhythm: regular rhythm and ectopic beats Heart sounds: S1 normal and S2 normal; Negative rub, gallop or murmur GI GI: soft, no hepatosplenomegaly and bowel sounds present Neuro General: patient alert, patient awake, patient oriented x3 and CN's II-XI intact bilaterally Extremities Pulses: Normal: Right Posterior Tibial Pulse, Left Posterior Tibial Pulse, Right Radial Pulse and Left Radial Pulse Lower Extremity Edema: None: Bilateral Psych Psychological: normal affect Supplemental Info Supplemental Information Echocardiogram 09/07/19: The estimated ejection fraction is 65 %. Stage 1 diastolic dysfunction. Trivial tricuspid valve insufficiency. Right ventricular systolic pressure estimated to be 27 mmHg. Trivial aortic valve insufficiency. There is no comparison study available. Stress echo 09/15/2019: The estimated ejection fraction is 65 %. Normal, adequate, treadmill echocardiogram. Negative for ischemia by EKG and echocardiographic criteria. Rare PVC noted. Appropriate blood pressure response to exercise. Average exercise capacity for age. Test terminated due to the attainment target heart rate. Final LVEF is 75%. Decrease sensitivity due to poor echo windows requiring Definity agent. No complications. The study was technically difficult. Contrast injection was performed. Labs: LDL Cholesterol 89 mg/dL (0-130) HDL Cholesterol 64 mg/dL (40-) Triglycerides 122 mg/dL (-199) VLDL Cholesterol 24 mg/dL (5-40) Diagnostics: Electrocardiogram Pulmonary: No Data to Display Assessment and Plan Assessment and Plan (1) Palpitations: Status: Chronic Plan: Patient feels that her palpitations have improved on diltiazem.Will not make any adjustments. (2) Essential hypertension: Status: Chronic Plan: Patient does have orthostatic hypotension. Blood pressures upon recheck were 104/70 supine, 100/70 sitting, 90/60 standing. We will have her stop her lisinopril/hydrochlorothiazi de. Initially discussed putting her just on lisinopril at 5 mg however patient feels that she does have issues with edema. We will continue with hydrochlorothiazide at 25 mg daily. She will repeat a BMP in 2 weeks. She will let us know at that time what her blood pressure readings have been. Orders: Orders Basic Metabolic Profile (BMP) 2 Weeks I10 - Essential (primary) hypertension Medications: New hydrochlorothiazide 25 mg PO DAILY 30 tabs 11RF Discontinued lisinopril-hydrochlorothiazi de 10-12.5 mg Discontinued Reason: Order Changed 1 TAB PO DAILY 30 tabs 11RF Patient Instructions: Stop the lisinopril/HCTZ and start HCTZ 25 mg. Get Blood work in 2 weeks. Let us know what your Bp readings have been at that time. Plan Details Additional Comments: Thank you for allowing me to participate in the care of your patient. Please don't hesitate to call if any issues arise. This note was generated using a voice recognition system and there may be incorrect words, spelling or punctuation that were not noted when reviewing the office note prior to saving. Follow Up: 07/17/22 (keep as is) Coding Level of Care Code Off vis,est,level 3 Diagnoses Palpitations R00.2 Essential hypertension I10 Coding Level of Care Code Off vis,est,level 3 Diagnoses Palpitations R00.2 Essential hypertension I10 07/17/22 1339 <Electronically signed by Ronna Crump> Date Ronna SIMON Cosigner Signature: Date (if applicable) CC: LEGAL OFFICE ADMINISTRATOR-C Shakila Ochoa [facility] Work Phone: Start: 05-03-2022 Screening mammography LEGAL OFFICE ADMINISTRATOR-C Shakila Carter LEGAL OFFICE ADMINISTRATOR Work Phone: Start: 05-03-2022 End: 05-03-2022 SCRN MAMM (CAD)W/LIZBETH BILAT Procedure Note: See Note; NOTES: [facility] Imaging Services [address] [place] [address] SCRN MAMM (CAD)W/LIZBETH BILAT MR#: [id number] Acct: [id number] Name: ZAINABJEANNE Levy Juliette Rep #: [id number] : 1960 F 62 From: Willis wade MD PCP: RANDEE Hopson Status: REG CLI Study: SCRN MAMM (CAD)W/LIZBETH BILAT Date of Exam: 04/09 02/27 Exam# [id number] Ordering Dr: Eugene Ochoa MAMMOGRAPHY - BILATERAL SCREENING REASON FOR EXAM: Female, 62 years old. Routine annual screening examination. PERTINENT HISTORY: Mother with breast cancer. History of prior bilateral breast reduction surgery. TECHNIQUE: Digital bilateral breast lizbeth (3D mammographic acquisition) in the CC and MLO projections. 2-D mediolateral oblique (MLO) and craniocaudad (CC) views of both breasts were obtained. CAD: Full Field Digital Mammography with Computer Added Detection was performed. COMPARISON: Comparison is made with prior study of 04/05/2021 and 02/29/2020. FINDINGS: Breast Composition: There are scattered areas of fibroglandular density. There are no dominant masses or suspicious calcifications. Stable small benign-appearing bilateral axillary lymph nodes. No other significant abnormalities are identified. There has been no significant change since the prior study. BI/SCRN MAMM (CAD)W/LIZBTEH BILAT IMPRESSION: Stable bilateral screening mammogram. Yearly follow-up mammogram recommended. (A) ASSESSMENT CATEGORY: BIRADS Category 2: Benign. A letter regarding these results will be sent to the patient by the facility within 30 days. Approximately 10% of breast cancers are not detected by mammography. A normal mammogram should not delay biopsy of a clinically suspicious abnormality. [id number] Electronically Signed: Willis Daugherty MD at 12:53 EDT , CC: Eugene Ochoa NP; RANDEE Carter Vice President Of Talent Management: Signed Eugene Ochoa CNP Work Phone: Start: 01-09-2022 End: 01-09-2022 Cardiology Visit Report Comments: See Note; NOTES: [facility] [address] [place] [address] OFFICE VISIT Date of Service: 01/09/22 MR#: [id number] Acct: [id number] Name: JEANNE SANTACRUZ Rep #: [id number] : 1960 Provider: RANDEE fuller Age/Sex: 61/F Location: [facility] Status: Signed [facility] History of Present Illness Details: This is a 61-year-old white female who presents today for outpatient cardiovascular follow- up of her history of palpitations, PACs, hyperlipidemia, and hypertension previously followed by my former colleague Dr. Joseph Patten and previously evaluated by Dr. Ruslan Nguyen of electrophysiology at [facility]. At the present time she states she senses a rare palpitation. She does not believe she has developed any significant change in her rate or rhythm on a consistent basis. There has been no near syncope or syncope. She has had no episodes of concerning chest discomfort or difficulty breathing. Her previous noninvasive studies were reviewed. Her previous EP consultation was reviewed. It was noted there was recommendations for continued observational follow-up, medical therapy with either a calcium channel antagonist or a beta-gely, and no need for anticoagulant therapy or additional EP diagnostic studies, etc., at the time. She states episodes of palpitations 2-3 over last month lasting upwards to 30 minutes. She states weekly sharp midsternal, left chest discomfort. This is at rest. This can last for hours. This improves with aspirin. She acknowledges shortness breath with activity, most notably during times of palpitations. She denies shortness of breath at rest, orthopnea, cough PND. She acknowledges dizziness with palpitations. She denies lightheadedness, near-syncope, or syncope. She denies fatigue. Intake Vital Signs 01/09/22 13:02 Height 5 ft 5 in Weight: 210 lb BMI 34.9 BP 117/77 Blood Pressure Location Lt brachial Position Sitting Respiration 14 Pulse 60 Pulse Source Monitor Intake Visit Reasons: 6 m Complaints Coordinator Required: No Accompanied by: None Is patient in pain?: No Allergies Sulfa (Sulfonamide Antibiotics) Allergy (Verified 01/09/22 13:07) Hives amoxicillin [From Augmentin] Adverse Reaction (Verified 01/09/22 13:07) Upset Stomach clavulanic acid [From Augmentin] Adverse Reaction (Verified 01/09/22 13:07) Upset Stomach Medications cyanocobalamin (vitamin B-12) 1,000 mcg/mL injection solution 100 mcg IM .[id number] ml 08/25/19 [History Confirmed 01/09/22] cholecalciferol (vitamin D3) 50 mcg (2,000 unit) tablet 2,000 unit PO DAILY 08/31/19 [History Confirmed 01/09/22] sertraline 50 mg tablet 50 mg PO DAILY 03/06/20 [History Confirmed 01/09/22] colestipol 1 gram tablet 2 g PO DAILY tab 07/09/21 [History Confirmed 01/09/22] lisinopril 10 mg-hydrochlorothiazide 12.5 mg tablet 1 tab PO DAILY #30 tab 08/21/21 [Rx Confirmed 01/09/22] diltiazem HCl 120 mg capsule,extended release 24 hr 120 mg PO DAILY #30 cap 10/08/21 [Rx Confirmed 01/09/22] knrwjvip-gzx-dcer 18 mg-FA 400 mcg-calcium 500 mg-vit K 50 mcg tablet tab PO 01/09/22 [History Confirmed 01/09/22] Ejection fraction %: 65 to 70 PFSH Medical History Diarrhea following gastrointestinal surgery Essential hypertension Former smoker Hyperlipidemia Palpitations Premature atrial contractions Sinus arrhythmia Vitamin B 12 deficiency Vitamin D deficiency Surgical History H/O cataract removal with insertion of prosthetic lens (12/2018) History of bilateral breast reduction surgery (1998) History of cholecystectomy (2017) History of tonsillectomy History of total abdominal hysterectomy Family History Mother Breast cancer Atrial fibrillation Father CVA (cerebral vascular accident) Atrial fibrillation COPD (chronic obstructive pulmonary disease) Myocardial infarction Abdominal aortic aneurysm Social History Smoking Status: Former smoker how long ago did patient quit smokin years ago alcohol intake: current alcohol intake frequency: holidays/special occasions only substance use type: does not use caffeine: Yes Type: coffee Number of servings: 1 ROS Const Const: Negative for fatigue, weakness, headache(s), frequent falls or daytime sleepiness Eyes Eyes: Negative for blurry vision or double vision ENT ENT: Positive for dizziness (with episodes of palpitations); Negative for headache(s), Nosebleed/epistaxis or balance problems Cardio Chest Pain: Yes Frequency: weekly Character: sharp Onset: at rest Location: mid sternal and left chest Duration: hours Relieving: other (aspirin) Palpitations: Yes (often burps during this) feels like its: irregular (rate is bouncing around on pulse ox) Edema: None Muscle aches with walking: None Resp Respiratory: Positive for SOB with activity (SOB with episodes of palpitations) and snoring; Negative for SOB at rest, SOB orthopnea SOB lying down, Cough or paroxysmal nocturnal dyspnea GI GI: Positive for belching; Negative nausea, vomiting or black,tarry stools : Negative for hematuria Musc Musc: Negative for muscle aches/ myalgia, joint pain or balance problems Neuro Neuro: Positive for dizziness (with episodes of palpitations); Negative for lightheadedness, near syncope, syncope, frequent falls, headache(s), weakness, blurry vision or double vision Endo Endo: Negative for fatigue Cardiology Exam Const Appearance: cooperative, healthy appearing, comfortable and no acute distress Nutritional Appearance: well nourished and obese Orientation: alert, awake and oriented x3 Head Head: normal to inspection Ears: hearing grossly normal bilaterally Nose: external nose normal Face and Sinus: face symmetric Mouth: oral mucosae normal Eyes General: appearance normal, both eyes and all related structures Eyelids: eyelids normal EOM: EOM intact bilaterally Neck Neck: normal visual inspection and no JVD Carotids: normal carotid upstroke Chest Chest inspection: normal inspection of the chest, symmetric chest movement and normal respiratory effort; Negative cough Auscultation: Bilateral: Clear to Auscultation Cardio Rate: regular rate Rhythm: regular rhythm Heart sounds: S1 normal and S2 normal; Negative rub, gallop or murmur GI GI: normal to inspection and obese Neuro General: patient alert, patient awake, patient oriented x3 and CN's II-XI intact bilaterally Skin Skin: no rashes or lesions noted Extremities Pulses: Normal: Right Posterior Tibial Pulse, Left Posterior Tibial Pulse, Right Radial Pulse and Left Radial Pulse Lower Extremity Edema: None: Bilateral Psych Psychological: normal affect Supplemental Info Supplemental Information Echocardiogram 09/07/19: The estimated ejection fraction is 65 %. Stage 1 diastolic dysfunction. Trivial tricuspid valve insufficiency. Right ventricular systolic pressure estimated to be 27 mmHg. Trivial aortic valve insufficiency. There is no comparison study available. Stress echo 09/15/2019: The estimated ejection fraction is 65 %. Normal, adequate, treadmill echocardiogram. Negative for ischemia by EKG and echocardiographic criteria. Rare PVC noted. Appropriate blood pressure response to exercise. Average exercise capacity for age. Test terminated due to the attainment target heart rate. Final LVEF is 75%. Decrease sensitivity due to poor echo windows requiring Definity agent. No complications. The study was technically difficult. Contrast injection was performed. Labs: LDL Cholesterol 89 mg/dL (0-130) HDL Cholesterol 64 mg/dL (40-) Triglycerides 122 mg/dL (-199) VLDL Cholesterol 24 mg/dL (5-40) Diagnostics: Electrocardiogram Stress Echocardiogram Pulmonary: No Data to Display Assessment and Plan Assessment and Plan (1) Palpitations: Status: Chronic Orders: Orders: 30 Day Event Recorder Preventi Today Plan - Mookie Espinosa LEGAL OFFICE ADMINISTRATOR, LEGAL OFFICE ADMINISTRATOR-C: Patient acknowledges ongoing palpitations. However, she notes a change in palpitation sensation. She does acknowledge multiple episodes of this month with one episode lasting up to 30 minutes. This was associated with shortness of breath. She states during that time she placed a pulse ox on her finger and noted fluctuating heart rate. On account of change in sensation and duration of up towards to 30 minutes, she undergo a 30-day event monitor to help assess further. One concern is atrial fibrillation given family history. She will continue diltiazem therapy. Based on results of 30-day event monitor further recommendation will be made. If atrial fibrillation is noted, will consider anticoagulant therapy. She does note intermittent snoring. She denies any daytime fatigue or witnessed apnea. She was reminded of the importance of considering ANTOINETTE on an ongoing basis. (2) Premature atrial contractions: Status: Chronic Orders: Orders: 30 Day Event Recorder Preventi Today Plan - Mookie Espinosa LEGAL OFFICE ADMINISTRATOR, LEGAL OFFICE ADMINISTRATOR-C: She undergo a 30-day event monitor to ensure stability. She will continue diltiazem. (3) Hyperlipidemia: Status: Chronic Qualifiers: Hyperlipidemia type: unspecified Qualified Code(s): E78.5 - Hyperlipidemia, unspecified Plan - Mookie Espinosa LEGAL OFFICE ADMINISTRATOR, LEGAL OFFICE ADMINISTRATOR-C: She will continue risk factor and lifestyle modification. She is currently on colestipol due to digestive issues. Her last lipid panel on 07/17/2021 showed cholesterol: 177, HDL: 64, LDL: 89, and triglycerides: 122. (4) Essential hypertension: Status: Chronic Plan - Mookie Espinosa LEGAL OFFICE ADMINISTRATOR, LEGAL OFFICE ADMINISTRATOR-C: Patient's blood pressure is well-controlled. We will continue to monitor. We will not make any medication regimen changes. Plan Details Additional Comments: Thank you for allowing me to participate in the care of your patient. Please don't hesitate to call if any issues arise. This note was generated using a voice recognition system and there may be incorrect words, spelling or punctuation that were not noted when reviewing the office note prior to saving. Follow Up: 12-14 Months (PFM) 6 Months (LEGAL OFFICE ADMINISTRATOR/PA) Coding Level of Care Code Off vis,est,level 4 Diagnoses Palpitations R00.2 Premature atrial contractions I49.1 Hyperlipidemia E78.5 Hyperlipidemia type: unspecified Essential hypertension I10 Coding Level of Care Code Off vis,est,level 4 Diagnoses Palpitations R00.2 Premature atrial contractions I49.1 Hyperlipidemia E78.5 Hyperlipidemia type: unspecified Essential hypertension I10 01/09/22 1500 <Electronically signed by Mookie Espinosa NP LEGAL OFFICE ADMINISTRATOR-C> Date Mookie Espinosa NP LEGAL OFFICE ADMINISTRATOR-C Cosigner Signature: Date (if applicable) CC: LEGAL OFFICE ADMINISTRATOR-C Shakila Carter Start: 07-09-2021 End: 07-09-2021 Cardiology Visit Report Comments: See Note; NOTES: [facility] [address] [place] [address] OFFICE VISIT Date of Service: 07/09/21 MR#: [id number] Acct: [id number] Name: ZAINABYordanJEANNE Juliette Rep #: [id number] : 1960 Provider: Dr. David melgoza MD Age/Sex: 61/F Location: [facility] Status: Signed HPI HPI History of Present Illness Details: This is a 61-year-old white female who presents today for outpatient cardiovascular follow- up of her history of palpitations, PACs, hyperlipidemia, and hypertension previously followed by my former colleague Dr. Joseph Patten and previously evaluated by Dr. Ruslan Nguyen of electrophysiology at [facility]. At the present time she states she senses a rare palpitation. She does not believe she has developed any significant change in her rate or rhythm on a consistent basis. There has been no near syncope or syncope. She has had no episodes of concerning chest discomfort or difficulty breathing. Her previous noninvasive studies were reviewed. Her previous EP consultation was reviewed. It was noted there was recommendations for continued observational follow-up, medical therapy with either a calcium channel antagonist or a beta-gely, and no need for anticoagulant therapy or additional EP diagnostic studies, etc., at the time. Intake Vital Signs 07/09/21 13:55 Height 5 ft 5 in Weight: 209 lb 4 oz BP 110/76 Blood Pressure Location Lt brachial Position Sitting Respiration 18 Pulse 72 Pulse Source Auscultation Intake Visit Reasons: 9 MO F/U (TIFFANIEN PT) Complaints Coordinator Required: No Accompanied by: Self Allergies Sulfa (Sulfonamide Antibiotics) Allergy (Verified 07/09/21 13:59) Hives amoxicillin [From Augmentin] Adverse Reaction (Verified 07/09/21 13:59) Upset Stomach clavulanic acid [From Augmentin] Adverse Reaction (Verified 07/09/21 13:59) Upset Stomach Medications cyanocobalamin (vitamin B-12) 1,000 mcg/mL injection solution 100 mcg IM .[id number] ml 08/25/19 [History Confirmed 07/09/21] lisinopril 10 mg-hydrochlorothiazide 12.5 mg tablet 1 tab PO DAILY 08/25/19 [History Confirmed 07/09/21] cholecalciferol (vitamin D3) 50 mcg (2,000 unit) tablet 2,000 unit PO DAILY 08/31/19 [History Confirmed 07/09/21] sertraline 50 mg tablet 50 mg PO DAILY 03/06/20 [History Confirmed 07/09/21] diltiazem HCl 120 mg capsule,extended release 24 hr 120 mg PO DAILY #30 cap 09/06/20 [Rx Confirmed 07/09/21] colestipol 1 gram tablet 2 g PO DAILY tab 07/09/21 [History Confirmed 07/09/21] [facility] Medical History (Updated 07/09/21 @ 14:[address] David Fields MD) Diarrhea following gastrointestinal surgery Essential hypertension Former smoker Hyperlipidemia Palpitations Premature atrial contractions Sinus arrhythmia Vitamin B 12 deficiency Vitamin D deficiency Surgical History H/O cataract removal with insertion of prosthetic lens (12/2018) History of bilateral breast reduction surgery (1998) History of cholecystectomy (2017) History of tonsillectomy History of total abdominal hysterectomy Family History Mother Breast cancer Atrial fibrillation Father CVA (cerebral vascular accident) Atrial fibrillation COPD (chronic obstructive pulmonary disease) Myocardial infarction Abdominal aortic aneurysm Social History Smoking Status: Former smoker ROS Const Const: Negative for fatigue, weakness, frequent falls, excessive sweating, weight gain or weight loss Eyes Eyes: Negative for transient loss of vision, blurry vision or change in vision ENT ENT: Positive for dizziness (w/palpitations); Negative for balance problems Cardio Chest Pain: No Palpitations: Yes (good/bad days; dizziness with palpitations) feels like its: irregular Edema: Bilateral (ankles) Muscle aches with walking: None Resp Respiratory: Positive for SOB with activity (going uphill); Negative for SOB at rest GI GI: Negative vomiting or vomiting blood/hematemesis : Negative for hematuria Musc Musc: Negative for muscle aches/ myalgia, muscle weakness, joint pain or balance problems Skin Skin: Negative non-healing lesions or rash Neuro Neuro: Positive for dizziness (w/palpitations); Negative for lightheadedness, orthostatic symptoms, frequent falls, weakness or blurry vision Skyler Hematologic/Lymphatic: Negative for easy bleeding Endo Endo: Negative for fatigue or excessive sweating Psych Psych: Negative for anxiety or depression Allergy Allergy/Immunology: Negative for hives and Negative for rash Cardiology Exam Const Appearance: cooperative, healthy appearing, comfortable, no acute distress, well developed and well groomed Nutritional Appearance: overweight Orientation: alert, awake and oriented x3 Head Head: normal to inspection, normocephalic and atraumatic Ears: hearing grossly normal bilaterally Nose: external nose normal Face and Sinus: face symmetric Eyes Eyelids: eyelids normal Conjunctivae: conjunctivae normal Pupils: PERRL EOM: EOM intact bilaterally Neck Neck: normal visual inspection and full ROM Carotids: normal carotid upstroke Chest Chest inspection: normal inspection of the chest, symmetric chest movement and normal respiratory effort Auscultation: Bilateral: Clear to Auscultation Cardio Palpation: normal PMI Rate: regular rate Rhythm: regular rhythm Heart sounds: S1 normal and S2 normal GI GI: normal to inspection, soft and bowel sounds present Neuro General: patient alert, patient awake, patient oriented x3 and moves all extremities Skin Skin: no rashes or lesions noted Extremities Pulses: Normal: Right Radial Pulse and Left Radial Pulse Lower Extremity Edema: None: Bilateral Psych Psychological: normal affect Supplemental Info Supplemental Information Echocardiogram 09/07/19: The estimated ejection fraction is 65 %. Stage 1 diastolic dysfunction. Trivial tricuspid valve insufficiency. Right ventricular systolic pressure estimated to be 27 mmHg. Trivial aortic valve insufficiency. There is no comparison study available. Stress echo 09/15/2019: The estimated ejection fraction is 65 %. Normal, adequate, treadmill echocardiogram. Negative for ischemia by EKG and echocardiographic criteria. Rare PVC noted. Appropriate blood pressure response to exercise. Average exercise capacity for age. Test terminated due to the attainment target heart rate. Final LVEF is 75%. Decrease sensitivity due to poor echo windows requiring Definity agent. No complications. The study was technically difficult. Contrast injection was performed. Labs: LDL Cholesterol 74 mg/dL (0-130) HDL Cholesterol 78 mg/dL (40-) Triglycerides 215 mg/dL (-199) H VLDL Cholesterol 43 mg/dL (5-40) H Diagnostics: Electrocardiogram Echocardiogram Stress Echocardiogram Chest X-Ray Pulmonary: No Data to Display Assessment and Plan Assessment and Plan (1) Palpitations: Status: Acute Plan - Dr. David Fields MD: She does sense an occasional palpitation. She does not describe symptoms where it sounds as if she has gone into atrial dysrhythmias. On examination today she remains in a regular rhythm. (2) Premature atrial contractions: Status: Acute Plan - Dr. David Fields MD: At the present time she appears to be doing reasonably well with no acute changes. She will continue her current therapy and follow-up. (3) Hyperlipidemia: Status: Chronic Qualifiers: Hyperlipidemia type: unspecified Qualified Code(s): E78.5 - Hyperlipidemia, unspecified Plan - Dr. David Fields MD: Her lipid labs from March 2020 were reviewed. She will be asked to have future fasting lipid profile to monitor her cardiovascular risks. (4) Essential hypertension: Status: Acute Plan - Dr. David Fields MD: Her blood pressure appears to be well controlled at this time. She will continue her current therapy. Plan Details Other Orders: Orders: Lipid Profile 1 Day E78.00 Liver Profile 1 Day E78.00 Additional Comments: Thank you for allowing me to participate in the care of your patient. Please don't hesitate to call if any issues arise. This note was generated using a voice recognition system and there may be incorrect words, spelling or punctuation that were not noted when reviewing the office note prior to saving. Follow Up: 6 Months (PFM) COVID (Procedure Consent) Procedure Criteria Procedure Criteria: Yes Elective The surgeon/proceduralist and patient have discussed in detail the risk of exposure to and/or potential harm posed by the COVID-19 virus with having a surgery/procedure at this time versus the risk of??? delaying the surgery/procedure. It is not possible to know either the risk of delaying the surgery or procedure or chance of getting an infection with perfect accuracy, but a joint decision was made between the patient and the surgeon/proceduralist ???to proceed at this time with the scheduled surgery/procedure as indicated on the consent form. Coding Level of Care Code Off vis,est,level 4 Diagnoses Palpitations R00.2 Premature atrial contractions I49.1 Hyperlipidemia E78.5 Hyperlipidemia type: unspecified Essential hypertension I10 Coding Level of Care Code Off vis,est,level 4 Diagnoses Palpitations R00.2 Premature atrial contractions I49.1 Hyperlipidemia E78.5 Hyperlipidemia type: unspecified Essential hypertension I10 07/09/21 1430 <Electronically signed by David Fields MD> Date David Fields MD Cosigner Signature: Date (if applicable) CC: LEGAL OFFICE ADMINISTRATOR-C Shakila Carter [facility] Work Phone: Start: 04-05-2021 End: 06-27-2021 SCRN MAMM (CAD)W/LIZBETH BILAT Comments: See Note; NOTES: [facility] Imaging Services [address] [place] [address] SCRN MAMM (CAD)W/LIZBETH BILAT MR#: [id number] Acct: [id number] Name: JEANNE SANTACRUZ Rep #: [id number] : 1960 F 60 From: Willis wade MD PCP: Shakila Carter, LEGAL OFFICE ADMINISTRATOR-Malathi Status: [facility] CL Study: SCRN MAMM (CAD)W/LIZBETH BILAT Date of Exam: 03/09 05/29 Exam# [id number] Ordering Dr: JAIR RAUSCH MAMMOGRAPHY - BILATERAL SCREENING REASON FOR EXAM: Female, 60 years old. Routine annual screening examination. PERTINENT HISTORY: Mother with breast cancer. History of prior bilateral breast reduction surgery. TECHNIQUE: Digital bilateral breast lizbeth (3D mammographic acquisition) in the CC and MLO projections. 2-D mediolateral oblique (MLO) and craniocaudad (CC) views of both breasts were obtained. CAD: Full Field Digital Mammography with Computer Added Detection was performed. COMPARISON: Comparison is made with prior examination dated 02/29/2020 FINDINGS: Breast Composition: There are scattered areas of fibroglandular density. There are no dominant masses or suspicious calcifications. Stable benign-appearing bilateral axillary lymph nodes. No other significant abnormalities are identified. There has been no significant change since the prior study. BI/SCRN MAMM (CAD)W/LIZBETH BILAT IMPRESSION: Stable bilateral screening mammogram. Yearly follow-up mammogram recommended. (A) ASSESSMENT CATEGORY: BIRADS Category 2: Benign. A letter regarding these results will be sent to the patient by the facility within 30 days. Approximately 10% of breast cancers are not detected by mammography. A normal mammogram should not delay biopsy of a clinically suspicious abnormality. [id number] Electronically Signed: Willis Daugherty MD at 12:22 EDT , Service support , CC: RANDEE Carter; JAIR RAUSCH Vice President Of Talent Management: Signed Shakila Carter CNP Work Phone: Start: 01-03-2021 End: 01-03-2021 Small Bowel Series Only Comments: See Note; NOTES: [facility] Services [address] [place] [address] Small Bowel Series Only MR#: [id number] Acct: [id number] Name: JEANNE SANTACRUZ Rep #: [id number] : 1960 F 60 From: Willis wade MD PCP: RANDEE Hopson Status: REG CLI Study: Small Bowel Series Only Date of Exam: 01/03/21 Exam# [id number] Ordering Dr: Shakila Carter NP LEGAL OFFICE ADMINISTRATOR-C PROCEDURE: SMALL BOWEL SERIES DATE OF EXAMINATION: 01/03/2021. INDICATION: Female, 60 years old. 3 month history of left upper quadrant pain. Acid reflux. PHYSICIAN: Willis Daugherty M.D. FLUOROSCOPY TIME (if supplied): (1:58) minutes/seconds TECHNIQUE: Radiographic and fluoroscopic images were taken of the small intestine following the ingestion of barium. COMPARISON: None. FINDINGS: A preliminary supine KUB was obtained. There is an unremarkable bowel gas pattern. Fecal material is present throughout the colon. Prior cholecystectomy. Phleboliths are present within the pelvis. The lung bases are unremarkable. Mild dextroscoliosis. Degenerative changes of the lower lumbar spine. The patient orally ingested approximately 12 ounces of thin barium Normal visualized fundus, body, and antrum of the stomach. Normal duodenal bulb, C-loop, and proximal jejunum. Normal visualized mucosal folds of the jejunum and ileum. There are no demonstrated dilatations, strictures, or masses of the small intestine. There is no mass displacement of the loops of small intestine. There is a normal motor pattern with barium reaching the colon within approximately 60 minutes. Spot films under fluoroscopic observation demonstrated a normal terminal ileum and ileocecal valve. RAD/Small Bowel Series Only IMPRESSION: Normal small bowel series. Electronically Signed: Willis Daugherty MD at 14:18 EDT , Service support , CC: RANDEE Carter Vice President Of Talent Management: Signed Shakila Carter [employer] Work Phone: Start: 09-07-2020 End: 09-12-2020 12 Lead EKG performed by [facility] Comments: See Note; NOTES: [facility] [address] [place] [address] 12 Lead EKG performed by [facility] 09/07/20900 MR#: [id number] Acct: [id number] Name: JEANNE SANTACRUZ Rep #: [id number] : 1960 60 From: Ronna SIMON PA Attending Dr: AURORA Mccall Status: DEP AMB Ordering Dr: Ronna Galeano Date: 08/10 09/27 Location: [facility] Sex: F C Admitted: [facility]/12 Lead EKG performed by [facility] ECG Report Interpretation Si nus Rhythm - frequent PAC s # PACs = 3.Low voltage in precordial leads. - Negative precordial T-waves. ABNORMAL Electronically signed on 09/12/2020 at 14:42 by [employer] Version [id number] 09/12/20 1501 Date Ronna SIMON CC: RANDEE Carter Date Dictated: 09/07/20900 Date Transcribed: 09/07/20900 Vice President Of Talent Management: SHANNON Signed Shakila Carter Start: 09-07-2020 End: 09-09-2020 Cardiology Visit Report Comments: See Note; NOTES: [facility] [address] [place] [address] OFFICE VISIT Date of Service: 09/07/20 MR#: [id number] Acct: [id number] Name: JEANNE SANTACRUZ Rep #: [id number] : 1960 Provider: AURORA Sainz Age/Sex: 60/F Location: [facility] Status: Signed HPI [facility] History of Present Illness Details: This is a 60 year old female that presents here today for a cardiovascular follow up. She has a hx of HTN, HL, palpitations, frequent PACs. She did see EP, they had recommended continued monitoring of symptoms and medical management. From a cardiac standpoint, patient is doing well. She does not have any chest discomfort/heaviness/tightne ss. She does not have any worsening symptoms of shortness of breath. She does not have any orthopnea. She denies PND. She does not have any symptoms of congestive heart failure. She does have palpitations but they are not bothersome. She does not have any lightheadedness or dizziness. She does not have any near-syncope or syncope. She does not have any lower extremity edema. She does not have any symptoms of claudication. Intake Vital Signs 09/07/20 Height 5 ft 5 in 09/07/20 Weight: 199 lb 09/07/20 BP 126/81 H 09/07/20 Blood Pressure Location Lt brachial 09/07/20 Position Sitting 09/07/20 Respiration 18 09/07/20 Pulse 96 09/07/20 Pulse Source Monitor 09/07/20 Pulse Oximetry (%) 98 Intake Visit Reasons: 6 M FU Complaints Coordinator Required: No Accompanied by: None Is patient in pain?: No Allergies Sulfa (Sulfonamide Antibiotics) Allergy (Verified 09/07/20 08:58) Hives amoxicillin [From Augmentin] Adverse Reaction (Verified 09/07/20 08:58) Upset Stomach clavulanic acid [From Augmentin] Adverse Reaction (Verified 09/07/20 08:58) Upset Stomach Medications colestipol 1 gram tablet 2 g PO BID tab 08/25/19 [History Confirmed 09/07/20] conjugated estrogens 0.625 mg tablet 0.625 mg PO DAILY 08/25/19 [History Confirmed 09/07/20] cyanocobalamin (vitamin B-12) 1,000 mcg/mL injection solution 100 mcg IM .[id number] ml 08/25/19 [History Confirmed 09/07/20] lisinopril 10 mg-hydrochlorothiazide 12.5 mg tablet 1 tab PO DAILY 08/25/19 [History Confirmed 09/07/20] cholecalciferol (vitamin D3) 50 mcg (2,000 unit) tablet 2,000 unit PO DAILY 08/31/19 [History Confirmed 09/07/20] sertraline 50 mg tablet 50 mg PO DAILY 03/06/20 [History Confirmed 09/07/20] diltiazem HCl 120 mg capsule,extended release 24 hr 120 mg PO DAILY #30 cap 09/06/20 [Rx Confirmed 09/07/20] [facility] Medical History Hyperlipidemia (Chronic) Premature atrial contractions (Acute) Hypertension (Chronic) Palpitations (Acute) Sinus arrhythmia (Acute) Essential hypertension (Chronic) Former smoker (Chronic) Diarrhea following gastrointestinal surgery (Chronic) Vitamin D deficiency (Chronic) Vitamin B 12 deficiency (Chronic) Surgical History H/O cataract removal with insertion of prosthetic lens (Chronic 12/2018) History of bilateral breast reduction surgery (Chronic 1998) History of cholecystectomy (Chronic 2017) History of tonsillectomy (Chronic) History of total abdominal hysterectomy (Chronic) Family History Mother Breast cancer Atrial fibrillation Father CVA (cerebral vascular accident) Atrial fibrillation COPD (chronic obstructive pulmonary disease) Myocardial infarction Abdominal aortic aneurysm Social History (Updated 09/09/20 @ 10:48 by Ronna SIMON, PA) Smoking Status: Former smoker ROS Const Const: Positive for other (Feels well and Diltiazem is really helping palps); negative for fatigue, weakness, body ache, fever(s), headache(s), chills, frequent falls, night sweats, daytime sleepiness, difficulty sleeping, excessive sweating, weight gain, weight loss, increased appetite, poor appetite or anorexia Eyes Eyes: Negative for blind spots, loss of peripheral vision, transient loss of vision, blurry vision, change in vision, double vision, floaters, tunnel vision or other ENT ENT: Negative for headache(s), dizziness, hearing loss, tinnitus, Nosebleed/epistaxis, balance problems, post nasal drip, lip swelling, tongue swelling, bleeding gums, hoarseness, neck pain, dry mouth or other Cardio Chest Pain: No Palpitations: Yes (just once in awhile) Edema: None Muscle aches with walking: None Resp Respiratory: Negative for SOB with activity, SOB at rest, SOB orthopnea SOB lying down, Cough, Coughing up blood/hemoptysis, chest congestion, pain on inspiration, snoring, stridor, wheezing, crackles, paroxysmal nocturnal dyspnea or other GI GI: Negative nausea, vomiting, heartburn, constipation, belching, bloating, cramping, vomiting blood/hematemesis, bright, red blood in stools, black,tarry stools, loose stools, Difficulty Swallowing or other : Negative for hematuria, frequent nighttime urination/ nocturia, erectile dysfunction or abnormal vaginal bleeding Musc Musc: Negative for muscle aches/ myalgia, muscle weakness, joint pain or balance problems Skin Skin: Negative redness, non-healing lesions, rash, unusual bruising, skin ulcer, wounds, jaundice or other Neuro Neuro: Negative for dizziness, lightheadedness, near syncope, syncope, orthostatic symptoms, frequent falls, headache(s), weakness, confusion, memory loss, restless legs, blurry vision, double vision, vertigo, seizures, lack of coordination or other Skyler Hematologic/Lymphatic: Negative for easy bleeding, easy bruising, enlarged lymph nodes or other Endo Endo: Negative for fatigue, cold intolerance, heat intolerance, excessive sweating, flushing, increased thirst/drinking, increased hunger, hair loss, hair growth or other Psych Psych: Negative for anxiety, depression, thoughts of harming anyone, thoughts of harming yourself, visual hallucinations, panic attacks or audible hallucinations Allergy Allergy/Immunology: Negative for throat swelling, Negative for tongue swelling, Negative for hives, Negative for rash, Negative for lip swelling Cardiology Exam Const Appearance: cooperative, no acute distress and well developed Orientation: alert, awake and oriented x3 Head Head: normocephalic and atraumatic Mouth: moist mucous membranes Eyes General: appearance normal, both eyes and all related structures Conjunctivae: conjunctivae normal Pupils: PERRL EOM: EOM intact bilaterally Neck Neck: normal visual inspection, no lymphadenopathy and no JVD Carotids: Negative bruit Neck Mass: Negative Neck mass Chest Chest inspection: normal inspection of the chest and symmetric chest movement Auscultation: Bilateral: Clear to Auscultation Cardio Palpation: normal PMI Rate: regular rate Rhythm: regular rhythm Heart sounds: S1 normal and S2 normal; negative rub, gallop or murmur GI GI: normal to inspection, soft, no hepatosplenomegaly and bowel sounds present; negative tender Neuro General: alert, awake, oriented x3, CN's II-XI intact bilaterally and moves all extremities Extremities Pulses: Normal: Right Posterior Tibial Pulse, Left Posterior Tibial Pulse, Right Radial Pulse, Left Radial Pulse Lower Extremity Edema: None: Bilateral Psych Psychological: normal affect Assessment Plan 1. Essential hypertension I10 Plan Blood pressure is well controlled on current medications, we do not recommend any changes at this time. 2. Hyperlipidemia E78.5 Plan Laboratory Tests 03/30/20 08:18 Cholesterol 195 LDL Cholesterol 74 HDL Cholesterol 78 Pt will continue with current dose of colestid. 3. Premature atrial contractions I49.1 Plan Improved with addition of Cardizem. She will continue with current medications. Orders Orders: 12 Lead EKG performed by [facility] 09/07/20 Plan Detail Follow Up 9 Months (Establishing with PFM previous DJN) Coding Level of Care Code Off vis,est,level 3 Diagnoses Essential hypertension I10 Hyperlipidemia E78.5 Premature atrial contractions I49.1 Coding Level of Care Code Off vis,est,level 3 Diagnoses Essential hypertension I10 Hyperlipidemia E78.5 Premature atrial contractions I49.1 Supplemental Info Supplemental Information Echocardiogram 08/26: The estimated ejection fraction is 65 %. Stage 1 diastolic dysfunction. Trivial tricuspid valve insufficiency. Right ventricular systolic pressure estimated to be 27 mmHg. Trivial aortic valve insufficiency. There is no comparison study available. Stress echo 01/2020: The estimated ejection fraction is 65 %. Normal, adequate, treadmill echocardiogram. Negative for ischemia by EKG and echocardiographic criteria. Rare PVC noted. Appropriate blood pressure response to exercise. Average exercise capacity for age. Test terminated due to the attainment target heart rate. Final LVEF is 75%. Decrease sensitivity due to poor echo windows requiring Definity agent. No complications. The study was technically difficult. Contrast injection was performed. Labs LDL Cholesterol 74 mg/dL (0-130) 03/30/20 HDL Cholesterol 78 mg/dL (40-) 03/30/20 Triglycerides 215 mg/dL (-199) H 03/30/20 VLDL Cholesterol 43 mg/dL (5-40) H 03/30/20 Diagnostics Electrocardiogram 09/07/20 Echocardiogram 09/07/19 Stress Echocardiogram 09/15/19 09/09/20 1049 <Electronically signed by Ronna Crump> Date Ronna Stern Signature: Date (if applicable) CC: RANDEE Shakila Carter Start: 03-06-2020 End: 03-06-2020 Cardiology Visit Report Comments: See Note; NOTES: [facility] [facility] [place] [address] OFFICE VISIT Date of Service: 03/06/20 MR#: [id number] Acct: [id number] Name: JEANNE SANTACRUZ Rep #: [id number] : 1960 Provider: Dr. Joseph he MD Age/Sex: 59/F Location: [facility] Status: Signed HPI HPI History of Present Illness Details: Details: Mrs. Cottrell is a very pleasant 59-year-old female with a history of hypertension, former [id number] smoker quit around 2015, previously told she had mitral valve prolapse many years ago, but recent echocardiogram about 4 years ago at [facility] indicated she did not have mitral valve prolapse. Recently in the emergency room on 08/23/2019 with a chief complaint of not feeling well. She complained of palpitations, and shortness of breath. An EKG was performed which showed normal sinus rhythm with sinus arrhythmia and atrial bigeminy and a QT corrected of 439 ms. Chest x-ray was negative. Initial laboratory evaluation was unremarkable. Troponin was negative, TSH was 2.53. Patient was subsequently sent home and referred to our office for further management. She underwent a 24-hour Holter monitor on 08/26/2019 which showed 220 8 PVCs, 1 ventricular couplet and one interpolated beat, no runs noted, and 15% of PACs but no atrial fibrillation. Her symptoms did not correlate with the scan. She denies snoring, daytime somnolence, and exercises by riding on a stationary bike as well as walking her dog on a regular basis.. She has been on Zestoretic for the better part of 6 years, and has never had potassium supplementation. As part of her work-up she underwent an echocardiogram on 08/28/2019 with the following results: The estimated ejection fraction is 65 %. Stage 1 diastolic dysfunction. Trivial tricuspid valve insufficiency. Right ventricular systolic pressure estimated to be 27 mmHg. Trivial aortic valve insufficiency. There is no comparison study available. In addition she underwent a treadmill echocardiogram on 09/15/2019 which was negative for inducible ischemia. Since her last visit, the patient has been taking her Cardizem, and her palpitations have resolved. She denies any chest pain, angina, shortness of breath or dyspnea on exertion. She is taking and tolerating her medicines well. In our office today her blood pressure is 110/70, and pulse is 64 and regular. Her physical exam demonstrates clear lungs bilaterally, regular rate and rhythm, no carotid bruits, 2+ upstroke bilaterally, normal S1, S2, no S3, S4 or murmurs. She has no edema. Lipids are pending. EKG is as above. Intake Vital Signs 03/06/20 Height 5 ft 5 in 03/06/20 Weight: 201 lb 03/06/20 BMI 33.4 03/06/20 BP 110/70 03/06/20 Blood Pressure Location Lt brachial 03/06/20 Position Sitting 03/06/20 Respiration 20 H 03/06/20 Pulse 64 03/06/20 Pulse Source Auscultation 03/06/20 BMI 31.3 Intake Visit Reasons: 6 M FU Complaints Coordinator Required: No Is patient in pain?: No Allergies Sulfa (Sulfonamide Antibiotics) Allergy (Verified 08/23/19 10:08) Hives amoxicillin [From Augmentin] Adverse Reaction (Verified 08/23/19 10:08) Upset Stomach clavulanic acid [From Augmentin] Adverse Reaction (Verified 08/23/19 10:08) Upset Stomach Medications colestipol 1 gram tablet 2 g PO BID tab 08/25/19 [History Confirmed 03/06/20] conjugated estrogens 0.625 mg tablet 0.625 mg PO DAILY 08/25/19 [History Confirmed 03/06/20] cyanocobalamin (vitamin B-12) 1,000 mcg/mL injection solution 100 mcg IM .[id number] ml 08/25/19 [History Confirmed 03/06/20] lisinopril 10 mg-hydrochlorothiazide 12.5 mg tablet 1 tab PO DAILY 08/25/19 [History Confirmed 03/06/20] cholecalciferol (vitamin D3) 50 mcg (2,000 unit) tablet 2,000 unit PO DAILY 08/31/19 [History Confirmed 03/06/20] diltiazem HCl 120 mg capsule,extended release 24 hr 120 mg PO DAILY 11/26/19 [History Confirmed 03/06/20] sertraline 50 mg tablet 50 mg PO DAILY 03/06/20 [History Confirmed 03/06/20] FOR[facility]LY [facility] Medical History Hyperlipidemia (Chronic) Premature atrial contractions (Acute) Hypertension (Chronic) Palpitations (Acute) Sinus arrhythmia (Acute) Essential hypertension (Chronic) Former smoker (Chronic) Diarrhea following gastrointestinal surgery (Chronic) Vitamin D deficiency (Chronic) Vitamin B 12 deficiency (Chronic) Surgical History H/O cataract removal with insertion of prosthetic lens (Chronic 12/2018) History of bilateral breast reduction surgery (Chronic 1998) History of cholecystectomy (Chronic 2017) History of tonsillectomy (Chronic) History of total abdominal hysterectomy (Chronic) Family History Mother Breast cancer Atrial fibrillation Father CVA (cerebral vascular accident) Atrial fibrillation COPD (chronic obstructive pulmonary disease) Myocardial infarction Abdominal aortic aneurysm Social History (Updated 03/06/20 @ 13:[address] Joseph Patten MD) Smoking Status: Former smoker ROS Const Const: Positive for other (Feels well and Diltiazem is really helping palps); negative for fatigue, weakness, body ache, fever(s), headache(s), chills, frequent falls, night sweats, daytime sleepiness, difficulty sleeping, excessive sweating, weight gain, weight loss, increased appetite, poor appetite or anorexia Eyes Eyes: Negative for blind spots, loss of peripheral vision, transient loss of vision, blurry vision, change in vision, double vision, floaters, tunnel vision or other ENT ENT: Negative for headache(s), dizziness, hearing loss, tinnitus, Nosebleed/epistaxis, balance problems, post nasal drip, lip swelling, tongue swelling, bleeding gums, hoarseness, neck pain, dry mouth or other Cardio Chest Pain: No Palpitations: Yes (just once in awhile) Edema: None Muscle aches with walking: None Resp Respiratory: Negative for SOB with activity, SOB at rest, SOB orthopnea SOB lying down, Cough, Coughing up blood/hemoptysis, chest congestion, pain on inspiration, snoring, stridor, wheezing, crackles, paroxysmal nocturnal dyspnea or other GI GI: Negative nausea, vomiting, heartburn, constipation, belching, bloating, cramping, vomiting blood/hematemesis, bright, red blood in stools, black,tarry stools, loose stools, Difficulty Swallowing or other : Negative for hematuria, frequent nighttime urination/ nocturia, erectile dysfunction or abnormal vaginal bleeding Musc Musc: Negative for muscle aches/ myalgia, muscle weakness, joint pain or balance problems Skin Skin: Negative redness, non-healing lesions, rash, unusual bruising, skin ulcer, wounds, jaundice or other Neuro Neuro: Negative for dizziness, lightheadedness, near syncope, syncope, orthostatic symptoms, frequent falls, headache(s), weakness, confusion, memory loss, restless legs, blurry vision, double vision, vertigo, seizures, lack of coordination or other Skyler Hematologic/Lymphatic: Negative for easy bleeding, easy bruising, enlarged lymph nodes or other Endo Endo: Negative for fatigue, cold intolerance, heat intolerance, excessive sweating, flushing, increased thirst/drinking, increased hunger, hair loss, hair growth or other Psych Psych: Negative for anxiety, depression, thoughts of harming anyone, thoughts of harming yourself, visual hallucinations, panic attacks or audible hallucinations Allergy Allergy/Immunology: Negative for throat swelling, Negative for tongue swelling, Negative for hives, Negative for rash, Negative for lip swelling Cardiology Exam Const Appearance: cooperative, healthy appearing and no acute distress Nutritional Appearance: well nourished Orientation: alert, oriented x3 and oriented to person Head Head: normal to inspection, normocephalic and atraumatic Nose: external nose normal Face and Sinus: face symmetric Mouth: oral mucosae normal Eyes General: appearance normal, both eyes and all related structures Eyelids: eyelids normal Conjunctivae: conjunctivae normal Pupils: PERRL and normal by confrontation EOM: EOM intact bilaterally Neck Neck: normal visual inspection and full ROM Carotids: normal carotid upstroke Chest Chest inspection: normal inspection of the chest Auscultation: Bilateral: Clear to Auscultation Cardio Palpation: normal PMI Rate: regular rate Rhythm: regular rhythm Heart sounds: S1 normal and S2 normal GI GI: normal to inspection, no hepatosplenomegaly and bowel sounds present Neuro General: alert, awake, oriented x3, CN's II-XI intact bilaterally and moves all extremities Skin Skin: no rashes or lesions noted Extremities Pulses: Normal: Right Femoral Pulse, Left Femoral Pulse, Right Dorsalis Pedis Pulse, Left Dorsalis Pedis Pulse, Right Posterior Tibial Pulse, Left Posterior Tibial Pulse, Right Radial Pulse, Left Radial Pulse Lower Extremity Edema: None: Bilateral Psych Psychological: normal affect Assessment Plan 1. Palpitations R00.2 Plan 1. Palpitations: Her palpitations have markedly improved with diltiazem therapy. Her blood pressure is well controlled and recommend she continue her diltiazem and Zestoretic. No indication for any additional testing at this time. 2. Hyperlipidemia E78.5 Plan 2. Hyperlipidemia: Her LDL and HDL cholesterol are essentially balanced. Continue Colestid. 3. Return office in 6 months. This note was generated using a voice recognition system and there may be incorrect words, spelling or punctuation that were not noted when reviewing the office note prior to saving. Orders Orders: Lipid Profile Today Liver Profile Today Plan Detail Follow Up +6M (Patten) Coding Level of Care Code Off vis,est,level 3 Diagnoses Palpitations R00.2 Hyperlipidemia E78.5 Coding Level of Care Code Off vis,est,level 3 Diagnoses Palpitations R00.2 Hyperlipidemia E78.5 Supplemental Info Supplemental Information Labs LDL Cholesterol 66 mg/dL (0-130) 09/04/19 HDL Cholesterol 87 mg/dL (40-) 09/04/19 Triglycerides 201 mg/dL (-199) H 09/04/19 VLDL Cholesterol 40 mg/dL (5-40) 09/04/19 Diagnostics Electrocardiogram 08/23/19 Echocardiogram 09/07/19 Stress Echocardiogram 09/15/19 Chest X-Ray 08/23/19 03/06/20 1320 <Electronically signed by Joseph Patten MD> Date Joseph Patten MD Cosign Signature: Date (if applicable) CC: RANDEE Carter Start: 02-29-2020 End: 03-08-2020 Dexa Bone Density Study Comments: See Note; NOTES: [facility] Imaging Services [address] [place] [address] Dexa Bone Density Study MR#: [id number] Acct: [id number] Name: JEANNE SANTACRUZ Rep #: [id number] : 1960 F 59 From: Willis wade MD PCP: RANDEE Hopson Status: [facility] Study: Dexa Bone Density Study Date of Exam: 02/29/20 Exam# [id number] Ordering Dr: Shakila Carter STUDY: DUAL ENERGY X-RAY ABSORPTIOMETRY / DXA REASON FOR EXAM: Female, 59 years old. 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 COMPARISON: None. FINDINGS: Lumbar Spine (L1-L4): g/cm2 (1.352) / T-score (1.6) / Z-score (2.6) Findings are suggestive of normal bone density with a low fracture risk. Left Femur Total: g/cm2 (1.078) / T-score (0.6) / Z-score (1.4) Left Femoral Neck: g/cm2 (1.049) / T-score (0.1) / Z-score (1.2) Right Femur Total: g/cm2 (1.088) / T-score (0.6) / Z-score (1.4) Right Femoral Neck: g/cm2 (0.978) / T-score (-0.4) / Z-score (0.7) BD/Dexa Bone Density Study IMPRESSION: The patient is considered normal as outlined below according to World Devin Organization (WHO) criteria with a low fracture risk. Reference Information: The T-score is the number of standard deviations above or below the standard which is normal for young adults at their peak bone mineral density. The World Health Organization (WHO) interprets the T-scores as follows: Above -1 Normal bone density Between -1 and -2.5 Osteopenia Equal to / or below -2.5 Osteoporosis As a practical clinical guideline, osteopenia may be graded as follows: Mild -1 through -1.5 Moderate -1.6 through -2.0 Severe -2.1 through -2.4 The Z-score is the number of standard deviations above or below age-matched controls. A Z-score of less than -1.5 would be considered abnormal. References: 1. NIH Osteoporosis and Related Bone Diseases http://www.osteo.org 2. International Society for Clinical Densitometry http://www.iscd.org 3. National Osteoporosis Foundation http://www.nof.org Electronically Signed: Willis Daugherty, at 10:41 EDT , Service support , CC: LEGAL OFFICE ADMINISTRATORGabriel Carter Vice President Of Talent Management: Signed Shakila Carter Work Phone: Start: 02-29-2020 End: 03-06-2020 SCREEN MAMM (CAD) W/LIZBETH BILAT Comments: See Note; NOTES: [facility] Imaging Services [address] [place] [address] SCREEN MAMM (CAD) W/LIZBETH BILAT MR#: [id number] Acct: [id number] Name: JEANNE SANTACRUZ Rep #: [id number] : 1960 F 59 From: Willis wade MD PCP: RANDEE Hopson Status: [facility] Study: SCREEN MAMM (CAD) W/LIZBETH BILAT Date of Exam: 0 02/29/20 Exam# [id number] Ordering Dr: Shakila Carter MAMMOGRAPHY - BILATERAL SCREENING REASON FOR EXAM: Female, 59 years old. Routine annual screening examination. PERTINENT HISTORY: Mother with breast cancer. History of prior bilateral breast reduction surgery. TECHNIQUE: Digital bilateral breast lizbeth (3D mammographic acquisition) in the CC and MLO projections. 2-D mediolateral oblique (MLO) and craniocaudad (CC) views of both breasts were obtained. CAD: Full Field Digital Mammography with Computer Added Detection was performed. COMPARISON: Comparison is made with prior outside examination dated October 28, 2018. FINDINGS: Breast Composition: There are scattered areas of fibroglandular density. There are no dominant masses or suspicious calcifications. No other significant abnormalities are identified. There has been no significant change since the prior study. BI/SCREEN MAMM (CAD) W/LIZBETH BILAT IMPRESSION: Stable bilateral screening mammogram. Yearly follow-up mammogram recommended. (A) ASSESSMENT CATEGORY: BIRADS Category 1: Negative. A letter regarding these results will be sent to the patient by the facility within 30 days. Approximately 10% of breast cancers are not detected by mammography. A normal mammogram should not delay biopsy of a clinically suspicious abnormality. [id number] Electronically Signed: Willis Daugherty, at 14:11 EDT , Service support , CC: RANDEE Carter Vice President Of Talent Management: Signed Tatum Gentry Work Phone: Start: 09-15-2019 End: 09-15-2019 Stress Test Echo w/ Contrast Comments: See Note; NOTES: [facility] [address] [place] [address] Stress Test Echo W/Contrast MR#: [id number] Acct: [id number] Name: JEANNE SANTACRUZ Rep #: [id number] : 1960 59 From: Joseph Patten MD Primary Care: RANDEE Hopson Status: REG CLI Ordering Dr: Joseph Patten MD Sex: F C Reason For Study: ARRHYTHMIA-OTHER Stress Results Protocol: Zac Protocol WITH DEFINITY Maximum Predicted HR: 163 bpm Target HR: 139 bpm % Maximum Predicted HR: 87 % DurationHeart Rate Stage (mm:ss) (bpm) BP Comment BASELINE 71 122/764 CC DEFINITY FOR TEST STAGE 1 3:00 106 150/82 STAGE 2 3:00 122 164/80 STAGE 3 3:00 142 158/88LIGHTHEADED, FEELS FLUTTERING IN HER CHEST TO THROAT RECOVERY 86 128/88 Stress Duration: 9:00 mm:ss Maximum Stress HR: 142 bpm Baseline Echocardiogram Findings The estimated ejection fraction is 65 %. Stress Echo Wall motion Data Resting WM Intermediate WM Stress WM Resting Wall Motion Wall Motion Stress No regional wall motion No regional wall motion abnormalities noted. abnormalities noted. EKG Data The baseline ECG displays normal sinus rhythm. The patient exercised according to the regular Zac protocol for a total duration of 9:00. The maximum heart rate attained was 153 beats per minute. This was 93% of maximum predicted heart rate. The patient exercised into stage 4 of the Zac protocol. During stress, there were no ST or T wave changes noted to suggest ischemia. No clinical angina was noted. Interpretation Summary The estimated ejection fraction is 65 %. Normal, adequate, treadmill echocardiogram. Negative for ischemia by EKG and echocardiographic criteria. Rare PVC noted. Appropriate blood pressure response to exercise. Average exercise capacity for age. Test terminated due to the attainment target heart rate. Final LVEF is 75%. Decrease sensitivity due to poor echo windows requiring Definity agent. No complications. The study was technically difficult. Contrast injection was performed. Ordering Physician: Joseph Patten MD Referring Physician: Joseph Patten Performed By: Daria Espinosa, LILY, RVT 09/15/19 1453 Date Joseph Patten MD CC: LEGAL OFFICE ADMINISTRATORGabriel Carter; Joseph Patten MD Date Dictated: 09/15/19 1108 Date Transcribed: 09/15/19 1453 Vice President Of Talent Management: Signed Joseph Patten Work Phone: Start: 09-07-2019 End: 09-07-2019 Echocardiogram Complete Comments: See Note; NOTES: [facility] [address] [place] [address] Echo Complete 09/07/19 0747 MR#: [id number] Acct: [id number] Name: NOAMJEANNE Juliette Rep #: [id number] : 1960 59 From: Joseph Patten MD Attending Dr: Joseph Patten MD Status: REG CLI Ordering Dr: Joseph Patten MD Date: 09/07/19 Location: [facility] Sex: F C Admitted: Reason For Study: Arrhythmia Procedure This was a 2D Doppler, Color Flow transthoracic echocardiogram. Exam performed in department. Left Ventricle Normal size and thickness. The estimated ejection fraction is 65 %. Stage 1 diastolic dysfunction. No regional wall motion abnormalities noted. Right Ventricle Normal size and thickness. Normal systolic function. Atria Normal left atrium. Normal right atrium. Normal atrial septum. Mitral Valve The mitral valve is structurally normal. No prolapse or stenosis seen. Tricuspid Valve Normal tricuspid valve. Trivial tricuspid valve insufficiency. Right ventricular systolic pressure estimated to be 27 mmHg. Aortic Valve Trisinus/trileaflet aortic valve. Trivial aortic valve insufficiency. Pulmonic Valve Normal pulmonic valve. Trivial pulmonic valve insufficiency. Great Vessels Normal aortic root. Normal arch. Normal inferior vena cava. Inferior vena cava collapse with sniff. Pericardium/Pleural No pericardial effusion. MMode/2D Measurements AND Calculations LVIDd: 4.5 cm IVSd: 0.93 cm Ao root diam: 3.1 cm LVIDs: 2.6 cm LVPWd: 0.83 cm RVDd: 3.1 cm FS: 42.0 % LAV(MOD-bp): 33.8 ml EDV(MOD-sp4): 82.2 ml EDV(MOD-sp2): 86.9 ml LAV(MOD-bp) Indexed: 17.3 ml/m2 ESV(MOD-sp4): 41.6 ml EF(MOD-sp2): 60.6 % LAV(MOD-sp2): 33.2 ml EF(MOD-sp4): 49.4 % LAV(MOD-sp4): 33.0 ml SV(MOD-sp4): 40.6 ml SV(MOD-sp2): 52.7 ml LA A4 area: 13.4 cm2 LA dimension(2D): 3.3 cm RA A4 area: 10.9 cm2 Doppler Measurements AND Calculations MV E max danae: 82.7 cm/sec Lat Peak E' Danae: 9.8 cm/sec Med Peak E' Danae: 7.0 cm/sec MV A max danae: 92.7 cm/sec E/E' lat: 8.5 E/E' med: 11.8 MV E/A: 0.89 Ao V2 max: 114.2 cm/sec LV V1 max: 86.2 cm/sec PA V2 max: 92.0 cm/sec Ao max P.2 mmHg LV V1 max P.0 mmHg TR max danae: 241.5 cm/sec TR max P.3 mmHg Interpretation Summary The estimated ejection fraction is 65 %. Stage 1 diastolic dysfunction. Trivial tricuspid valve insufficiency. Right ventricular systolic pressure estimated to be 27 mmHg. Trivial aortic valve insufficiency. There is no comparison study available. Ordering Physician: Joseph Patten Referring Physician: Shakila Carter Performed By: Angeles Negrete RDCS 09/07/19 1155 Date Joseph Patten MD CC: LEGAL OFFICE ADMINISTRATOR-C Shakila Carter; Joseph Patten MD Date Dictated: 09/07/19 0747 Date Transcribed: 09/07/191154 Vice President Of Talent Management: Signed Joseph Patten Work Phone: Start: 08-31-2019 End: 08-31-2019 Cardiology Visit Report Comments: See Note; NOTES: [facility] [address] [place] [address] OFFICE VISIT Date of Service: 08/31/19 MR#: [id number] Acct: [id number] Name: JEANNE SANTACRUZ Rep #: [id number] : 1960 Provider: Joseph Patten MD Age/Sex: 59/F Location: [facility] Status: Signed HPI HPI History of Present Illness Surgical H AND P: Yes Details: Mrs. Cottrell is a very pleasant 59-year-old female with a history of hypertension, former 49-nxec-arwe smoker quit around 2016, previously told she had mitral valve prolapse many years ago, but recent echocardiogram about 4 years ago at [facility] indicated she did not have mitral valve prolapse. Recently in the emergency room on 08/23/2019 with a chief complaint of not feeling well. She complained of palpitations, and shortness of breath. An EKG was performed which showed normal sinus rhythm with sinus arrhythmia and atrial bigeminy and a QT corrected of 439 ms. Chest x-ray was negative. Initial laboratory evaluation was unremarkable. Troponin was negative, TSH was 2.53. Patient was subsequently sent home and referred to our office for further management. She underwent a 24-hour Holter monitor on 08/26/2019 which showed 220 8P VCs, 1 ventricular couplet and one interpolated beat, no runs noted, and 15% of PACs but no atrial fibrillation. Her symptoms did not correlate with the scan. On further history, the patient drinks about 1 cup of coffee per day, rarely uses alcohol, no illicit drug use or dgxa-gsk-ejzpnpx drug use. She has noticed palpitations for several years, and had previously been tried on Toprol but unfortunately this gave her a headache and this was discontinued many years ago. Patient states that when she does get palpitations she has associated blurry vision, dyspnea on exertion, shortness of breath, and which she describes as midsternal chest cramping, usually at rest. She reports that she walks on a semi-regular basis, and gets no palpitations or symptoms when she walks. However, just walking in from the parking lot today she had dyspnea on exertion, shortness of breath, and fatigue. She denies snoring, daytime somnolence, but recently got a puppy and is up several times per night taking care of the puppy. She has been on Zestoretic for the better part of 6 years, and has never had potassium supplementation. In our office today her blood pressure is 150/90, and pulse is 84 and regular. Her physical exam demonstrates clear lungs bilaterally, regular rate and rhythm, no carotid bruits, 2+ upstroke bilaterally, normal S1, S2, no S3, S4 or murmurs. She has no edema. Lipids are pending. EKG is as above. Intake Vital Signs08/31/19 Height 5 ft 6 in 08/31/19 Weight: 194 lb 08/31/19 BMI 31.3 Intake Visit Reasons: PALPS, [facility] (Roman CARTER) Complaints Coordinator Required: No Accompanied by: Is patient in pain?: No Allergies Sulfa (Sulfonamide Antibiotics) Allergy (Verified 08/23/19 10:08) Hives amoxicillin [From Augmentin] Adverse Reaction (Verified 08/23/19 10:08) Upset Stomach clavulanic acid [From Augmentin] Adverse Reaction (Verified 08/23/19 10:08) Upset Stomach Medications colestipol 1 gram tablet 2 g PO BID tab 08/25/19 [History Confirmed 08/25/19] conjugated estrogens 0.625 mg tablet 0.625 mg PO DAILY 08/25/19 [History Confirmed 08/25/19] cyanocobalamin (vitamin B-12) 1,000 mcg/mL injection solution 100 mcg IM .[id number] ml 08/25/19 [History Confirmed 08/25/19] lisinopril 10 mg-hydrochlorothiazide 12.5 mg tablet 1 tab PO DAILY 08/25/19 [History Confirmed 08/25/19] cholecalciferol (vitamin D3) 2,000 unit tablet 2,000 unit PO DAILY 08/31/19 [History Confirmed 08/31/19] diltiazem HCl 120 mg capsule,extended release 24 hr 120 mg PO DAILY #30 cap 08/31/19 [Rx Confirmed 08/31/19] [facility] (Updated 08/31/19 @ 10:03 by Ashly Lyman) Premature atrial contractions (Acute) Hypertension (Chronic) Palpitations (Acute) Sinus arrhythmia (Acute) Essential hypertension (Chronic) Former smoker (Chronic) Diarrhea following gastrointestinal surgery (Chronic) Vitamin D deficiency (Chronic) Vitamin B 12 deficiency (Chronic) Surgical History H/O cataract removal with insertion of prosthetic lens (Chronic 12/2018) History of bilateral breast reduction surgery (Chronic 1998) History of cholecystectomy (Chronic 2017) History of tonsillectomy (Chronic) History of total abdominal hysterectomy (Chronic) Family History Mother Breast cancer Atrial fibrillation Father CVA (cerebral vascular accident) Atrial fibrillation COPD (chronic obstructive pulmonary disease) Myocardial infarction Abdominal aortic aneurysm Social History (Updated 08/31/19 @ 10:25 by Joseph Patten MD) Smoking Status: Former smoker ROS Const Const: Positive for fatigue and other (Has had palps a couple years, but now has atrial fib.); negative for weakness, body ache, fever(s), headache(s), chills, frequent falls, night sweats, daytime sleepiness, difficulty sleeping, excessive sweating, weight gain, weight loss, increased appetite, poor appetite or anorexia Eyes Eyes: Negative for blind spots, loss of peripheral vision, transient loss of vision, blurry vision, change in vision, double vision, floaters, tunnel vision or other ENT ENT: Negative for headache(s), dizziness, hearing loss, tinnitus, Nosebleed/epistaxis, balance problems, post nasal drip, lip swelling, tongue swelling, bleeding gums, hoarseness, neck pain, dry mouth or other Cardio Chest Pain: No Palpitations: Yes feels like its: skipping, irregular Edema: None Muscle aches with walking: None Resp Respiratory: Positive for SOB with activity (dizzy also with walking) and Cough (palpitations make her cough); negative for SOB at rest, SOB orthopnea\SOB lying down, Coughing up blood/hemoptysis, chest congestion, pain on inspiration, snoring, stridor, wheezing, crackles, paroxysmal nocturnal dyspnea or other GI GI: Negative nausea, vomiting, heartburn, constipation, belching, bloating, cramping, vomiting blood/hematemesis, bright, red blood in stools, black,tarry stools, loose stools, Difficulty Swallowing or other : Negative for hematuria, frequent nighttime urination/ nocturia, erectile dysfunction or abnormal vaginal bleeding Musc Musc: Negative for muscle aches/ myalgia, muscle weakness, joint pain or balance problems Skin Skin: Negative redness, non-healing lesions, rash, unusual bruising, skin ulcer, wounds, jaundice or other Neuro Neuro: Negative for dizziness, lightheadedness, near syncope, syncope, orthostatic symptoms, frequent falls, headache(s), weakness, confusion, memory loss, restless legs, blurry vision, double vision, vertigo, seizures, lack of coordination or other Skyler Hematologic/Lymphatic: Negative for easy bleeding, easy bruising, enlarged lymph nodes or other Endo Endo: Positive for fatigue; negative for cold intolerance, heat intolerance, excessive sweating, flushing, increased thirst/drinking, increased hunger, hair loss, hair growth or other Psych Psych: Negative for anxiety, depression, thoughts of harming anyone, thoughts of harming yourself, visual hallucinations, panic attacks or audible hallucinations Allergy Allergy/Immunology: Negative for throat swelling, Negative for tongue swelling, Negative for hives, Negative for rash, Negative for lip swelling Cardiology Exam Const Appearance: cooperative, healthy appearing and no acute distress Nutritional Appearance: well nourished Orientation: alert, oriented x3 and oriented to person Head Head: normal to inspection, normocephalic and atraumatic Nose: external nose normal Face and Sinus: face symmetric Mouth: oral mucosae normal Eyes General: appearance normal, both eyes and all related structures Eyelids: eyelids normal Conjunctivae: conjunctivae normal Pupils: PERRL and normal by confrontation EOM: EOM intact bilaterally Neck Neck: normal visual inspection and full ROM Carotids: normal carotid upstroke Chest Chest inspection: normal inspection of the chest Auscultation: Bilateral: Clear to Auscultation Cardio Palpation: normal PMI Rate: regular rate Rhythm: regular rhythm Heart sounds: S1 normal and S2 normal GI GI: normal to inspection, no hepatosplenomegaly and bowel sounds present Neuro General: alert, awake, oriented x3, CN's II-XI intact bilaterally and moves all extremities Skin Skin: no rashes or lesions noted Extremities Pulses: Normal: Right Femoral Pulse, Left Femoral Pulse, Right Dorsalis Pedis Pulse, Left Dorsalis Pedis Pulse, Right Posterior Tibial Pulse, Left Posterior Tibial Pulse, Right Radial Pulse, Left Radial Pulse Lower Extremity Edema: None: Bilateral Psych Psychological: normal affect Assessment AND Plan 1. Palpitations R00.2 Plan 1. Palpitations: Patient is had palpitations for many years, recently gotten worse requiring a visit to the emergency room. I advised the patient discontinue all caffeinated products, as well as alcohol products in order to determine whether they are related to caffeine or not. In addition she is on Zestoretic but her potassium was 3.9, do not feel she requires potassium supplementation at this time. Given the fact that her 24-hour Holter monitor demonstrated almost 15% of PACs, I recommended that she undergo a 2D echo with Doppler to determine if she has any LV dysfunction, pulmonary hypertension, or valvular abnormalities. If this is normal, I would then recommend that she undergo a treadmill echocardiogram to evaluate her blood pressure response to exercise, exercise capacity, and ischemia. If either 1 of these are grossly abnormal, she may require diagnostic coronary angiogram. In addition to try and suppress her palpitations and improve her blood pressure I recommend that we start her on Cardizem CD 120 mg p.o. daily. Unfortunately it appears that she developed a headache with beta-blockers in the past. She will return in 2 weeks time for a blood pressure check. Orders Orders: 2. Essential hypertension I10 Plan 2. Hypertension: Blood pressures not quite at goal, although she just came in from the parking lot, and she has had poor sleep hygiene given the fact that she is taking care of her puppy. I advised the patient and her to switch off taking care of the puppy on a weekly basis so that each of them may get adequate sleep going forward. In addition she will continue her Zestoretic and we will add diltiazem CD 120 mg p.o. daily. She will return in 2 weeks time for a blood pressure check. 3. Obstructive sleep apnea: Patient may have undiagnosed and underappreciated obstructive sleep apnea. If her cardiac work-up is negative, I would consider a sleep study. 4. If all the above is determined to be unremarkable, she may need to discontinue her conjugated estrogens which may be contributing to her palpitations. 5. Return office in 6 months. This note was generated using a voice recognition system and there may be incorrect words, spelling or punctuation that were not noted when reviewing the office note prior to saving. Orders Orders: Plan Detail Other Orders Orders: Other Medications New: Follow Up +6M (Patten) +2 weeks (BP CHECK) Coding Level of Care Code Off vis,new,level 4 Diagnoses Palpitations R00.2 Essential hypertension I10 Coding Level of Care Code Off vis,new,level 4 Diagnoses Palpitations R00.2 Essential hypertension I10 Supplemental Info Supplemental Information Diagnostics Electrocardiogram 08/23/19 Chest X-Ray 08/23/19 08/31/19 1025 <Electronically signed by Joseph Patten MD> Date [facility]: Date (if applicable) CC: LEGAL OFFICE ADMINISTRATOR-C Shakila Carter Breast Reduction - Both Sebas Meza Comment on above: 1998 Colonoscopy Orly Koroma LP N Comment on above: Jabour Polyp repeat in 5 years 2021 Colonoscopy Orly Slarb LP N Comment on above: Jabour Polyp repeat in 5 years 2021 Colonoscopy Pavan Sumiton LP N Comment on above: Jabour Polyp repeat in 5 years 2021 Colonoscopy Evelyne Crump Comment on above: Jabour Polyp repeat in 5 years 2021 Colonoscopy Karol Mejia MA Comment on above: Jabour Polyp repeat in 5 years 2021 Colonoscopy Karol Mejia MA Comment on above: Jabour Polyp repeat in 5 years 2021 Gallbladder Surgery Rogelio hanley Comment on above: 2017 H/O: hysterectomy Status post hysterectom y Rogelio Mcclure LPN Comment on above: [address]Wilson Baez hand hose cutter H/O: hysterectomy Status post hysterectom y Evelyne Cloud MA Comment on above: [address]Wilson Baez hand hose cutter H/O: hysterectomy Status post hysterectom y Eugene Ochoa PEN RIDER Work Phone: H/O: hysterectomy Status post hysterectom y Orly Slarb CUSTOMER GREETER Comment on above: [address]Wilson Baez hand hose cutter H/O: hysterectomy Status post hysterectom y Pavan Sumiton CUSTOMER GREETER Comment on above: [address]Wilson Baez hand hose cutter H/O: hysterectomy Status post hysterectom y Evelyne Cloud MA Comment on above: [address]Wilson Baez hand hose cutter H/O: hysterectomy Status post hysterectom y Karol Mejia MA Comment on above: [address]Wilson Baez hand hose cutter H/O: hysterectomy Status post hysterectom y Karol Mejia MA Comment on above: [address]Wilson Baez hand hose cutter History of cataract extraction H/O cataract removal with insertion of prosthetic lens Rogelio Mcclure LPN Comment on above: Bilateral December 2018 History of cataract extraction H/O cataract removal with insertion of prosthetic lens Evelyne Cloud MA Comment on above: Bilateral December 2018 History of cataract extraction H/O cataract removal with insertion of prosthetic lens Eugene Ochoa P[employer] RIDER Work Phone: History of cataract extraction H/O cataract removal with insertion of prosthetic lens Orly Slarb [employer] GRE[employer]ER Comment on above: Bilateral December 2018 History of cataract extraction H/O cataract removal with insertion of prosthetic lens Pavan Mary CUSTOMER GREETER Comment on above: Bilateral December 2018 History of cataract extraction H/O cataract removal with insertion of prosthetic lens Evelyne Cloud MA Comment on above: Bilateral December 2018 History of cataract extraction H/O cataract removal with insertion of prosthetic lens Karol Mejia MA Comment on above: Bilateral December 2018 History of cataract extraction H/O cataract removal with insertion of prosthetic lens Karol Mejia MA Comment on above: Bilateral December 2018 Hysterectomy Rogelio Meza Comment on above: 2009 Hysterectomy Rogelio Mcclure Comment on above: 2008 Hysterectomy Rogelio Mcclure Comment on above: 2008 Hysterectomy Evelyne Pedro Luis M A Comment on above: 2008 Hysterectomy Orly Slarb LP N Comment on above: 2008 Hysterectomy Pavan Sumiton LP N Comment on above: 2008 Hysterectomy Evelyne Pedro Luis M A Comment on above: 2008 Hysterectomy Karol Mejia MA Comment on above: 2008 Hysterectomy Karol Mejia MA Comment on above: 2008 Operation on gallbladder Rogelio Mcclure Comment on above: 2017 Operation on gallbladder Rogelio Mcclure Comment on above: 2017 Operation on gallbladder Rogelio Mcclure Comment on above: 2017 Operation on gallbladder Evelyne Cloud MA Comment on above: 2017 Operation on gallbladder Orly Slarb CUSTOMER GREETER Comment on above: 2017 Operation on gallbladder Pavan Sumiton CUSTOMER GREETER Comment on above: 2017 Operation on gallbladder Evelyne Cloud MA Comment on above: 2017 Operation on gallbladder Karol Mejia MA Comment on above: 2017 Operation on gallbladder Karol Mejia MA Comment on above: 2017 Reduction mammoplast y, bilateral Rogelio Ren Comment on above: 1998 Reduction mammoplast y, bilateral Rogelio Mcclure Comment on above: 1998 Reduction mammoplast y, bilateral Rogelio Mcclure Comment on above: 1998 Reduction mammoplast y, bilateral Evelyne Cloud MA Comment on above: 1998 Reduction mammoplast y, bilateral Orly Slarb [employer]ER [employer]ER Comment on above: 1998 Reduction mammoplast y, bilateral Pavan Sumiton CUSTOMER GREETER Comment on above: 1998 Reduction mammoplast y, bilateral Evelyne Cloud MA Comment on above: 1998 Reduction mammoplast y, bilateral Karol Mejia MA Comment on above: 1998 Reduction mammoplast y, bilateral Karol Mejia MA Comment on above: 1998 Tonsillectomy Rogelio Meza Tonsillectomy Rogelio Mcclure Tonsillectomy Rogelio Mcclure Tonsillectomy Evelyne Cloud MA Tonsillectomy Orly Slarb L PN Tonsillectomy Pavan Sumiton L PN Tonsillectomy Evelyne Cloud MA Tonsillectomy Karol Owens A Tonsillectomy Karol Owens A Plan of Treatment Date Care Activity Detail Author Start: 02-09-2025 BP Controlled (<130/80) BP Con trolled (<130/80) [facility] Start: 11-03-2024 BP Controlled (<130/80) BP Con trolled (<130/80) [facility] Start: 10-08-2024 BP Controlled (<130/80) BP Con trolled (<130/80) [facility] Start: 08-08-2024 BP Controlled (<130/80) BP Con trolled (<130/80) [facility] Start: 06-02-2024 End: 06-02-2024 Patient encounter procedure 06/02/2024 1:30 PM EDT Office Visit Pulmonary Medicine [address] [place], [place] [phone] Kaylee Murray PA-C [address] [place], [place] [id number] 3mth [facility] Comment on above: 3mth Start: 05-09-2024 Influenza vaccination Influenza Vacc ine (#1) [facility] Start: 04-22-2024 BP CONTROLLED (<130/80) BP CON TROLLED (<130/80) [facility] Start: 02-10-2024 End: 05-11-2024 Alpha 1 antitrypsin [Mass/volume] in Serum or Plasma [id number] Lab Routine Pulmonary emphysema, unspecified emphysema type (HCC) Expected: 02/10/2024, Expires: 05/11/2024 [facility] Work Phone: Comment on above: Expected: 02/10/2024 , Expires: 05/11/2024 Start: 02-10-2024 End: 02-10-2024 Patient encounter procedure 02/10/2024 1:00 PM EDT Office Visit Pulmonary Medicine [address] [place], [place] [phone] Kaylee Murray PA-C [address] [place], [place] [phone] 4 month follow up Pulmonary Medicine Comment on above: 4 month follow up Start: 09-08-2023 Behavioral Health Screening Behavioral Health Screening [facility] Start: 09-08-2023 Depression Assessment Depression Ass essment [facility] Start: 08-08-2023 End: 11-07-2023 [employer]GN [employer] [place] [facility] Work Phone: Comment on above: Expected: 08/08/2023 , Expires: 11/07/2023 Start: 08-08-2023 End: 11-07-2023 ALGN [employer] [facility] Work Phone: Comment on above: Expected: 08/08/2023 , Expires: 11/07/2023 Start: 07-29-2023 Screening mammography SCRN QUINCY M (CAD)W/LIZBETH [facility] Start: 07-08-2023 Procedure Education Eprescribe d prescriptions (G8553) [facility] Work Phone: Start: 07-08-2023 Provider Instruction s for Treatment Follow up in 6 months [facility] Work Phone: Start: 07-08-2023 Cyanocobalamin vitam in b-12 VITAMIN B12 AND FOLATES (53574) [facility] Work Phone: Start: 07-08-2023 25 hydroxy includes fractions if performed CALCIFEDIOL (25372) [facility] Work Phone: Start: 07-08-2023 Lipid panel LIPID PANEL (87348) [facility]; [facility] Work Phone: Start: 07-08-2023 Assay of thyroid stimulating hormone tsh TSH (THYROID STIMULATING HORMONE) (70928) [facility]; [facility] Work Phone: Start: 07-08-2023 Blood count complete auto&auto difrntl wbc CBC, PLATELETS & AUT DIFF (37361) [facility]; [facility] Work Phone: Start: 07-08-2023 Urinalysis qual/semiquant except immunoassays URINALYSIS (60887) [facility]; [facility] Work Phone: Start: 07-08-2023 Comprehensive metabo lic panel METABOLIC PANEL, COMPREHENSIVE (15129) [facility]; [facility] Work Phone: Start: 06-17-2023 Procedure Education Eprescribe d prescriptions (G8553) [facility]; [facility] Work Phone: Start: 06-17-2023 Provider Instruction s for Treatment Follow up for a general medical visit with md [facility] Work Phone: Start: 05-09-2023 Covid-19 Vaccine () Covid-19 Vaccine () [facility] Start: 05-09-2023 Influenza vaccination INFLUENZA (#1) [facility] Start: 03-10-2023 Cul bact xcpt urine blood/stool aerobic isol Anaerobic & Aerobic Culture (60393) [facility]; [facility] Work Phone: Start: 03-10-2023 CULTURE, NOSE (98672) CULTURE, NOSE (12270) [facility]; [facility] Work Phone: Start: 03-10-2023 Procedure Education Eprescribe d prescriptions (G8553) [facility]; [facility] Work Phone: Start: 03-10-2023 Provider Instruction s for Treatment Follow up if no improvement or if symptoms worsen [facility]; [facility] Work Phone: Start: 01-21-2023 Procedure Education Eprescribe d prescriptions (G8553) [facility]; [facility] Work Phone: Start: 12-25-2022 Assay of amylase AMYLASE (8215 0) : do 4wks after starting [employer] [facility] Work Phone: Start: 12-25-2022 Assay of lipase LIPASE (35598) : do 4 wks after starting [employer] [facility] Work Phone: Start: 12-25-2022 Comprehensive metabo lic panel METABOLIC PANEL, COMPREHENSIVE (09341) : do 4wks after starting [employer] [facility] Work Phone: Start: 12-25-2022 Procedure Education Eprescribe d prescriptions (G8553) [facility]; [facility] Work Phone: Start: 12-25-2022 Provider Instruction s for Treatment [facility] Work Phone: Start: 09-08-2022 DEPRESSION ASSESSMENT DEPRESSION ASS ESSMENT [facility] Start: 08-13-2022 Procedure Education Com [facility]; [facility] Work Phone: Start: 08-13-2022 Provider Instruction s for Treatment [facility]; [facility] Work Phone: Start: 2022 RSV Vaccine (1 - 1-d ose 60+ series) RSV Vaccine (1 - 1-dose 60+ series) [facility] Start: 03-05-2022 Procedure Education Eprescribe d prescriptions (G8553) [facility]; [facility] Work Phone: Start: 03-05-2022 Culture bct isol&prs mptv id isolate ea urine URINE CYNDEE CULTURE-IDENTIFICATN (30083) [facility]; [facility] Work Phone: Start: 12-11-2020 Procedure Education Eprescribe d prescriptions (G8553) [facility]; [facility] Work Phone: Start: 12-11-2020 Provider Instruction s for Treatment [facility]; [facility] Work Phone: Start: 11-10-2020 Procedure Education Eprescribe d prescriptions (G8553) [facility]; [facility] Work Phone: Start: 11-10-2020 Provider Instruction s for Treatment [facility]; [facility] Work Phone: Start: 11-10-2020 25 hydroxy includes fractions if performed CALCIFEDIOL (47574) [facility]; [facility] Work Phone: Start: 11-10-2020 Cobalamin (Vitamin B 12) [Mass/Vol] VITAMIN B12 AND FOLATES (85307) [facility]; [facility] Work Phone: Start: 11-10-2020 Urnls dip stick/tabl et rgnt non-auto w/o micrscp Urinalysis, Office (06057) [facility]; [facility] Work Phone: Start: 11-10-2020 TSH Qn TSH (THYROID STIMULATING HORMONE) (39567) [facility]; [facility] Work Phone: Start: 11-10-2020 Blood count complete automated CBC & PLATELETS (AUTO) (96764) [facility]; [facility] Work Phone: Start: 11-10-2020 Comprehensive metabo lic panel Metabolic Panel, Comprehensive (87775) [facility]; [facility] Work Phone: Start: 08-06-2020 ANNUAL PCP TEAM HANDYPERSON AMIE DISEASE VISIT ANNUAL PCP TEAM CHRONIC DISEASE VISIT [facility] Start: 04-27-2020 25 hydroxy includes fractions if performed CALCIFEDIOL (76984) [facility] Work Phone: Start: 04-27-2020 Cobalamin (Vitamin B 12) [Mass/Vol] VITAMIN B12 AND FOLATES (85376) [facility] Work Phone: Start: 04-27-2020 Cyanocobalamin vitam in b-12 VITAMIN B12 AND FOLATES (97974) [facility]; [facility] Work Phone: Start: 04-27-2020 Blood count complete auto&auto difrntl wbc CBC, Platelets & Auto Diff (97146) [facility] Work Phone: Start: 04-27-2020 Comprehensive metabo lic panel Metabolic Panel, Comprehensive (23029) [facility] Work Phone: Start: 02-02-2020 Procedure Education Eprescribe d prescriptions (G8553) [facility] Work Phone: Start: 02-02-2020 Provider Instruction s for Treatment Follow up in 3 months [facility] Work Phone: Start: 11-02-2019 Procedure Education Eprescribe d prescriptions (G8553) [facility] Work Phone: Start: 11-02-2019 Provider Instruction s for Treatment Follow up in 3 months [facility] Work Phone: Start: 09-07-2019 Procedure Education Eprescribe d prescriptions (G8553) [facility] Work Phone: Start: 09-07-2019 Provider Instruction s for Treatment Follow up in 6 weeks [facility] Work Phone: Start: 08-24-2019 Procedure Education Eprescribe d prescriptions (G8553) [facility] Work Phone: Start: 08-24-2019 Provider Instruction s for Treatment [facility] Work Phone: Start: 2012 Influenza vaccination LUNG CANCER SC REENING [facility] Start: 2012 Screening for malign ant neoplasm of lung Lung Cancer Screening [facility] Start: 2012 SHINGRIX VACCINE (1 of 2) SHINGRIX VACCINE (1 of 2) [facility] Start: 2007 COLOGUARD (FIT-DNA) COLOGUARD (FIT-D NA) [facility] Start: 2007 Colonoscopy COLONOSCOPY [facility] Start: 2007 COLORECTAL CANCER SCREENING COLORECTAL CANCER SCREENING [facility] Start: [address] COLONOGRAPHY [facility] Start: 2007 DIABETES SCREEN DIABETES SCREEN [facility] Start: 2007 Diabetes Screening Diabetes Screenin g [facility] Start: 2007 FECAL OCCULT BLOOD FECAL OCCULT BLOO D [facility] Start: 2007 Lipid 1996 panel - S jas or Plasma Lipid Screening [facility] Start: 2007 Lipid panel [facility] Start: 2007 LIPID SCREEN LIPID SCREEN [facility] Start: 2007 Screening for malign ant neoplasm of colon [facility] Start: 2007 [facility] Start: 2002 Mammography [facility] Start: 2002 Screening for malign ant neoplasm of breast Mammogram Screening [facility] Start: 1992 HPV TESTING HPV TESTING [facility] Start: 1992 Screening for malign ant neoplasm of cervix HPV Testing [facility] Start: 1983 PAP TESTING PAP TESTING [facility] Start: 1983 Screening for malign ant neoplasm of cervix [facility] Start: 1981 Urine microalbumin profile [facility] Start: 1980 HEPATITIS C SCREENING [facility] Start: 1980 Hepatitis C screening Hepatitis C [facility] Start: 1980 HIV SCREENING HIV SCREENING [facility] Start: 1980 HIV screening HIV Screening [facility] CT Chest [facility] Patient Education ED Dental Abscess [facility] Work Phone: Patient referral [facility] Work Phone: [facility] Work Phone: [facility] Work Phone: [facility] Work Phone: [facility] Work Phone: [facility] Work Phone: [facility] Work Phone: [facility] Work Phone: [facility] Work Phone: [facility] Work Phone: [facility] Work Phone: [facility] Work Phone: [facility] Work Phone: [facility] Immunizations Immunization Date Immunization Notes Care Provider Jimenez garcia 06-28-2023 influenza, injectable, quadrivalent, preservative free Magnolia Arnold MD Work Phone: [facility] Work Phone: 06-28-2023 influenza virus vaccine, unspecified formulation Kaylee Murray PA-C Work Phone: [facility] 06-30-2022 influenza, injectable, quadrivalent, preservative free Magnolia Arnold MD Work Phone: [facility] Work Phone: 06-20-2021 influenza, injectable, quadrivalent, preservative free Magnolia Arnold MD Work Phone: [facility] Work Phone: 12-14-2020 Covid (Pfizer) LEGAL OFFICE ADMINISTRATOR-C Shakila Chan sa LEGAL OFFICE ADMINISTRATOR Work Phone: [facility] 11-23-2020 Covid (Pfizer) LEGAL OFFICE ADMINISTRATOR-C Shakila Chan sa LEGAL OFFICE ADMINISTRATOR Work Phone: [facility] 05-11-2020 influenza, injectable, quadrivalent, preservative free Magnolia Arnold MD Work Phone: [facility] Work Phone: 06-25-2019 Influenza, injectable, Madin Dominique Canine Kidney, preservative free, quadrivalent Kia [place] [employer]PEN RIDER Work Phone: [facility] Work Phone: 06-23-2019 Influenza, injectable, Madin Dominique Canine Kidney, preservative free, quadrivalent Kia [place] [employer]PING SU[employer].PEN RIDER Work Phone: [facility] Work Phone: 06-08-2019 influenza, seasonal, injectable Shakila Carter [facility] Work Phone: 07-04-2018 influenza, injectable, quadrivalent, preservative free Magnolia Arnold MD Work Phone: [facility] Work Phone: Payers Date Payer Category Payer Self-pay [id number] 2022 Unknown 2021 [facility] [id number] 1994 Unknown [id number] 1960 Unknown [id number] 2.16.84 [id number] Unknown [id number] 2.16.8 [id number] Unknown [id number] 2.16.8 [id number] Unknown [id number] 2.16.8 [id number] Unknown [id number] 2.16.8 [id number] Unknown [id number] 2.16.8 [id number] Unknown [id number] 2.16.8 [id number] Unknown [id number] 2.16.8 [id number] Unknown [id number] 2.16.8 [id number] Unknown [id number] 2.16.8 [id number] Unknown [id number] 2.16.8 [id number] Unknown [id number] 2.16.8 [id number] Social History Date Type Detail Facility Start: 04-22-2023 End: 02-10-2024 Alcohol Use Alcohol Use [facility] Work Phone: Comment on above: once a month maybe one cup of coffee a day Drug Use: Drug Use: [facility] Work Phone: [facility]: Tobacco Use: Tobacco Use: [facility] Work Phone: Comment on above: quit about 3 yrs ago Drug Use: Drug Use: [facility]; [facility] Work Phone: Living Situation: Living Situation: [facility]; [facility] Work Phone: Tobacco Use: Tobacco Use: [facility]; [facility] Work Phone: Comment on above: quit about 3 yrs ago Start: 01-09-2022 End: 08-04-2023 Tobacco smoking status NJIS Unknown if ever smoked [facility] Start: 08-23-2019 None [facility] Start: 1960 Sex Assigned At Female [facility] Start: 04-22-2023 End: 08-12-2024 Tobacco smoking status NHIS Ex-smoker [facility] Start: 09-08-1979 End: 12-20-2015 History of tobacco use Current smoker [facility] Start: 09-08-1979 End: 12-20-2015 History of tobacco use Cigarette Smoker [facility] Start: 04-22-2023 End: 11-03-2023 Tobacco use and exposure Smokeless tobacco non-user [facility] Start: 04-22-2023 End: 02-10-2024 Alcohol intake Ex-drinker (finding) [facility] Start: 04-22-2023 End: 02-10-2024 Tobacco use panel [facility] National Score (1-100), lower number is lower risk 72 [facility] Start: 12-20-2019 [facility] Start: 1960 Sex Assigned At Not on file [facility] Medical Equipment Procedure Code Equipment Code Equipment Origin al Text Equipment Identifier Dates syringe with nee dle 1 mL 25 gauge x 5/8 miscellaneous syringe, empty disposable 1 (one) Injection as directed for vitamin b12 q 2 weeks for 0 days Quantity: 2 {Each} Refills: 2 Ordered: 14-Apr-2023 Slarb CUSTOMER GREETER Orly Start : 14-Apr-2023 Active Start: 04-14-2023 syringe with nee dle 1 mL 25 gauge x 5/8 miscellaneous syringe, empty disposable 1 (one) Injection as directed for vitamin b12 q 2 weeks for 0 days Quantity: 2 {Each} Refills: 2 Ordered: 14-Apr-2023 Slarb CUSTOMER GREETER, Orly Start : 14-Apr-2023 Active Start: 04-14-2023 syringe with nee dle 1 mL 25 gauge x 5/8 miscellaneous syringe, empty disposable 1 (one) Injection as directed for vitamin b12 q 2 weeks for 0 days Quantity: 2 {Each} Refills: 2 Ordered: 14-Apr-2023 Slarb CUSTOMER GREETER, Orly Start : 14-Apr-2023 Active Start: 04-14-2023 syringe with nee dle 1 mL 25 gauge x 5/8 miscellaneous syringe, empty disposable 1 (one) Injection as directed for vitamin b12 q 2 weeks for 0 days Quantity: 2 {Each} Refills: 2 Ordered: 14-Apr-2023 Slarb CUSTOMER GREETER, Orly Start : 14-Apr-2023 Active Start: 04-14-2023 syringe with nee dle 1 mL 25 gauge x 5/8 miscellaneous syringe, empty disposable 1 (one) Injection as directed for vitamin b12 q 2 weeks for 0 days Quantity: 2 {Each} Refills: 2 Ordered: 14-Apr-2023 Karol Mejia MA Start : 14-Apr-2023 Active Start: 04-14-2023 syringe with nee dle 1 mL 25 gauge x 5/8 miscellaneous syringe, empty disposable 1 (one) Injection as directed for vitamin b12 q 2 weeks for 0 days Quantity: 2 {Each} Refills: 2 Ordered: 14-Apr-2023 Karol Mejia MA Start : 14-Apr-2023 Active Start: 04-14-2023 syringe with nee dle 1 mL 25 gauge x 5/8 miscellaneous syringe, empty disposable 1 (one) Injection as directed for vitamin b12 q 2 weeks for 0 days Quantity: 2 {Each} Refills: 2 Ordered: 14-Apr-2023 Karol Mejia MA Start : 14-Apr-2023 Active Start: 04-14-2023 syringe with nee dle 1 mL 25 gauge x 5/8 miscellaneous syringe, empty disposable 1 (one) Injection as directed for vitamin b12 q 2 weeks for 0 days Quantity: 2 {Each} Refills: 2 Ordered: 14-Apr-2023 Karol Mejia MA Start : 14-Apr-2023 Active Start: 04-14-2023 Clinical Notes 02-28-2023 to 01-28-2025 Note Date & Type Note Facility 01-28-2025 Radiology Diagnostic study note [facility] Imaging Services [address] [place], [place] [address] Low Dose CT Lung Screening MR#: [id number] Acct: [id number] Name: JEANNE SANTACRUZ Rep #: [id number] : 1960 F 64 From: Melissa Carranza MD PCP: RANDEE Caputo Status: REG C LI Study:Low Dose CT Lung Screening Date of Exam : 01/26/25 Exam# [id number] Ordering Dr: Malathi Decker NP LEGAL OFFICE ADMINISTRATORGabriel PROCEDURE: 01/26/2025 REASON FOR EXAM: SMOKING QUIT 2015 TECHNIQUE: Low Dose CT Lung screening without contrast. Coronal and Sagittal reconstructionseries were provided. One or more dose reduction techniques were used (e.g., Automated exposure control, adjustment of the mA and/or kV according to patient size, use of iterative reconstruction technique). REFERENCE LINK: [facility] Lung-RADS RADIATION DOSE SUMMARY: CTDlvol: 3.0 mGy DLP: 102 mGycm COMPARISON: None FINDINGS: Lymph Nodes:No lymphadenopathy. Heart and Vasculature:Normal heart size. Minimal coronary calcifications. Incidental note of an aberrant right subclavian artery which traverses posterior to the esophagus. Lungs and Airways: Central airways are clear. No suspicious pulmonary nodule. Pleura:No effusion. Upper Abdomen:Subcentimeter hypodense lesion in the right hepatic lobe is too small to characterize. Prior cholecystectomy. Bones:Degenerative changes of the thoracic spine. CT/Low Dose CT Lung Screening IMPRESSION: Lung-RADS Category: 1 NEGATIVE. RECOMMEND 12-MONTH SCREENING LDCT. Other Significant Findings: Aberrant right subclavian artery, a normal variant. Reading Location: [facility] CC: RANDEE Ochoa; RANDEE Decker ~ Vice President Of Talent Management: Signed [facility] 01-06-2025 Evaluation note Diagnosis Onset Date Resolution Essential hypertension chronic Ma y 2024 1:28pm Palpitations chronic January 06 1:28pm [facility] Work Phone: 1(399) 465-864606-27-2024 Telephone encounter Note* Telephone Encounter - Brittany Choe LPN - 03/04/2024 3:47 PM EDT Referred to administration. Brittany Choe LPN [facility]06-27-2024 Miscellaneous Notes* Telephone Encounter - Brittany Choe LPN - 03/04/2024 3:47 PM EDT Referred to administration. Brittany Choe LPN documented in [facility] [place] Telephone encounter Note * Telephone Encounter - Yoselyn Vinson RN - 03/04/2024 11:24 AM EDT Jeanne called. She advised that she has already spoken with the customer service team at the number listed. They have advised that they are unable to help her and if she does not pay the bill, she will be forwarded to collections. According to Jeanne, when she saw Kaylee Murray, Kaylee told her not to pay the bill, that it would be by her insurance and clearly it is not. Jeanne states thatshe is frustrated and feels that no one is helping her. She states that she feels that she cannot have trust in the physicians here, because they are telling her one thing, but something else is happening. Jeanne states that since she cannot get any assistance, she is going to transfer her medicalrecords to a new lead systems engineer. Yoselyn Vinson RN March 04, 2024 11:28 AM [facility]06-27-2024 Miscellaneous Notes* Telephone Encounter - Yoselyn Vinson RN - 03/04/2024 11:24 AM EDT Jeanne called. She advised that she has already spoken with the customer service team at the number listed. They have advised that they are unable to help her and if she does not pay the bill, she will be forwarded to collections. According to Jeanne, when she saw Kaylee Murray, Kaylee told her not to pay the bill, that it would be by her insurance and clearly it is not. Jeanne states thatjaylin is frustrated and feels that no one is helping her. She states that she feels that she cannot have trust in the physicians here, because they are telling her one thing, but something else is happening. Jeanne states that since she cannot get any assistance, she is going to transfer her medicalrecords to a new lead systems engineer. Yoselyn Vinson RN March 04, 2024 11:28 AM * Telephone Encounter - Jessica Bella MA - 03/04/2024 10:14 AM EDT Patient called again asking to speak with Rhoda as she was going to do some investigating about this bill. Patient can be reached back at [phone]. * Telephone Encounter - Shoshana Huff RN - 02/20/2024 2:10 PM EDT Patient called in asking for a return call with an update. Shoshana Huff RN documented in this encounter[facility] [place] Telephone encounter Note * Telephone Encounter - Jessica Bella MA - 03/04/2024 10:14 AM EDT Patient called again asking to speak with Rhoda as she was going to do some investigating about this bill. Patient can be reached back at [phone]. [facility]-14[facility]2024 Telephone encounter Note* Telephone Encounter - Shoshana Huff RN - 02/20/2024 2:10 PM EDT Patient called in asking for a return call with an update. Shoshana Huff, RN [facility]06-04-2024 Telephone encounter Note* Telephone Encounter - Kaylee Galvez - 02/10/2024 4:42 PM EDT Pt states she has spoken to billing and they are saying they will just turn her in to collection ifshe does not pay the bill. She chose not to do her CT here at the Clinic due to the insurance not paying for it. Her primary care provider then ordered it and it was covered. They will not pay for Becka's visit because it was billed as a Lung Screening and they do not pay for preventative. She states Kaylee Murray may have different codes that could be used but also told her that it would likely be written off since she can't utilize the Lung Cancer Screening visits. Recommended she talk toFinancial Advocate but pt wanted to still relay message to Becka Delgadillo. [facility] Work Phone: 1(714) 393-618406-04-2024 Miscellaneous Notes* Telephone Encounter - Kaylee Galvez - 02/10/2024 4:42 PM EDT Pt states she has spoken to billing and they are saying they will just turn her in to collection ifshe does not pay the bill. She chose not to do her CT here at the Clinic due to the insurance not paying for it. Her primary care provider then ordered it and it was covered. They will not pay for Becka's visit because it was billed as a Lung Screening and they do not pay for preventative. She states Kaylee Murray may have different codes that could be used but also told her that it would likely be written off since she can't utilize the Lung Cancer Screening visits. Recommended she talk toFinancial Advocate but pt wanted to still relay message to Becka Delgadillo. documented in this [facility] [place] Instructions* Patient Instructions* Kaylee Murray PA-C - 02/10/2024 1:54 PM EDT Start Trelegy in place of Dulera. -if the Trelegy is working better continue with Trelegy and let me know to send refills. -if you do not notice a difference with the Trelegy, return to Dulera documented in this encounterSelect [facility] [place] History of Present illness Narrative* Valeria Stokes APRN.PEN RIDER - 02/10/2024 1:00 PM EDT Images from the original note were not included. Pulmonary Medicine CC: Asthma follow-up Jeanne Santacruz is a 63 year old obese female former 27 pack year smoker, quitting in 2015 with PMH significant for HTN, eczema, and asthma. Current therapy with Dulera and PRN Albuterol. She was seenby LCS in October 2023 but due issues with insurance coverage, had CT done at [facility]. Today, patient reports rare cough without sputum. No hemoptysis, wheezing or dyspnea at rest. Denies fevers, chills, or night sweats. Currently actively losing weight and is down 22lbs. No recent hospitalizations or ED visits or upper respiratory infections. Denies significant seasonal allergies, uses Flonase PRN. She continues to experience SOB on exertion. It has improved since using Dulera, however she notes being SOB with activities such as vacuuming. She used Albuterol once in January while hiking. She became very SOB and nauseous and had to stop. She used Albuterol and symptoms lasted approximately 10 minutes, after which she was able to complete the hike. She denies chest pain/tightness o r wheezing and has not experienced symptoms like it since. PAST MEDICAL HISTORY Diagnosis Date Essential hypertension Palpitations Premature atrial contractions Premature ventricular contractions (PVCs) (VPCs) Sinus arrhythmia Vitamin B12 deficiency Vitamin D deficiency IMMUNIZATIONS Prevnar - xx Pneumovax 23 - xx Influenza - 06/28/2023 COVID-19 - 07/14/2022 Review of Systems Constitutional: Negative for activity change, appetite change, fever and unexpected weight change. HENT: Negative for postnasal drip, rhinorrhea and sinus pressure. Respiratory: Positive for shortness of breath. Negative for cough, chest tightness and wheezing. Cardiovascular: Negative for chest pain and leg swelling. Musculoskeletal: Negative for gait problem. Neurological: Negative for dizziness, weakness and light-headedness. BP 108/70 Pulse 89 Resp 16 Wt 88.9 kg (196 lb) SpO2 99% BMI 32.66 kg/m Physical Exam Vitals reviewed. Constitutional: General: She is not in acute distress. Appearance: Normal appearance. HENT: Mouth/Throat: Mouth: Mucous membranes are moist. Cardiovascular: Rate and Rhythm: Normal rate and regular rhythm. Pulses: Normal pulses. Pulmonary: Effort: Pulmonary effort is normal. No respiratory distress. Breath sounds: Normal breath sounds. No wheezing. Musculoskeletal: Right lower leg: No edema. Left lower leg: No edema. Skin: General: Skin is warm and dry. Capillary Refill: Capillary refill takes 2 to 3 seconds. Neurological: General: No focal deficit present. Mental Status: She is alert. DATA: I personally reviewed and analyzed all labs, radiographs and available pulmonary function testing PFT: Latest Ref Rng & Units 08/08/2023 Spirometry Data FVC PRE (L) L 3.62 FVC POST (L) L 3.83 FEV1 PRE (L) L 2.40 FEV1_POST (L) L 2.53 FEV1/FVC PRE (%) % 66 FEV1/FVC POST (%) % 66 TWZ08-97% PRE (L/S) L/S 1.23 KXC83-05% POST (L/S) L/S 1.60 PEF PRE (L/S) L/S 5.87 PEF POST (L/S) L/S 6.36 DLCO (ml/min/mmHg) ml/min/mmHg 24.81 VA (L) L 5.59 DLCO/VA (ml/min/mmHg/L) ml/min/mmHg/L 4.44 No data to display 10/08/2023 08/08/2023 Exhaled Nitric Oxide Oral Exhaled Nitric Oxide (ppb) 20 75 Labs: Abs Eosin (k/uL) Date Value 08/08/2023 0.27 ASSESSMENT/PLAN: 1. Mild persistent asthma without complication - ICD9: 493.90, ICD10: J45.30 (primary diagnosis) - Continues to experience exertional dyspnea, will switch Dulera to Trelegy and monitor for improvement - FLUTICASONE FUR. 200 MCG-UMECLID 62.5 MCG-VILANT 25 MCG INHALAT.POWDER 2. Dyspnea on exertion - ICD9: 786.09, ICD10: R06.09 - trial Trelegy and monitor symptoms - encouraged continued weight loss and regular exercise 3. Pulmonary emphysema, unspecified emphysema type (HCC) - ICD9: 492.8, ICD10: J43.9 - FLUTICASONE FUR. 200 MCG-UMECLID 62.5 MCG-VILANT 25 MCG INHALAT.POWDER - [id number] 4. Former smoker - ICD9: V15.82, ICD10: Z87.891 - Quit in 2015, encouraged continued cessation - LCS through PCP at [facility] - will obtain CT images for review 5. Class 1 obesity in adult, unspecified BMI, unspecified obesity type, unspecified whether seriouscomorbidity present - ICD9: 278.00, ICD10: E66.9 - Weight decreasing, currently down 22lbs - Tirzepatide injections prescribed by PCP Portions of this documentation were copied and pasted from previous office visit notes in order to provide a cohesive continuity of the history. The note has been reviewed and edited and updated as necessary. Valeria Stokes APRN.PEN RIDER Associated attestation - Kaylee Murray PA-C - 02/10/2024 4:33 PM EDT I have personally performed a face to face assessment of the patient and have reviewed the EDWIN note. My runao findings include: Exam is as documented. Assessment/Plan discussed and detailed above. Other additions or changes: As edited Signature: Kaylee Murray Date: 02/10/2024 Time: 4:32 PM documented in this encounterSelect [facility] [place] NoteHNO ID: [id number] Author: VALERIA STOKES APRN.ZAHRA Service: ? Author Type: Nurse Practitioner Type: Progress Notes Filed: 02/10/2024 16:33 Note Text: Attestation signed by Kaylee Murray PA-C at 02/10/2024 4:33 PM I have personally performed a face to face assessment of the patient and have reviewed the EDWIN note. My ruano findings include: Exam is as documented. Assessment/Plan discussed and detailed above. Other additions or changes: As edited Signature: Kaylee Murray Date: 02/10/2024 Time: 4:32 PM Pulmonary Medicine CC: Asthma follow-up Jeanne Santacruz is a 63 year old obese female former 27 pack year smoker, quitting in 2016 with PMH significant for HTN, eczema, and asthma. Current therapy with Dulera and PRN Albuterol. She was seen by LCS in October 2023 but due issues with insurance coverage, had CT done at [facility]. Today, patient reports rare cough without sputum. No hemoptysis, wheezing or dyspnea at rest. Denies fevers, chills, or night sweats. Currently actively losing weight and is down 22lbs. No recent hospitalizations or ED visits or upper respiratory infections. Denies significant seasonal allergies, uses Flonase PRN. She continues to experience SOB on exertion. It has improved since using Dulera, however she notes being SOB with activities such as vacuuming. She used Albuterol once in January while hiking. She became very SOB and nauseous and had to stop. She used Albuterol and symptoms lasted approximately 10 minutes, after which she was able to complete the hike. She denies chest pain/tightness or wheezing and has not experienced symptoms like it since. PAST MEDICAL HISTORY Diagnosis Date Essential hypertension Palpitations Premature atrial contractions Premature ventricular contractions (PVCs) (VPCs) Sinus arrhythmia Vitamin B12 deficiency Vitamin D deficiency IMMUNIZATIONS Prevnar - xx Pneumovax 23 - xx Influenza - 06/28/2023 COVID-19 - 07/14/2022 Review of Systems Constitutional: Negative for activity change, appetite change, fever and unexpected weight change. HENT: Negative for postnasal drip, rhinorrhea and sinus pressure. Respiratory: Positive for shortness of breath. Negative for cough, chest tightness and wheezing. Cardiovascular: Negative for chest pain and leg swelling. Musculoskeletal: Negative for gait problem. Neurological: Negative for dizziness, weakness and light-headedness. BP 108/70 Pulse 89 Resp 16 Wt 88.9 kg (196 lb) SpO2 99% BMI 32.66 kg/m? Physical Exam Vitals reviewed. Constitutional: General: She is not in acute distress. Appearance: Normal appearance. HENT: Mouth/Throat: Mouth: Mucous membranes are moist. Cardiovascular: Rate and Rhythm: Normal rate and regular rhythm. Pulses: Normal pulses. Pulmonary: Effort: Pulmonary effort is normal. No respiratory distress. Breath sounds: Normal breath sounds. No wheezing. Musculoskeletal: Right lower leg: No edema. Left lower leg: No edema. Skin: General: Skin is warm and dry. Capillary Refill: Capillary refill takes 2 to 3 seconds. Neurological: General: No focal deficit present. Mental Status: She is alert. DATA: I personally reviewed and analyzed all labs, radiographs and available pulmonary function testing PFT: Latest Ref Rng AND Units 08/08/2023 Spirometry Data FVC PRE (L) L 3.62 FVC POST (L) L 3.83 FEV1 PRE (L) L 2.40 FEV1_POST (L) L 2.53 FEV1/FVC PRE (%) % 66 FEV1/FVC POST (%) % 66 XRM90-82% PRE (L/S) L/S 1.23 WTF42-92% POST (L/S) L/S 1.60 PEF PRE (L/S) L/S 5.87 PEF POST (L/S) L/S 6.36 DLCO (ml/min/mmHg) ml/min/mmHg 24.81 VA (L) L 5.59 DLCO/VA (ml/min/mmHg/L) ml/min/mmHg/L 4.44 No data to display 10/08/2023 08/08/2023 Exhaled Nitric Oxide Oral Exhaled Nitric Oxide (ppb) 20 75 Labs: Abs Eosin (k/uL) Date Value 08/08/2023 0.27 ASSESSMENT/PLAN: 1. Mild persistent asthma without complication - ICD9: 493.90, ICD10: J45.30 (primary diagnosis) - Continues to experience exertional dyspnea, will switch Dulera to Trelegy and monitor for improvement - FLUTICASONE FUR. 200 MCG-UMECLID 62.5 MCG-VILANT 25 MCG INHALAT.POWDER 2. Dyspnea on exertion - ICD9: 786.09, ICD10: R06.09 - trial Trelegy and monitor symptoms - encouraged continued weight loss and regular exercise 3. Pulmonary emphysema, unspecified emphysema type (HCC) - ICD9: 492.8, ICD10: J43.9 - FLUTICASONE FUR. 200 MCG-UMECLID 62.5 MCG-VILANT 25 MCG INHALAT.POWDER - [id number] 4. Former smoker - ICD9: V15.82, ICD10: Z87.891 - Quit in 2015, encouraged continued cessation - LCS through PCP at [facility] - will obtain CT images for review 5. Class 1 obesity in adult, unspecified BMI, unspecified obesity type, unspecified whether serious comorbidity pre (more content not included)... [facility]05-01-2024 Telephone encounter Note* Telephone Encounter - Radha Seay MA - 01/07/2024 2:50 PM EDT I contacted patient and relayed Becka's message. Pt has decided to cancel due to the uncertainty of the coverage. She will most likely have PCP order at [facility]. CT scheduled here tomorrow has been cancelled. Radha Seay MA [facility]05-01-2024 Miscellaneous Notes* Telephone Encounter - Radha Seay MA - 01/07/2024 2:50 PM EDT I contacted patient and relayed Becka's message. Pt has decided to cancel due to the uncertainty of the coverage. She will most likely have PCP order at [facility]. CT scheduled here tomorrow has been cancelled. Radha Seay MA * Telephone Encounter - Radha Seay MA - 01/07/2024 2:24 PM EDT Images from the original note were not included. * Telephone Encounter - Radha Seay MA - 01/01/2024 8:27 AM EDT Pt calling to inform that her 11/03/2023 appointment with Becka Delgadillo was not covered by her insurance. She states that she informed both Kaylee Murray that referred her and Becka that her insurance would not cover preventative medicine or screening codes. With her pulmonary history, she was reassured that the services would be covered. She is scheduled for CT Lung Screening 01/07, but states she does not want to do it if it is not going to be covered. (Coded the same) Asking that we check with provider to see if this can be billed any with other diagnosis codes. Her EOB just states that the visit was not a covered service. I told her that I would check with provider as requested and let her know. The CT scan states authorized, but she is not sure it will be covered if it is coded with a Z code. Please review and advise. Radha Seay MA documented [facility] [place] Telephone encounter Note * Telephone Encounter - Radha Seay MA - 01/07/2024 2:24 PM EDT Images from the original note were not included. [facility]04-25-2024 Telephone encounter Note* Telephone Encounter - Radha Seay MA - 01/01/2024 8:27 AM EDT Pt calling to inform that her 11/03/2023 appointment with Becka Delgadillo was not covered by her insurance. She states that she informed both Kaylee Murray that referred her and Becka that her insurance would not cover preventative medicine or screening codes. With her pulmonary history, she was reassured that the services would be covered. She is scheduled for CT Lung Screening 01/07, but states she does not want to do it if it is not going to be covered. (Coded the same) Asking that we check with provider to see if this can be billed any with other diagnosis codes. Her EOB just states that the visit was not a covered service. I told her that I would check with provider as requested and let her know. The CT scan states authorized, but she is not sure it will be covered if it is coded with a Z code. Please review and advise. Radha Seay MA [facility]02-26-2024 NoteHNO ID: [id number] Author: BECKA DELGADILLO APRN.ZAHRA Service: ? Author Type: Nurse Practitioner Type: Progress Notes Filed: 11/03/2023 13:06 Note Text: LUNG SCREENING VISIT PRIMARY CARE PHYSICIAN: Shakila Carter CNP PULMONARY PROVIDER: Kaylee SIMON/Dr. Marion Arnold Results will be communicated via letter or electronic record if applicable. Visit Delivery: In Person Patient Visit Type: New to [place] Current or Ex-smoker? ex Exam Type: annual LDCT Number of Pack Years: 38 Current smoker (=0) or Number of Years since Quit: 7 REQUESTER: The referring provider advised the patient to have screening. HISTORY OF PRESENT ILLNESS: Jeanne Santacruz is a 63 year old Former smoker who presents for lung screening. Respiratory symptoms include: SOB: Yes, hiking, vacuuming, stairs Chest tightness: No Coughing: Yes: Without mucus Hemoptysis: No Wheezing: Yes, with flare ups, diagnosed with asthma, on treatment wheezing is improved Fever/Chills: No Recent Respiratory Infection: No Unintentional weight loss: No Last 6 Encounter Wt Readings: Date: Wt: 11/03/2023 97.1 kg (214 lb) 10/08/2023 96.2 kg (212 lb) 10/08/2023 96.2 kg (212 lb) 08/08/2023 95.7 kg (211 lb) 08/08/2023 95.7 kg (211 lb) 04/22/2023 95.7 kg (211 lb) ECOG PERFORMANCE STATUS: 0- Fully active, able to carry on all pre-disease performance w/o restriction. Modified Medical Research [place] Dyspnea Scale (MMRC) I only get breathless with strenous exercise 0 PAST MEDICAL HISTORY Diagnosis Date Essential hypertension Palpitations Premature atrial contractions Premature ventricular contractions (PVCs) (VPCs) Sinus arrhythmia Vitamin B12 deficiency Vitamin D deficiency PAST SURGICAL HISTORY Procedure Laterality Date BREAST REDUCTION Bilateral 1998 CARDIAC MONITORING CONTINUOUS 09/29/2019 30-day monitoring: see report in scanned documents; essentially showed SR with PACs, brief PAT, PVCs; no AF CATARACT EXTRACTION HX Bilateral 12/2018 Cataract removal with insertion of prosthetic lens CHOLECYSTECTOMY 2018 F TOTAL ABDOMINAL HYSTERECTOMY BSO TONSILLECTOMY HX FAMILY HISTORY Problem Relation Age of Onset Breast Cancer Mother other (atrial fibrillation) Mother Stroke Father COPD Father Heart Attack Father Aneurysm Father other (atrial fibrillation) Father Crohn's Disease Sister other (tachycardia) Sister Tourette syndrome Brother albuterol HFA (PROVENTIL HFA, VENTOLIN HFA) 90 mcg/actuation inhaler INHALE 2 PUFFS BY MOUTH FOUR TIMES A DAY NEEDED mometasone-formoterol (DULERA) 200-5 mcg/actuation inhaler Inhale 2 Puffs as instructed two times a day. sertraline (ZOLOFT) 50 mg tablet Take 100 mg by mouth once daily. diltiazem (CARDIZEM) 120 mg tablet Take 120 mg by mouth once daily. lisinopril-hydrochlorothiazide (PRINZIDE,ZESTORETIC) 10-12.5 mg per tablet Take 1 tablet by mouth once daily. fluticasone (FLONASE) 50 mcg/actuation nasal spray 2 Sprays once daily. cyanocobalamin 1,000 mcg/mL soln Inject 1,000 mcg subcutaneously one time only. monthly colestipol (COLESTID) 1 gram tablet Take 2 g by mouth once daily. ergocalciferol, vitamin D2, (VITAMIN D2 ORAL) Take 1 capsule by mouth once daily. + D3 2,000iu ALLERGIES Allergen Reactions Augmentin [Amoxicil* Vomiting Sulfa (Sulfonamide * Hives The medications and allergies were reviewed and reconciled for this patient and deemed current. Lung Cancer Risk Factors: 1.Tobacco Use: Start Age 18, Quit Age: 56, Average packs per day 1, Pack Years 38 2. Passive Smoke Exposure: Yes, as a Child and as an Adult 3. Personal hx of malignancy: Yes, Type of Cancer: Other smoking-related cancers skin cancer-squamous cell and melanoma 4. Significant exposures (1 year or more of exposure): None, 5. Race: White 6. Education: Some College 7. BMI:Body mass index is 35.66 kg/m?. Patient-entered Height: 5'4 Patient-entered Weight: 214 pounds 8. COPD: No 9. Pneumonia in the past 5 years: No 10. Is there a history of lung cancer in a first degree relative? No 11. Is there a history of lung cancer in a non-first degree relative? No 12. Is there a history of any other cancer in a first degree relative? Yes mom breast cancer Health Maintenance Immunization History Administered Date(s) Administered COVID-19 original vaccine, age 12+ yr, monovalent (TripShake - PURPLE TOP) 11/23/2020 12/14/2020 07/15/2021 COVID-19 vaccine, age 12+ yr, bivalent (Melon PowerNTAdsvark) 07/14/2022 influenza (IIV4) vaccine, age 6 mo - 64 yr, quadrivalent, PF (AFLURIA, FLUARIX, FLULAVAL, FLUZONE) 07/04/2018 05/11/2020 06/20/2021 06/30/2022 06/28/2023 influenza (ccIIV4) vaccine, age 6+ mo, quadrivalent, PF (FLUCELVAX) 06/23/2019 06/25/2019 Colonoscopy: Mammogram: DATA REVIEW I have directly visualized the testing documented: None available Prior Imaging: Last CT/CTA Chest/Lungs No resulted procedures found. Last CT Chest (more content not included)...[place] [id number] Miscellaneous Notes* Telephone Encounter - Alma Golden LPN - 10/29/2023 11:20 AM EST Called patient- no answer. Left message medication ordered per request. Alma Golden LPN * Telephone Encounter - Yoselyn Vinson RN - 10/29/2023 9:34 AM EST Jeanne called. She will be going on vacation and will be hiking in the mountains and was told by afriend that she should call and request a rescue inhaler to bring with her. She uses [facility] in [place]. Yoselyn Vinson RN documented in this encounter[facility] [place]24 NoteHNO ID: [id number] Author: GUEVARA CARLIN RPFT Service: ? Author Type: Respiratory Therapist Type: Procedures Filed: 10/08/2023 10:17 Note Text: RESPIRATORY THERAPY ORAL EXHALED NITRIC OXIDE SERVICE DATE: 10/08/2023 SERVICE TIME: 10:17 AM Oral Exhaled Nitric Oxide measurement: 20.0 (ppb) Normal: Adult 5-20 ppb, pediatric (<12 years) 5-15 ppb High Normal / Increased: Adult 20-35 ppb, pediatric (<12 years) 15-25 ppb Moderately raised exhaled Nitric Oxide may indicate underlying inflammation, but note that: Cold and influenza can raise exhaled Nitric Oxide and some patients have higher baseline exhaled Nitric Oxide levels than others. High: Adult >35 ppb, pediatric (<12 years) >25 ppb Indicative of ongoing eosinophilic inflammation. Symptomatic patient likely to respond to steroids. Possible causes (if already on steroids): Poor compliance, recent allergen exposure, steroid dose inadequate, and steroid resistance. Note that not all patients with high exhaled nitric oxide levels display symptoms. Oral Exhaled Nitric Oxide measurement (Previous Encounters) Test Date Oral Exhaled Nitric Oxide (ppb) 10/08/2023 20.0 08/08/2023 75.0 (A) NAME: NATE Henry PATIENT NAME: Jeanne Santacruz DATE: October 08, 2023 TIME: 10:17 [facility]01-31-2024 NoteHNO ID: [id number] Author: GUEVARA CARLIN RPFT Service: ? Author Type: Respiratory Therapist Type: Progress Notes Filed: 10/08/2023 10:17 Note Text: PULM FUNCTION SMARTBLOCK: Provider: Kaylee Murray PA-C Assisting Tech: Guevara Carlin RPFT Exhaled Nitric Oxide: [address] [place], [place] [address]-31-2024 NoteHNO ID: [id number] Author: KAYLEE MURRAY PA-C Service: ? Author Type: Physician Household Appliance Mechanic Type: Progress Notes Filed: 10/08/2023 11:57 Note Text: Patient: Jeanne Santacruz PCP: Shakila Carter CNP CC: follow up HPI: Jeanne Santacruz 63 year old obese female former 27 pack year smoker, quitting in 2015 with PMH significant for HTN, eczema, and asthma. Initially evaluated by Dr. Arnold 08/08/2023 at which time she had a significantly elevated nitric oxide at 75 and PFTs demonstrated mild obstruction with improvement in mid flows postbronchodilator. Allergy panel, eosinophil count and IgE levels all normal. Patient started on Dulera with as needed Albuterol. Today, patient reports no significant cough, wheezing or SOB. No lower extremity edema. PAST MEDICAL HISTORY Diagnosis Date Essential hypertension Palpitations Premature atrial contractions Premature ventricular contractions (PVCs) (VPCs) Sinus arrhythmia Vitamin B12 deficiency Vitamin D deficiency Allergies: Augmentin [Amoxicil* Vomiting Sulfa (Sulfonamide * Hives mometasone-formoterol (DULERA) 200-5 mcg/actuation inhaler Inhale 2 Puffs as instructed two times a day. fluticasone-salmeterol (ADVAIR DISKUS) 250-50 mcg/dose inhaler Inhale 1 Puff as instructed two times a day. RINSE AND GARGLE MOUTH WITH WATER AFTER EACH USE. albuterol HFA (PROVENTIL HFA, VENTOLIN HFA) 90 mcg/actuation inhaler INHALE 2 PUFFS BY MOUTH FOUR TIMES A DAY NEEDED fluticasone-vilanterol (BREO ELLIPTA) 100-25 mcg/dose inhaler Inhale 1 Inhalation as instructed once daily. sertraline (ZOLOFT) 50 mg tablet Take 100 mg by mouth once daily. diltiazem (CARDIZEM) 120 mg tablet Take 120 mg by mouth once daily. lisinopril-hydrochlorothiazide (PRINZIDE,ZESTORETIC) 10-12.5 mg per tablet Take 1 tablet by mouth once daily. fluticasone (FLONASE) 50 mcg/actuation nasal spray 2 Sprays once daily. cyanocobalamin 1,000 mcg/mL soln Inject 1,000 mcg subcutaneously one time only. monthly colestipol (COLESTID) 1 gram tablet Take 2 g by mouth once daily. ergocalciferol, vitamin D2, (VITAMIN D2 ORAL) Take 1 capsule by mouth once daily. + D3 2,000iu Social History Tobacco Use Smoking status: Former Packs/day: 0.75 Years: 36.00 Additional pack years: 0.00 Total pack years: 27.00 Types: Cigarettes Start date: 1979 Quit date: 12/20/2015 Years since quittin.8 Smokeless tobacco: Never Vaping Use Vaping Use: Never used Substance Use Topics Alcohol use: Not Currently Comment: rare Drug use: Not Currently Family History Problem Relation Age of Onset Breast Cancer Mother other (atrial fibrillation) Mother Stroke Father COPD Father Heart Attack Father Aneurysm Father other (atrial fibrillation) Father Crohn's Disease Sister other (tachycardia) Sister Tourette syndrome Brother PAST SURGICAL HISTORY Procedure Laterality Date BREAST REDUCTION Bilateral 1998 CARDIAC MONITORING CONTINUOUS 09/29/2019 30-day monitoring: see report in scanned documents; essentially showed SR with PACs, brief PAT, PVCs; no AF CATARACT EXTRACTION HX Bilateral 12/2018 Cataract removal with insertion of prosthetic lens CHOLECYSTECTOMY 2018 F TOTAL ABDOMINAL HYSTERECTOMY BSO TONSILLECTOMY HX I reviewed the past medical history, family history, social history and surgical history with changes noted above and updated in EMR. IMMUNIZATIONS Prevnar - xx Pneumovax 23 - xx Influenza - 2022 COVID-19 - most recent 07/2022 ROS: General: No fevers, chills or night sweats. No unintended weight loss. Eyes, Ears, nose, throat: No post nasal drip, rhinorrhea, purulent nasal discharge, epistaxis. No hoarseness. Vision stable. Cardiac: No angina, edema, orthopnea. Resp: See HPI. GI: No heartburn, dysphagia. Musculoskeletal: No joint pain or swelling. Neuro: No headache, focal weakness, tremor. Skin: No skin changes or rash. Otherwise negative. PHYSICAL EXAMINATION: BP (P) 104/62 Pulse (P) 86 Resp (P) 17 Wt 96.2 kg (212 lb) SpO2 (P) 98% BMI 35.32 kg/m? Gen: No acute distress. Cooperative with examination. HEENT: Normocephalic. Sclera, conjunctiva clear. Oral hygeine and dentition good. No thrush. Resp: No stridor, accessory respiratory muscle use, supra-sternal or intercostal retractions. No wheezes, crackles. CV: Regular rythm. Heart tones normal. Radial pulses normal. MSK: No kyphoscoliosis. Ext: Warm and well perfused. No clubbing, cyanosis, edema. Skin: No rash, ecchymoses. Neuro: Mental status normal. Affect normal. No tremor. DATA: Exhaled nitric oxide (Dee), 10/08/2023: 20 (normal < 20). 08/08/2023 75.0 (A) PFT, 08/2023: Review of pulmonary function test shows mild obstruction with improvement in mid flows postbronchodilator. Diffusing capacity is normal. Imaging / Diagnostic Studies: STUDY: LOW DOSE CT LUNG CANCER SCREENING 09/12/2022 REASON FOR EXAM: Female, 62 years old. Long (more content not included)... [facility]12-04-2023 Miscellaneous Notes* Addendum Note - Magnolia Arnold MD - 08/11/2023 4:37 PM ESTAddended by: MAGNOLIA ARNOLD on: 08/11/2023 04:37 PM Modules accepted: Orders * Telephone Encounter - Laure Pereyra Ma - 08/11/2023 2:42 PM EST Patient called and states she called her insurance company. She would like to try Advair discus. Feels it will be reasonably priced. Requesting Rx be sent to [facility] pharmacy * Addendum Note - Magnolia Arnold MD - 08/11/2023 2:15 PM ESTAddended by: MAGNOLIA ARNOLD on: 08/11/2023 02:15 PM Modules accepted: Orders * Telephone Encounter - Alma Golden LPN - 08/11/2023 10:41 AM EST Patient called. Verified name and date of . Her insurance states they no longer even covers Breo Ellipta. Advair cost is $140, Symbicort is $228. Makenna reports that Dulera might be a little less because it requires a prior authorization butcould not tell borden without the prior authorization being done. Patient asking if there is any other alternatives to treatment because at those prices she cannot afford. Please review and advise. Alma Golden LPN * Telephone Encounter - Brittany Choe LPN - 08/11/2023 10:30 AM EST Patient will contact insurance to check costs and let us know their preference. Brittany Choe LPN * Telephone Encounter - Alma Golden LPN - 08/11/2023 8:29 AM EST Patient called. Verified name and date of . Patient reports that the Breo- Ellipta is $116 and too costly. Please review and advise if alternate medication is available. [facility] [place]. Alma Golden LPN documented in this encounterSelect [facility] [place] History of Present illness Narrative* Magnolia Arnold MD - 08/08/2023 3:15 PM EST Images from the original note were not included. . [facility] Note Patient name: Jeanne Santacruz PCP: Shakila Carter CNP Referring Physician: same Consultation requested by Shakila Carter for an opinion regarding COPD. My final recommendations will be communicated back to the requesting physician by way of shared Medical record or letter to requesting physician via US mail. CC: SOB HPI: Jeanne Santacruz 63 year old obese female former 27 pack year smoker, quitting in 2016 with PMH significant for HTN, eczema being referred for evaluation of COPD. She denies any prior history of childhood asthma or allergies although she has a family history of allergies and eczema as well as a personal history of eczema. She states she was doing well until 2 months ago when she first noted shortness of breath. She participates in a hiking club and noted severe shortness of breath when climbing a slight hill. She had to stop and rest several times but quickly recovered. She believes that may have triggered her shortness of breath. She had another episode of shortness of breath when vacuuming and then when picking up her grandson. Concomitant with her intermittent shortness of breath, she has noted wheezing especially at night. No significant cough or sputum production. She denies anyacid reflux symptoms and in fact was tried on Protonix without relief of her nocturnal wheezing. Noantecedent upper respiratory infection. Over the years she has noted sinus congestion related to dust as well as recent exposure. She has never been formally allergy tested. She has carpet in her bedroom and 2 dogs and a cat. DATA: SERVICE DATE: 08/08/2023 SERVICE TIME: 3:01 PM Oral Exhaled Nitric Oxide measurement: 75.0 (ppb) (A) PFT: Review of pulmonary function test shows mild obstruction with improvement in mid flows postbronchodilator. Diffusing capacity is normal. Imaging / Diagnostic Studies: STUDY: LOW DOSE CT LUNG CANCER SCREENING 09/12/2022 REASON FOR EXAM: Female, 62 years old. Long history of smoking. Screening for lung cancer. COMPARISON: None. NODULES: The lungs are clear and expanded. There are no suspicious lung nodules There are no endobronchial lesions. There is no demonstrated pleural abnormality. Normal heart and pericardium. Normal mediastinum. Normal hilar regions. Normal unenhanced pulmonaryarteries. There is retropharyngeal right subclavian artery. Normal aorta arch and descending thoracic aorta. There are multi-level degenerative changes of the thoracic spine. There is no demonstrated abnormality of the visualized upper abdomen. CT/Low Dose CT Lung Screening IMPRESSION: Lung-RADS category 2. Benign findings. There is no evidence of malignancy. Recommendation: Routine screening CT scan in one year. I personally reviewed the images and agree with the above assessment PAST MEDICAL HISTORY Diagnosis Date Essential hypertension Palpitations Premature atrial contractions Premature ventricular contractions (PVCs) (VPCs) Sinus arrhythmia Vitamin B12 deficiency Vitamin D deficiency ALLERGIES Allergen Reactions Augmentin [Amoxicil* Vomiting Sulfa (Sulfonamide * Hives sertraline (ZOLOFT) 50 mg tablet Take 100 mg by mouth once daily. diltiazem (CARDIZEM) 120 mg tablet Take 120 mg by mouth once daily. lisinopril-hydrochlorothiazide (PRINZIDE,ZESTORETIC) 10-12.5 mg per tablet Take 1 tablet by mouth once daily. fluticasone (FLONASE) 50 mcg/actuation nasal spray 2 Sprays once daily. cyanocobalamin 1,000 mcg/mL soln Inject 1,000 mcg subcutaneously one time only. monthly ergocalciferol, vitamin D2, (VITAMIN D2 ORAL) Take 1 capsule by mouth once daily. + D3 2,000iu albuterol HFA (PROVENTIL HFA, VENTOLIN HFA) 90 mcg/actuation inhaler INHALE 2 PUFFS BY MOUTH FOUR TIMES A DAY NEEDED fluticasone-vilanterol (BREO ELLIPTA) 100-25 mcg/dose inhaler Inhale 1 Inhalation as instructed once daily. colestipol (COLESTID) 1 gram tablet Take 2 g by mouth once daily. Social History Tobacco Use Smoking status: Former Packs/day: 0.75 Years: 36.00 Additional pack years: 0.00 Total pack years: 27.00 Types: Cigarettes Start date: 1979 Quit date: 12/20/2015 Years since quittin.6 Smokeless tobacco: Never Vaping Use Vaping Use: Never used Substance Use Topics Alcohol use: Not Currently Comment: rare Drug use: Not Currently No occupational exposure history. 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 Pets: 2 dogs and cat FAMILY HISTORY Problem Relation Age of Onset Breast Cancer Mother other (atrial fibrillation) Mother Stroke Father COPD Father Heart Attack Father Aneurysm Father other (atrial fibrillation) Father Crohn's Disease Sister other (tachycardia) Sister Tourette syndrome Brother PAST SURGICAL HISTORY Procedure Laterality Date BREAST REDUCTION Bilateral 1998 CARDIAC MONITORING CONTINUOUS 09/29/2019 30-day monitoring: see report in scanned documents; essentially showed SR with PACs, brief PAT, PVCs; no AF CATARACT EXTRACTION HX Bilateral 12/2018 Cataract removal with insertion of prosthetic lens CHOLECYSTECTOMY 2018 F TOTAL ABDOMINAL HYSTERECTOMY BSO TONSILLECTOMY HX PMH, Social history, family history and surgical history reviewed and updated in EMR REVIEW OF SYSTEMS: CONSTITUTIONAL: No fevers, chills, nightsweats, unintended weight loss HEENT: Denies intermittent nasal congestion/sinus symptoms. No current postnasal drip EYES: No diplopia or blurry vision. Itchy eyes CARDIOVASCULAR: No chest pain, orthopnea, PND. Intermittent JORDAN, palpitations, edema PULM: See HPI GI: No dysphagia/odynophagia, problematic reflux. : No urinary complaints, including dysuria, gross hematuria or pyuria. NEURO: No balance problems, peripheral weakness/paresthesias or numbness of concern. MUSC-SKEL: No joint pain, swelling, or erythema. PSY: No concerns regarding depression, anxiety INTEGUMENTARY: Eczema PHYSICAL EXAMINATION: BP 118/70 Pulse 90 Resp 14 Ht 5' 4.96 (1.65m) Wt 211 lb (95.7kg) SpO2 94% BMI 35.15 kg/(m^2). General Appearance: Obese female, NAD. Skin: Skin color, texture, turgor normal, no suspicious rashes or lesions. Head: Normocephalic, no masses, lesions, tenderness or abnormalities. Eyes: Sclera, conjunctiva normal. Oropharynx: No oral lesions, erythema. Neck: No JVD, no masses, no thyromegaly. Lungs: Not labored, normal to percussion, no wheezes or crackles. Heart: Regular rate and rhythm, no murmurs or gallops. Extremities: No edema or clubbing. Musculoskeletal: No joint deformities or effusions. Lymph Nodes: No cervical lymphadenopathy and No supraclavicular lymphadenopathy. Assessment/Plan: 1. Mild persistent asthma, uncomplicated -Clinical history and pulmonary function testing consistent with asthma not COPD despite her smoking history -Markedly elevated exhaled nitric oxide level suggestive of allergic component -Started Breo Ellipta 100/25 -Continue albuterol as needed -Allergy assessment 2. Former cigarette smoker -Former smoker without sequelae of COPD -Continue abstinence -Patient participating in lung cancer screening program 3. Class II obesity -BMI 35 -Weight loss advised as obesity portends poor control of asthma Magnolia Arnold MD [facility] [place] documented in this encounterSelect [facility] [place]23 NoteHNO ID: [id number] Author: Magnolia Arnold MD Service: ? Author Type: Physician Type: Progress Notes Filed: 08/08/2023 5:17 PM Note Text: . [facility] [place] Note Patient name: Jeanne Santacruz PCP: Shakila Carter CNP Referring Physician: same Consultation requested by Shakila Carter for an opinion regarding COPD. My final recommendations will be communicated back to the requesting physician by way of shared Medical record or letter to requesting physician via US mail. CC: SOB HPI: Jeanne Santacruz 63 year old obese female former 27 pack year smoker, quitting in 2016 with PMH significant for HTN, eczema being referred for evaluation of COPD. She denies any prior history of childhood asthma or allergies although she has a family history of allergies and eczema as well as a personal history of eczema. She states she was doing well until 2 months ago when she first noted shortness of breath. She participates in a hiking club and noted severe shortness of breath when climbing a slight hill. She had to stop and rest several times but quickly recovered. She believes that may have triggered her shortness of breath. She had another episode of shortness of breath when vacuuming and then when picking up her grandson. Concomitant with her intermittent shortness of breath, she has noted wheezing especially at night. No significant cough or sputum production. She denies any acid reflux symptoms and in fact was tried on Protonix without relief of her nocturnal wheezing. No antecedent upper respiratory infection. Over the years she has noted sinus congestion related to dust as well as recent exposure. She has never been formally allergy tested. She has carpet in her bedroom and 2 dogs and a cat. DATA: SERVICE DATE: 08/08/2023 SERVICE TIME: 3:01 PM Oral Exhaled Nitric Oxide measurement: 75.0 (ppb) (A) PFT: Review of pulmonary function test shows mild obstruction with improvement in mid flows postbronchodilator. Diffusing capacity is normal. Imaging / Diagnostic Studies: STUDY: LOW DOSE CT LUNG CANCER SCREENING 09/12/2022 REASON FOR EXAM: Female, 62 years old. Long history of smoking. Screening for lung cancer. COMPARISON: None. NODULES: The lungs are clear and expanded. There are no suspicious lung nodules There are no endobronchial lesions. There is no demonstrated pleural abnormality. Normal heart and pericardium. Normal mediastinum. Normal hilar regions. Normal unenhanced pulmonaryarteries. There is retropharyngeal right subclavian artery. Normal aorta arch and descending thoracic aorta. There are multi-level degenerative changes of the thoracic spine. There is no demonstrated abnormality of the visualized upper abdomen. CT/Low Dose CT Lung Screening IMPRESSION: Lung-RADS category 2. Benign findings. There is no evidence of malignancy. Recommendation: Routine screening CT scan in one year. I personally reviewed the images and agree with the above assessment PAST MEDICAL HISTORY Diagnosis Date Essential hypertension Palpitations Premature atrial contractions Premature ventricular contractions (PVCs) (VPCs) Sinus arrhythmia Vitamin B12 deficiency Vitamin D deficiency ALLERGIES Allergen Reactions Augmentin [Amoxicil* Vomiting Sulfa (Sulfonamide * Hives sertraline (ZOLOFT) 50 mg tablet Take 100 mg by mouth once daily. diltiazem (CARDIZEM) 120 mg tablet Take 120 mg by mouth once daily. lisinopril-hydrochlorothiazide (PRINZIDE,ZESTORETIC) 10-12.5 mg per tablet Take 1 tablet by mouth once daily. fluticasone (FLONASE) 50 mcg/actuation nasal spray 2 Sprays once daily. cyanocobalamin 1,000 mcg/mL soln Inject 1,000 mcg subcutaneously one time only. monthly ergocalciferol, vitamin D2, (VITAMIN D2 ORAL) Take 1 capsule by mouth once daily. + D3 2,000iu albuterol HFA (PROVENTIL HFA, VENTOLIN HFA) 90 mcg/actuation inhaler INHALE 2 PUFFS BY MOUTH FOUR TIMES A DAY NEEDED fluticasone-vilanterol (BREO ELLIPTA) 100-25 mcg/dose inhaler Inhale 1 Inhalation as instructed once daily. colestipol (COLESTID) 1 gram tablet Take 2 g by mouth once daily. Social History Tobacco Use Smoking status: Former Packs/day: 0.75 Years: 36.00 Additional pack years: 0.00 Total pack years: 27.00 Types: Cigarettes Start date: 1979 Quit date: 12/20/2015 Years since quittin.6 Smokeless tobacco: Never Vaping Use Vaping Use: Never used Substance Use Topics Alcohol use: Not Currently Comment: rare Drug use: Not Currently No occupational exposure history. 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 Pets: 2 dogs and cat FAMILY HISTORY Problem Relation Age of Onset Breast Cancer Mother other (atrial fibrillation) Mother Stroke Father COPD Father Heart Attack Father Aneurysm Father other (atrial fibrillation) Father Crohn's Disease Sister other (tachycardia) Sister Javid (more content not included)...[facility]12-01-2023 NoteHNO ID: [id number] Author: Guevara Carlin RPFT Service: ? Author Type: Respiratory Therapist Type: Procedures Filed: 08/08/2023 3:01 PM Note Text: RESPIRATORY THERAPY ORAL EXHALED NITRIC OXIDE SERVICE DATE: 08/08/2023 SERVICE TIME: 3:01 PM Oral Exhaled Nitric Oxide measurement: 75.0 (ppb) (A) Normal: Adult 5-20 ppb, pediatric (<12 years) 5-15 ppb High Normal / Increased: Adult 20-35 ppb, pediatric (<12 years) 15-25 ppb Moderately raised exhaled Nitric Oxide may indicate underlying inflammation, but note that: Cold and influenza can raise exhaled Nitric Oxide and some patients have higher baseline exhaled Nitric Oxide levels than others. High: Adult >35 ppb, pediatric (<12 years) >25 ppb Indicative of ongoing eosinophilic inflammation. Symptomatic patient likely to respond to steroids. Possible causes (if already on steroids): Poor compliance, recent allergen exposure, steroid dose inadequate, and steroid resistance. Note that not all patients with high exhaled nitric oxide levels display symptoms. Oral Exhaled Nitric Oxide measurement (Previous Encounters) Test Date Oral Exhaled Nitric Oxide (ppb) 08/08/2023 75.0 (A) NAME: NATE Henry PATIENT NAME: Jeanne Santacruz DATE: August 08, 2023 TIME: 3:01 [facility]12-01-2023 Procedure note* Guevara Carlin RPFT - 08/08/2023 3:01 PM ESTAssociated Order(s): NITRIC OXIDE, EXHALED RESPIRATORY THERAPY ORAL EXHALED NITRIC OXIDE SERVICE DATE: 08/08/2023 SERVICE TIME: 3:01 PM Oral Exhaled Nitric Oxide measurement: 75.0 (ppb) (A) Normal: Adult 5-20 ppb, pediatric (<12 years) 5-15 ppb High Normal / Increased: Adult 20-35 ppb, pediatric (<12 years) 15-25 ppb Moderately raised exhaled Nitric Oxide may indicate underlying inflammation, but note that: Cold and influenza can raise exhaled Nitric Oxide and some patients have higher baseline exhaled Nitric Oxide levels than others. High: Adult >35 ppb, pediatric (<12 years) >25 ppb Indicative of ongoing eosinophilic inflammation. Symptomatic patient likely to respond to steroids. Possible causes (if already on steroids): Poor compliance, recent allergen exposure, steroid dose inadequate, and steroid resistance. Note that not all patients with high exhaled nitric oxide levels display symptoms. Oral Exhaled Nitric Oxide measurement (Previous Encounters) Test Date Oral Exhaled Nitric Oxide (ppb) 08/08/2023 75.0 (A) NAME: NATE Henry PATIENT NAME: Jeanne Santacruz DATE: August 08, 2023 TIME: 3:01 PM [facility] [place] Nurse Note* Brittany Choe LPN - 08/08/2023 2:44 PM EST Intake information documented in the prior visit with NATE Henry today. documented in this encounter[facility] [place]-2023 NoteHNO ID: [id number] Author: Guevara Carlin RPFT Service: ? Author Type: Respiratory Therapist Type: Progress Notes Filed: 08/08/2023 3:01 PM Note Text: PULM FUNCTION SMARTBLOCK: Provider: Magnolia Arnold MD Assisting Tech: Guevara Carlin RPFT Spirometry w/BD: 1 DLCO: 1 [facility]haled Nitric [facility] of Present illness Narrative* Guevara Carlin RPFT - 08/08/2023 2:41 PM EST PULM FUNCTION SMARTBLOCK: Provider: Magnolia Arnold MD Assisting Tech: Guevara Carlin RPFT Spirometry w/BD: 1 DLCO: 1 Exhaled Nitric Oxide: 1 documented in this encounterSelect [facility] [place]-15-2023 NoteHNO ID: [id number] Author: Kia Tracy APRN.PEN RIDER Service: ? Author Type: Nurse Practitioner Type: Progress Notes Filed: 04/22/2023 2:02 PM Note Text: Travel Rn offered: Patient declines. Jeanne is a 62 year old No obstetric history on file. who presents for an annual gynecologic exam without complaints. Postmenopausal: Yes- total hysterectomy HRT use: Yes, Premarin How long: stopped a few yrs ago. History of abnormal pap: Yes Last mammogram: 2021 normal @[facility] History of abnormal mammogram: No Sexually active: No Hot flashes: Yes Night sweats: Yes Vaginal dryness: No OB History No obstetric history on file. 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 Comments: Sexual Activity: Not Currently; Male; hysterectomy Contraception: Surgical PAST MEDICAL HISTORY Diagnosis Date Essential hypertension Palpitations Premature atrial contractions Premature ventricular contractions (PVCs) (VPCs) Sinus arrhythmia Vitamin B12 deficiency Vitamin D deficiency PAST SURGICAL HISTORY Procedure Laterality Date BREAST REDUCTION Bilateral 1998 CARDIAC MONITORING CONTINUOUS 09/29/2019 30-day monitoring: see report in scanned documents; essentially showed SR with PACs, brief PAT, PVCs; no AF CATARACT EXTRACTION HX Bilateral 12/2018 Cataract removal with insertion of prosthetic lens CHOLECYSTECTOMY 2017 F TOTAL ABDOMINAL HYSTERECTOMY TONSILLECTOMY HX FAMILY HISTORY Problem Relation Age of Onset Breast Cancer Mother other (atrial fibrillation) Mother Stroke Father COPD Father Heart Attack Father Aneurysm Father other (atrial fibrillation) Father Crohn's Disease Sister other (tachycardia) Sister Tourette syndrome Brother SOCIAL HISTORY Social History Tobacco Use Smoking status: Former Packs/day: 0.75 Years: 36.00 Additional pack years: 0.00 Total pack years: 27.00 Types: Cigarettes Start date: 1979 Quit date: 12/20/2015 Years since quittin.3 Smokeless tobacco: Never Vaping Use Vaping Use: Never used Substance Use Topics Alcohol use: Not Currently Comment: rare Drug use: Not Currently REVIEW OF SYSTEMS Abdomen: No abdominal pain, nausea, vomiting, diarrhea, or constipation. No bloating, early satiety, indigestion, or increased flatulence. Bladder: No dysuria, gross hematuria, urinary frequency, urinary urgency, or incontinence Breast: No breast lumps, nipple d/c, overlying skin changes, redness or skin retraction Allergies and current medication updated:Yes EXAM: BP 100/60 Ht 5' 6 (1.68m) Wt 211 lb (95.7kg) BMI 34.07 kg/(m2). GENERAL: pleasant, female in no apparent distress HEENT: Normocephalic, atraumatic, mucus membranes moist, and no lesions NECK: Supple, full range of motion, no adenopathy, and thyroid normal DERMATOLOGY: Normal, without lesions, non-icteric, and non-hirsute BREAST: soft, non-tender, symmetric, no dominant mass, normal nipple-areolar complex, no lymphadenopathy, and no nipple discharge CHEST: Normal inspiratory effort ABDOMEN: soft, non-tender, and no masses PELVIC: external genitalia normal, normal Bartholin's glands, urethra, Kingsbury's glands, no vulvar lesions, physiologic discharge present, normal appearing perineal body and perianal region, cervix surgically absent BIMANUAL: no adnexal masses, non-tender, and uterus surgically absent RECTOVAGINAL: deferred. NEURO: alert and oriented x3,exam grossly non-focal EXTREMITIES: normal ASSESSMENT/PLAN: 1) Health maintenance: Pap/HPV screening no longer needed Mammogram up to date Nutrition, exercise and routine health maintenance exams reviewed. Calcium/Vitamin D supplementation information provided. Colon cancer screening: patient to discuss with PCP 2) Follow up one year or sooner as needed Kia Tracy APRN.[facility]08-15-2023 History of Present illness Narrative* Kia Tracy APRN.PEN RIDER - 04/22/2023 1:29 PM EDT Travel Rn offered: Patient declines. Jeanne is a 62 year old No obstetric history on file. who presents for an annual gynecologic exam without complaints. Postmenopausal: Yes- total hysterectomy HRT use: Yes, Premarin How long: stopped a few yrs ago. History of abnormal pap: Yes Last mammogram: 2021 normal @[facility] History of abnormal mammogram: No Sexually active: No Hot flashes: Yes Night sweats: Yes Vaginal dryness: No OB History No obstetric history on file. 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 Comments: Sexual Activity: Not Currently; Male; hysterectomy Contraception: Surgical PAST MEDICAL HISTORY Diagnosis Date Essential hypertension Palpitations Premature atrial contractions Premature ventricular contractions (PVCs) (VPCs) Sinus arrhythmia Vitamin B12 deficiency Vitamin D deficiency PAST SURGICAL HISTORY Procedure Laterality Date BREAST REDUCTION Bilateral 1998 CARDIAC MONITORING CONTINUOUS 09/29/2019 30-day monitoring: see report in scanned documents; essentially showed SR with PACs, brief PAT, PVCs; no AF CATARACT EXTRACTION HX Bilateral 12/2018 Cataract removal with insertion of prosthetic lens CHOLECYSTECTOMY 2018 F TOTAL ABDOMINAL HYSTERECTOMY TONSILLECTOMY HX FAMILY HISTORY Problem Relation Age of Onset Breast Cancer Mother other (atrial fibrillation) Mother Stroke Father COPD Father Heart Attack Father Aneurysm Father other (atrial fibrillation) Father Crohn's Disease Sister other (tachycardia) Sister Tourette syndrome Brother SOCIAL HISTORY Social History Tobacco Use Smoking status: Former Packs/day: 0.75 Years: 36.00 Additional pack years: 0.00 Total pack years: 27.00 Types: Cigarettes Start date: 1979 Quit date: 12/20/2015 Years since quittin.3 Smokeless tobacco: Never Vaping Use Vaping Use: Never used Substance Use Topics Alcohol use: Not Currently Comment: rare Drug use: Not Currently REVIEW OF SYSTEMS Abdomen: No abdominal pain, nausea, vomiting, diarrhea, or constipation. No bloating, early satiety, indigestion, or increased flatulence. Bladder: No dysuria, gross hematuria, urinary frequency, urinary urgency, or incontinence Breast: No breast lumps, nipple d/c, overlying skin changes, redness or skin retraction Allergies and current medication updated:Yes EXAM: BP 100/60 Ht 5' 6 (1.68m) Wt 211 lb (95.7kg) BMI 34.07 kg/(m^2). GENERAL: pleasant, female in no apparent distress HEENT: Normocephalic, atraumatic, mucus membranes moist, and no lesions NECK: Supple, full range of motion, no adenopathy, and thyroid normal DERMATOLOGY: Normal, without lesions, non-icteric, and non-hirsute BREAST: soft, non-tender, symmetric, no dominant mass, normal nipple-areolar complex, no lymphadenopathy, and no nipple discharge CHEST: Normal inspiratory effort ABDOMEN: soft, non-tender, and no masses PELVIC: external genitalia normal, normal Bartholin's glands, urethra, Kingsbury's glands, no vulvar lesions, physiologic discharge present, normal appearing perineal body and perianal region, cervix surgically absent BIMANUAL: no adnexal masses, non-tender, and uterus surgically absent RECTOVAGINAL: deferred. NEURO: alert and oriented x3,exam grossly non-focal EXTREMITIES: normal ASSESSMENT/PLAN: 1) Health maintenance: Pap/HPV screening no longer needed Mammogram up to date Nutrition, exercise and routine health maintenance exams reviewed. Calcium/Vitamin D supplementation information provided. Colon cancer screening: patient to discuss with PCP 2) Follow up one year or sooner as needed Kia Tracy APRN.ZAHRA documented in this encounterSelect [facility] [place]-23-[address] Fleming [facility] February 28, 2023 10:38pm Note Date/Time February 28, 2023 8:57 pm [facility] Medical Records Department [address] [place] [id number] Emergency Department Summary 02/28/23 MR#: [id number] Acct: [id number] Name: JEANNE SANTACRUZ Rep #:[id number] : 1960 62 From: Kaylee Fleming MD PCP: RANDEE Caputo Status:REG E R Location: ED HPI History of Present Illness Chief Complaint: Dental Informant: patient Narrative Narrative: Patient presents with recurrent facial swelling. Patient states she developed left facial pain and swelling about 3 weeks ago. She was started on an antibiotic (clindamycin) and seen by [facility] endodontics in [place]. Aweek ago yesterday they did a procedure where they went through her mouth into the abscessed area in the left maxilla and drained it. She was seen yesterday and had her final stitch removed. Overnight she started getting left facial pain and swelling again. She called her software architect this morning and was placedon Zithromax and written pain pills. Patient states she tried taking just ibuprofen and Tylenol and has taken 1 dose of Zithromax. This evening due to increased pain she did take 1 dose of her stronger pain medication. She presents to the ER tonight stating that she feels the swelling is getting worse. While at home she thought she had some tightness in her throat as well. She states since sitting upright her symptoms seem to be somewhat improved. She hasnot noted fever. [facility] Medical History Diarrhea following gastrointestinal surgery Essential hypertension Former smoker Hyperlipidemia Palpitations Premature atrial contractions Sinus arrhythmia Vitamin B 12 deficiency Vitamin D deficiency Home Medications cyanocobalamin (vitamin B-12) 1,000 mcg/mL injection solution 100 mcg IM .[id number] 08/25/19 [History Last Taken Unknown] cholecalciferol (vitamin D3) 50 mcg (2,000 unit) tablet 2,000 unit PO DAILY 08/31/19 [History Last Taken Unknown] sertraline 50 mg tablet 50 mg PO DAILY 03/06/20 [History Last Taken Unknown] colestipol 1 gram tablet (Colestid) 2 g PO DAILY diarrhea post cholecystectomy 07/09/21 [History Last Taken Unknown] [id number] 18 mg-FA 400 mcg-calcium 500 mg-vit K 50 mcg tablet (Women's Multivitamin) tab PO 01/09/22 [History Last Taken Unknown] diltiazem HCl 120 mg capsule,extended release 24 hr 120 mg PO DAILY #90 caps 09/16/22 [Rx Last Taken Unknown] lisinopril 10 mg-hydrochlorothiazide 12.5 mg tablet 1 tab PO DAILY #90 tabs 09/16/22 [Rx Last Taken Unknown] Allergy/AdvReac Type Severity Reaction Status Date / Time Sulfa (Sulfonamide Allergy Hives Verified 07/17/22 12:59 Antibiotics) amoxicillin [From Augmentin] AdvReac Upset Verified 07/17/22 12:59 Stomach clavulanic acid AdvReac Upset Verified 07/17/22 12:59 [From Augmentin] Stomach Family History Mother Breast cancer Atrial fibrillation Father CVA (cerebral vascular accident) Atrial fibrillation COPD (chronic obstructive pulmonary disease) Myocardial infarction Abdominal aortic aneurysm Surgical History H/O cataract removal with insertion of prosthetic lens (12/2018) History of bilateral breast reduction surgery (1998) History of cholecystectomy (2017) History of tonsillectomy History of total abdominal hysterectomy Social History Smoking Status: Former smoker how long ago did patient quit smokin years ago alcohol intake: current alcohol intake frequency: holidays/special occasions only substance use type: does not use caffeine: Yes Type: coffee Number of servings: 1 ROS ROS ED Constitutional Constitutional ED: Denies chills or fever(s) Eyes Eyes: Denies change in vision or discharge from eye(s) ENT ENT ED: Reports other Details: Left facial swelling ; Denies discharge from eye(s), rhinorrhea or sore throat Cardiovascular Cardiovascular: Denies chest pain or palpitations Respiratory/Chest Respiratory/Chest: Denies cough or dyspnea Gastrointestinal Gastrointestinal: Denies abdominal pain, nausea or vomiting Musculoskeletal Musculoskeletal: Denies back pain or extremity pain Integumentary Denies Abrasions or rash Neurologic Neurologic: Denies headache(s) or weakness Psychiatric Psychiatric: Denies anxiety or depression Allergic/Immunologic Allergic/Immunologic ED: Denies lip swelling or urticaria EXAM Physical Exam Const Vital Signs: 02/28/23 20:32 Temperature 97.5 F L Temperature Source Temporal Pulse Rate 88 Respiratory Rate 16 Blood Pressure 159/90 H Blood Pressure Mean 113 Pulse Ox 98 Oxygen Delivery Method Room Air Positive well nourished and well developed General Appearance ED: well developed HEENT Reports moist mucous membranes HEENT Narrative: Mild left facial edema over the maxilla. No erythema or excessive skin warmth. Intraoral examination is unremarkable. Posterior pharynx is normal. She is tolerating secretions well and speaks with a strong voice. Eyes PERRL and EOMs intact bilaterally Neck no lymphadenopathy Chest Wall inspection of chest normal and palpation of chest normal Resp normal respiratory effort and clear to auscultation bilaterally Cardio regular rate and regular rhythm GI non-tender Extremity normal to inspection Neuro oriented x3 Psych mental status grossly normal MDM MDM MDM Narrative Medical decision making narrative: Lab work obtained and patient given a dose of IV clindamycin. CT scan of the facial bones with contrast obtained. Lab Data Labs: Laboratory Results - last 24 hr 02/28/23 02/28/23 21:00 21:00 WBC 10.5 RBC 4.03 L Hgb 12.9 Hct 38.6 MCV 95.8 MCH 32.0 MCHC 33.4 RDW Std Deviation 45.0 H RDW Coeff of Ksenia 12.8 Plt Count 220 MPV 9.9 Immature Gran % (Auto) 0.500 Neut % (Auto) 66.3 Lymph % (Auto) 23.3 Nuckolls % (Auto) 7.5 Eos % (Auto) 1.7 Baso % (Auto) 0.7 Absolute Neuts (auto) 6.9 Absolute Lymphs (auto) 2.43 Nucleated RBC % 0 Sodium 142 Potassium 3.5 Chloride 111 H Carbon Dioxide 26.0 Anion Gap 5 BUN 22 H Creatinine 0.89 Estim Creat Clear Calc 62.93 Est GFR (MDRD) Af Amer 83 Est GFR (MDRD) Non-Af 69 BUN/Creatinine Ratio 24.7 H Glucose 141 H Calcium 9.0 Radiography Diagnostic Testing: Clinical Impression(s) from Imaging Studies Facial/Sinus 02/28/23 20:42 IMPRESSION: There is a lucency around the roots of the last left upper molar which extends into the left maxillary sinus. This may represent an abscess. Mucosal thickening in the paranasal sinuses, especially of the left maxillary sinus. Electronically Signed: Robert Cuevas DO at 22:15 EDT Reading Location ID and State: [facility] / [place] Tel [phone], Service support , Treatment and Re-Evaluation :: CBC reveals normal white count and differential. Chemistry studies unremarkable. CT scan of the facial bones with contrast obtained to evaluate for possible abscess. There is soft tissue edema noted in the left maxilla withno focal fluid collection. There is a lucency around the roots of the left lastupper molar which extends into the left maxillary sinus. This may represent an abscess. Patient also had surgical procedure to this area and may represent postop space. Test results are discussed with the patient. She will continue her antibiotics and pain regimen. She has no evidence of expanding abscess encroaching on airway. She is reassured with this. Return instructions are provided. Discharge Plan Triage Chief Complaint: Dental ED Provider: Kaylee Fleming Dx/Rx/DC Orders Clinical Impression: Abscess, dental, Post-operative pain Instructions: ED Dental Abscess Prescriptions: No Action cyanocobalamin (vitamin B-12) 1,000 mcg/mL solution 100 mcg IM .[id number] cholecalciferol (vitamin D3) 2,000 unit tablet 2,000 unit PO DAILY colestipol [Colestid] 1 gram tablet 2 g PO DAILY Rx Instructions: swallow whole tab w/any liquid;do not crush/chew/cut;administer other meds 1hr before/4hr after taking dose sertraline 50 mg tablet 50 mg PO DAILY Women's Multivitamin 18 mg-400 mcg- 500 mg-50 mcg tablet PO lisinopril-hydrochlorothiazide 10-12.5 mg tablet 1 tab PO DAILY Qty: 90 3RF diltiazem HCl 120 mg capsule,extended release 24hr 120 mg PO DAILY Qty: 90 3RF Primary Care Provider: Eugene Ochoa Referrals: Eugene Ochoa NP-C [Primary Care Provider] - Activity Restrictions/Additional Instructions: Follow-up with your software architect on Friday. Please return to the ER for any worsened or concerning symptoms throughout the weekend. Disposition Disposition: Home, Self Care What to do if you have Problems For any increased pain, shortness of breath, bleeding, nausea or vomiting, chestpain, or any unexpected problems, contact your Primary Care Provider. Call Doctors Registry ([phone]) or report to the closest Emergency Room. Call 911 if necessary. [id number] <Electronically signed by Kaylee Fleming MD> Cosigner Signature (if applicable): CC: RANDEE Ochoa ~ Signed [facility] Work Phone: Evaluation note* Diagnosis Onset Date Resolution Status Essential hypertension chron ic Hyperlipidemia chronic Palpitations chronic Premature atrial contractions chronic [facility] Work Phone: Evaluation note* Diagnosis Onset Date Resolution Status Essential hypertension chron ic Palpitations chronic [facility] Work Phone: Evaluation noteNo assessment information available [facility] Work Phone: Evaluation note* Diagnosis Encounter for gynecological examination (general) (routine) without abnormal findings- Primary documented in this encounter [facility] note* Diagnosis Onset Date Resolution Status JORDAN (dyspnea on exertion) [place] Essential hypertension chron ic Palpitations chronic [facility] Work Phone: Evaluation note* Diagnosis Chronic obstructive pulmonary disease, unspecified COPD type (HCC) documented in this encounter [facility] note* Diagnosis Chronic obstructive pulmonary disease, unspecified COPD type (HCC) [facility] [place] [facility]* Diagnosis Cough, unspecified type documented in this encounter [facility] note* Diagnosis Mild persistent asthma without complication- Primary Unspecified asthma Former smoker Personal history of tobacco use, presenting hazards to health Class 2 obesity [facility] [place] [facility]* Diagnosis Mild persistent asthma without complication- Primary Unspecified asthma Dyspnea on exertion Other dyspnea and respiratory abnormality Pulmonary emphysema, unspecified emphysema type (HCC) Former smoker Personal history of tobacco use, presenting hazards to health Class 1 obesity in adult, unspecified BMI, unspecified obesity type, unspecified whether serious comorbidity present documented [facility] this encounter [facility] Discharge instructions Additional Instructions Follow-up with your software architect on Friday. Please return to the ER for any worsened or concerning symptoms throughout the weekend.[facility] Work Phone: Instructions* Name Dates Details Patient Instructions Indication:Former smoker Start:11-Dec-2020 Instruction Type:Provider Instructions for Treatment How to Access Health Informa tion Online using Patient Portal and [employer]) Apps Indication:Former smoker Start:11-Dec-2020 Instruction Type:Patient Education Patient Instructions Indication:Former smoker Start:10-Nov-2020 Instruction Type:Provider Instructions for Treatment How to Access Health Informa tion Online using Patient Portal and [employer] Apps Indication:Former smoker Start:10-Nov-2020 Instruction Type:Patient Education How to access health informa tion online Indication:Former smoker Start:02-Feb-2020 Instruction Type:Patient Education How to access health informa tion online - Detail Indication:Former smoker Start:02-Feb-2020 Instruction Type:Patient Education Patient Instructions Indication:Former smoker Start:02-Feb-2020 Instruction Type:Provider Instructions for Treatment How to access health informa tion online Indication:Former smoker Start:02-Nov-2019 Instruction Type:Patient Education How to access health informa tion online - Detail Indication:Former smoker Start:02-Nov-2019 Instruction Type:Patient Education Patient Instructions Indication:Former smoker Start:02-Nov-2019 Instruction Type:Provider Instructions for Treatment How to access health informa tion online Indication:Former smoker Start:07-Sep-2019 Instruction Type:Patient Education How to access health informa tion online - Detail Indication:Former smoker Start:07-Sep-2019 Instruction Type:Patient Education Patient Instructions Indication:Former smoker Start:07-Sep-2019 Instruction Type:Provider Instructions for Treatment How to access health informa tion online Indication:Former smoker Start:24-Aug-2019 Instruction Type:Patient Education How to access health informa tion online - Detail Indication:Former smoker Start:24-Aug-2019 Instruction Type:Patient Education Patient Instructions Indication:Former smoker Start:24-Aug-2019 Instruction Type:Provider Instructions for Treatment [facility] Work Phone: Instructions* Name Dates Details Patient Instructions Indication:Former smoker Start:11-Dec-2020 Instruction Type:Provider Instructions for Treatment How to Access Health Informa tion Online using Patient Portal and [employer]rd [employer] Apps Indication:Former smoker Start:11-Dec-2020 Instruction Type:Patient Education Patient Instructions Indication:Former smoker Start:10-Nov-2020 Instruction Type:Provider Instructions for Treatment How to Access Health Informa tion Online using Patient Portal and [employer]rd [employer] Apps Indication:Former smoker Start:10-Nov-2020 Instruction Type:Patient Education How to access health informa tion online Indication:Former smoker Start:02-Feb-2020 Instruction Type:Patient Education How to access health informa tion online - Detail Indication:Former smoker Start:02-Feb-2020 Instruction Type:Patient Education Patient Instructions Indication:Former smoker Start:02-Feb-2020 Instruction Type:Provider Instructions for Treatment How to access health informa tion online Indication:Former smoker Start:02-Nov-2019 Instruction Type:Patient Education How to access health informa tion online - Detail Indication:Former smoker Start:02-Nov-2019 Instruction Type:Patient Education Patient Instructions Indication:Former smoker Start:02-Nov-2019 Instruction Type:Provider Instructions for Treatment How to access health informa tion online Indication:Former smoker Start:07-Sep-2019 Instruction Type:Patient Education How to access health informa tion online - Detail Indication:Former smoker Start:07-Sep-2019 Instruction Type:Patient Education Patient Instructions Indication:Former smoker Start:07-Sep-2019 Instruction Type:Provider Instructions for Treatment How to access health informa tion online Indication:Former smoker Start:24-Aug-2019 Instruction Type:Patient Education How to access health informa tion online - Detail Indication:Former smoker Start:24-Aug-2019 Instruction Type:Patient Education Patient Instructions Indication:Former smoker Start:24-Aug-2019 Instruction Type:Provider Instructions for Treatment [facility] Work Phone: Instructions* Name Dates Details Patient Instructions Indication:Former smoker Start:11-Dec-2020 Instruction Type:Provider Instructions for Treatment How to Access Health Informa tion Online using Patient Portal and [employer]rd [employer] Apps Indication:Former smoker Start:11-Dec-2020 Instruction Type:Patient Education Patient Instructions Indication:Former smoker Start:10-Nov-2020 Instruction Type:Provider Instructions for Treatment How to Access Health Informa tion Online using Patient Portal and [employer]rd [employer] Apps Indication:Former smoker Start:10-Nov-2020 Instruction Type:Patient Education How to access health informa tion online Indication:Former smoker Start:02-Feb-2020 Instruction Type:Patient Education How to access health informa tion online - Detail Indication:Former smoker Start:02-Feb-2020 Instruction Type:Patient Education Patient Instructions Indication:Former smoker Start:02-Feb-2020 Instruction Type:Provider Instructions for Treatment How to access health informa tion online Indication:Former smoker Start:02-Nov-2019 Instruction Type:Patient Education How to access health informa tion online - Detail Indication:Former smoker Start:02-Nov-2019 Instruction Type:Patient Education Patient Instructions Indication:Former smoker Start:02-Nov-2019 Instruction Type:Provider Instructions for Treatment How to access health informa tion online Indication:Former smoker Start:07-Sep-2019 Instruction Type:Patient Education How to access health informa tion online - Detail Indication:Former smoker Start:07-Sep-2019 Instruction Type:Patient Education Patient Instructions Indication:Former smoker Start:07-Sep-2019 Instruction Type:Provider Instructions for Treatment How to access health informa tion online Indication:Former smoker Start:24-Aug-2019 Instruction Type:Patient Education How to access health informa tion online - Detail Indication:Former smoker Start:24-Aug-2019 Instruction Type:Patient Education Patient Instructions Indication:Former smoker Start:24-Aug-2019 Instruction Type:Provider Instructions for Treatment [facility] Work Phone: Instructions* Name Dates Details Patient Instructions Indication:Former smoker Start:11-Dec-2020 Instruction Type:Provider Instructions for Treatment How to Access Health Informa tion Online using Patient Portal and [employer]rd [employer] Apps Indication:Former smoker Start:11-Dec-2020 Instruction Type:Patient Education Patient Instructions Indication:Former smoker Start:10-Nov-2020 Instruction Type:Provider Instructions for Treatment How to Access Health Informa tion Online using Patient Portal and [employer] Apps Indication:Former smoker Start:10-Nov-2020 Instruction Type:Patient Education How to access health informa tion online Indication:Former smoker Start:02-Feb-2020 Instruction Type:Patient Education How to access health informa tion online - Detail Indication:Former smoker Start:02-Feb-2020 Instruction Type:Patient Education Patient Instructions Indication:Former smoker Start:02-Feb-2020 Instruction Type:Provider Instructions for Treatment How to access health informa tion online Indication:Former smoker Start:02-Nov-2019 Instruction Type:Patient Education How to access health informa tion online - Detail Indication:Former smoker Start:02-Nov-2019 Instruction Type:Patient Education Patient Instructions Indication:Former smoker Start:02-Nov-2019 Instruction Type:Provider Instructions for Treatment How to access health informa tion online Indication:Former smoker Start:07-Sep-2019 Instruction Type:Patient Education How to access health informa tion online - Detail Indication:Former smoker Start:07-Sep-2019 Instruction Type:Patient Education Patient Instructions Indication:Former smoker Start:07-Sep-2019 Instruction Type:Provider Instructions for Treatment How to access health informa tion online Indication:Former smoker Start:24-Aug-2019 Instruction Type:Patient Education How to access health informa tion online - Detail Indication:Former smoker Start:24-Aug-2019 Instruction Type:Patient Education Patient Instructions Indication:Former smoker Start:24-Aug-2019 Instruction Type:Provider Instructions for Treatment [facility]; [facility] Work Phone: instructions* Name Dates Details Patient Instructions Indication:Former smoker Start:11-Dec-2020 Instruction Type:Provider Instructions for Treatment How to Access Health Informa tion Online using Patient Portal and [employer]rd [employer] Apps Indication:Former smoker Start:11-Dec-2020 Instruction Type:Patient Education Patient Instructions Indication:Former smoker Start:10-Nov-2020 Instruction Type:Provider Instructions for Treatment How to Access Health Informa tion Online using Patient Portal and [employer]rd [employer] Apps Indication:Former smoker Start:10-Nov-2020 Instruction Type:Patient Education How to access health informa tion online Indication:Former smoker Start:02-Feb-2020 Instruction Type:Patient Education How to access health informa tion online - Detail Indication:Former smoker Start:02-Feb-2020 Instruction Type:Patient Education Patient Instructions Indication:Former smoker Start:02-Feb-2020 Instruction Type:Provider Instructions for Treatment How to access health informa tion online Indication:Former smoker Start:02-Nov-2019 Instruction Type:Patient Education How to access health informa tion online - Detail Indication:Former smoker Start:02-Nov-2019 Instruction Type:Patient Education Patient Instructions Indication:Former smoker Start:02-Nov-2019 Instruction Type:Provider Instructions for Treatment How to access health informa tion online Indication:Former smoker Start:07-Sep-2019 Instruction Type:Patient Education How to access health informa tion online - Detail Indication:Former smoker Start:07-Sep-2019 Instruction Type:Patient Education Patient Instructions Indication:Former smoker Start:07-Sep-2019 Instruction Type:Provider Instructions for Treatment How to access health informa tion online Indication:Former smoker Start:24-Aug-2019 Instruction Type:Patient Education How to access health informa tion online - Detail Indication:Former smoker Start:24-Aug-2019 Instruction Type:Patient Education Patient Instructions Indication:Former smoker Start:24-Aug-2019 Instruction Type:Provider Instructions for Treatment [facility]; [facility] Work Phone: instructions* Name Dates Details Patient Instructions Indication:Former smoker Start:05-Mar-2022 Instruction Type:Provider Instructions for Treatment How to Access Health Informa tion Online using Patient Portal and [employer]rd [employer] Apps Indication:Former smoker Start:05-Mar-2022 Instruction Type:Patient Education Patient Instructions Indication:Former smoker Start:11-Dec-2020 Instruction Type:Provider Instructions for Treatment How to Access Health Informa tion Online using Patient Portal and [employer]rd [employer] Apps Indication:Former smoker Start:11-Dec-2020 Instruction Type:Patient Education Patient Instructions Indication:Former smoker Start:10-Nov-2020 Instruction Type:Provider Instructions for Treatment How to Access Health Informa tion Online using Patient Portal and [employer]rd [employer] Apps Indication:Former smoker Start:10-Nov-2020 Instruction Type:Patient Education How to access health informa tion online Indication:Former smoker Start:02-Feb-2020 Instruction Type:Patient Education How to access health informa tion online - Detail Indication:Former smoker Start:02-Feb-2020 Instruction Type:Patient Education Patient Instructions Indication:Former smoker Start:02-Feb-2020 Instruction Type:Provider Instructions for Treatment How to access health informa tion online Indication:Former smoker Start:02-Nov-2019 Instruction Type:Patient Education How to access health informa tion online - Detail Indication:Former smoker Start:02-Nov-2019 Instruction Type:Patient Education Patient Instructions Indication:Former smoker Start:02-Nov-2019 Instruction Type:Provider Instructions for Treatment How to access health informa tion online Indication:Former smoker Start:07-Sep-2019 Instruction Type:Patient Education How to access health informa tion online - Detail Indication:Former smoker Start:07-Sep-2019 Instruction Type:Patient Education Patient Instructions Indication:Former smoker Start:07-Sep-2019 Instruction Type:Provider Instructions for Treatment How to access health informa tion online Indication:Former smoker Start:24-Aug-2019 Instruction Type:Patient Education How to access health informa tion online - Detail Indication:Former smoker Start:24-Aug-2019 Instruction Type:Patient Education Patient Instructions Indication:Former smoker Start:24-Aug-2019 Instruction Type:Provider Instructions for Treatment [facility] Work Phone: Instructions* Name Dates Details Patient Instructions Indication:Former smoker Start:05-Mar-2022 Instruction Type:Provider Instructions for Treatment How to Access Health Informa tion Online using Patient Portal and [employer]rd [employer] Apps Indication:Former smoker Start:05-Mar-2022 Instruction Type:Patient Education Patient Instructions Indication:Former smoker Start:11-Dec-2020 Instruction Type:Provider Instructions for Treatment How to Access Health Informa tion Online using Patient Portal and [employer]rd [employer] Apps Indication:Former smoker Start:11-Dec-2020 Instruction Type:Patient Education Patient Instructions Indication:Former smoker Start:10-Nov-2020 Instruction Type:Provider Instructions for Treatment How to Access Health Informa tion Online using Patient Portal and [employer] Apps Indication:Former smoker Start:10-Nov-2020 Instruction Type:Patient Education How to access health informa tion online Indication:Former smoker Start:02-Feb-2020 Instruction Type:Patient Education How to access health informa tion online - Detail Indication:Former smoker Start:02-Feb-2020 Instruction Type:Patient Education Patient Instructions Indication:Former smoker Start:02-Feb-2020 Instruction Type:Provider Instructions for Treatment How to access health informa tion online Indication:Former smoker Start:02-Nov-2019 Instruction Type:Patient Education How to access health informa tion online - Detail Indication:Former smoker Start:02-Nov-2019 Instruction Type:Patient Education Patient Instructions Indication:Former smoker Start:02-Nov-2019 Instruction Type:Provider Instructions for Treatment How to access health informa tion online Indication:Former smoker Start:07-Sep-2019 Instruction Type:Patient Education How to access health informa tion online - Detail Indication:Former smoker Start:07-Sep-2019 Instruction Type:Patient Education Patient Instructions Indication:Former smoker Start:07-Sep-2019 Instruction Type:Provider Instructions for Treatment How to access health informa tion online Indication:Former smoker Start:24-Aug-2019 Instruction Type:Patient Education How to access health informa tion online - Detail Indication:Former smoker Start:24-Aug-2019 Instruction Type:Patient Education Patient Instructions Indication:Former smoker Start:24-Aug-2019 Instruction Type:Provider Instructions for Treatment [facility] Work Phone: Instructions* Name Dates Details Patient Instructions Indication:Former smoker Start:05-Mar-2022 Instruction Type:Provider Instructions for Treatment How to Access Health Informa tion Online using Patient Portal and [employer]rd [employer] Apps Indication:Former smoker Start:05-Mar-2022 Instruction Type:Patient Education Patient Instructions Indication:Former smoker Start:11-Dec-2020 Instruction Type:Provider Instructions for Treatment How to Access Health Informa tion Online using Patient Portal and [employer]rd [employer] Apps Indication:Former smoker Start:11-Dec-2020 Instruction Type:Patient Education Patient Instructions Indication:Former smoker Start:10-Nov-2020 Instruction Type:Provider Instructions for Treatment How to Access Health Informa tion Online using Patient Portal and [employer]rd [employer] Apps Indication:Former smoker Start:10-Nov-2020 Instruction Type:Patient Education How to access health informa tion online Indication:Former smoker Start:02-Feb-2020 Instruction Type:Patient Education How to access health informa tion online - Detail Indication:Former smoker Start:02-Feb-2020 Instruction Type:Patient Education Patient Instructions Indication:Former smoker Start:02-Feb-2020 Instruction Type:Provider Instructions for Treatment How to access health informa tion online Indication:Former smoker Start:02-Nov-2019 Instruction Type:Patient Education How to access health informa tion online - Detail Indication:Former smoker Start:02-Nov-2019 Instruction Type:Patient Education Patient Instructions Indication:Former smoker Start:02-Nov-2019 Instruction Type:Provider Instructions for Treatment How to access health informa tion online Indication:Former smoker Start:07-Sep-2019 Instruction Type:Patient Education How to access health informa tion online - Detail Indication:Former smoker Start:07-Sep-2019 Instruction Type:Patient Education Patient Instructions Indication:Former smoker Start:07-Sep-2019 Instruction Type:Provider Instructions for Treatment How to access health informa tion online Indication:Former smoker Start:24-Aug-2019 Instruction Type:Patient Education How to access health informa tion online - Detail Indication:Former smoker Start:24-Aug-2019 Instruction Type:Patient Education Patient Instructions Indication:Former smoker Start:24-Aug-2019 Instruction Type:Provider Instructions for Treatment [facility] Work Phone: Instructions* Name Dates Details Patient Instructions Indication:Former smoker Start:05-Mar-2022 Instruction Type:Provider Instructions for Treatment How to Access Health Informa tion Online using Patient Portal and [employer]rd [employer] Apps Indication:Former smoker Start:05-Mar-2022 Instruction Type:Patient Education Patient Instructions Indication:Former smoker Start:11-Dec-2020 Instruction Type:Provider Instructions for Treatment How to Access Health Informa tion Online using Patient Portal and [employer] Apps Indication:Former smoker Start:11-Dec-2020 Instruction Type:Patient Education Patient Instructions Indication:Former smoker Start:10-Nov-2020 Instruction Type:Provider Instructions for Treatment How to Access Health Informa tion Online using Patient Portal and [employer] Apps Indication:Former smoker Start:10-Nov-2020 Instruction Type:Patient Education How to access health informa tion online Indication:Former smoker Start:02-Feb-2020 Instruction Type:Patient Education How to access health informa tion online - Detail Indication:Former smoker Start:02-Feb-2020 Instruction Type:Patient Education Patient Instructions Indication:Former smoker Start:02-Feb-2020 Instruction Type:Provider Instructions for Treatment How to access health informa tion online Indication:Former smoker Start:02-Nov-2019 Instruction Type:Patient Education How to access health informa tion online - Detail Indication:Former smoker Start:02-Nov-2019 Instruction Type:Patient Education Patient Instructions Indication:Former smoker Start:02-Nov-2019 Instruction Type:Provider Instructions for Treatment How to access health informa tion online Indication:Former smoker Start:07-Sep-2019 Instruction Type:Patient Education How to access health informa tion online - Detail Indication:Former smoker Start:07-Sep-2019 Instruction Type:Patient Education Patient Instructions Indication:Former smoker Start:07-Sep-2019 Instruction Type:Provider Instructions for Treatment How to access health informa tion online Indication:Former smoker Start:24-Aug-2019 Instruction Type:Patient Education How to access health informa tion online - Detail Indication:Former smoker Start:24-Aug-2019 Instruction Type:Patient Education Patient Instructions Indication:Former smoker Start:24-Aug-2019 Instruction Type:Provider Instructions for Treatment [facility] Work Phone: Instructions* Name Dates Details Patient Instructions Indication:Former smoker Start:05-Mar-2022 Instruction Type:Provider Instructions for Treatment How to Access Health Informa tion Online using Patient Portal and [employer]rd [employer] Apps Indication:Former smoker Start:05-Mar-2022 Instruction Type:Patient Education Patient Instructions Indication:Former smoker Start:11-Dec-2020 Instruction Type:Provider Instructions for Treatment How to Access Health Informa tion Online using Patient Portal and [employer]rd [employer] Apps Indication:Former smoker Start:11-Dec-2020 Instruction Type:Patient Education Patient Instructions Indication:Former smoker Start:10-Nov-2020 Instruction Type:Provider Instructions for Treatment How to Access Health Informa tion Online using Patient Portal and [employer]rd [employer] Apps Indication:Former smoker Start:10-Nov-2020 Instruction Type:Patient Education How to access health informa tion online Indication:Former smoker Start:02-Feb-2020 Instruction Type:Patient Education How to access health informa tion online - Detail Indication:Former smoker Start:02-Feb-2020 Instruction Type:Patient Education Patient Instructions Indication:Former smoker Start:02-Feb-2020 Instruction Type:Provider Instructions for Treatment How to access health informa tion online Indication:Former smoker Start:02-Nov-2019 Instruction Type:Patient Education How to access health informa tion online - Detail Indication:Former smoker Start:02-Nov-2019 Instruction Type:Patient Education Patient Instructions Indication:Former smoker Start:02-Nov-2019 Instruction Type:Provider Instructions for Treatment How to access health informa tion online Indication:Former smoker Start:07-Sep-2019 Instruction Type:Patient Education How to access health informa tion online - Detail Indication:Former smoker Start:07-Sep-2019 Instruction Type:Patient Education Patient Instructions Indication:Former smoker Start:07-Sep-2019 Instruction Type:Provider Instructions for Treatment How to access health informa tion online Indication:Former smoker Start:24-Aug-2019 Instruction Type:Patient Education How to access health informa tion online - Detail Indication:Former smoker Start:24-Aug-2019 Instruction Type:Patient Education Patient Instructions Indication:Former smoker Start:24-Aug-2019 Instruction Type:Provider Instructions for Treatment [facility]; [facility] Work Phone: Instructions* Name Dates Details Patient Instructions Indication:Former smoker Start:05-Mar-2022 Instruction Type:Provider Instructions for Treatment How to Access Health Informa tion Online using Patient Portal and [employer]rd [employer] Apps Indication:Former smoker Start:05-Mar-2022 Instruction Type:Patient Education Patient Instructions Indication:Former smoker Start:11-Dec-2020 Instruction Type:Provider Instructions for Treatment How to Access Health Informa tion Online using Patient Portal and [employer]rd [employer] Apps Indication:Former smoker Start:11-Dec-2020 Instruction Type:Patient Education Patient Instructions Indication:Former smoker Start:10-Nov-2020 Instruction Type:Provider Instructions for Treatment How to Access Health Informa tion Online using Patient Portal and [employer]rd [employer] Apps Indication:Former smoker Start:10-Nov-2020 Instruction Type:Patient Education How to access health informa tion online Indication:Former smoker Start:02-Feb-2020 Instruction Type:Patient Education How to access health informa tion online - Detail Indication:Former smoker Start:02-Feb-2020 Instruction Type:Patient Education Patient Instructions Indication:Former smoker Start:02-Feb-2020 Instruction Type:Provider Instructions for Treatment How to access health informa tion online Indication:Former smoker Start:02-Nov-2019 Instruction Type:Patient Education How to access health informa tion online - Detail Indication:Former smoker Start:02-Nov-2019 Instruction Type:Patient Education Patient Instructions Indication:Former smoker Start:02-Nov-2019 Instruction Type:Provider Instructions for Treatment How to access health informa tion online Indication:Former smoker Start:07-Sep-2019 Instruction Type:Patient Education How to access health informa tion online - Detail Indication:Former smoker Start:07-Sep-2019 Instruction Type:Patient Education Patient Instructions Indication:Former smoker Start:07-Sep-2019 Instruction Type:Provider Instructions for Treatment How to access health informa tion online Indication:Former smoker Start:24-Aug-2019 Instruction Type:Patient Education How to access health informa tion online - Detail Indication:Former smoker Start:24-Aug-2019 Instruction Type:Patient Education Patient Instructions Indication:Former smoker Start:24-Aug-2019 Instruction Type:Provider Instructions for Treatment [facility]; [facility] Work Phone: Instructions* Name Dates Details Patient Instructions Indication:Former smoker Start:13-Aug-2022 Instruction Type:Provider Instructions for Treatment How to Access Health Informa tion Online using Patient Portal and [employer]rd [employer] Apps Indication:Former smoker Start:13-Aug-2022 Instruction Type:Patient Education Patient Instructions Indication:Former smoker Start:05-Mar-2022 Instruction Type:Provider Instructions for Treatment How to Access Health Informa tion Online using Patient Portal and [employer]rd [employer] Apps Indication:Former smoker Start:05-Mar-2022 Instruction Type:Patient Education Patient Instructions Indication:Former smoker Start:11-Dec-2020 Instruction Type:Provider Instructions for Treatment How to Access Health Informa tion Online using Patient Portal and [employer]rd [employer] Apps Indication:Former smoker Start:11-Dec-2020 Instruction Type:Patient Education Patient Instructions Indication:Former smoker Start:10-Nov-2020 Instruction Type:Provider Instructions for Treatment How to Access Health Informa tion Online using Patient Portal and [employer]rd [employer] Apps Indication:Former smoker Start:10-Nov-2020 Instruction Type:Patient Education How to access health informa tion online Indication:Former smoker Start:02-Feb-2020 Instruction Type:Patient Education How to access health informa tion online - Detail Indication:Former smoker Start:02-Feb-2020 Instruction Type:Patient Education Patient Instructions Indication:Former smoker Start:02-Feb-2020 Instruction Type:Provider Instructions for Treatment How to access health informa tion online Indication:Former smoker Start:02-Nov-2019 Instruction Type:Patient Education How to access health informa tion online - Detail Indication:Former smoker Start:02-Nov-2019 Instruction Type:Patient Education Patient Instructions Indication:Former smoker Start:02-Nov-2019 Instruction Type:Provider Instructions for Treatment How to access health informa tion online Indication:Former smoker Start:07-Sep-2019 Instruction Type:Patient Education How to access health informa tion online - Detail Indication:Former smoker Start:07-Sep-2019 Instruction Type:Patient Education Patient Instructions Indication:Former smoker Start:07-Sep-2019 Instruction Type:Provider Instructions for Treatment How to access health informa tion online Indication:Former smoker Start:24-Aug-2019 Instruction Type:Patient Education How to access health informa tion online - Detail Indication:Former smoker Start:24-Aug-2019 Instruction Type:Patient Education Patient Instructions Indication:Former smoker Start:24-Aug-2019 Instruction Type:Provider Instructions for Treatment [facility]; [facility] Work Phone: Instructions* Name Dates Details Patient Instructions Indication:Former smoker Start:13-Aug-2022 Instruction Type:Provider Instructions for Treatment How to Access Health Informa tion Online using Patient Portal and [employer] Apps Indication:Former smoker Start:13-Aug-2022 Instruction Type:Patient Education Patient Instructions Indication:Former smoker Start:05-Mar-2022 Instruction Type:Provider Instructions for Treatment How to Access Health Informa tion Online using Patient Portal and [employer] Apps Indication:Former smoker Start:05-Mar-2022 Instruction Type:Patient Education Patient Instructions Indication:Former smoker Start:11-Dec-2020 Instruction Type:Provider Instructions for Treatment How to Access Health Informa tion Online using Patient Portal and [employer]rd [employer] Apps Indication:Former smoker Start:11-Dec-2020 Instruction Type:Patient Education Patient Instructions Indication:Former smoker Start:10-Nov-2020 Instruction Type:Provider Instructions for Treatment How to Access Health Informa tion Online using Patient Portal and [employer]rd [employer] Apps Indication:Former smoker Start:10-Nov-2020 Instruction Type:Patient Education How to access health informa tion online Indication:Former smoker Start:02-Feb-2020 Instruction Type:Patient Education How to access health informa tion online - Detail Indication:Former smoker Start:02-Feb-2020 Instruction Type:Patient Education Patient Instructions Indication:Former smoker Start:02-Feb-2020 Instruction Type:Provider Instructions for Treatment How to access health informa tion online Indication:Former smoker Start:02-Nov-2019 Instruction Type:Patient Education How to access health informa tion online - Detail Indication:Former smoker Start:02-Nov-2019 Instruction Type:Patient Education Patient Instructions Indication:Former smoker Start:02-Nov-2019 Instruction Type:Provider Instructions for Treatment How to access health informa tion online Indication:Former smoker Start:07-Sep-2019 Instruction Type:Patient Education How to access health informa tion online - Detail Indication:Former smoker Start:07-Sep-2019 Instruction Type:Patient Education Patient Instructions Indication:Former smoker Start:07-Sep-2019 Instruction Type:Provider Instructions for Treatment How to access health informa tion online Indication:Former smoker Start:24-Aug-2019 Instruction Type:Patient Education How to access health informa tion online - Detail Indication:Former smoker Start:24-Aug-2019 Instruction Type:Patient Education Patient Instructions Indication:Former smoker Start:24-Aug-2019 Instruction Type:Provider Instructions for Treatment [facility]; [facility] Work Phone: Instructions* Name Dates Details Patient Instructions Indication:Former smoker Start:13-Aug-2022 Instruction Type:Provider Instructions for Treatment How to Access Health Informa tion Online using Patient Portal and [employer]rd [employer] Apps Indication:Former smoker Start:13-Aug-2022 Instruction Type:Patient Education Patient Instructions Indication:Former smoker Start:05-Mar-2022 Instruction Type:Provider Instructions for Treatment How to Access Health Informa tion Online using Patient Portal and [employer]rd [employer] Apps Indication:Former smoker Start:05-Mar-2022 Instruction Type:Patient Education Patient Instructions Indication:Former smoker Start:11-Dec-2020 Instruction Type:Provider Instructions for Treatment How to Access Health Informa tion Online using Patient Portal and [employer]rd [employer] Apps Indication:Former smoker Start:11-Dec-2020 Instruction Type:Patient Education Patient Instructions Indication:Former smoker Start:10-Nov-2020 Instruction Type:Provider Instructions for Treatment How to Access Health Informa tion Online using Patient Portal and [employer]rd [employer] Apps Indication:Former smoker Start:10-Nov-2020 Instruction Type:Patient Education How to access health informa tion online Indication:Former smoker Start:02-Feb-2020 Instruction Type:Patient Education How to access health informa tion online - Detail Indication:Former smoker Start:02-Feb-2020 Instruction Type:Patient Education Patient Instructions Indication:Former smoker Start:02-Feb-2020 Instruction Type:Provider Instructions for Treatment How to access health informa tion online Indication:Former smoker Start:02-Nov-2019 Instruction Type:Patient Education How to access health informa tion online - Detail Indication:Former smoker Start:02-Nov-2019 Instruction Type:Patient Education Patient Instructions Indication:Former smoker Start:02-Nov-2019 Instruction Type:Provider Instructions for Treatment How to access health informa tion online Indication:Former smoker Start:07-Sep-2019 Instruction Type:Patient Education How to access health informa tion online - Detail Indication:Former smoker Start:07-Sep-2019 Instruction Type:Patient Education Patient Instructions Indication:Former smoker Start:07-Sep-2019 Instruction Type:Provider Instructions for Treatment How to access health informa tion online Indication:Former smoker Start:24-Aug-2019 Instruction Type:Patient Education How to access health informa tion online - Detail Indication:Former smoker Start:24-Aug-2019 Instruction Type:Patient Education Patient Instructions Indication:Former smoker Start:24-Aug-2019 Instruction Type:Provider Instructions for Treatment [facility]; [facility] Work Phone: Instructions* Name Dates Details Patient Instructions Indication:Hypertriglyceridemia Start:25-Dec-2022 Instruction Type:Provider Instructions for Treatment How to Access Health Informa tion Online using Patient Portal and [employer]rd [employer] Apps Indication:Hypertriglyceridemia Start:25-Dec-2022 Instruction Type:Patient Education Patient Instructions Indication:Former smoker Start:13-Aug-2022 Instruction Type:Provider Instructions for Treatment How to Access Health Informa tion Online using Patient Portal and [employer]rd [employer] Apps Indication:Former smoker Start:13-Aug-2022 Instruction Type:Patient Education Patient Instructions Indication:Former smoker Start:05-Mar-2022 Instruction Type:Provider Instructions for Treatment How to Access Health Informa tion Online using Patient Portal and [employer]rd [employer] Apps Indication:Former smoker Start:05-Mar-2022 Instruction Type:Patient Education Patient Instructions Indication:Former smoker Start:11-Dec-2020 Instruction Type:Provider Instructions for Treatment How to Access Health Informa tion Online using Patient Portal and [employer]rd [employer] Apps Indication:Former smoker Start:11-Dec-2020 Instruction Type:Patient Education Patient Instructions Indication:Former smoker Start:10-Nov-2020 Instruction Type:Provider Instructions for Treatment How to Access Health Informa tion Online using Patient Portal and [employer]rd [employer] Apps Indication:Former smoker Start:10-Nov-2020 Instruction Type:Patient Education How to access health informa tion online Indication:Former smoker Start:02-Feb-2020 Instruction Type:Patient Education How to access health informa tion online - Detail Indication:Former smoker Start:02-Feb-2020 Instruction Type:Patient Education Patient Instructions Indication:Former smoker Start:02-Feb-2020 Instruction Type:Provider Instructions for Treatment How to access health informa tion online Indication:Former smoker Start:02-Nov-2019 Instruction Type:Patient Education How to access health informa tion online - Detail Indication:Former smoker Start:02-Nov-2019 Instruction Type:Patient Education Patient Instructions Indication:Former smoker Start:02-Nov-2019 Instruction Type:Provider Instructions for Treatment How to access health informa tion online Indication:Former smoker Start:07-Sep-2019 Instruction Type:Patient Education How to access health informa tion online - Detail Indication:Former smoker Start:07-Sep-2019 Instruction Type:Patient Education Patient Instructions Indication:Former smoker Start:07-Sep-2019 Instruction Type:Provider Instructions for Treatment How to access health informa tion online Indication:Former smoker Start:24-Aug-2019 Instruction Type:Patient Education How to access health informa tion online - Detail Indication:Former smoker Start:24-Aug-2019 Instruction Type:Patient Education Patient Instructions Indication:Former smoker Start:24-Aug-2019 Instruction Type:Provider Instructions for Treatment [facility]; [facility] Work Phone: Instructions* Name Dates Details Patient Instructions Indication:Former smoker Start:21-Jan-2023 Instruction Type:Provider Instructions for Treatment How to Access Health Informa tion Online using Patient Portal and [employer]rd [employer] Apps Indication:Former smoker Start:21-Jan-2023 Instruction Type:Patient Education Patient Instructions Indication:Hypertriglyceridemia Start:25-Dec-2022 Instruction Type:Provider Instructions for Treatment How to Access Health Informa tion Online using Patient Portal and [employer]rd [employer] Apps Indication:Hypertriglyceridemia Start:25-Dec-2022 Instruction Type:Patient Education Patient Instructions Indication:Former smoker Start:13-Aug-2022 Instruction Type:Provider Instructions for Treatment How to Access Health Informa tion Online using Patient Portal and [employer]rd [employer] Apps Indication:Former smoker Start:13-Aug-2022 Instruction Type:Patient Education Patient Instructions Indication:Former smoker Start:05-Mar-2022 Instruction Type:Provider Instructions for Treatment How to Access Health Informa tion Online using Patient Portal and [employer]rd [employer] Apps Indication:Former smoker Start:05-Mar-2022 Instruction Type:Patient Education Patient Instructions Indication:Former smoker Start:11-Dec-2020 Instruction Type:Provider Instructions for Treatment How to Access Health Informa tion Online using Patient Portal and [employer]rd [employer] Apps Indication:Former smoker Start:11-Dec-2020 Instruction Type:Patient Education Patient Instructions Indication:Former smoker Start:10-Nov-2020 Instruction Type:Provider Instructions for Treatment How to Access Health Informa tion Online using Patient Portal and [employer] Apps Indication:Former smoker Start:10-Nov-2020 Instruction Type:Patient Education How to access health informa tion online Indication:Former smoker Start:02-Feb-2020 Instruction Type:Patient Education How to access health informa tion online - Detail Indication:Former smoker Start:02-Feb-2020 Instruction Type:Patient Education Patient Instructions Indication:Former smoker Start:02-Feb-2020 Instruction Type:Provider Instructions for Treatment How to access health informa tion online Indication:Former smoker Start:02-Nov-2019 Instruction Type:Patient Education How to access health informa tion online - Detail Indication:Former smoker Start:02-Nov-2019 Instruction Type:Patient Education Patient Instructions Indication:Former smoker Start:02-Nov-2019 Instruction Type:Provider Instructions for Treatment How to access health informa tion online Indication:Former smoker Start:07-Sep-2019 Instruction Type:Patient Education How to access health informa tion online - Detail Indication:Former smoker Start:07-Sep-2019 Instruction Type:Patient Education Patient Instructions Indication:Former smoker Start:07-Sep-2019 Instruction Type:Provider Instructions for Treatment How to access health informa tion online Indication:Former smoker Start:24-Aug-2019 Instruction Type:Patient Education How to access health informa tion online - Detail Indication:Former smoker Start:24-Aug-2019 Instruction Type:Patient Education Patient Instructions Indication:Former smoker Start:24-Aug-2019 Instruction Type:Provider Instructions for Treatment [facility]; [facility] Work Phone: Instructions* Name Dates Details Patient Instructions Indication:Former smoker Start:10-Mar-2023 Instruction Type:Provider Instructions for Treatment How to Access Health Informa tion Online using Patient Portal and [employer]rd [employer] Apps Indication:Former smoker Start:10-Mar-2023 Instruction Type:Patient Education Patient Instructions Indication:Former smoker Start:21-Jan-2023 Instruction Type:Provider Instructions for Treatment How to Access Health Informa tion Online using Patient Portal and [employer]rd [employer] Apps Indication:Former smoker Start:21-Jan-2023 Instruction Type:Patient Education Patient Instructions Indication:Hypertriglyceridemia Start:25-Dec-2022 Instruction Type:Provider Instructions for Treatment How to Access Health Informa tion Online using Patient Portal and [employer]rd [employer] Apps Indication:Hypertriglyceridemia Start:25-Dec-2022 Instruction Type:Patient Education Patient Instructions Indication:Former smoker Start:13-Aug-2022 Instruction Type:Provider Instructions for Treatment How to Access Health Informa tion Online using Patient Portal and [employer] Apps Indication:Former smoker Start:13-Aug-2022 Instruction Type:Patient Education Patient Instructions Indication:Former smoker Start:05-Mar-2022 Instruction Type:Provider Instructions for Treatment How to Access Health Informa tion Online using Patient Portal and [employer] Apps Indication:Former smoker Start:05-Mar-2022 Instruction Type:Patient Education Patient Instructions Indication:Former smoker Start:11-Dec-2020 Instruction Type:Provider Instructions for Treatment How to Access Health Informa tion Online using Patient Portal and [employer] Apps Indication:Former smoker Start:11-Dec-2020 Instruction Type:Patient Education Patient Instructions Indication:Former smoker Start:10-Nov-2020 Instruction Type:Provider Instructions for Treatment How to Access Health Informa tion Online using Patient Portal and [employer]rd [employer] Apps Indication:Former smoker Start:10-Nov-2020 Instruction Type:Patient Education How to access health informa tion online Indication:Former smoker Start:02-Feb-2020 Instruction Type:Patient Education How to access health informa tion online - Detail Indication:Former smoker Start:02-Feb-2020 Instruction Type:Patient Education Patient Instructions Indication:Former smoker Start:02-Feb-2020 Instruction Type:Provider Instructions for Treatment How to access health informa tion online Indication:Former smoker Start:02-Nov-2019 Instruction Type:Patient Education How to access health informa tion online - Detail Indication:Former smoker Start:02-Nov-2019 Instruction Type:Patient Education Patient Instructions Indication:Former smoker Start:02-Nov-2019 Instruction Type:Provider Instructions for Treatment How to access health informa tion online Indication:Former smoker Start:07-Sep-2019 Instruction Type:Patient Education How to access health informa tion online - Detail Indication:Former smoker Start:07-Sep-2019 Instruction Type:Patient Education Patient Instructions Indication:Former smoker Start:07-Sep-2019 Instruction Type:Provider Instructions for Treatment How to access health informa tion online Indication:Former smoker Start:24-Aug-2019 Instruction Type:Patient Education How to access health informa tion online - Detail Indication:Former smoker Start:24-Aug-2019 Instruction Type:Patient Education Patient Instructions Indication:Former smoker Start:24-Aug-2019 Instruction Type:Provider Instructions for Treatment [facility]; [facility] Work Phone: Instructions* Name Dates Details Patient Instructions Indication:Former smoker Start:10-Mar-2023 Instruction Type:Provider Instructions for Treatment How to Access Health Informa tion Online using Patient Portal and [employer]rd [employer] Apps Indication:Former smoker Start:10-Mar-2023 Instruction Type:Patient Education Patient Instructions Indication:Former smoker Start:21-Jan-2023 Instruction Type:Provider Instructions for Treatment How to Access Health Informa tion Online using Patient Portal and [employer]rd [employer] Apps Indication:Former smoker Start:21-Jan-2023 Instruction Type:Patient Education Patient Instructions Indication:Hypertriglyceridemia Start:25-Dec-2022 Instruction Type:Provider Instructions for Treatment How to Access Health Informa tion Online using Patient Portal and [employer]rd [employer] Apps Indication:Hypertriglyceridemia Start:25-Dec-2022 Instruction Type:Patient Education Patient Instructions Indication:Former smoker Start:13-Aug-2022 Instruction Type:Provider Instructions for Treatment How to Access Health Informa tion Online using Patient Portal and [employer]rd [employer] Apps Indication:Former smoker Start:13-Aug-2022 Instruction Type:Patient Education Patient Instructions Indication:Former smoker Start:05-Mar-2022 Instruction Type:Provider Instructions for Treatment How to Access Health Informa tion Online using Patient Portal and [employer] Apps Indication:Former smoker Start:05-Mar-2022 Instruction Type:Patient Education Patient Instructions Indication:Former smoker Start:11-Dec-2020 Instruction Type:Provider Instructions for Treatment How to Access Health Informa tion Online using Patient Portal and [employer] Apps Indication:Former smoker Start:11-Dec-2020 Instruction Type:Patient Education Patient Instructions Indication:Former smoker Start:10-Nov-2020 Instruction Type:Provider Instructions for Treatment How to Access Health Informa tion Online using Patient Portal and [employer] Apps Indication:Former smoker Start:10-Nov-2020 Instruction Type:Patient Education How to access health informa tion online Indication:Former smoker Start:02-Feb-2020 Instruction Type:Patient Education How to access health informa tion online - Detail Indication:Former smoker Start:02-Feb-2020 Instruction Type:Patient Education Patient Instructions Indication:Former smoker Start:02-Feb-2020 Instruction Type:Provider Instructions for Treatment How to access health informa tion online Indication:Former smoker Start:02-Nov-2019 Instruction Type:Patient Education How to access health informa tion online - Detail Indication:Former smoker Start:02-Nov-2019 Instruction Type:Patient Education Patient Instructions Indication:Former smoker Start:02-Nov-2019 Instruction Type:Provider Instructions for Treatment How to access health informa tion online Indication:Former smoker Start:07-Sep-2019 Instruction Type:Patient Education How to access health informa tion online - Detail Indication:Former smoker Start:07-Sep-2019 Instruction Type:Patient Education Patient Instructions Indication:Former smoker Start:07-Sep-2019 Instruction Type:Provider Instructions for Treatment How to access health informa tion online Indication:Former smoker Start:24-Aug-2019 Instruction Type:Patient Education How to access health informa tion online - Detail Indication:Former smoker Start:24-Aug-2019 Instruction Type:Patient Education Patient Instructions Indication:Former smoker Start:24-Aug-2019 Instruction Type:Provider Instructions for Treatment [facility]; [facility] Work Phone: Instructions* Name Dates Details Patient Instructions Indication:Former smoker Start:10-Mar-2023 Instruction Type:Provider Instructions for Treatment How to Access Health Informa tion Online using Patient Portal and [employer]rd [employer] Apps Indication:Former smoker Start:10-Mar-2023 Instruction Type:Patient Education Patient Instructions Indication:Former smoker Start:21-Jan-2023 Instruction Type:Provider Instructions for Treatment How to Access Health Informa tion Online using Patient Portal and [employer]rd [employer] Apps Indication:Former smoker Start:21-Jan-2023 Instruction Type:Patient Education Patient Instructions Indication:Hypertriglyceridemia Start:25-Dec-2022 Instruction Type:Provider Instructions for Treatment How to Access Health Informa tion Online using Patient Portal and [employer]rd [employer] Apps Indication:Hypertriglyceridemia Start:25-Dec-2022 Instruction Type:Patient Education Patient Instructions Indication:Former smoker Start:13-Aug-2022 Instruction Type:Provider Instructions for Treatment How to Access Health Informa tion Online using Patient Portal and [employer]rd [employer] Apps Indication:Former smoker Start:13-Aug-2022 Instruction Type:Patient Education Patient Instructions Indication:Former smoker Start:05-Mar-2022 Instruction Type:Provider Instructions for Treatment How to Access Health Informa tion Online using Patient Portal and [employer]rd [employer] Apps Indication:Former smoker Start:05-Mar-2022 Instruction Type:Patient Education Patient Instructions Indication:Former smoker Start:11-Dec-2020 Instruction Type:Provider Instructions for Treatment How to Access Health Informa tion Online using Patient Portal and [employer]rd [employer] Apps Indication:Former smoker Start:11-Dec-2020 Instruction Type:Patient Education Patient Instructions Indication:Former smoker Start:10-Nov-2020 Instruction Type:Provider Instructions for Treatment How to Access Health Informa tion Online using Patient Portal and [employer]rd [employer] Apps Indication:Former smoker Start:10-Nov-2020 Instruction Type:Patient Education How to access health informa tion online Indication:Former smoker Start:02-Feb-2020 Instruction Type:Patient Education How to access health informa tion online - Detail Indication:Former smoker Start:02-Feb-2020 Instruction Type:Patient Education Patient Instructions Indication:Former smoker Start:02-Feb-2020 Instruction Type:Provider Instructions for Treatment How to access health informa tion online Indication:Former smoker Start:02-Nov-2019 Instruction Type:Patient Education How to access health informa tion online - Detail Indication:Former smoker Start:02-Nov-2019 Instruction Type:Patient Education Patient Instructions Indication:Former smoker Start:02-Nov-2019 Instruction Type:Provider Instructions for Treatment How to access health informa tion online Indication:Former smoker Start:07-Sep-2019 Instruction Type:Patient Education How to access health informa tion online - Detail Indication:Former smoker Start:07-Sep-2019 Instruction Type:Patient Education Patient Instructions Indication:Former smoker Start:07-Sep-2019 Instruction Type:Provider Instructions for Treatment How to access health informa tion online Indication:Former smoker Start:24-Aug-2019 Instruction Type:Patient Education How to access health informa tion online - Detail Indication:Former smoker Start:24-Aug-2019 Instruction Type:Patient Education Patient Instructions Indication:Former smoker Start:24-Aug-2019 Instruction Type:Provider Instructions for Treatment [facility]; [facility] Work Phone: Instructions* Name Dates Details Patient Instructions Indication:Former smoker Start:10-Mar-2023 Instruction Type:Provider Instructions for Treatment How to Access Health Informa tion Online using Patient Portal and [employer]rd [employer] Apps Indication:Former smoker Start:10-Mar-2023 Instruction Type:Patient Education Patient Instructions Indication:Former smoker Start:21-Jan-2023 Instruction Type:Provider Instructions for Treatment How to Access Health Informa tion Online using Patient Portal and [employer]rd [employer] Apps Indication:Former smoker Start:21-Jan-2023 Instruction Type:Patient Education Patient Instructions Indication:Hypertriglyceridemia Start:25-Dec-2022 Instruction Type:Provider Instructions for Treatment How to Access Health Informa tion Online using Patient Portal and [employer]rd [employer] Apps Indication:Hypertriglyceridemia Start:25-Dec-2022 Instruction Type:Patient Education Patient Instructions Indication:Former smoker Start:13-Aug-2022 Instruction Type:Provider Instructions for Treatment How to Access Health Informa tion Online using Patient Portal and [employer]rd [employer] Apps Indication:Former smoker Start:13-Aug-2022 Instruction Type:Patient Education Patient Instructions Indication:Former smoker Start:05-Mar-2022 Instruction Type:Provider Instructions for Treatment How to Access Health Informa tion Online using Patient Portal and [employer]rd [employer] Apps Indication:Former smoker Start:05-Mar-2022 Instruction Type:Patient Education Patient Instructions Indication:Former smoker Start:11-Dec-2020 Instruction Type:Provider Instructions for Treatment How to Access Health Informa tion Online using Patient Portal and [employer]rd [employer] Apps Indication:Former smoker Start:11-Dec-2020 Instruction Type:Patient Education Patient Instructions Indication:Former smoker Start:10-Nov-2020 Instruction Type:Provider Instructions for Treatment How to Access Health Informa tion Online using Patient Portal and [employer]rd [employer] Apps Indication:Former smoker Start:10-Nov-2020 Instruction Type:Patient Education How to access health informa tion online Indication:Former smoker Start:02-Feb-2020 Instruction Type:Patient Education How to access health informa tion online - Detail Indication:Former smoker Start:02-Feb-2020 Instruction Type:Patient Education Patient Instructions Indication:Former smoker Start:02-Feb-2020 Instruction Type:Provider Instructions for Treatment How to access health informa tion online Indication:Former smoker Start:02-Nov-2019 Instruction Type:Patient Education How to access health informa tion online - Detail Indication:Former smoker Start:02-Nov-2019 Instruction Type:Patient Education Patient Instructions Indication:Former smoker Start:02-Nov-2019 Instruction Type:Provider Instructions for Treatment How to access health informa tion online Indication:Former smoker Start:07-Sep-2019 Instruction Type:Patient Education How to access health informa tion online - Detail Indication:Former smoker Start:07-Sep-2019 Instruction Type:Patient Education Patient Instructions Indication:Former smoker Start:07-Sep-2019 Instruction Type:Provider Instructions for Treatment How to access health informa tion online Indication:Former smoker Start:24-Aug-2019 Instruction Type:Patient Education How to access health informa tion online - Detail Indication:Former smoker Start:24-Aug-2019 Instruction Type:Patient Education Patient Instructions Indication:Former smoker Start:24-Aug-2019 Instruction Type:Provider Instructions for Treatment [facility]; [facility] Work Phone: Instructions* Name Dates Details How to Access Health Informa tion Online using Patient Portal and [employer]rd [employer] Apps Indication:Former smoker Start:17-Jun-2023 Instruction Type:Patient Education Patient Instructions Indication:Former smoker Start:17-Jun-2023 Instruction Type:Provider Instructions for Treatment Patient Instructions Indication:Former smoker Start:10-Mar-2023 Instruction Type:Provider Instructions for Treatment How to Access Health Informa tion Online using Patient Portal and [employer]rd [employer] Apps Indication:Former smoker Start:10-Mar-2023 Instruction Type:Patient Education Patient Instructions Indication:Former smoker Start:21-Jan-2023 Instruction Type:Provider Instructions for Treatment How to Access Health Informa tion Online using Patient Portal and [employer]rd [employer] Apps Indication:Former smoker Start:21-Jan-2023 Instruction Type:Patient Education Patient Instructions Indication:Hypertriglyceridemia Start:25-Dec-2022 Instruction Type:Provider Instructions for Treatment How to Access Health Informa tion Online using Patient Portal and [employer]rd [employer] Apps Indication:Hypertriglyceridemia Start:25-Dec-2022 Instruction Type:Patient Education Patient Instructions Indication:Former smoker Start:13-Aug-2022 Instruction Type:Provider Instructions for Treatment How to Access Health Informa tion Online using Patient Portal and [employer]rd [employer] Apps Indication:Former smoker Start:13-Aug-2022 Instruction Type:Patient Education Patient Instructions Indication:Former smoker Start:05-Mar-2022 Instruction Type:Provider Instructions for Treatment How to Access Health Informa tion Online using Patient Portal and [employer]rd [employer] Apps Indication:Former smoker Start:05-Mar-2022 Instruction Type:Patient Education Patient Instructions Indication:Former smoker Start:11-Dec-2020 Instruction Type:Provider Instructions for Treatment How to Access Health Informa tion Online using Patient Portal and [employer]rd [employer] Apps Indication:Former smoker Start:11-Dec-2020 Instruction Type:Patient Education Patient Instructions Indication:Former smoker Start:10-Nov-2020 Instruction Type:Provider Instructions for Treatment How to Access Health Informa tion Online using Patient Portal and [employer]rd [employer] Apps Indication:Former smoker Start:10-Nov-2020 Instruction Type:Patient Education How to access health informa tion online Indication:Former smoker Start:02-Feb-2020 Instruction Type:Patient Education How to access health informa tion online - Detail Indication:Former smoker Start:02-Feb-2020 Instruction Type:Patient Education Patient Instructions Indication:Former smoker Start:02-Feb-2020 Instruction Type:Provider Instructions for Treatment How to access health informa tion online Indication:Former smoker Start:02-Nov-2019 Instruction Type:Patient Education How to access health informa tion online - Detail Indication:Former smoker Start:02-Nov-2019 Instruction Type:Patient Education Patient Instructions Indication:Former smoker Start:02-Nov-2019 Instruction Type:Provider Instructions for Treatment How to access health informa tion online Indication:Former smoker Start:07-Sep-2019 Instruction Type:Patient Education How to access health informa tion online - Detail Indication:Former smoker Start:07-Sep-2019 Instruction Type:Patient Education Patient Instructions Indication:Former smoker Start:07-Sep-2019 Instruction Type:Provider Instructions for Treatment How to access health informa tion online Indication:Former smoker Start:24-Aug-2019 Instruction Type:Patient Education How to access health informa tion online - Detail Indication:Former smoker Start:24-Aug-2019 Instruction Type:Patient Education Patient Instructions Indication:Former smoker Start:24-Aug-2019 Instruction Type:Provider Instructions for Treatment [facility]; [facility] Work Phone: Instructions* Name Dates Details How to Access Health Informa tion Online using Patient Portal and [employer]rd [employer] Apps Indication:Former smoker Start:17-Jun-2023 Instruction Type:Patient Education Patient Instructions Indication:Former smoker Start:17-Jun-2023 Instruction Type:Provider Instructions for Treatment Patient Instructions Indication:Former smoker Start:10-Mar-2023 Instruction Type:Provider Instructions for Treatment How to Access Health Informa tion Online using Patient Portal and [employer] Apps Indication:Former smoker Start:10-Mar-2023 Instruction Type:Patient Education Patient Instructions Indication:Former smoker Start:21-Jan-2023 Instruction Type:Provider Instructions for Treatment How to Access Health Informa tion Online using Patient Portal and [employer] Apps Indication:Former smoker Start:21-Jan-2023 Instruction Type:Patient Education Patient Instructions Indication:Hypertriglyceridemia Start:25-Dec-2022 Instruction Type:Provider Instructions for Treatment How to Access Health Informa tion Online using Patient Portal and [employer]rd [employer] Apps Indication:Hypertriglyceridemia Start:25-Dec-2022 Instruction Type:Patient Education Patient Instructions Indication:Former smoker Start:13-Aug-2022 Instruction Type:Provider Instructions for Treatment How to Access Health Informa tion Online using Patient Portal and [employer]rd [employer] Apps Indication:Former smoker Start:13-Aug-2022 Instruction Type:Patient Education Patient Instructions Indication:Former smoker Start:05-Mar-2022 Instruction Type:Provider Instructions for Treatment How to Access Health Informa tion Online using Patient Portal and [employer]rd [employer] Apps Indication:Former smoker Start:05-Mar-2022 Instruction Type:Patient Education Patient Instructions Indication:Former smoker Start:11-Dec-2020 Instruction Type:Provider Instructions for Treatment How to Access Health Informa tion Online using Patient Portal and [employer]rd [employer] Apps Indication:Former smoker Start:11-Dec-2020 Instruction Type:Patient Education Patient Instructions Indication:Former smoker Start:10-Nov-2020 Instruction Type:Provider Instructions for Treatment How to Access Health Informa tion Online using Patient Portal and [employer]rd [employer] Apps Indication:Former smoker Start:10-Nov-2020 Instruction Type:Patient Education How to access health informa tion online Indication:Former smoker Start:02-Feb-2020 Instruction Type:Patient Education How to access health informa tion online - Detail Indication:Former smoker Start:02-Feb-2020 Instruction Type:Patient Education Patient Instructions Indication:Former smoker Start:02-Feb-2020 Instruction Type:Provider Instructions for Treatment How to access health informa tion online Indication:Former smoker Start:02-Nov-2019 Instruction Type:Patient Education How to access health informa tion online - Detail Indication:Former smoker Start:02-Nov-2019 Instruction Type:Patient Education Patient Instructions Indication:Former smoker Start:02-Nov-2019 Instruction Type:Provider Instructions for Treatment How to access health informa tion online Indication:Former smoker Start:07-Sep-2019 Instruction Type:Patient Education How to access health informa tion online - Detail Indication:Former smoker Start:07-Sep-2019 Instruction Type:Patient Education Patient Instructions Indication:Former smoker Start:07-Sep-2019 Instruction Type:Provider Instructions for Treatment How to access health informa tion online Indication:Former smoker Start:24-Aug-2019 Instruction Type:Patient Education How to access health informa tion online - Detail Indication:Former smoker Start:24-Aug-2019 Instruction Type:Patient Education Patient Instructions Indication:Former smoker Start:24-Aug-2019 Instruction Type:Provider Instructions for Treatment [facility]; [facility] Work Phone: Instructions* Name Dates Details How to Access Health Informa tion Online using Patient Portal and [employer]rd [employer] Apps Indication:Former smoker Start:17-Jun-2023 Instruction Type:Patient Education Patient Instructions Indication:Former smoker Start:17-Jun-2023 Instruction Type:Provider Instructions for Treatment Patient Instructions Indication:Former smoker Start:10-Mar-2023 Instruction Type:Provider Instructions for Treatment How to Access Health Informa tion Online using Patient Portal and [employer]rd [employer] Apps Indication:Former smoker Start:10-Mar-2023 Instruction Type:Patient Education Patient Instructions Indication:Former smoker Start:21-Jan-2023 Instruction Type:Provider Instructions for Treatment How to Access Health Informa tion Online using Patient Portal and [employer]rd [employer] Apps Indication:Former smoker Start:21-Jan-2023 Instruction Type:Patient Education Patient Instructions Indication:Hypertriglyceridemia Start:25-Dec-2022 Instruction Type:Provider Instructions for Treatment How to Access Health Informa tion Online using Patient Portal and [employer]rd [employer] Apps Indication:Hypertriglyceridemia Start:25-Dec-2022 Instruction Type:Patient Education Patient Instructions Indication:Former smoker Start:13-Aug-2022 Instruction Type:Provider Instructions for Treatment How to Access Health Informa tion Online using Patient Portal and [employer]rd [employer] Apps Indication:Former smoker Start:13-Aug-2022 Instruction Type:Patient Education Patient Instructions Indication:Former smoker Start:05-Mar-2022 Instruction Type:Provider Instructions for Treatment How to Access Health Informa tion Online using Patient Portal and [employer]rd [employer] Apps Indication:Former smoker Start:05-Mar-2022 Instruction Type:Patient Education Patient Instructions Indication:Former smoker Start:11-Dec-2020 Instruction Type:Provider Instructions for Treatment How to Access Health Informa tion Online using Patient Portal and [employer]rd [employer] Apps Indication:Former smoker Start:11-Dec-2020 Instruction Type:Patient Education Patient Instructions Indication:Former smoker Start:10-Nov-2020 Instruction Type:Provider Instructions for Treatment How to Access Health Informa tion Online using Patient Portal and [employer]rd [employer] Apps Indication:Former smoker Start:10-Nov-2020 Instruction Type:Patient Education How to access health informa tion online Indication:Former smoker Start:02-Feb-2020 Instruction Type:Patient Education How to access health informa tion online - Detail Indication:Former smoker Start:02-Feb-2020 Instruction Type:Patient Education Patient Instructions Indication:Former smoker Start:02-Feb-2020 Instruction Type:Provider Instructions for Treatment How to access health informa tion online Indication:Former smoker Start:02-Nov-2019 Instruction Type:Patient Education How to access health informa tion online - Detail Indication:Former smoker Start:02-Nov-2019 Instruction Type:Patient Education Patient Instructions Indication:Former smoker Start:02-Nov-2019 Instruction Type:Provider Instructions for Treatment How to access health informa tion online Indication:Former smoker Start:07-Sep-2019 Instruction Type:Patient Education How to access health informa tion online - Detail Indication:Former smoker Start:07-Sep-2019 Instruction Type:Patient Education Patient Instructions Indication:Former smoker Start:07-Sep-2019 Instruction Type:Provider Instructions for Treatment How to access health informa tion online Indication:Former smoker Start:24-Aug-2019 Instruction Type:Patient Education How to access health informa tion online - Detail Indication:Former smoker Start:24-Aug-2019 Instruction Type:Patient Education Patient Instructions Indication:Former smoker Start:24-Aug-2019 Instruction Type:Provider Instructions for Treatment [facility]; [facility] Work Phone: Instructions* Name Dates Details How to Access Health Informa tion Online using Patient Portal and [employer]rd [employer] Apps Indication:Former smoker Start:08-Jul-2023 Instruction Type:Patient Education Patient Instructions Indication:Former smoker Start:08-Jul-2023 Instruction Type:Provider Instructions for Treatment How to Access Health Informa tion Online using Patient Portal and [employer]rd [employer] Apps Indication:Former smoker Start:17-Jun-2023 Instruction Type:Patient Education Patient Instructions Indication:Former smoker Start:17-Jun-2023 Instruction Type:Provider Instructions for Treatment Patient Instructions Indication:Former smoker Start:10-Mar-2023 Instruction Type:Provider Instructions for Treatment How to Access Health Informa tion Online using Patient Portal and [employer]rd [employer] Apps Indication:Former smoker Start:10-Mar-2023 Instruction Type:Patient Education Patient Instructions Indication:Former smoker Start:21-Jan-2023 Instruction Type:Provider Instructions for Treatment How to Access Health Informa tion Online using Patient Portal and [employer]rd [employer] Apps Indication:Former smoker Start:21-Jan-2023 Instruction Type:Patient Education Patient Instructions Indication:Hypertriglyceridemia Start:25-Dec-2022 Instruction Type:Provider Instructions for Treatment How to Access Health Informa tion Online using Patient Portal and [employer]rd [employer] Apps Indication:Hypertriglyceridemia Start:25-Dec-2022 Instruction Type:Patient Education Patient Instructions Indication:Former smoker Start:13-Aug-2022 Instruction Type:Provider Instructions for Treatment How to Access Health Informa tion Online using Patient Portal and [employer]rd [employer] Apps Indication:Former smoker Start:13-Aug-2022 Instruction Type:Patient Education Patient Instructions Indication:Former smoker Start:05-Mar-2022 Instruction Type:Provider Instructions for Treatment How to Access Health Informa tion Online using Patient Portal and [employer]rd [employer] Apps Indication:Former smoker Start:05-Mar-2022 Instruction Type:Patient Education Patient Instructions Indication:Former smoker Start:11-Dec-2020 Instruction Type:Provider Instructions for Treatment How to Access Health Informa tion Online using Patient Portal and [employer]rd [employer] Apps Indication:Former smoker Start:11-Dec-2020 Instruction Type:Patient Education Patient Instructions Indication:Former smoker Start:10-Nov-2020 Instruction Type:Provider Instructions for Treatment How to Access Health Informa tion Online using Patient Portal and [employer] Apps Indication:Former smoker Start:10-Nov-2020 Instruction Type:Patient Education How to access health informa tion online Indication:Former smoker Start:02-Feb-2020 Instruction Type:Patient Education How to access health informa tion online - Detail Indication:Former smoker Start:02-Feb-2020 Instruction Type:Patient Education Patient Instructions Indication:Former smoker Start:02-Feb-2020 Instruction Type:Provider Instructions for Treatment How to access health informa tion online Indication:Former smoker Start:02-Nov-2019 Instruction Type:Patient Education How to access health informa tion online - Detail Indication:Former smoker Start:02-Nov-2019 Instruction Type:Patient Education Patient Instructions Indication:Former smoker Start:02-Nov-2019 Instruction Type:Provider Instructions for Treatment How to access health informa tion online Indication:Former smoker Start:07-Sep-2019 Instruction Type:Patient Education How to access health informa tion online - Detail Indication:Former smoker Start:07-Sep-2019 Instruction Type:Patient Education Patient Instructions Indication:Former smoker Start:07-Sep-2019 Instruction Type:Provider Instructions for Treatment How to access health informa tion online Indication:Former smoker Start:24-Aug-2019 Instruction Type:Patient Education How to access health informa tion online - Detail Indication:Former smoker Start:24-Aug-2019 Instruction Type:Patient Education Patient Instructions Indication:Former smoker Start:24-Aug-2019 Instruction Type:Provider Instructions for Treatment [facility] Work Phone: Instructions* Name Dates Details How to Access Health Informa tion Online using Patient Portal and 3rd [employer] Apps Indication:Former smoker Start:08-Jul-2023 Instruction Type:Patient Education Patient Instructions Indication:Former smoker Start:08-Jul-2023 Instruction Type:Provider Instructions for Treatment How to Access Health Informa tion Online using Patient Portal and 3rd [employer] Apps Indication:Former smoker Start:17-Jun-2023 Instruction Type:Patient Education Patient Instructions Indication:Former smoker Start:17-Jun-2023 Instruction Type:Provider Instructions for Treatment Patient Instructions Indication:Former smoker Start:10-Mar-2023 Instruction Type:Provider Instructions for Treatment How to Access Health Informa tion Online using Patient Portal and 3rd [employer] Apps Indication:Former smoker Start:10-Mar-2023 Instruction Type:Patient Education Patient Instructions Indication:Former smoker Start:21-Jan-2023 Instruction Type:Provider Instructions for Treatment How to Access Health Informa tion Online using Patient Portal and 3rd [employer] Apps Indication:Former smoker Start:21-Jan-2023 Instruction Type:Patient Education Patient Instructions Indication:Hypertriglyceridemia Start:25-Dec-2022 Instruction Type:Provider Instructions for Treatment How to Access Health Informa tion Online using Patient Portal and 3rd [employer] Apps Indication:Hypertriglyceridemia Start:25-Dec-2022 Instruction Type:Patient Education Patient Instructions Indication:Former smoker Start:13-Aug-2022 Instruction Type:Provider Instructions for Treatment How to Access Health Informa tion Online using Patient Portal and 3rd [employer] Apps Indication:Former smoker Start:13-Aug-2022 Instruction Type:Patient Education Patient Instructions Indication:Former smoker Start:05-Mar-2022 Instruction Type:Provider Instructions for Treatment How to Access Health Informa tion Online using Patient Portal and 3rd [employer] Apps Indication:Former smoker Start:05-Mar-2022 Instruction Type:Patient Education Patient Instructions Indication:Former smoker Start:11-Dec-2020 Instruction Type:Provider Instructions for Treatment How to Access Health Informa tion Online using Patient Portal and 3rd [employer] Apps Indication:Former smoker Start:11-Dec-2020 Instruction Type:Patient Education Patient Instructions Indication:Former smoker Start:10-Nov-2020 Instruction Type:Provider Instructions for Treatment How to Access Health Informa tion Online using Patient Portal and 3rd [employer] Apps Indication:Former smoker Start:10-Nov-2020 Instruction Type:Patient Education How to access health informa tion online Indication:Former smoker Start:02-Feb-2020 Instruction Type:Patient Education How to access health informa tion online - Detail Indication:Former smoker Start:02-Feb-2020 Instruction Type:Patient Education Patient Instructions Indication:Former smoker Start:02-Feb-2020 Instruction Type:Provider Instructions for Treatment How to access health informa tion online Indication:Former smoker Start:02-Nov-2019 Instruction Type:Patient Education How to access health informa tion online - Detail Indication:Former smoker Start:02-Nov-2019 Instruction Type:Patient Education Patient Instructions Indication:Former smoker Start:02-Nov-2019 Instruction Type:Provider Instructions for Treatment How to access health informa tion online Indication:Former smoker Start:07-Sep-2019 Instruction Type:Patient Education How to access health informa tion online - Detail Indication:Former smoker Start:07-Sep-2019 Instruction Type:Patient Education Patient Instructions Indication:Former smoker Start:07-Sep-2019 Instruction Type:Provider Instructions for Treatment How to access health informa tion online Indication:Former smoker Start:24-Aug-2019 Instruction Type:Patient Education How to access health informa tion online - Detail Indication:Former smoker Start:24-Aug-2019 Instruction Type:Patient Education Patient Instructions Indication:Former smoker Start:24-Aug-2019 Instruction Type:Provider Instructions for Treatment [facility] Work Phone: reason for referral (narrative)No [facility]: Summary Purpose Family History No Family History Records FoundUnknown Family Member Name Dates Details Father Comments:had stroke 11 mo ag o had blood clot from afib, COPD, [place], abd aorta Status:Active Mother Comments:breast ca, afib, an xiety, was adopted Status:Active Paternal Grandfather Comments:passed from stroke Status:Active Unknown Family Member Name Dates Details Father Comments:had stroke 11 mo ag o had blood clot from afib, COPD, [place], abd aorta Status:Active Mother Comments:breast ca, afib, an xiety, was adopted Status:Active Paternal Grandfather Comments:passed from stroke Status:Active Unknown Family Member Name Dates Details Father Comments:had stroke 11 mo ag o had blood clot from afib, COPD, [place], abd aorta Status:Active Mother Comments:breast ca, afib, an xiety, was adopted Status:Active Paternal Grandfather Comments:passed from stroke Status:Active Unknown Family Member Name Dates Details Father Comments:had stroke 11 mo ag o had blood clot from afib, COPD, [place], abd aorta Status:Active Mother Comments:breast ca, afib, an xiety, was adopted Status:Active Paternal Grandfather Comments:passed from stroke Status:Active Unknown Family Member Name Dates Details Father Comments:had stroke 11 mo ag o had blood clot from afib, COPD, [place], abd aorta Status:Active Mother Comments:breast ca, afib, an xiety, was adopted Status:Active Paternal Grandfather Comments:passed from stroke Status:Active Unknown Family Member Name Dates Details Father Comments:had stroke 11 mo ag o had blood clot from afib, COPD, [place], abd aorta Status:Active Mother Comments:breast ca, afib, an xiety, was adopted Status:Active Paternal Grandfather Comments:passed from stroke Status:Active Unknown Family Member Name Dates Details Father Comments:had stroke 11 mo ag o had blood clot from afib, COPD, [place], abd aorta Status:Active Mother Comments:breast ca, afib, an xiety, was adopted Status:Active Paternal Grandfather Comments:passed from stroke Status:Active Unknown Family Member Name Dates Details Father Comments:had stroke 11 mo ag o had blood clot from afib, COPD, [place], abd aorta Status:Active Mother Comments:breast ca, afib, an xiety, was adopted Status:Active Paternal Grandfather Comments:passed from stroke Status:Active Unknown Family Member Name Dates Details Father Comments:had stroke 11 mo ag o had blood clot from afib, COPD, [place], abd aorta Status:Active Mother Comments:breast ca, afib, an xiety, was adopted Status:Active Paternal Grandfather Comments:passed from stroke Status:Active Unknown Family Member Name Dates Details Father Comments:had stroke 11 mo ag o had blood clot from afib, COPD, [place], abd aorta Status:Active Mother Comments:breast ca, afib, an xiety, was adopted Status:Active Paternal Grandfather Comments:passed from stroke Status:Active Unknown Family Member Name Dates Details Father Comments:had stroke 11 mo ag o had blood clot from afib, COPD, [place], abd aorta Status:Active Mother Comments:breast ca, afib, an xiety, was adopted Status:Active Paternal Grandfather Comments:passed from stroke Status:Active Unknown Family Member Name Dates Details Father Comments:had stroke 11 mo ag o had blood clot from afib, COPD, [place], abd aorta Status:Active Mother Comments:breast ca, afib, an xiety, was adopted Status:Active Paternal Grandfather Comments:passed from stroke Status:Active Unknown Family Member Name Dates Details Father Comments:had stroke 11 mo ag o had blood clot from afib, COPD, [place], abd aorta Status:Active Mother Comments:breast ca, afib, an xiety, was adopted Status:Active Paternal Grandfather Comments:passed from stroke Status:Active Unknown Family Member Name Dates Details Father Comments:had stroke 11 mo ag o had blood clot from afib, COPD, [place], abd aorta Status:Active Mother Comments:breast ca, afib, an xiety, was adopted Status:Active Paternal Grandfather Comments:passed from stroke Status:Active Unknown Family Member Name Dates Details Father Comments:had stroke 11 mo ag o had blood clot from afib, COPD, [place], abd aorta Status:Active Mother Comments:breast ca, afib, an xiety, was adopted Status:Active Paternal Grandfather Comments:passed from stroke Status:Active Unknown Family Member Name Dates Details Father Comments:had stroke 11 mo ag o had blood clot from afib, COPD, [place], abd aorta Status:Active Mother Comments:breast ca, afib, an xiety, was adopted Status:Active Paternal Grandfather Comments:passed from stroke Status:Active Unknown Family Member Name Dates Details Father Comments:had stroke 11 mo ag o had blood clot from afib, COPD, [place], abd aorta Status:Active Mother Comments:breast ca, afib, an xiety, was adopted Status:Active Paternal Grandfather Comments:passed from stroke Status:Active Relationship Condition Age at Onset Recorded Date/T cat mother Malignant neoplasm of breast Unknown Atrial fibrillation Unknown father Cerebrovascular accident (CVA) Unknown Chronic obstructive pulmonary disease Unk nown Myocardial infarction Unknown Abdominal aortic aneurysm (AAA) Unknown Unknown Family Member Name Dates Details Father Comments:had stroke 11 mo ag o had blood clot from afib, COPD, [place], abd aorta Status:Active Mother Comments:breast ca, afib, an xiety, was adopted Status:Active Paternal Grandfather Comments:passed from stroke Status:Active Unknown Family Member Name Dates Details Father Comments:had stroke 11 mo ag o had blood clot from afib, COPD, [place], abd aorta Status:Active Mother Comments:breast ca, afib, an xiety, was adopted Status:Active Paternal Grandfather Comments:passed from stroke Status:Active Unknown Family Member Name Dates Details Father Comments:had stroke 11 mo ag o had blood clot from afib, COPD, [place], abd aorta Status:Active Mother Comments:breast ca, afib, an xiety, was adopted Status:Active Paternal Grandfather Comments:passed from stroke Status:Active Unknown Family Member Name Dates Details Father Comments:had stroke 11 mo ag o had blood clot from afib, COPD, [place], abd aorta Status:Active Mother Comments:breast ca, afib, an xiety, was adopted Status:Active Paternal Grandfather Comments:passed from stroke Status:Active Unknown Family Member Name Dates Details Father Comments:had stroke 11 mo ag o had blood clot from afib, COPD, [place], abd aorta Status:Active Mother Comments:breast ca, afib, an xiety, was adopted Status:Active Paternal Grandfather Comments:passed from stroke Status:Active Unknown Family Member Name Dates Details Father Comments:had stroke 11 mo ag o had blood clot from afib, COPD, [place], abd aorta Status:Active Mother Comments:breast ca, afib, an xiety, was adopted Status:Active Paternal Grandfather Comments:passed from stroke Status:Active Unknown Family Member Name Dates Details Father Comments:had stroke 11 mo ag o had blood clot from afib, COPD, [place], abd aorta Status:Active Mother Comments:breast ca, afib, an xiety, was adopted Status:Active Paternal Grandfather Comments:passed from stroke Status:Active Unknown Family Member Name Dates Details Father Comments:had stroke 11 mo ag o had blood clot from afib, COPD, [place], abd aorta Status:Active Mother Comments:breast ca, afib, an xiety, was adopted Status:Active Paternal Grandfather Comments:passed from stroke Status:Active Unknown Family Member Name Dates Details Father Comments:had stroke 11 mo ag o had blood clot from afib, COPD, [place], abd aorta Status:Active Mother Comments:breast ca, afib, an xiety, was adopted Status:Active Paternal Grandfather Comments:passed from stroke Status:Active Unknown Family Member Name Dates Details Father Comments:had stroke 11 mo ag o had blood clot from afib, COPD, [place], abd aorta Status:Active Mother Comments:breast ca, afib, an xiety, was adopted Status:Active Paternal Grandfather Comments:passed from stroke Status:Active Unknown Family Member Name Dates Details Father Comments:had stroke 11 mo ag o had blood clot from afib, COPD, [place], abd aorta Status:Active Mother Comments:breast ca, afib, an xiety, was adopted Status:Active Paternal Grandfather Comments:passed from stroke Status:Active Unknown Family Member Name Dates Details Father Comments:had stroke 11 mo ag o had blood clot from afib, COPD, [place], abd aorta Status:Active Mother Comments:breast ca, afib, an xiety, was adopted Status:Active Paternal Grandfather Comments:passed from stroke Status:Active Unknown Family Member Name Dates Details Father Comments:had stroke 11 mo ag o had blood clot from afib, COPD, [place], abd aorta Status:Active Mother Comments:breast ca, afib, an xiety, was adopted Status:Active Paternal Grandfather Comments:passed from stroke Status:Active Unknown Family Member Name Dates Details Father Comments:had stroke 11 mo ag o had blood clot from afib, COPD, [place], abd aorta Status:Active Mother Comments:breast ca, afib, an xiety, was adopted Status:Active Paternal Grandfather Comments:passed from stroke Status:Active Unknown Family Member Name Dates Details Father Comments:had stroke 11 mo ag o had blood clot from afib, COPD, [place], abd aorta Status:Active Mother Comments:breast ca, afib, an xiety, was adopted Status:Active Paternal Grandfather Comments:passed from stroke Status:Active Unknown Family Member Name Dates Details Father Comments:had stroke 11 mo ag o had blood clot from afib, COPD, [place], abd aorta Status:Active Mother Comments:breast ca, afib, an xiety, was adopted Status:Active Paternal Grandfather Comments:passed from stroke Status:Active Unknown Family Member Name Dates Details Father Comments:had stroke 11 mo ag o had blood clot from afib, COPD, [place], abd aorta Status:Active Mother Comments:breast ca, afib, an xiety, was adopted Status:Active Paternal Grandfather Comments:passed from stroke Status:Active Advance Directives No Advanced Directives Records Found Name Dates Details Immunization Registry [place] - Effective on 08/24/2019. Expiration date unspecified Effective:24-Aug-2019 Name Dates Details Immunization Registry [place] - Effective on 08/24/2019. Expiration date unspecified Effective:24-Aug-2019 Name Dates Details Immunization [facility] [place] - Effective on 08/24/2019. Expiration date unspecified Effective:24-Aug-2019 Name Dates Details Immunization [facility] [place] - Effective on 08/24/2019. Expiration date unspecified Effective:24-Aug-2019 Name Dates Details Immunization [facility] [place] - Effective on 08/24/2019. Expiration date unspecified Effective:24-Aug-2019 Name Dates Details Immunization [facility] [place] - Effective on 08/24/2019. Expiration date unspecified Effective:24-Aug-2019 Name Dates Details Immunization [facility] [place] - Effective on 08/24/2019. Expiration date unspecified Effective:24-Aug-2019 Name Dates Details Immunization [facility] [place] - Effective on 08/24/2019. Expiration date unspecified Effective:24-Aug-2019 Name Dates Details Immunization [facility] [place] - Effective on 08/24/2019. Expiration date unspecified Effective:24-Aug-2019 Name Dates Details Immunization [facility] [place] - Effective on 08/24/2019. Expiration date unspecified Effective:24-Aug-2019 Name Dates Details Immunization [facility] [place] - Effective on 08/24/2019. Expiration date unspecified Effective:24-Aug-2019 Name Dates Details Immunization [facility] [place] - Effective on 08/24/2019. Expiration date unspecified Effective:24-Aug-2019 Name Dates Details Immunization [facility] [place] - Effective on 08/24/2019. Expiration date unspecified Effective:24-Aug-2019 Name Dates Details Immunization [facility] [place] - Effective on 08/24/2019. Expiration date unspecified Effective:24-Aug-2019 Advance Directive Response Recorded Date/ Time Living Will No August 23, 2 019 1:48pm Power of Supervisor [employer] No August 23, 2019 1:48pm Name Dates Details Immunization [place] - Effective on 08/24/2019. Expiration date unspecified Effective:24-Aug-2019 Name Dates Details Immunization [facility] [place] - Effective on 08/24/2019. Expiration date unspecified Effective:24-Aug-2019 Advance Directive Response Recorded Date/ Time Living Will No August 23, 2 019 12:48pm Power of Supervisor [employer] No August 23, 2019 12:48pm Name Dates Details Immunization [place] - Effective on 08/24/2019. Expiration date unspecified Effective:24-Aug-2019 Name Dates Details Immunization [facility] [place] - Effective on 08/24/2019. Expiration date unspecified Effective:24-Aug-2019 Name Dates Details Immunization [facility] [place] - Effective on 08/24/2019. Expiration date unspecified Effective:24-Aug-2019 Name Dates Details Immunization [facility] [place] - Effective on 08/24/2019. Expiration date unspecified Effective:24-Aug-2019 Name Dates Details Immunization [facility] [place] - Effective on 08/24/2019. Expiration date unspecified Effective:24-Aug-2019 Advance Directive Response Recorded Date/ Time Living Will No February 28, 2023 8:48pm Power of Supervisor [employer] No February 28 8:48pm Name Dates Details Immunization [place] - Effective on 08/24/2019. Expiration date unspecified Effective:24-Aug-2019 Name Dates Details Immunization [facility] [place] - Effective on 08/24/2019. Expiration date unspecified Effective:24-Aug-2019 Name Dates Details Immunization [facility] [place] - Effective on 08/24/2019. Expiration date unspecified Effective:24-Aug-2019 Name Dates Details Immunization [facility] [place] - Effective on 08/24/2019. Expiration date unspecified Effective:24-Aug-2019 Name Dates Details Immunization [facility] [place] - Effective on 08/24/2019. Expiration date unspecified Effective:24-Aug-2019 Name Dates Details Immunization [facility] [place] - Effective on 08/24/2019. Expiration date unspecified Effective:24-Aug-2019 Name Dates Details Immunization [facility] [place] - Effective on 08/24/2019. Expiration date unspecified Effective:24-Aug-2019 Name Dates Details Immunization [facility] [place] - Effective on 08/24/2019. Expiration date unspecified Effective:24-Aug-2019 Name Dates Details Immunization [facility] [place] - Effective on 08/24/2019. Expiration date unspecified Effective:24-Aug-2019 Advance Directive Response Recorded Date/ Time Living Will No February 28, 2023 7:48pm Power of Supervisor [employer] No February 28 7:48pm Instructions Name Dates Details How to access health informa tion online Indication:Former smoker Start:02-Feb-2020 Instruction Type:Patient Education How to access health informa tion online - Detail Indication:Former smoker Start:02-Feb-2020 Instruction Type:Patient Education Patient Instructions Indication:Former smoker Start:02-Feb-2020 Instruction Type:Provider Instructions for Treatment How to access health informa tion online Indication:Former smoker Start:02-Nov-2019 Instruction Type:Patient Education How to access health informa tion online - Detail Indication:Former smoker Start:02-Nov-2019 Instruction Type:Patient Education Patient Instructions Indication:Former smoker Start:02-Nov-2019 Instruction Type:Provider Instructions for Treatment How to access health informa tion online Indication:Former smoker Start:07-Sep-2019 Instruction Type:Patient Education How to access health informa tion online - Detail Indication:Former smoker Start:07-Sep-2019 Instruction Type:Patient Education Patient Instructions Indication:Former smoker Start:07-Sep-2019 Instruction Type:Provider Instructions for Treatment How to access health informa tion online Indication:Former smoker Start:24-Aug-2019 Instruction Type:Patient Education How to access health informa tion online - Detail Indication:Former smoker Start:24-Aug-2019 Instruction Type:Patient Education Patient Instructions Indication:Former smoker Start:24-Aug-2019 Instruction Type:Provider Instructions for Treatment Name Dates Details How to access health informa tion online Indication:Former smoker Start:02-Feb-2020 Instruction Type:Patient Education How to access health informa tion online - Detail Indication:Former smoker Start:02-Feb-2020 Instruction Type:Patient Education Patient Instructions Indication:Former smoker Start:02-Feb-2020 Instruction Type:Provider Instructions for Treatment How to access health informa tion online Indication:Former smoker Start:02-Nov-2019 Instruction Type:Patient Education How to access health informa tion online - Detail Indication:Former smoker Start:02-Nov-2019 Instruction Type:Patient Education Patient Instructions Indication:Former smoker Start:02-Nov-2019 Instruction Type:Provider Instructions for Treatment How to access health informa tion online Indication:Former smoker Start:07-Sep-2019 Instruction Type:Patient Education How to access health informa tion online - Detail Indication:Former smoker Start:07-Sep-2019 Instruction Type:Patient Education Patient Instructions Indication:Former smoker Start:07-Sep-2019 Instruction Type:Provider Instructions for Treatment How to access health informa tion online Indication:Former smoker Start:24-Aug-2019 Instruction Type:Patient Education How to access health informa tion online - Detail Indication:Former smoker Start:24-Aug-2019 Instruction Type:Patient Education Patient Instructions Indication:Former smoker Start:24-Aug-2019 Instruction Type:Provider Instructions for Treatment Name Dates Details How to access health informa tion online Indication:Former smoker Start:02-Feb-2020 Instruction Type:Patient Education How to access health informa tion online - Detail Indication:Former smoker Start:02-Feb-2020 Instruction Type:Patient Education Patient Instructions Indication:Former smoker Start:02-Feb-2020 Instruction Type:Provider Instructions for Treatment How to access health informa tion online Indication:Former smoker Start:02-Nov-2019 Instruction Type:Patient Education How to access health informa tion online - Detail Indication:Former smoker Start:02-Nov-2019 Instruction Type:Patient Education Patient Instructions Indication:Former smoker Start:02-Nov-2019 Instruction Type:Provider Instructions for Treatment How to access health informa tion online Indication:Former smoker Start:07-Sep-2019 Instruction Type:Patient Education How to access health informa tion online - Detail Indication:Former smoker Start:07-Sep-2019 Instruction Type:Patient Education Patient Instructions Indication:Former smoker Start:07-Sep-2019 Instruction Type:Provider Instructions for Treatment How to access health informa tion online Indication:Former smoker Start:24-Aug-2019 Instruction Type:Patient Education How to access health informa tion online - Detail Indication:Former smoker Start:24-Aug-2019 Instruction Type:Patient Education Patient Instructions Indication:Former smoker Start:24-Aug-2019 Instruction Type:Provider Instructions for Treatment Name Dates Details Patient Instructions Indication:Former smoker Start:10-Nov-2020 Instruction Type:Provider Instructions for Treatment How to Access Health Informa tion Online using Patient Portal and [employer] Apps Indication:Former smoker Start:10-Nov-2020 Instruction Type:Patient Education How to access health informa tion online Indication:Former smoker Start:02-Feb-2020 Instruction Type:Patient Education How to access health informa tion online - Detail Indication:Former smoker Start:02-Feb-2020 Instruction Type:Patient Education Patient Instructions Indication:Former smoker Start:02-Feb-2020 Instruction Type:Provider Instructions for Treatment How to access health informa tion online Indication:Former smoker Start:02-Nov-2019 Instruction Type:Patient Education How to access health informa tion online - Detail Indication:Former smoker Start:02-Nov-2019 Instruction Type:Patient Education Patient Instructions Indication:Former smoker Start:02-Nov-2019 Instruction Type:Provider Instructions for Treatment How to access health informa tion online Indication:Former smoker Start:07-Sep-2019 Instruction Type:Patient Education How to access health informa tion online - Detail Indication:Former smoker Start:07-Sep-2019 Instruction Type:Patient Education Patient Instructions Indication:Former smoker Start:07-Sep-2019 Instruction Type:Provider Instructions for Treatment How to access health informa tion online Indication:Former smoker Start:24-Aug-2019 Instruction Type:Patient Education How to access health informa tion online - Detail Indication:Former smoker Start:24-Aug-2019 Instruction Type:Patient Education Patient Instructions Indication:Former smoker Start:24-Aug-2019 Instruction Type:Provider Instructions for Treatment Name Dates Details Patient Instructions Indication:Former smoker Start:10-Nov-2020 Instruction Type:Provider Instructions for Treatment How to Access Health Informa tion Online using Patient Portal and [employer]) Apps Indication:Former smoker Start:10-Nov-2020 Instruction Type:Patient Education How to access health informa tion online Indication:Former smoker Start:02-Feb-2020 Instruction Type:Patient Education How to access health informa tion online - Detail Indication:Former smoker Start:02-Feb-2020 Instruction Type:Patient Education Patient Instructions Indication:Former smoker Start:02-Feb-2020 Instruction Type:Provider Instructions for Treatment How to access health informa tion online Indication:Former smoker Start:02-Nov-2019 Instruction Type:Patient Education How to access health informa tion online - Detail Indication:Former smoker Start:02-Nov-2019 Instruction Type:Patient Education Patient Instructions Indication:Former smoker Start:02-Nov-2019 Instruction Type:Provider Instructions for Treatment How to access health informa tion online Indication:Former smoker Start:07-Sep-2019 Instruction Type:Patient Education How to access health informa tion online - Detail Indication:Former smoker Start:07-Sep-2019 Instruction Type:Patient Education Patient Instructions Indication:Former smoker Start:07-Sep-2019 Instruction Type:Provider Instructions for Treatment How to access health informa tion online Indication:Former smoker Start:24-Aug-2019 Instruction Type:Patient Education How to access health informa tion online - Detail Indication:Former smoker Start:24-Aug-2019 Instruction Type:Patient Education Patient Instructions Indication:Former smoker Start:24-Aug-2019 Instruction Type:Provider Instructions for Treatment Name Dates Details Patient Instructions Indication:Former smoker Start:10-Nov-2020 Instruction Type:Provider Instructions for Treatment How to Access Health Informa tion Online using Patient Portal and [employer] Apps Indication:Former smoker Start:10-Nov-2020 Instruction Type:Patient Education How to access health informa tion online Indication:Former smoker Start:02-Feb-2020 Instruction Type:Patient Education How to access health informa tion online - Detail Indication:Former smoker Start:02-Feb-2020 Instruction Type:Patient Education Patient Instructions Indication:Former smoker Start:02-Feb-2020 Instruction Type:Provider Instructions for Treatment How to access health informa tion online Indication:Former smoker Start:02-Nov-2019 Instruction Type:Patient Education How to access health informa tion online - Detail Indication:Former smoker Start:02-Nov-2019 Instruction Type:Patient Education Patient Instructions Indication:Former smoker Start:02-Nov-2019 Instruction Type:Provider Instructions for Treatment How to access health informa tion online Indication:Former smoker Start:07-Sep-2019 Instruction Type:Patient Education How to access health informa tion online - Detail Indication:Former smoker Start:07-Sep-2019 Instruction Type:Patient Education Patient Instructions Indication:Former smoker Start:07-Sep-2019 Instruction Type:Provider Instructions for Treatment How to access health informa tion online Indication:Former smoker Start:24-Aug-2019 Instruction Type:Patient Education How to access health informa tion online - Detail Indication:Former smoker Start:24-Aug-2019 Instruction Type:Patient Education Patient Instructions Indication:Former smoker Start:24-Aug-2019 Instruction Type:Provider Instructions for Treatment Name Dates Details Patient Instructions Indication:Former smoker Start:11-Dec-2020 Instruction Type:Provider Instructions for Treatment How to Access Health Informa tion Online using Patient Portal and [employer]rd [employer] Apps Indication:Former smoker Start:11-Dec-2020 Instruction Type:Patient Education Patient Instructions Indication:Former smoker Start:10-Nov-2020 Instruction Type:Provider Instructions for Treatment How to Access Health Informa tion Online using Patient Portal and [employer]rd [employer] Apps Indication:Former smoker Start:10-Nov-2020 Instruction Type:Patient Education How to access health informa tion online Indication:Former smoker Start:02-Feb-2020 Instruction Type:Patient Education How to access health informa tion online - Detail Indication:Former smoker Start:02-Feb-2020 Instruction Type:Patient Education Patient Instructions Indication:Former smoker Start:02-Feb-2020 Instruction Type:Provider Instructions for Treatment How to access health informa tion online Indication:Former smoker Start:02-Nov-2019 Instruction Type:Patient Education How to access health informa tion online - Detail Indication:Former smoker Start:02-Nov-2019 Instruction Type:Patient Education Patient Instructions Indication:Former smoker Start:02-Nov-2019 Instruction Type:Provider Instructions for Treatment How to access health informa tion online Indication:Former smoker Start:07-Sep-2019 Instruction Type:Patient Education How to access health informa tion online - Detail Indication:Former smoker Start:07-Sep-2019 Instruction Type:Patient Education Patient Instructions Indication:Former smoker Start:07-Sep-2019 Instruction Type:Provider Instructions for Treatment How to access health informa tion online Indication:Former smoker Start:24-Aug-2019 Instruction Type:Patient Education How to access health informa tion online - Detail Indication:Former smoker Start:24-Aug-2019 Instruction Type:Patient Education Patient Instructions Indication:Former smoker Start:24-Aug-2019 Instruction Type:Provider Instructions for Treatment Name Dates Details Patient Instructions Indication:Former smoker Start:11-Dec-2020 Instruction Type:Provider Instructions for Treatment How to Access Health Informa tion Online using Patient Portal and [employer]rd [employer] Apps Indication:Former smoker Start:11-Dec-2020 Instruction Type:Patient Education Patient Instructions Indication:Former smoker Start:10-Nov-2020 Instruction Type:Provider Instructions for Treatment How to Access Health Informa tion Online using Patient Portal and [employer]rd [employer] Apps Indication:Former smoker Start:10-Nov-2020 Instruction Type:Patient Education How to access health informa tion online Indication:Former smoker Start:02-Feb-2020 Instruction Type:Patient Education How to access health informa tion online - Detail Indication:Former smoker Start:02-Feb-2020 Instruction Type:Patient Education Patient Instructions Indication:Former smoker Start:02-Feb-2020 Instruction Type:Provider Instructions for Treatment How to access health informa tion online Indication:Former smoker Start:02-Nov-2019 Instruction Type:Patient Education How to access health informa tion online - Detail Indication:Former smoker Start:02-Nov-2019 Instruction Type:Patient Education Patient Instructions Indication:Former smoker Start:02-Nov-2019 Instruction Type:Provider Instructions for Treatment How to access health informa tion online Indication:Former smoker Start:07-Sep-2019 Instruction Type:Patient Education How to access health informa tion online - Detail Indication:Former smoker Start:07-Sep-2019 Instruction Type:Patient Education Patient Instructions Indication:Former smoker Start:07-Sep-2019 Instruction Type:Provider Instructions for Treatment How to access health informa tion online Indication:Former smoker Start:24-Aug-2019 Instruction Type:Patient Education How to access health informa tion online - Detail Indication:Former smoker Start:24-Aug-2019 Instruction Type:Patient Education Patient Instructions Indication:Former smoker Start:24-Aug-2019 Instruction Type:Provider Instructions for Treatment Name Dates Details Patient Instructions Indication:Former smoker Start:11-Dec-2020 Instruction Type:Provider Instructions for Treatment How to Access Health Informa tion Online using Patient Portal and [employer]rd [employer] Apps Indication:Former smoker Start:11-Dec-2020 Instruction Type:Patient Education Patient Instructions Indication:Former smoker Start:10-Nov-2020 Instruction Type:Provider Instructions for Treatment How to Access Health Informa tion Online using Patient Portal and [employer] Apps Indication:Former smoker Start:10-Nov-2020 Instruction Type:Patient Education How to access health informa tion online Indication:Former smoker Start:02-Feb-2020 Instruction Type:Patient Education How to access health informa tion online - Detail Indication:Former smoker Start:02-Feb-2020 Instruction Type:Patient Education Patient Instructions Indication:Former smoker Start:02-Feb-2020 Instruction Type:Provider Instructions for Treatment How to access health informa tion online Indication:Former smoker Start:02-Nov-2019 Instruction Type:Patient Education How to access health informa tion online - Detail Indication:Former smoker Start:02-Nov-2019 Instruction Type:Patient Education Patient Instructions Indication:Former smoker Start:02-Nov-2019 Instruction Type:Provider Instructions for Treatment How to access health informa tion online Indication:Former smoker Start:07-Sep-2019 Instruction Type:Patient Education How to access health informa tion online - Detail Indication:Former smoker Start:07-Sep-2019 Instruction Type:Patient Education Patient Instructions Indication:Former smoker Start:07-Sep-2019 Instruction Type:Provider Instructions for Treatment How to access health informa tion online Indication:Former smoker Start:24-Aug-2019 Instruction Type:Patient Education How to access health informa tion online - Detail Indication:Former smoker Start:24-Aug-2019 Instruction Type:Patient Education Patient Instructions Indication:Former smoker Start:24-Aug-2019 Instruction Type:Provider Instructions for Treatment Chief Complaint and Reason for Visit Chief Complaint Admit Date 6 M FU January 06, 2025 1:28pm NICOTINE DEP January 26, 2025 6:30p m 6 M FU February 24, 2025 1:34 pm Reason for Visit Admit Date Essential hypertension January 06, 2025 1:2 8pm Palpitations January 06, 2025 1:28pm Chief Complaint 6 m fu PALPITATIONS MAY HOLTER 6 M FU SCREENING Reason for Visit Essential hypertensi on Hyperlipidemia Palpitations Premature atrial contractions Chief Complaint SCREENING 6 M FU INT LABS Reason for Visit Essential hypertensi on Palpitations Chief Complaint MENOPAUSAL STATE Chief Complaint MENOPAUSAL STATE TOBACCO USE dental abscess Chief Complaint XRAY SCREEN Chief Complaint XRAY SCREEN 1 Y FU Reason for Visit JORDAN (dyspnea on exer tion) Essential hypertension Palpitations Chief Complaint Admit Date 6 M FU January 06, 2025 1:28pm NICOTINE DEP January 26, 2025 6:30p m Reason for Referral Specialty Diagnoses / Procedures Referred By Warren singleton Referred To Contact Magnolia Arnold MD [address] [place] [address] Referral ID Status Reason Start Date Expiration Date V isits Requested Visits Authorized [id number] Pending Review 1 1 Additional Source Comments INFORMATION SOURCE (unrecogn ized section and content) DATE CREATED AUTHOR 03/03/2018 [facility] Megan Denny DATE CREATED AUTHOR AUTHOR'S ORGANIZ ATION 11/17/2019 [facility] ([place]) DATE CREATED AUTHOR AUTHOR'S ORGANIZ ATION 12/20/2019 [facility] DATE CREATED AUTHOR AUTHOR'S ORGANIZ ATION 11/04/2020 [facility] DATE CREATED AUTHOR AUTHOR'S ORGANIZ ATION 12/31/2022 [facility] DATE CREATED AUTHOR AUTHOR'S ORGANIZ ATION 03/10/2024 [facility] DATE CREATED AUTHOR AUTHOR'S ORGANIZ ATION 07/15/2025 [facility] Goals (unrecognized section and content) Goals may be documented in a n alternate sectionGoals may be documented in an alternate sectionGoals may be documented in an alternate sectionGoals may be documented in an alternate sectionGoals may be documented in an alternate sectionGoals may be documented in an alternate sectionGoals may be documented in an alternate sectionGoals may be documented in an alternate section Care Teams (unrecognized sec tion and content) Team Status: Active Member Role Status Dates Shakila Carter LEGAL OFFICE ADMINISTRATOR, LEGAL OFFICE ADMINISTRATOR-C Family Provider Active Eugene Ochoa NP-Malathi Primary Care Provider Active Team Status: Inactive Member Role Status Dates Eugene Ochoa NP-C Primary Care Provi heidi, Attending Provider, Referring Provider Active Team Status: Inactive Member Role Status Dates Eugene Ochoa NP-Malathi Primary Care Provider Active Dr. Kaylee Fleming MD Emergency Provider Active Garbage Truck Helper Relationship Specialty Start Date End Date Shakila Carter CNP [address] [facility] [address] [place], [place] [id number] PCP - General Internal Medicine 12/13/19 Joseph Patten MD Specialty Flying Ii Instructor Cardiology 12/13/19 Team Status: Inactive Member Role Status Dates Eugene Ochoa NP-Malathi Primary Care Provider Active Dr. Bob Power MD Attending Provider Active Team Status: Inactive Member Role Status Dates Eugene Ochoa NP-C Primary Care Provider, Referring Provider Active Erendira Michel LEGAL OFFICE ADMINISTRATOR, LEGAL OFFICE ADMINISTRATOR-C Attending Provider Active Team Status: Inactive Member Role Status Dates Eugene Ochoa NP-C Primary Care Provider Active Erendira Michel NP, LEGAL OFFICE ADMINISTRATOR-C Attending Provider Active Garbage Truck Helper Relationship Specialty Start Date End Date Shakila Carter PEN RIDER [address] [facility] [address] [address] [place], [place] [address] PCP - General Internal Medicine 12/13/19 Joseph Patten MD Specialty Flying Ii Instructor Cardiology 12/13/19 Garbage Truck Helper Relationship Specialty Start Date End Date Shakila Carter CNP [address] [facility] [address] [place] [address] PCP - General Internal Medicine 12/13/19 Joseph Patten MD Specialty Flying Ii Instructor Cardiology 12/13/19 Garbage Truck Helper Relationship Specialty Start Date End Date Shakila Carter CNP [address] [facility] [address] [place] [address] PCP - General Internal Medicine 12/13/19 Joseph Patten MD Specialty Flying Ii Instructor Cardiology 12/13/19 Garbage Truck Helper Relationship Specialty Start Date End Date Shakila Carter CNP [address] [facility] [address] [place] [address] PCP - General Internal Medicine 12/13/19 Joseph Patten MD Specialty Flying Ii Instructor Cardiology 12/13/19 Garbage Truck Helper Relationship Specialty Start Date End Date Shakila Carter CNP [address] [facility] [address] [place] [address] PCP - General Internal Medicine 12/13/19 Joseph Patten MD Specialty Flying Ii Instructor Cardiology 12/13/19 Garbage Truck Helper Relationship Specialty Start Date End Date Shakila Carter CNP [address] [facility] [address] [place] [address] PCP - General Internal Medicine 12/13/19 Joseph Patten MD Specialty Flying Ii Instructor Cardiology 12/13/19 Kaylee Murray PA-C [address] [place] [address] Pulmonary and Critical Care Medicine 11/03/23 Garbage Truck Helper Relationship Specialty Start Date End Date Eugene Ochoa CNP [address] [facility] [address] [place] [address] PCP - General Family Medicine 02/10/24 Joseph Patten MD Specialty Flying Ii Instructor Cardiology 12/13/19 Kaylee Murray PA-C [address] [place] [address] Pulmonary and Critical Care Medicine 11/03/23 Garbage Truck Helper Relationship Specialty Start Date End Date Eugene Ochoa CNP [address] [facility] [address] [place] [address] PCP - General Family Medicine 02/10/24 Joseph Patten MD Specialty Flying Ii Instructor Cardiology 12/13/19 Kaylee Murray PA-C [address] [place] [address] Pulmonary and Critical Care Medicine 11/03/23 Garbage Truck Helper Relationship Specialty Start Date End Date Eugene Ochoa CNP [address] [facility] [address] [place] [address] PCP - General Family Medicine 02/10/24 Joseph Patten MD Specialty Flying Ii Instructor Cardiology 12/13/19 Kaylee Murray PA-C [address] [place], [place] [address] Pulmonary and Critical Care Medicine 11/03/23 Garbage Truck Helper Relationship Specialty Start Date End Date Eugene Ochoa CNP [address] [address] [place], [place] [id number] PCP - General Family Medicine 02/10/24 Joseph Patten MD Specialty Flying Ii Instructor Cardiology 12/13/19 Kaylee Murray PA-C [address] [place], [place] [address] Pulmonary and Critical Care Medicine 11/03/23 Team Status: Active Member Role Status Dates Eugene Ochoa LEGAL OFFICE ADMINISTRATOR-C Primary Care Provider Active Team Status: Inactive Member Role Status Dates Eugene Ochoa NP-C Primary Care Provider Active Start: January 06, 2025 End: January 06, 2025 Eugene Ochoa NP-C Referring Provider Active Start: January 06, 2025 End: January 06, 2025 Erendira Michel LEGAL OFFICE ADMINISTRATOR, LEGAL OFFICE ADMINISTRATOR-C Attending Provider Active Start: January 06, 2025 End: January 06, 2025 Team Status: Inactive Member Role Status Dates Eugene Ochoa NP-C Primary Care Provider Active Start: January 26, 2025 End: January 26, 2025 Shama Decker LEGAL OFFICE ADMINISTRATOR, LEGAL OFFICE ADMINISTRATOR-C Attending Provider Active Start: January 26, 2025 End: January 26, 2025 Shama Decker LEGAL OFFICE ADMINISTRATOR, LEGAL OFFICE ADMINISTRATOR-C Referring Provider Active Start: January 26, 2025 End: January 26, 2025 Team Status: Inactive Member Role Status Dates Eugene Ochoa NP-C Primary Care Provider Active Start: February 24, 2025 End: February 24, 2025 RANDEE Caputo Referring Provider Active Start: February 24, 2025 End: February 24, 2025 RANDEE Dorman NP Attending Provider Active Start: February 24, 2025 End: February 24, 2025 Source Comments (unrecognize d section and content) In the event this informatio n is protected by the Federal Confidentiality of Alcohol and Drug Abuse Patient Records regulations: The Federal rules restrict any use of the information to criminally investigate or prosecute any alcohol or drug abuse patient.[facility] [place] the event this information is protected by the Federal Confidentiality of Alcohol and Drug Abuse Patient Records regulations: The Federal rules restrict any use of the information to criminally investigate or prosecute any alcohol or drug abuse patient.[facility] [place] the event this information is protected by the Federal Confidentiality of Alcohol and Drug Abuse Patient Records regulations: The Federal rules restrict any use of the information to criminally investigate or prosecute any alcohol or drug abuse patient.[facility] [place] the event this information is protected by the Federal Confidentiality of Alcohol and Drug Abuse Patient Records regulations: The Federal rules restrict any use of the information to criminally investigate or prosecute any alcohol or drug abuse patient.[facility] [place] the event this information is protected by the Federal Confidentiality of Alcohol and Drug Abuse Patient Records regulations: The Federal rules restrict any use of the information to criminally investigate or prosecute any alcohol or drug abuse patient.[facility] [place] the event this information is protected by the Federal Confidentiality of Alcohol and Drug Abuse Patient Records regulations: The Federal rules restrict any use of the information to criminally investigate or prosecute any alcohol or drug abuse patient.[facility] [place]In the event this information is protected by the Federal Confidentiality of Alcohol and Drug Abuse Patient Records regulations: The Federal rules restrict any use of the information to criminally investigate or prosecute any alcohol or drug abuse patient.[facility] [place]In the event this information is protected by the Federal Confidentiality of Alcohol and Drug Abuse Patient Records regulations: The Federal rules restrict any use of the information to criminally investigate or prosecute any alcohol or drug abuse patient.[facility] [place]In the event this information is protected by the Federal Confidentiality of Alcohol and Drug Abuse Patient Records regulations: The Federal rules restrict any use of the information to criminally investigate or prosecute any alcohol or drug abuse patient.[facility] [place]In the event this information is protected by the Federal Confidentiality of Alcohol and Drug Abuse Patient Records regulations: The Federal rules restrict any use of the information to criminally investigate or prosecute any alcohol or drug abuse patient.[facility] [place]In the event this information is protected by the Federal Confidentiality of Alcohol and Drug Abuse Patient Records regulations: The Federal rules restrict any use of the information to criminally investigate or prosecute any alcohol or drug abuse patient.[facility] [place]In the event this information is protected by the Federal Confidentiality of Alcohol and Drug Abuse Patient Records regulations: The Federal rules restrict any use of the information to criminally investigate or prosecute any alcohol or drug abuse patient.[facility] [place]In the event this information is protected by the Federal Confidentiality of Alcohol and Drug Abuse Patient Records regulations: The Federal rules restrict any use of the information to criminally investigate or prosecute any alcohol or drug abuse patient.[facility] [place] Reason for Visit (unrecogniz ed section and content) Reason Comments Well Woman Reason Comments Spirometry Specialty Diagnoses / Procedures Referred By Warren singleton Ref[facility] Diagnoses Chronic obstructive pulmonary disease, unspecified COPD type (HCC) Procedures SPIROMETRY WITH DILATOR IF OBSTRUCTED BRNCDILAT RSPSE SPMTRY PRE&POST-BRNCDILAT ADMN Magnolia Arnold MD [address] [place] [address] [facility] [address] [place] [address] Referral ID Status Reason Start Date Expiration Date V isits Requested Visits Authorized [id number] Closed Auto-Generate d Referral 08/08/2023 09/07/2023 1 1 Specialty Diagnoses / Procedures Referred By Warren singleton Referred To Contact [facility] Diagnoses Chronic obstructive pulmonary disease, unspecified COPD type (HCC) Procedures LUNG DIFFUSION CAPACITY (DLCO) DIFFUSING CAPACITY Magnolia Arnold MD [address] [place] [address] [facility] [place] [address] [place] [address] Referral ID Status Reason Start Date Expiration Date V isits Requested Visits Authorized [id number] Closed Auto-Generate d Referral 08/08/2023 09/07/2023 1 1 Specialty Diagnoses / Procedures Referred By Contac t Referred To Contact [facility] Diagnoses Cough, unspecified type Procedures NITRIC OXIDE, EXHALED NITRIC OXIDE GAS DETERMINATION Magnolia Arnold MD [address] [place] [id number] [facility] [address] [place] [address] Referral ID Status Reason Start Date Expiration Date V isits Requested Visits Authorized [id number] Closed Auto-Generate d Referral 08/08/2023 09/07/2023 1 1 Reason Comments New Patient COPD Reason Comments Medication Problem Reason Onset Date Comments Refill Request 10/29/2023 Reason Comments Billing issue 01/07 CT question Reason Comments Established Patient 4 month follow up as thut Reason Comments Patient Update FOR RECORDS PERTAINING TO PATIENTS WHO ARE OR HAVE BEEN ENROLLED IN A CHEMICAL DEPENDENCY/SUBSTANCEABUSE PROGRAM, SOME INFORMATION MAY BE OMITTED. This clinical summary was aggregated from multiple sources. Caution should be exercised in using it in the provision of clinical care. This summary normalizes information from multiple sources, and as a consequence, information in this document may materially change the coding, format and clinical context of patient data. In addition, data may be omitted in some cases. CLINICAL DECISIONS SHOULD BE BASED ON THE PRIMARY CLINICAL RECORDS. [employer] provides no warranty or guarantee of the accuracy or completeness of information in this document.
[2025-08-24 08:19] LABS: Color, Urine Yellow (Yellow); Glucose, Dipstick Normal (Normal); Ketone-Dipstick Negative (Negative); Leukocyte Esterase-Dipstick 500 /ul (Negative); Nitrite-Dipstick Negative (Negative); Occult Blood-Urine 10 /ul (Negative); Protein-Dipstick 15 mg/dl (Negative); Specific Gravity, Urine 1.025 (1.002-1.030); Urine Bilirubin Dipstick Negative (Negative)
[2025-08-24 08:49] LABS: Creatinine, Urine (random) 124.00 mg/dL (28.00-217.00); Microalbumin,Random Urine < 12.0 mg/L (<20 mg/L)
[2025-08-24 09:17] LABS: Cholesterol 202 mg/dL (<=200); Low Density Lipoprotein Calc. 126 mg/dL; Triglycerides 64 mg/dL; Very Low Density Lipoprotein 13 mg/dL (5-40); Vitamin D,25 Hydroxy 30.2 ng/mL (30-100); cholesterol:hdl ratio screen 3.11
== END | disposition home or self-care (01) ==
LOC: LAB 07:21
PROVIDERS: PCP Nurse Practitioner Family; Visit Provider Nurse Practitioner Family
DX: I10 Essential (primary) hypertension (principal); E55.9 Vitamin D deficiency, unspecified; E78.2 Mixed hyperlipidemia; R73.03 Prediabetes
CPT/HCPCS: 36415; 80061; 81002; 82043; 82306; 82570; 84443

== ENCOUNTER → 2025-08-30 | Outpatient (CLI) | payer OTHER, SELFPAY | END | disposition home or self-care (01) | LOC: VSLAB 14:07 | PROVIDERS: PCP Nurse Practitioner Family; Referring Provider Nurse Practitioner Family; Visit Provider Nurse Practitioner Family | DX: R30.0 Dysuria (principal) | CPT/HCPCS: 87086 ==